=== PATIENT | male | born 1935 | race Caucasian/White ===

== ENCOUNTER 2019-03-29 21:10 | Inpatient (IN) | payer MEDICARE, OTHER ==
[~2019-03-29] VITALS: Ht 154.9 cm; Wt 46.3 kg
--- NOTE | 2019-03-29 21:30 | NUR ---
ED Nurse Note: Recieved pt BIBA from home, here with c/o generalized weakness progressing for past week, pt has hx of colon cancer and just released from hospital 1 week ago per daughter, pt has left colostomy, right nephrostomy and suprapubic cath, no drainage from suprapubic, daughter states since release from hospital, small amount noted in nephrostomy, pt immediately gowned and placed on monitoring, IV line placed also and labs, will resume care as ordered and closely monitor.
[2019-03-29 21:56] LABS: HEMATOCRIT 30.2 % (42.0-52.0); HEMOGLOBIN 9.6 G/DL (14.2-18.0); MEAN CORPUSCULAR VOLUME 90 FL (80-99); PLATELET COUNT 437 K/UL (150-450); RED BLOOD COUNT 3.37 M/UL (4.70-6.10); RED CELL DISTRIBUTION WIDTH 13.6 % (11.6-14.8); WHITE BLOOD COUNT 20.1 K/UL (4.8-10.8)
[2019-03-29 22:26] LABS: APPEARANCE,URINE VERY CLOUDY; BILIRUBIN, URINE NEGATIVE (NEGATIVE); GLUCOSE, URINE (UA) NEGATIVE (NEGATIVE); KETONES,URINE 1+ (NEGATIVE); LEUKOCYTE ESTERASE ,URINE 3+ (NEGATIVE); NITRITE,URINE NEGATIVE (NEGATIVE); PH,URINE 6.5 (4.5-8.0); PROTEIN,URINE 4+ (NEGATIVE); UROBILINOGEN,URINE 1 MG/DL (0.0-1.0)
[2019-03-29 22:27] LABS: COLOR,URINE YELLOW
[2019-03-29 22:30] VITALS: BP 132/44
[2019-03-29] MEDS ORDERED: Morphine Sulfate 2mg/ml Inj(IV/IM USE ONLY) IVP ONE (22:30)
--- NOTE | 2019-03-29 22:30 | Emergency Room Report ---
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 He has a nephrostomy tube and suprapubic catheter. According to the daughter suprapubic catheter has been working for a week now. He was doing well until today when he started getting weak and weaker. Tonight when she came home, he had altered mental status. Very weak. [place] warm to the touch. Usually when this happened he has an infection. No nausea no vomiting. Decreased appetite. Does have pain to the suprapubic area. This seem to be worse than usual. She called 911 and he was brought here. Allergies: Coded Allergies: No Known Allergies (Unverified , 03/29/19) Patient History Past Medical History: see triage record, old chart reviewed Past Surgical History: other Pertinent Family History: none Social History: Denies: smoking Immunizations: other Reviewed Nursing Documentation: PMH: Agreed; PSxH: Agreed Nursing Documentation-PMH Past Medical History: No History, Except For Hx Cancer: Yes - Rectal Cancer Review of Systems Constitutional: Reports: fever Eye: Denies: eye pain, blurred vision ENT: Denies: ear pain, nose congestion, throat swelling Respiratory: Denies: cough, shortness of breath Cardiovascular: Denies: chest pain, palpitations Gastrointestinal: Denies: abdominal pain, diarrhea, nausea, vomiting Genitourinary: Reports: dysuria Musculoskeletal: Denies: back pain, joint pain Skin: Denies: rash Neurological: Denies: headache, numbness Endocrine: Denies: increased thirst, increased urine Hematologic/Lymphatic: Denies: easy bruising All Other Systems: negative except mentioned in HPI Physical Exam Vital Signs Date Time Temp Pulse Resp B/P (MAP) Pulse Ox O2 Delivery O2 Flow Rate FiO2 03/29/19 21:05 98.1 70 18 104/57 (73) 98 Room Air Vitals unremarkable Sp02 EP Interpretation: reviewed, normal General Appearance: well appearing, alert, Chronically Ill Head: normocephalic, atraumatic Eyes: bilateral eye PERRL, bilateral eye EOMI ENT: hearing grossly normal, normal pharynx Neck: full range of motion, supple, no meningismus Respiratory: chest non-tender, lungs clear, normal breath sounds Cardiovascular #1: regular rate, rhythm, no murmur Gastrointestinal: normal bowel sounds, non tender, no mass, no organomegaly, no bruit, non-distended Genitourinary: other - Suprapubic catheter with cloudy scant urine output. Right nephrostomy tube with cloudy urine Musculoskeletal: back normal, normal range of motion, gait/station normal Psychiatric: mood/affect normal Procedures Additional Procedure Procedure Narrative Procedure: Suprapubic catheter replacement Indication: Suprapubic catheter malfunction Description: I deflate the balloon and remove the old [place] suprapubic catheter. I saw that the stoma is wider than the 12 [place] catheter. I elected to place a 16 [place] Carrillo. It went in without any difficulty. It flushes easily. There was urine output. Patient tolerated surgery without any problem. This was done under sterile condition. Medical Decision Making Diagnostic Impression: Primary Impression: Sepsis Qualified Codes: A41.9 - Sepsis, unspecified organism; R65.20 - Severe sepsis without septic shock; N17.9 - Acute kidney failure, unspecified Additional Impressions: UTI (urinary tract infection) Qualified Codes: N30.00 - Acute cystitis without hematuria Suprapubic catheter dysfunction Qualified Codes: T83.010A - Breakdown (mechanical) of cystostomy catheter, initial encounter Acute metabolic encephalopathy Anemia Qualified Codes: D64.9 - Anemia, unspecified CKD (chronic kidney disease) Qualified Codes: N18.9 - Chronic kidney disease, unspecified JOSE MANUEL (acute kidney injury) ER Course Patient with sepsis secondary to UTI. He has a complicated history with metastatic colon cancer with mets to the bladder and kidney. He has nephrostomy and suprapubic catheter. This increases risk for infection. His nephrostomy tube is functioning fine. His suprapubic catheter was not draining. I removed it and replaced another one. The old one was clogged. She improved with IV fluids. Unknown kidney function baseline. The daughter did say that he has 1 functioning kidney and there is some abnormality. She does not know baseline creatinine. I gave him wide spectrum antibiotics. No evidence of any pneumonia, ACS, PE, dissection Tamiflu. There is no focal deficit to warrant a CT scan. I discussed the case with Dr. Alberto who will admit. EKG Diagnostic Results Rate: normal Rhythm: NSR ST Segments: other - RBBB Rhythm Strip Diag. Results EP Interpretation: yes Rate: 88 Rhythm: NSR, no PVC's, no ectopy Chest X-Ray Diagnostic Results Chest X-Ray Diagnostic Results : Chest X-Ray Ordered: Yes # of Views/Limited/Complete: 1 View Indication: Other - ams EP Interpretation: Yes Interpretation: no consolidation, no effusion, no pneumothorax, no acute cardiopulmonary disease Impression: No acute disease Electronically Signed by: Javier Copeland MD Last Vital Signs Date Time Temp Pulse Resp B/P (MAP) Pulse Ox O2 Delivery O2 Flow Rate FiO2 03/29/19 21:30 70 18 Room Air 03/29/19 21:05 98.1 104/57 (73) 98 Status: improved Disposition: ADMITTED INPATIENT Condition: Serious Javier Copeland MD Mar 29, 2019 22:30
[2019-03-29 22:32] LABS: ANION GAP 12 mmol/L (5-15); BLOOD UREA NITROGEN 51 mg/dL (7-18); CALCIUM 9.6 MG/DL (8.5-10.1); CARBON DIOXIDE 24 MMOL/L (21-32); CHLORIDE 99 MMOL/L (98-107); CREATININE 2.4 MG/DL (0.55-1.30); SODIUM 134 MMOL/L (136-145)
[2019-03-29 22:45] LABS: ALANINE AMINOTRANSFERASE 112 U/L (12-78); ALBUMIN 1.9 G/DL (3.4-5.0); ALBUMIN/GLOBULIN RATIO 0.3 (1.0-2.7); ALKALINE PHOSPHATASE 343 U/L (46-116); ASPARTATE AMINO TRANSFERASE 105 U/L (15-37); BILIRUBIN,TOTAL 0.9 MG/DL (0.2-1.0); CKMB 0.8 NG/ML (0.0-3.6); CREATINE KINASE 38 U/L (26-308)
[2019-03-29] MEDS ORDERED: Cefepime HCl 2 GM in D5W 55 ML IVPB ONE (22:45)
--- NOTE | 2019-03-29 23:25 | Emergency Room Report ---
Sepsis Event Note Evaluation Current Stage of Sepsis: Sepsis Possible Source: Genitourinary Focused Exam Allergies: Coded Allergies: No Known Allergies (Unverified , 03/29/19) Date Exam Occurred: Mar 29, 2019 Time Exam Occurred: 23:24 Laboratory Studies Laboratory Tests Test 03/29/19 21:40 03/29/19 22:05 White Blood Count 20.1 K/UL (4.8-10.8) H Red Blood Count 3.37 M/UL (4.70-6.10) L Hemoglobin 9.6 G/DL (14.2-18.0) L Hematocrit 30.2 % (42.0-52.0) L Mean Corpuscular Volume 90 FL (80-99) Mean Corpuscular Hemoglobin 28.4 PG (27.0-31.0) Mean Corpuscular Hemoglobin Concent 31.7 G/DL (32.0-36.0) L Red Cell Distribution Width 13.6 % (11.6-14.8) Platelet Count 437 K/UL (150-450) Mean Platelet Volume 8.6 FL (6.5-10.1) Neutrophils (%) (Auto) % (45.0-75.0) Lymphocytes (%) (Auto) % (20.0-45.0) Monocytes (%) (Auto) % (1.0-10.0) Eosinophils (%) (Auto) % (0.0-3.0) Basophils (%) (Auto) % (0.0-2.0) Differential Total Cells Counted 100 Neutrophils % (Manual) 88 % (45-75) H Lymphocytes % (Manual) 4 % (20-45) L Monocytes % (Manual) 4 % (1-10) Eosinophils % (Manual) 0 % (0-3) Basophils % (Manual) 0 % (0-2) Band Neutrophils 4 % (0-8) Platelet Estimate Adequate Platelet Morphology Normal Red Blood Cell Morphology Normal Sodium Level 134 MMOL/L (136-145) L Potassium Level 4.0 MMOL/L (3.5-5.1) Chloride Level 99 MMOL/L (98-107) Carbon Dioxide Level 24 MMOL/L (21-32) Anion Gap 12 mmol/L (5-15) Blood Urea Nitrogen 51 mg/dL (7-18) H Creatinine 2.4 MG/DL (0.55-1.30) H Estimat Glomerular Filtration Rate 25.9 mL/min (>60) Glucose Level 141 MG/DL (74-106) H Lactic Acid Level 1.20 mmol/L (0.4-2.0) Calcium Level 9.6 MG/DL (8.5-10.1) Total Bilirubin 0.9 MG/DL (0.2-1.0) Aspartate Amino Transf (AST/SGOT) 105 U/L (15-37) H Alanine Aminotransferase (ALT/SGPT) 112 U/L (12-78) H Alkaline Phosphatase 343 U/L (46-116) H Total Creatine Kinase 38 U/L (26-308) Creatine Kinase MB 0.8 NG/ML (0.0-3.6) Creatine Kinase MB Relative Index 2.1 Troponin I 0.000 ng/mL (0.000-0.056) Total Protein 7.5 G/DL (6.4-8.2) Albumin 1.9 G/DL (3.4-5.0) L Globulin 5.6 g/dL Albumin/Globulin Ratio 0.3 (1.0-2.7) L Urine Color Yellow Urine Appearance Very cloudy Urine pH 6.5 (4.5-8.0) Urine Specific [place] 1.010 (1.005-1.035) Urine Protein 4+ (NEGATIVE) H Urine Glucose (UA) Negative (NEGATIVE) Urine Ketones 1+ (NEGATIVE) H Urine Blood 5+ (NEGATIVE) H Urine Nitrite Negative (NEGATIVE) Urine Bilirubin Negative (NEGATIVE) Urine Urobilinogen 1 MG/DL (0.0-1.0) H Urine Leukocyte Esterase 3+ (NEGATIVE) H Urine RBC Tntc /HPF (0 - 0) H Urine WBC Tntc /HPF (0 - 0) H Urine Squamous Epithelial Cells None /LPF (NONE/OCC) Urine Bacteria Many /HPF (NONE) H Vital Signs Last 24 Hour Vital Signs Date Time Temp Pulse Resp B/P (MAP) Pulse Ox O2 Delivery O2 Flow Rate FiO2 03/29/19 22:30 98.1 79 18 132/44 98 Room Air 03/29/19 21:30 70 18 Room Air 03/29/19 21:05 98.1 70 18 104/57 (73) 98 Room Air Respiratory Exam: Clear Cardiovascular Exam: RRR, S1, S2 Capillary Refill: Less Than 2 Seconds Peripheral Pulse: Strong Pulse Location: Radial Skin Exam: Normal Turgor Javier Copeland MD Mar 29, 2019 23:24
[2019-03-29] MEDS ORDERED: Miralax 17gm pkt ORAL PRN (23:45)
[2019-03-29] MEDS ORDERED: DiphenhydrAMINE 25mg Tab ORAL PRN (23:45)
[2019-03-29] MEDS ORDERED: Nitroglycerin Subl 0.4mg tab SL PRN (23:45)
[2019-03-30] VITALS (9 sets, daily range): BP systolic 111–144; BP diastolic 43–61
--- NOTE | 2019-03-30 | NUR ---
ED Nurse Note: Pt continues to rest in bed, on cardiac monitoring, IV site patent, pt completed IV antibiotics, tolerated well, no s/s of adverse reaction noted, v/s stable, will continue to closely monitor, pt has admit orders, no beds available, will continue to provide needed care in ED.
--- NOTE | 2019-03-30 01:25 | NUR ---
ED Nurse Note: MD changed pt suprapubic cath, also irrigated with no return, nephrostomy continues to drain small amounts only, pt on monitoring, medicated for pain, IV suite patent, pt assisted with re-positioning with pilows, no changes or increased distress noted, will board pt and continue to closely monitor, pt room changed and also placed on striker bed.
[2019-03-30] MEDS: D5 1/2NS 1,000 ML IV SCH ×2 (01:36→14:04)
[2019-03-30] MEDS ORDERED: Morphine Sulfate 2mg/ml Inj(IV/IM USE ONLY) IVP ONE (02:00)
[2019-03-30 02:54] LABS: CREATINE KINASE 41 U/L (26-308)
--- NOTE | 2019-03-30 03:30 | NUR ---
ED Nurse Note: No changes in condition or acute distress noted, pt sleeping, on cardiac monitoring, IV site patent with fluids infusing, tolerating well, suprapubic cath continues to have very little to no drainage return, small amount in nephrostomy, MD aware, pt assisted with re-positioning, nad noted, will continue to closely monitor.
--- NOTE | 2019-03-30 05:45 | NUR ---
ED Nurse Note: Pt continues to sleep in bed, awakened and am labs drawn and sent, pt swabs collected for admission, remains awake and alert, assisted with re-positioning, no acute chagnes noted, all caths intact, pt scrotum remains swollen, continues with little to no drainage from nephrostomy and suprapubic, IV site patent with fluids infusing, will continue to monitor and send to floor bed for admission.
[2019-03-30 06:32] LABS: APPEARANCE,URINE CLOUDY; BILIRUBIN, URINE NEGATIVE (NEGATIVE); GLUCOSE, URINE (UA) NEGATIVE (NEGATIVE); KETONES,URINE 1+ (NEGATIVE); LEUKOCYTE ESTERASE ,URINE 3+ (NEGATIVE); NITRITE,URINE NEGATIVE (NEGATIVE); PH,URINE 6 (4.5-8.0); PROTEIN,URINE 4+ (NEGATIVE); UROBILINOGEN,URINE 1 MG/DL (0.0-1.0)
[2019-03-30 06:36] LABS: HEMATOCRIT 28.1 % (42.0-52.0); HEMOGLOBIN 9.3 G/DL (14.2-18.0); MEAN CORPUSCULAR VOLUME 87 FL (80-99); PLATELET COUNT 404 K/UL (150-450); RED BLOOD COUNT 3.22 M/UL (4.70-6.10); RED CELL DISTRIBUTION WIDTH 12.9 % (11.6-14.8); WHITE BLOOD COUNT 20.2 K/UL (4.8-10.8)
[2019-03-30 06:55] LABS: COLOR,URINE YELLOW
[2019-03-30 07:08] LABS: ALANINE AMINOTRANSFERASE 96 U/L (12-78); ALBUMIN 1.6 G/DL (3.4-5.0); ALBUMIN/GLOBULIN RATIO 0.3 (1.0-2.7); ALKALINE PHOSPHATASE 290 U/L (46-116); AMYLASE 130 U/L (25-115); ANION GAP 12 mmol/L (5-15); ASPARTATE AMINO TRANSFERASE 91 U/L (15-37); BILIRUBIN,TOTAL 0.7 MG/DL (0.2-1.0); BLOOD UREA NITROGEN 44 mg/dL (7-18); CALCIUM 8.7 MG/DL (8.5-10.1); CARBON DIOXIDE 19 MMOL/L (21-32); CHLORIDE 106 MMOL/L (98-107); CREATININE 2.1 MG/DL (0.55-1.30); POTASSIUM 4.1 MMOL/L (3.5-5.1); SODIUM 137 MMOL/L (136-145)
--- NOTE | 2019-03-30 07:40 | NUR ---
HAND-OFF: Report given to ULICES Valente.
--- NOTE | 2019-03-30 09:37 | NUR ---
ED Nurse Note:swabs are sent to labs, pt. is comfortable, still NPO, given meds
[2019-03-30] MEDS: Pantoprazole Inj IVP SCH (09:40)
[2019-03-30] MEDS: Heparin 5000 units/ml inj SUBQ SCH ×2 (09:42→21:53)
--- NOTE | 2019-03-30 12:23 | Diagnostic Imaging Report ---
Indication: Dyspnea Comparison: None A single view chest radiograph was obtained. Findings: No definite infiltrate or pulmonary vascular congestion identified. The heart is normal in size. Sternotomy noted. The aorta is mildly enlarged consistent with atherosclerotic vascular disease. The bones are osteopenic. Impression: No acute disease
--- NOTE | 2019-03-30 13:00 | NUR ---
ED Nurse Note:called report to 4 east- pt. was taken up stairs
--- NOTE | 2019-03-30 13:05 | NUR ---
NURSE NOTES: Report received from Sidra. Patient is presenting with generalized weakness due to sepsis and UTI. Registered Public Surveyor phone used to speak with patient due to primary language being [place]. Patient found to be alert to person and place. patient currently on room air, does not appear to be in respiratory distress. 20 scott IV noted in right forearm with IV fluids running per MD orders. Colostomy noted on left lower abdomen. Stoma pink and appears healthy. Draining soft brown stool. Colostomy in place and patent. Super pubic catheter present with drainage back in place. Draining clear yellow urine. Nephrostomy tube present with drainage bag. Draining clear yellow urine. 350 cc emptied from nephrostomy bag. Skin assessment done. No skin issues. Skin dry and intact. Patient does not appear to be in pain at this time. Patient given sponge bath and repositioned in bed. Upon assessment patient found to have a fall score of 60, placing him at a high risk for fall. Yellow socks placed, sign on door, bed alarm on, and will endorse to next shift. Will continue to follow plan of care.
--- NOTE | 2019-03-30 13:30 | NUR ---
NURSE NOTES: Patient identified as a high fall risk. score of 60. Made acute care nursing assistant Mo aware. Will preform frequent checks. Bed locked, alarmed zone 1, and in lowest position. Sign posted on door. Yellow socks on.
--- NOTE | 2019-03-30 14:06 | Consultation ---
History of Present Illness General Date patient seen: Mar 30, 2019 Chief Complaint: Generalized Weakness Present Illness HPI 83 y/o M with hx of Stage IV colon CA with mets to Kidney and bladder s/p resection and colostomy, s/p suprapubic catheter, s/p nephrostomy catheter presented to ED on 03/29 with weakness, altered mental status, decreased appetite and suprapubic pain. No report of nausea and vomiting Allergies: Coded Allergies: No Known Allergies (Unverified , 03/29/19) Patient History Healthcare decision maker Resuscitation status Advanced Directive on File Patient History Narrative Pmhx: as above Shx: Denies: smoking Fhx: non contributory Physical Exam Physical Exam Narrative General Appearance: well appearing, alert, Chronically Ill Head: normocephalic, atraumatic Eyes: bilateral eye PERRL, bilateral eye EOMI ENT: hearing grossly normal, normal pharynx Neck: full range of motion, supple, no meningismus Respiratory: chest non-tender, lungs clear, normal breath sounds Cardiovascular : regular rate, rhythm, no murmur Gastrointestinal: normal bowel sounds, non tender, no mass, no organomegaly, no bruit, non-distended Genitourinary: other - Suprapubic catheter with cloudy scant urine output. Right nephrostomy tube with cloudy urine Musculoskeletal: back normal, normal range of motion, gait/station normal Psychiatric: mood/affect normal Last 24 Hour Vital Signs Date Time Temp Pulse Resp B/P (MAP) Pulse Ox O2 Delivery O2 Flow Rate FiO2 03/30/19 13:00 98.4 77 20 124/43 99 Room Air 03/30/19 13:00 98.4 77 20 124/43 99 Room Air 03/30/19 09:35 98.4 78 18 133/48 99 Room Air 03/30/19 07:00 98.4 94 18 135/48 100 Room Air 03/30/19 05:45 98.1 92 18 140/52 100 Room Air 03/30/19 03:30 98.1 77 15 132/58 99 Room Air 03/30/19 02:30 98.1 03/30/19 01:45 98.1 71 18 111/61 98 Room Air 03/30/19 00:00 98.1 83 18 122/56 98 Room Air 03/29/19 22:58 98.1 03/29/19 22:30 98.1 79 18 132/44 98 Room Air 03/29/19 21:30 70 18 Room Air 03/29/19 21:05 98.1 70 18 104/57 (73) 98 Room Air Intake and Output 03/29/19 03/30/19 19:00 07:00 Output Total 100 ml Balance -100 ml Output Urine Total 100 ml Laboratory Tests Test 03/29/19 21:30 03/29/19 21:40 03/29/19 22:05 03/30/19 06:00 Uric Acid 7.2 MG/DL (2.6-7.2) Total Creatine Kinase 41 U/L (26-308) 38 U/L (26-308) White Blood Count 20.1 K/UL (4.8-10.8) H 20.2 K/UL (4.8-10.8) H Red Blood Count 3.37 M/UL (4.70-6.10) L 3.22 M/UL (4.70-6.10) L Hemoglobin 9.6 G/DL (14.2-18.0) L 9.3 G/DL (14.2-18.0) L Hematocrit 30.2 % (42.0-52.0) L 28.1 % (42.0-52.0) L Mean Corpuscular Volume 90 FL (80-99) 87 FL (80-99) Mean Corpuscular Hemoglobin 28.4 PG (27.0-31.0) 29.0 PG (27.0-31.0) Mean Corpuscular Hemoglobin Concent 31.7 G/DL (32.0-36.0) L 33.2 G/DL (32.0-36.0) Red Cell Distribution Width 13.6 % (11.6-14.8) 12.9 % (11.6-14.8) Platelet Count 437 K/UL (150-450) 404 K/UL (150-450) Mean Platelet Volume 8.6 FL (6.5-10.1) 7.3 FL (6.5-10.1) Neutrophils (%) (Auto) % (45.0-75.0) % (45.0-75.0) Lymphocytes (%) (Auto) % (20.0-45.0) % (20.0-45.0) Monocytes (%) (Auto) % (1.0-10.0) % (1.0-10.0) Eosinophils (%) (Auto) % (0.0-3.0) % (0.0-3.0) Basophils (%) (Auto) % (0.0-2.0) % (0.0-2.0) Differential Total Cells Counted 100 100 Neutrophils % (Manual) 88 % (45-75) H 88 % (45-75) H Lymphocytes % (Manual) 4 % (20-45) L 5 % (20-45) L Monocytes % (Manual) 4 % (1-10) 7 % (1-10) Eosinophils % (Manual) 0 % (0-3) 0 % (0-3) Basophils % (Manual) 0 % (0-2) 0 % (0-2) Band Neutrophils 4 % (0-8) 0 % (0-8) Platelet Estimate Adequate Adequate Platelet Morphology Normal Normal Red Blood Cell Morphology Normal Sodium Level 134 MMOL/L (136-145) L 137 MMOL/L (136-145) Potassium Level 4.0 MMOL/L (3.5-5.1) 4.1 MMOL/L (3.5-5.1) Chloride Level 99 MMOL/L (98-107) 106 MMOL/L (98-107) Carbon Dioxide Level 24 MMOL/L (21-32) 19 MMOL/L (21-32) L Anion Gap 12 mmol/L (5-15) 12 mmol/L (5-15) Blood Urea Nitrogen 51 mg/dL (7-18) H 44 mg/dL (7-18) H Creatinine 2.4 MG/DL (0.55-1.30) H 2.1 MG/DL (0.55-1.30) H Estimat Glomerular Filtration Rate 25.9 mL/min (>60) 30.2 mL/min (>60) Glucose Level 141 MG/DL (74-106) H 139 MG/DL (74-106) H Lactic Acid Level 1.20 mmol/L (0.4-2.0) Calcium Level 9.6 MG/DL (8.5-10.1) 8.7 MG/DL (8.5-10.1) Total Bilirubin 0.9 MG/DL (0.2-1.0) 0.7 MG/DL (0.2-1.0) Aspartate Amino Transf (AST/SGOT) 105 U/L (15-37) H 91 U/L (15-37) H Alanine Aminotransferase (ALT/SGPT) 112 U/L (12-78) H 96 U/L (12-78) H Alkaline Phosphatase 343 U/L (46-116) H 290 U/L (46-116) H Creatine Kinase MB 0.8 NG/ML (0.0-3.6) Creatine Kinase MB Relative Index 2.1 Troponin I 0.000 ng/mL (0.000-0.056) Total Protein 7.5 G/DL (6.4-8.2) 6.8 G/DL (6.4-8.2) Albumin 1.9 G/DL (3.4-5.0) L 1.6 G/DL (3.4-5.0) L Globulin 5.6 g/dL 5.2 g/dL Albumin/Globulin Ratio 0.3 (1.0-2.7) L 0.3 (1.0-2.7) L Urine Color Yellow Yellow Urine Appearance Very cloudy Cloudy Urine pH 6.5 (4.5-8.0) 6 (4.5-8.0) Urine Specific [place] 1.010 (1.005-1.035) 1.010 (1.005-1.035) Urine Protein 4+ (NEGATIVE) H 4+ (NEGATIVE) H Urine Glucose (UA) Negative (NEGATIVE) Negative (NEGATIVE) Urine Ketones 1+ (NEGATIVE) H 1+ (NEGATIVE) H Urine Blood 5+ (NEGATIVE) H 5+ (NEGATIVE) H Urine Nitrite Negative (NEGATIVE) Negative (NEGATIVE) Urine Bilirubin Negative (NEGATIVE) Negative (NEGATIVE) Urine Urobilinogen 1 MG/DL (0.0-1.0) H 1 MG/DL (0.0-1.0) H Urine Leukocyte Esterase 3+ (NEGATIVE) H 3+ (NEGATIVE) H Urine RBC Tntc /HPF (0 - 0) H 10-15 /HPF (0 - 0) H Urine WBC Tntc /HPF (0 - 0) H Tntc /HPF (0 - 0) H Urine Squamous Epithelial Cells None /LPF (NONE/OCC) Occasional /LPF Urine Bacteria Many /HPF (NONE) H Moderate /HPF (NONE) H Hypochromasia 1+ Activated Partial Thromboplast Time 33 SEC (23-33) Urine Transitional Epithelial Cells /LPF (NONE) Urine Eosinophils None seen (NONE SEEN) Urine Osmolality 353 mOsm/kg (429-449) L Urine Random Creatinine Pending Urine Random Microalbumin Pending Urine Random Sodium 31 mmol/L (20-110) Urine Microalbumin/Creatinine Ratio Pending Amylase Level 130 U/L (25-115) H Lipase 376 U/L (73-393) Microbiology Date/Time Source Procedure Growth Status 03/29/19 22:05 Urine,Clean Catch Urine Culture - Preliminary Gram Negative Bacillus 1 Resulted Height (Feet): 5 Height (Inches): 2.00 Weight (Pounds): 110 Medications Current Medications Medications (Trade) Dose Ordered Sig/Anamaria Route PRN Reason Start Time Stop Time Status Last Admin Dose Admin Acetaminophen (Tylenol) 650 mg Q4H PRN ORAL fever 03/29/19 23:45 04/28/19 23:44 Dextrose (Dextrose 50%) 25 ml Q30M PRN IV Hypoglycemia 03/29/19 23:45 04/28/19 23:44 Dextrose (Dextrose 50%) 50 ml Q30M PRN IV Hypoglycemia 03/29/19 23:45 04/28/19 23:44 Dextrose/Sodium Chloride 1,000 ml @ 75 mls/hr [id number] IV 03/29/19 23:34 04/28/19 23:33 03/30/19 01:36 Diphenhydramine HCl (Benadryl) 25 mg Q6H PRN ORAL Itching/Pruritis 03/29/19 23:45 04/28/19 23:44 Heparin Sodium (Porcine) (Heparin 5000 units/ml) 5,000 units EVERY 12 HOURS SUBQ 03/30/19 09:00 04/29/19 08:59 03/30/19 09:42 Nitroglycerin (Ntg) 0.4 mg Q5M X 3 DOSES PRN SL Prn Chest Pain 03/29/19 23:45 04/28/19 23:44 Ondansetron HCl (Zofran) 4 mg Q6H PRN IVP Nausea & Vomiting 03/29/19 23:45 04/28/19 23:44 Pantoprazole (Protonix) 40 mg DAILY IVP 03/30/19 09:00 04/29/19 08:59 03/30/19 09:40 Polyethylene Glycol (Miralax) 17 gm HSPRN PRN ORAL Constipation 03/29/19 23:45 04/28/19 23:44 Temazepam (Restoril) 15 mg HSPRN PRN ORAL Insomnia 03/29/19 23:45 04/05/19 23:44 Assessment/Plan Assessment/Plan: Abx: Cefepime x1 03/29 Assessment: UTI -u/a wbc tntc, nit neg, leuk +3; ucx >100k GNR Afebrile NO leukocytosis -CXR: no acute disease Stage IV colon CA with mets to Kidney and bladder s/p resection and colostomy s/p suprapubic catheter s/p nephrostomy catheter Plan: -Start empiric Zosyn for UTI pending ucx -f/u cx -Monitor CBC/CMP, temperatures -NT and SPC care -aspiration precautions Thank you for this consultation. Will continue to follow along with you. Discussed with Cristel Sharpe M.D. Mar 30, 2019 14:05
--- NOTE | 2019-03-30 14:34 | Diagnostic Imaging Report ---
Indication:Elevated Bun and Creatinine. Technique: Grayscale and duplex Doppler imaging of the kidneys performed. Comparison: None Findings: There is mild right hydronephrosis despite presence of a nephrostomy catheter which appears to be in good position. There is a small right renal cyst demonstrated measuring approximately 1 cm x 1.2 cm. The left kidney is abnormal. There is suggestion of multiple heterogeneous masses slightly echogenic in appearance within the left kidney. For example in the lower pole there is a 4 x 5 cm lesion. In the midpole there is a 3.7 x 3.6 cm lesion. In the upper pole there is a 4.5 cm lesion. Suggest correlation with contrast-enhanced CT.. The right kidney measures 10 cm. in length. The left kidney measures 12.2 cm. in length. The IVC is patent. Urinary bladder is unremarkable. Suprapubic catheter noted. Left lower quadrant colostomy noted. IMPRESSION: Abnormal appearance of the left kidney with suggestion of multiple lobular masses. Further evaluation with contrast-enhanced CT is recommended. Trace right hydronephrosis. Nephrostomy noted in place. Suprapubic catheter
--- NOTE | 2019-03-30 15:10 | Consultation ---
History of Present Illness General Date patient seen: Mar 30, 2019 Reason for Hospitalization: Generalized Weakness Present Illness HPI This is a very unfortunate 83-year-old male with stage IV colon cancer status post resection now with left-sided colostomy suprapubic catheter and left nephrostomy tube. Patient progressively worsening and admitted to [facility] for further work-up care and management. Surgery called to evaluate and assist with care. Patient seen, patient evaluated, chart reviewed. Patient is very uncomfortable laying in bed currently receiving ultrasound when I had seen him. Labs are reviewed imaging was reviewed. Allergies: Coded Allergies: No Known Allergies (Unverified , 03/29/19) Patient History Limited by: medical condition History Provided By: Medical Record, PMD Healthcare decision maker Resuscitation status Advanced Directive on File Past Medical/Surgical History Past Medical/Surgical History: (1) Anemia (2) Sepsis (3) UTI (urinary tract infection) (4) CKD (chronic kidney disease) (5) JOSE MANUEL (acute kidney injury) (6) Suprapubic catheter dysfunction (7) Acute metabolic encephalopathy Review of Systems Review of Symptoms General ROS: no weight loss or fever Psychological ROS: no depression or mood changes, no memory loss Ophthalmic ROS: no visual changes or eye irritation ENT ROS: no nasal congestion, hearing loss, dizziness Allergy and Immunology ROS: no allergic symptoms or urticaria Hematological and Lymphatic ROS: no swollen glands, unusual bleeding or bruising Endocrine ROS: no polyuria, polydipsia, weight changes, temperature intolerance Respiratory ROS: no cough, shortness of breath, or wheezing Cardiovascular ROS: no chest pain or dyspnea on exertion Gastrointestinal ROS: denies abdominal pain, bright red blood in stool. Musculoskeletal ROS: no myalgias or arthralgias Neurological ROS: no TIA or stroke symptoms Dermatological ROS: no new or changing skin lesions, rashes or pruritis difficult to obtain from patient given medical condition but denies above Physical Exam Physical Exam General appearance: alert, mild distress, appears stated age Head: Normocephalic, without obvious abnormality, atraumatic Eyes: conjunctivae/corneas clear. PERRL, EOM's intact. Fundi benign Throat: Lips, mucosa, and tongue normal. Teeth and gums normal Neck: supple, symmetrical, trachea midline, no adenopathy, thyroid: not enlarged, symmetric, no tenderness/mass/nodules, no carotid bruit and no JVD Lungs: clear to auscultation bilaterally Heart: regular rate and rhythm, S1, S2 normal, no murmur, click, rub or gallop Abdomen: soft, non-tender. left colostomy, suprapubic, left nephrostomy Extremities: extremities normal, atraumatic, no cyanosis or edema Pulses: 2+ and symmetric Skin: Skin color, texture, turgor normal. No rashes or lesions Neurologic: Grossly normal Last 24 Hour Vital Signs Date Time Temp Pulse Resp B/P (MAP) Pulse Ox O2 Delivery O2 Flow Rate FiO2 03/30/19 14:20 Room Air 03/30/19 13:00 98.4 77 20 124/43 99 Room Air 03/30/19 13:00 98.4 77 20 124/43 99 Room Air 03/30/19 09:35 98.4 78 18 133/48 99 Room Air 03/30/19 07:00 98.4 94 18 135/48 100 Room Air 03/30/19 05:45 98.1 92 18 140/52 100 Room Air 03/30/19 03:30 98.1 77 15 132/58 99 Room Air 03/30/19 02:30 98.1 03/30/19 01:45 98.1 71 18 111/61 98 Room Air 03/30/19 00:00 98.1 83 18 122/56 98 Room Air 03/29/19 22:58 98.1 03/29/19 22:30 98.1 79 18 132/44 98 Room Air 03/29/19 21:30 70 18 Room Air 03/29/19 21:05 98.1 70 18 104/57 (73) 98 Room Air Intake and Output 03/29/19 03/30/19 19:00 07:00 Output Total 100 ml Balance -100 ml Output Urine Total 100 ml Laboratory Tests Test 03/29/19 21:30 03/29/19 21:40 03/29/19 22:05 03/30/19 06:00 Uric Acid 7.2 MG/DL (2.6-7.2) Total Creatine Kinase 41 U/L (26-308) 38 U/L (26-308) White Blood Count 20.1 K/UL (4.8-10.8) H 20.2 K/UL (4.8-10.8) H Red Blood Count 3.37 M/UL (4.70-6.10) L 3.22 M/UL (4.70-6.10) L Hemoglobin 9.6 G/DL (14.2-18.0) L 9.3 G/DL (14.2-18.0) L Hematocrit 30.2 % (42.0-52.0) L 28.1 % (42.0-52.0) L Mean Corpuscular Volume 90 FL (80-99) 87 FL (80-99) Mean Corpuscular Hemoglobin 28.4 PG (27.0-31.0) 29.0 PG (27.0-31.0) Mean Corpuscular Hemoglobin Concent 31.7 G/DL (32.0-36.0) L 33.2 G/DL (32.0-36.0) Red Cell Distribution Width 13.6 % (11.6-14.8) 12.9 % (11.6-14.8) Platelet Count 437 K/UL (150-450) 404 K/UL (150-450) Mean Platelet Volume 8.6 FL (6.5-10.1) 7.3 FL (6.5-10.1) Neutrophils (%) (Auto) % (45.0-75.0) % (45.0-75.0) Lymphocytes (%) (Auto) % (20.0-45.0) % (20.0-45.0) Monocytes (%) (Auto) % (1.0-10.0) % (1.0-10.0) Eosinophils (%) (Auto) % (0.0-3.0) % (0.0-3.0) Basophils (%) (Auto) % (0.0-2.0) % (0.0-2.0) Differential Total Cells Counted 100 100 Neutrophils % (Manual) 88 % (45-75) H 88 % (45-75) H Lymphocytes % (Manual) 4 % (20-45) L 5 % (20-45) L Monocytes % (Manual) 4 % (1-10) 7 % (1-10) Eosinophils % (Manual) 0 % (0-3) 0 % (0-3) Basophils % (Manual) 0 % (0-2) 0 % (0-2) Band Neutrophils 4 % (0-8) 0 % (0-8) Platelet Estimate Adequate Adequate Platelet Morphology Normal Normal Red Blood Cell Morphology Normal Sodium Level 134 MMOL/L (136-145) L 137 MMOL/L (136-145) Potassium Level 4.0 MMOL/L (3.5-5.1) 4.1 MMOL/L (3.5-5.1) Chloride Level 99 MMOL/L (98-107) 106 MMOL/L (98-107) Carbon Dioxide Level 24 MMOL/L (21-32) 19 MMOL/L (21-32) L Anion Gap 12 mmol/L (5-15) 12 mmol/L (5-15) Blood Urea Nitrogen 51 mg/dL (7-18) H 44 mg/dL (7-18) H Creatinine 2.4 MG/DL (0.55-1.30) H 2.1 MG/DL (0.55-1.30) H Estimat Glomerular Filtration Rate 25.9 mL/min (>60) 30.2 mL/min (>60) Glucose Level 141 MG/DL (74-106) H 139 MG/DL (74-106) H Lactic Acid Level 1.20 mmol/L (0.4-2.0) Calcium Level 9.6 MG/DL (8.5-10.1) 8.7 MG/DL (8.5-10.1) Total Bilirubin 0.9 MG/DL (0.2-1.0) 0.7 MG/DL (0.2-1.0) Aspartate Amino Transf (AST/SGOT) 105 U/L (15-37) H 91 U/L (15-37) H Alanine Aminotransferase (ALT/SGPT) 112 U/L (12-78) H 96 U/L (12-78) H Alkaline Phosphatase 343 U/L (46-116) H 290 U/L (46-116) H Creatine Kinase MB 0.8 NG/ML (0.0-3.6) Creatine Kinase MB Relative Index 2.1 Troponin I 0.000 ng/mL (0.000-0.056) Total Protein 7.5 G/DL (6.4-8.2) 6.8 G/DL (6.4-8.2) Albumin 1.9 G/DL (3.4-5.0) L 1.6 G/DL (3.4-5.0) L Globulin 5.6 g/dL 5.2 g/dL Albumin/Globulin Ratio 0.3 (1.0-2.7) L 0.3 (1.0-2.7) L Urine Color Yellow Yellow Urine Appearance Very cloudy Cloudy Urine pH 6.5 (4.5-8.0) 6 (4.5-8.0) Urine Specific Taylor 1.010 (1.005-1.035) 1.010 (1.005-1.035) Urine Protein 4+ (NEGATIVE) H 4+ (NEGATIVE) H Urine Glucose (UA) Negative (NEGATIVE) Negative (NEGATIVE) Urine Ketones 1+ (NEGATIVE) H 1+ (NEGATIVE) H Urine Blood 5+ (NEGATIVE) H 5+ (NEGATIVE) H Urine Nitrite Negative (NEGATIVE) Negative (NEGATIVE) Urine Bilirubin Negative (NEGATIVE) Negative (NEGATIVE) Urine Urobilinogen 1 MG/DL (0.0-1.0) H 1 MG/DL (0.0-1.0) H Urine Leukocyte Esterase 3+ (NEGATIVE) H 3+ (NEGATIVE) H Urine RBC Tntc /HPF (0 - 0) H 10-15 /HPF (0 - 0) H Urine WBC Tntc /HPF (0 - 0) H Tntc /HPF (0 - 0) H Urine Squamous Epithelial Cells None /LPF (NONE/OCC) Occasional /LPF Urine Bacteria Many /HPF (NONE) H Moderate /HPF (NONE) H Hypochromasia 1+ Activated Partial Thromboplast Time 33 SEC (23-33) Urine Transitional Epithelial Cells /LPF (NONE) Urine Eosinophils None seen (NONE SEEN) Urine Osmolality 353 mOsm/kg (429-449) L Urine Random Creatinine Pending Urine Random Microalbumin Pending Urine Random Sodium 31 mmol/L (20-110) Urine Microalbumin/Creatinine Ratio Pending Amylase Level 130 U/L (25-115) H Lipase 376 U/L (73-393) Microbiology Date/Time Source Procedure Growth Status 03/29/19 22:05 Urine,Clean Catch Urine Culture - Preliminary Gram Negative Bacillus 1 Resulted Height (Feet): 5 Height (Inches): 1.00 Weight (Pounds): 107 Medications Current Medications Medications (Trade) Dose Ordered Sig/Anamaria Route PRN Reason Start Time Stop Time Status Last Admin Dose Admin Acetaminophen (Tylenol) 650 mg Q4H PRN ORAL fever 03/29/19 23:45 04/28/19 23:44 Dextrose (Dextrose 50%) 25 ml Q30M PRN IV Hypoglycemia 03/29/19 23:45 04/28/19 23:44 Dextrose (Dextrose 50%) 50 ml Q30M PRN IV Hypoglycemia 03/29/19 23:45 04/28/19 23:44 Dextrose/Sodium Chloride 1,000 ml @ 75 mls/hr [id number] IV 03/29/19 23:34 04/28/19 23:33 03/30/19 14:04 Diphenhydramine HCl (Benadryl) 25 mg Q6H PRN ORAL Itching/Pruritis 03/29/19 23:45 04/28/19 23:44 Heparin Sodium (Porcine) (Heparin 5000 units/ml) 5,000 units EVERY 12 HOURS SUBQ 03/30/19 09:00 04/29/19 08:59 03/30/19 09:42 Nitroglycerin (Ntg) 0.4 mg Q5M X 3 DOSES PRN SL Prn Chest Pain 03/29/19 23:45 04/28/19 23:44 Ondansetron HCl (Zofran) 4 mg Q6H PRN IVP Nausea & Vomiting 03/29/19 23:45 04/28/19 23:44 Pantoprazole (Protonix) 40 mg DAILY IVP 03/30/19 09:00 04/29/19 08:59 03/30/19 09:40 Piperacillin Sod/ Tazobactam Sod 3.375 gm/Sodium Chloride 110 ml @ 27.5 mls/hr Q12HR IVPB 03/30/19 15:00 04/06/19 14:59 Polyethylene Glycol (Miralax) 17 gm HSPRN PRN ORAL Constipation 03/29/19 23:45 04/28/19 23:44 Temazepam (Restoril) 15 mg HSPRN PRN ORAL Insomnia 03/29/19 23:45 04/05/19 23:44 Assessment/Plan Problem List: (1) Sepsis Assessment & Plan: 83-year-old male with history of stage IV colon cancer status post left colostomy left nephrostomy tube placement superior catheter placement presented with leukocytosis, abnormal labs, abnormal LFTs, pain. On evaluation sepsis likely secondary to patient's UTI. Currently on antibiotics as per infectious disease. Abdominal examination and complete examination performed and as above. No acute surgical intervention indicated or recommended. Pending completion of abdominal ultrasound for evaluation of liver and kidneys. Will follow with recommendations. Trend labs IV fluids Okay for diet from surgical standpoint Thank you will follow with recommendations ICD Codes: A41.9 - Sepsis, unspecified organism SNOMED: [id number], [id number] Qualifiers: Qualified Codes: A41.9 - Sepsis, unspecified organism; R65.20 - Severe sepsis without septic shock; N17.9 - Acute kidney failure, unspecified (2) Suprapubic catheter dysfunction Assessment & Plan: There is mild right hydronephrosis despite presence of a nephrostomy catheter which appears to be in good position. There is a small right renal cyst demonstrated measuring approximately 1 cm x 1.2 cm. The left kidney is abnormal. There is suggestion of multiple heterogeneous masses slightly echogenic in appearance within the left kidney. For example in the lower pole there is a 4 x 5 cm lesion. In the midpole there is a 3.7 x 3.6 cm lesion. In the upper pole there is a 4.5 cm lesion. Suggest correlation with contrast-enhanced CT.. The right kidney measures 10 cm. in length. The left kidney measures 12.2 cm. in length. The IVC is patent. Urinary bladder is unremarkable. Suprapubic catheter noted. Left lower quadrant colostomy noted. IMPRESSION: Abnormal appearance of the left kidney with suggestion of multiple lobular masses. Further evaluation with contrast-enhanced CT is recommended. Trace right hydronephrosis. Nephrostomy noted in place. Suprapubic catheter ICD Codes: T83.010A - Breakdown (mechanical) of cystostomy catheter, initial encounter SNOMED: 296223494 Qualifiers: Qualified Codes: T83.010A - Breakdown (mechanical) of cystostomy catheter, initial encounter Igor Parr Mar 30, 2019 15:10
[2019-03-30] MEDS: Piperacillin/Tazobactam 3.375 GM in NS 110 ML IVPB SCH ×2 (15:24→21:48)
--- NOTE | 2019-03-30 18:20 | History & Physical ---
History and Physical History & Physicial Doroteo Alberto MD Mar 30, 2019 18:20
--- NOTE | 2019-03-30 19:32 | NUR ---
HAND-OFF: Report given to Jasmyn RN. Endorsed that patient is a high fall risk with a score of 60. Patient's bed alarm is on, zone 1. Bed locked in lowest position. Yellow socks on. Sign on door
--- NOTE | 2019-03-30 19:40 | NUR ---
NURSE NOTES: RECEIVED PATIENT FROM ULICES ROCHA. PATIENT IS AWAKE, AAOX2, ON ROOM AIR, NO ACUTE DISTRESS NOTED. COLOSTOMY ON LEFT ABDOMEN, NEPHROSTOMY ON RIGHT ABDOMEN, AND SUPPRAPUBIC CATH ARE INTACT, DRAINING WELL. IV ON RIGHT FA 20G INTACT AND PATIENT. PATIENT IS A HIGH FALL RISK. NO ROOM AVAILABLE NEAR NURSES STATION. COMMUNICATED WITH STAFF FOR FREQUENT ROUNDING. BED IS LOCKED AND LOW, BED ALARMS ACTIVE, SIDE RAILS UP X2 AND CALL LIGHT IS WITHIN REACH. WILL CONTINUE TO MONITOR.
--- NOTE | 2019-03-30 21:45 | History and Physical Report ---
DATE OF ADMISSION: 03/30/2019 CHIEF COMPLAINT: Generalized weakness. 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 According to the daughter, the suprapubic catheter has been worked for a week for now and doing well until today where he started become feeling weak and some change of mental status. He has been very felt warm to touch, usually when this happens the family member is thinking about infection. He denies any nausea or vomiting. Decreased appetite. The patient subsequently was brought into the emergency department via EMS. Shortly after initial evaluation in the emergency department, the patient was admitted to the hospital with sepsis secondary to urinary tract infection as well as toxic metabolic encephalopathy. History is very limited secondary to the patient's status. History is mostly taken from the ER chart. The patient is a poor historian. PAST MEDICAL HISTORY/PAST SURGICAL HISTORY: Significant for stage IV colon cancer with metastasized to the kidney and bladder, status post resection with colostomy and nephrostomy tube placement and the suprapubic catheter. MEDICATIONS: At home, please refer to medication reconciliation. ALLERGIES: No known drug allergies. SOCIAL HISTORY: Denies any smoking, alcohol, or drugs. FAMILY HISTORY: Noncontributory. REVIEW OF SYSTEMS: Fever and dysuria. Denies any chest pain or shortness of breath. Denies any loss of consciousness. Denies any bright red blood per rectum. Denies any double vision. Denies any suicidal or homicidal ideation. PHYSICAL EXAMINATION: VITAL SIGNS: On admission from the ER, temperature 98.1, pulse of 70, respirations 18, and blood pressure 104/57. GENERAL: The patient is awake and responsive, but very chronically ill and cachectic. HEAD AND NECK: Pupils are equal and reactive to light. Extraocular movements intact. Neck was supple. No JVD. LUNGS: Good air entry. No wheezing or rales. Decreased air in bases. HEART: S1 and S2. Regular rhythm. No murmur or gallop. ABDOMEN: Soft, nondistended, and nontender. GENITOURINARY: Suprapubic catheter was noted. No sign of infection or drainage. Colostomy bag in the left side of abdomen was noted without any stool. No leakage or discharge. The patient has a suprapubic catheter in pelvic area with the right nephrostomy tube with cloudy urine. EXTREMITIES: No cyanosis, clubbing, or edema. Muscle atrophy was noted. RECTAL: Refused and deferred. PSYCHIATRIC: Mood and affect is intact. LABORATORY DATA: On admission from the emergency department, WBC of 20, hemoglobin 9.6, hematocrit is 30, and platelets is 437. Sodium 134, potassium 4.0, chloride 99, bicarbonate 24, BUN 51, creatinine 2.4, GFR is 25, and glucose is 141. AST of 105, ALT of 112, and alkaline phosphatase was 343. Troponin 0.00. Albumin is 1.9. PTT of 33. UA is +4 protein, +1 ketone, nitrite negative, painted RBC, painted WBC. Chest x-ray was noted to be no acute disease. Renal ultrasound abnormal appearance of the left kidney is suggestive of multiple lobular mass findings represent consider CT scan. Trace right hydronephrosis, nephrostomy tube was noted. ASSESSMENT.: 1. Sepsis secondary to urinary tract infection, possible with gram-negative rods, question gram-negative bacilli. 2. Severe dehydration. 3. Anemia of chronic disease. 4. Acute kidney injury, chronic insufficiency. 5. 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 6. Severe protein-calorie malnutrition. 7. Acute metabolic encephalopathy due to the sepsis, infection, and dehydration. PLAN: Admit the patient to medical floor. We will follow up with broad-spectrum antibiotic with Zosyn. IV hydration. Code status is Full Code. Discussed case with Dr. Dawson from Infectious Disease as well as Dr. Parr from General surgery. We will follow up with the laboratory as well as culture. DVT prophylaxis with heparin subcutaneous. Doroteo Alberto M.D. DR: KATHARINA JOB#: [id number] CC:
[2019-03-31] VITALS: BP 138/60
--- NOTE | 2019-03-31 00:44 | NUR ---
NURSE NOTES: RECEIVED ORDERS FROM DR. DOW TO UPGRADE DIET TO PUREED MOIST.
--- NOTE | 2019-03-31 00:45 | NUR ---
NURSE NOTES: PATIENT C/O OF 4/10 PAIN ON PENILE GLANS. REDNESS AND SCANT CLOUDY DISCHARGE UPON ASSESSMENT. INFORMED . AWARE.
[2019-03-31] MEDS: D5 1/2NS 1,000 ML IV SCH (02:14)
[2019-03-31 04:00] VITALS: BP 145/63
--- NOTE | 2019-03-31 06:39 | Infectious Diseases Prog Note ---
Assessment/Plan Assessment/Plan Abx: Cefepime x1 03/29 Zosyn 03/30- Assessment: UTI -u/a wbc tntc, nit neg, leuk +3; ucx >100k ESBl E coli Afebrile leukocytosis -CXR: no acute disease Stage IV colon CA with mets to Kidney and bladder s/p resection and colostomy s/p suprapubic catheter s/p nephrostomy catheter Plan: Ertapenem #1/5-7 03/31 DC Zosyn #2 -f/u cx -Monitor CBC/CMP, temperatures -NT and SPC care -aspiration precautions Thank you for this consultation. Will continue to follow along with you. Subjective Allergies: Coded Allergies: No Known Allergies (Unverified , 03/29/19) Subjective Afebrile. stable WBC Objective Vital Signs Last 24 Hour Vital Signs Date Time Temp Pulse Resp B/P (MAP) Pulse Ox O2 Delivery O2 Flow Rate FiO2 03/31/19 04:00 97.8 86 21 145/63 (90) 98 03/31/19 00:00 96.9 80 21 138/60 (86) 96 03/30/19 21:00 Room Air 03/30/19 20:00 97.4 88 21 144/58 (86) 97 03/30/19 16:00 97.8 81 18 134/56 (82) 96 03/30/19 14:20 Room Air 03/30/19 13:00 98.4 77 20 124/43 99 Room Air 03/30/19 13:00 98.4 77 20 124/43 99 Room Air 03/30/19 09:35 98.4 78 18 133/48 99 Room Air 03/30/19 07:00 98.4 94 18 135/48 100 Room Air Height (Feet): 5 Height (Inches): 1.00 Weight (Pounds): 107 Objective General Appearance: well appearing, alert, Chronically Ill Respiratory: chest non-tender, lungs clear, normal breath sounds Cardiovascular : regular rate, rhythm, no murmur Gastrointestinal: normal bowel sounds, non tender, no mass, no organomegaly, no bruit, non-distended Genitourinary: other - Suprapubic catheter with cloudy scant urine output. Right nephrostomy tube with cloudy urine Microbiology Date/Time Source Procedure Growth Status 03/29/19 21:20 Blood Blood Culture - Preliminary NO GROWTH AFTER 24 HOURS Resulted 03/29/19 21:10 Blood Blood Culture - Preliminary NO GROWTH AFTER 24 HOURS Resulted 03/29/19 22:05 Urine,Clean Catch Urine Culture - Preliminary Gram Negative Bacillus 1 Resulted Current Medications Medications (Trade) Dose Ordered Sig/Anamaria Route PRN Reason Start Time Stop Time Status Last Admin Dose Admin Acetaminophen (Tylenol) 650 mg Q4H PRN ORAL fever 03/29/19 23:45 04/28/19 23:44 Dextrose (Dextrose 50%) 25 ml Q30M PRN IV Hypoglycemia 03/29/19 23:45 04/28/19 23:44 Dextrose (Dextrose 50%) 50 ml Q30M PRN IV Hypoglycemia 03/29/19 23:45 04/28/19 23:44 Dextrose/Sodium Chloride 1,000 ml @ 75 mls/hr [id number] IV 03/29/19 23:34 04/28/19 23:33 03/31/19 02:14 Diphenhydramine HCl (Benadryl) 25 mg Q6H PRN ORAL Itching/Pruritis 03/29/19 23:45 04/28/19 23:44 Heparin Sodium (Porcine) (Heparin 5000 units/ml) 5,000 units EVERY 12 HOURS SUBQ 03/30/19 09:00 04/29/19 08:59 03/30/19 21:53 Nitroglycerin (Ntg) 0.4 mg Q5M X 3 DOSES PRN SL Prn Chest Pain 03/29/19 23:45 04/28/19 23:44 Ondansetron HCl (Zofran) 4 mg Q6H PRN IVP Nausea & Vomiting 03/29/19 23:45 04/28/19 23:44 Pantoprazole (Protonix) 40 mg DAILY IVP 03/30/19 09:00 04/29/19 08:59 03/30/19 09:40 Piperacillin Sod/ Tazobactam Sod 3.375 gm/Sodium Chloride 110 ml @ 27.5 mls/hr Q12HR IVPB 03/30/19 15:00 04/06/19 14:59 03/30/19 21:48 Polyethylene Glycol (Miralax) 17 gm HSPRN PRN ORAL Constipation 03/29/19 23:45 04/28/19 23:44 Temazepam (Restoril) 15 mg HSPRN PRN ORAL Insomnia 03/29/19 23:45 04/05/19 23:44 She Diaz MD Mar 31, 2019 06:39
[2019-03-31 07:38] LABS: INR 1.2 (0.9-1.1)
[2019-03-31 07:40] LABS: PHOSPHORUS 3.4 MG/DL (2.5-4.9)
[2019-03-31 07:44] LABS: HEMATOCRIT 27.2 % (42.0-52.0); HEMOGLOBIN 9.2 G/DL (14.2-18.0); MEAN CORPUSCULAR VOLUME 87 FL (80-99); PLATELET COUNT 372 K/UL (150-450); RED BLOOD COUNT 3.15 M/UL (4.70-6.10); RED CELL DISTRIBUTION WIDTH 13.2 % (11.6-14.8); WHITE BLOOD COUNT 18.3 K/UL (4.8-10.8)
--- NOTE | 2019-03-31 07:44 | NUR ---
HAND-OFF: Report given to ULICES Parekh.
--- NOTE | 2019-03-31 07:45 | Consultation ---
History of Present Illness General Date patient seen: Mar 31, 2019 Time patient seen: 07:00 Chief Complaint: Generalized Weakness Referring physician: Dr Alberto Reason for Consultation: critical care specialsit Present Illness HPI 83 years old male with past medical history of stage IV colon cancer, status post resection with a colostomy, metastasis to kidney and bladder, bilateral nephrostomy tube and suprapubic catheter, presented for evaluation due to altered mental status and generalized weakness. Patient reported pain in suprapubic area and decreased appetite No reported nausea or vomiting .plan no reported diarrhea. No fever or chills. Upon evaluation vital signs were stable. Laboratory work-up revealed WBC 20.1, hemoglobin 9.6 hematocrit 30.2 with neutrophils 88%. Sodium 134, BUN 51, creatinine 2.4. Glucose 141. AST 105, ALT 112, alkaline phosphatase 343. Albumin 1.9. Lactic acid 1.2. Urinalysis revealed gross evidence of UTI. Chest x-ray demonstrated no acute cardiopulmonary pathology. Patient subsequently admitted for further management. Allergies: Coded Allergies: No Known Allergies (Unverified , 03/29/19) Patient History Limited by: medical condition History Provided By: Medical Record Healthcare decision maker Resuscitation status Advanced Directive on File Past Medical/Surgical History Past Medical/Surgical History: (1) CKD (chronic kidney disease) (2) JOSE MANUEL (acute kidney injury) (3) Suprapubic catheter dysfunction (4) Acute metabolic encephalopathy (5) Anemia Review of Systems ROS Narrative Unable to obtain due to patient altered mental status Physical Exam General Appearance: other - frail, weak ,awake and resposnive male in NAD Lines, tubes and drains: peripheral HEENT: normocephalic, atraumatic, anicteric, mucous membranes moist Neck: non-tender, supple Respiratory/Chest: lungs clear, no respiratory distress, no accessory muscle use Cardiovascular/Chest: normal rate Abdomen: soft - mild diffused tenderness , other - colostomy with semisolid brownish output Genitourinary/Rectal: other - 2 nephrostomytubes with yellos cloudy output, s/ p catehter Extremities: no calf tenderness, no edema Skin Exam: warm/dry Neurologic: no motor/sensory deficits Last 24 Hour Vital Signs Date Time Temp Pulse Resp B/P (MAP) Pulse Ox O2 Delivery O2 Flow Rate FiO2 03/31/19 04:00 97.8 86 21 145/63 (90) 98 03/31/19 00:00 96.9 80 21 138/60 (86) 96 03/30/19 21:00 Room Air 03/30/19 20:00 97.4 88 21 144/58 (86) 97 03/30/19 16:00 97.8 81 18 134/56 (82) 96 03/30/19 14:20 Room Air 03/30/19 13:00 98.4 77 20 124/43 99 Room Air 03/30/19 13:00 98.4 77 20 124/43 99 Room Air 03/30/19 09:35 98.4 78 18 133/48 99 Room Air Intake and Output 03/30/19 03/31/19 19:00 07:00 Intake Total 232.5 ml 1037.5 ml Output Total 600 ml 500 ml Balance -367.5 ml 537.5 ml Intake IV Total 232.5 ml 1037.5 ml Output Urine Total 600 ml Other 500 ml # Voids 1 Laboratory Tests Test 03/31/19 06:40 White Blood Count Pending Red Blood Count Pending Hemoglobin Pending Hematocrit Pending Mean Corpuscular Volume Pending Mean Corpuscular Hemoglobin Pending Mean Corpuscular Hemoglobin Concent Pending Red Cell Distribution Width Pending Platelet Count Pending Mean Platelet Volume Pending Neutrophils (%) (Auto) Pending Lymphocytes (%) (Auto) Pending Monocytes (%) (Auto) Pending Eosinophils (%) (Auto) Pending Basophils (%) (Auto) Pending Erythrocyte Sedimentation Rate Pending Prothrombin Time 12.4 SEC (9.30-11.50) H Prothromb Time International Ratio 1.2 (0.9-1.1) H Activated Partial Thromboplast Time 37 SEC (23-33) H Sodium Level Pending Potassium Level Pending Chloride Level Pending Carbon Dioxide Level Pending Blood Urea Nitrogen Pending Creatinine Pending Estimat Glomerular Filtration Rate Pending Glucose Level Pending Calcium Level Pending Phosphorus Level Pending Magnesium Level Pending Total Bilirubin Pending Aspartate Amino Transf (AST/SGOT) Pending Alanine Aminotransferase (ALT/SGPT) Pending Alkaline Phosphatase Pending C-Reactive Protein, Quantitative Pending Total Protein Pending Albumin Pending Globulin Pending Amylase Level Pending Lipase Pending Height (Feet): 5 Height (Inches): 1.00 Weight (Pounds): 107 Medications Current Medications Medications (Trade) Dose Ordered Sig/Anamaria Route PRN Reason Start Time Stop Time Status Last Admin Dose Admin Acetaminophen (Tylenol) 650 mg Q4H PRN ORAL fever 03/29/19 23:45 04/28/19 23:44 Dextrose (Dextrose 50%) 25 ml Q30M PRN IV Hypoglycemia 03/29/19 23:45 04/28/19 23:44 Dextrose (Dextrose 50%) 50 ml Q30M PRN IV Hypoglycemia 03/29/19 23:45 04/28/19 23:44 Dextrose/Sodium Chloride 1,000 ml @ 75 mls/hr [id number] IV 03/29/19 23:34 04/28/19 23:33 03/31/19 02:14 Diphenhydramine HCl (Benadryl) 25 mg Q6H PRN ORAL Itching/Pruritis 03/29/19 23:45 04/28/19 23:44 Ertapenem 0.5 gm/ Sodium Chloride 55 ml @ 110 mls/hr Q24H IVPB 03/31/19 09:00 04/05/19 08:59 Heparin Sodium (Porcine) (Heparin 5000 units/ml) 5,000 units EVERY 12 HOURS SUBQ 03/30/19 09:00 04/29/19 08:59 03/30/19 21:53 Nitroglycerin (Ntg) 0.4 mg Q5M X 3 DOSES PRN SL Prn Chest Pain 03/29/19 23:45 04/28/19 23:44 Ondansetron HCl (Zofran) 4 mg Q6H PRN IVP Nausea & Vomiting 03/29/19 23:45 04/28/19 23:44 Pantoprazole (Protonix) 40 mg DAILY IVP 03/30/19 09:00 04/29/19 08:59 03/30/19 09:40 Polyethylene Glycol (Miralax) 17 gm HSPRN PRN ORAL Constipation 03/29/19 23:45 04/28/19 23:44 Temazepam (Restoril) 15 mg HSPRN PRN ORAL Insomnia 03/29/19 23:45 04/05/19 23:44 Assessment/Plan Assessment/Plan: ASSESSMENT stage IV metastatic colon CA to kidney and bladder, status post resection s/p catheter malfunctions acute encephalopathy, likely due to sepsis Sepsis UTI with E coli ESBL Acute metabolic encephalopathy Anemia Acute kidney injury on chronic kidney disease Colostomy status Nephrostomy tube and suprapubic catheter PLAN of CARE MS floor n.p.o. IV fluids ABX as per ID; follow-up with a CX CXR negative O2 HHN PRN aspiration precaution pain management DVT and GI prophylaxis colostomy care suprapubic and nephrostomy tube care monitor output care renal US with suggestion of multiply lobular mass left kidney; trace right hydronephrosis monitor renal parameters, lites, correct lites as needed, avoid nephrotoxic symptomatic care pain management monitor H&H with goal to keep hemoglobin above 7 case discussed and evaluated by supervising physician Isi Garcia NP Mar 31, 2019 07:45
--- NOTE | 2019-03-31 07:46 | NUR ---
NURSE NOTES: received report from Jasmyn,RN. patient in bed, Alert, oriented, verbally responsive. no respiratory distress noted. discomfort on tip of penis area. no drainage. no bleeding. keep clean and dry. IV on RFA20 running d51/2ns@75/hr. nephrostomy on rt abd. draining yellow. clear. supra pubic cath draining dark yellow. colostomy on left lower abd intact. bed in the lowest position and locked. call light within reach. will continue to provide plan of care.
[2019-03-31 07:48] LABS: ALANINE AMINOTRANSFERASE 92 U/L (12-78); ALBUMIN 1.4 G/DL (3.4-5.0); ALBUMIN/GLOBULIN RATIO 0.3 (1.0-2.7); ALKALINE PHOSPHATASE 290 U/L (46-116); AMYLASE 92 U/L (25-115); ANION GAP 11 mmol/L (5-15); ASPARTATE AMINO TRANSFERASE 104 U/L (15-37); BLOOD UREA NITROGEN 38 mg/dL (7-18); CALCIUM 8.9 MG/DL (8.5-10.1); CARBON DIOXIDE 20 MMOL/L (21-32); CHLORIDE 109 MMOL/L (98-107); POTASSIUM 3.6 MMOL/L (3.5-5.1); SODIUM 140 MMOL/L (136-145)
[2019-03-31 08:12] VITALS: BP 140/68
[2019-03-31] MEDS: Pantoprazole Inj IVP SCH ×2 (08:58→21:38)
[2019-03-31] MEDS: Ertapenem 0.5 GM in NS 55 ML IVPB SCH (08:59)
[2019-03-31] MEDS: Heparin 5000 units/ml inj SUBQ SCH ×2 (09:00→21:45)
[2019-03-31 12:00] VITALS: BP 143/70
--- NOTE | 2019-03-31 12:29 | NUR ---
NURSE NOTES: patient blood culture resulted with positive gram cocci. notified dr. Dawson. received order of blood culture x 2. get an order of vanco from Dr. Diaz. order noted and carried out.
--- NOTE | 2019-03-31 13:19 | NUR ---
NURSE NOTES: received order from Dr. Diaz. start Vancomycin pharmacy dose after obtain repeat 2sets of blood culture. order noted and carried out.
--- NOTE | 2019-03-31 14:22 | Consultation ---
Consult Note Consult Note Asked to eval at the request of dr Alberto for renal failure This is an 83-year-old male with a history of stage IV colon cancer status post resection with a colostomy. 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 He has a nephrostomy tube and suprapubic catheter. According to the daughter suprapubic catheter has been working for a week now. He was doing well until today when he started getting weak and weaker. Tonight when she came home, he had altered mental status. Very weak. [place] warm to the touch. Usually when this happened he has an infection. No nausea no vomiting. Decreased appetite. Does have pain to the suprapubic area. This seem to be worse than usual. She called 911 and he was brought here. No Known Allergies (Unverified , 03/29/19) Past Medical History: No History, Except For Hx Cancer: Yes - Rectal Cancer discussed with daughter who is PROFESSOR OF VOICE at [employer] Assessment/Plan Acute kidney injury on chronic kidney disease- dehydration stage IV metastatic colon CA to kidney and bladder, status post resection Colostomy status Nephrostomy tube and suprapubic catheter Sepsis , UTI Acute metabolic encephalopathy Anemia acute vs chronic Elevated LFTs Hydrate- Monitor renal parameters Anemia pat avoid nephrotoxics Monitor electrolytes Tomas Beck MD Mar 31, 2019 14:22
--- NOTE | 2019-03-31 14:49 | Surgery Progress Note ---
Surgery Progress Note Subjective Additional Comments leukocytosis improving labs noted exam stable Objective Last 24 Hour Vital Signs Date Time Temp Pulse Resp B/P (MAP) Pulse Ox O2 Delivery O2 Flow Rate FiO2 03/31/19 12:00 97.7 80 19 143/70 (94) 98 03/31/19 09:00 Room Air 03/31/19 08:12 97.8 86 21 140/68 (92) 97 03/31/19 04:00 97.8 86 21 145/63 (90) 98 03/31/19 00:00 96.9 80 21 138/60 (86) 96 03/30/19 21:00 Room Air 03/30/19 20:00 97.4 88 21 144/58 (86) 97 03/30/19 16:00 97.8 81 18 134/56 (82) 96 I&O Intake and Output 03/30/19 03/31/19 19:00 07:00 Intake Total 232.5 ml 1037.5 ml Output Total 600 ml 500 ml Balance -367.5 ml 537.5 ml Intake IV Total 232.5 ml 1037.5 ml Output Urine Total 600 ml Other 500 ml # Voids 1 Dressing: other Wound: other Drains: other Cardiovascular: RSR Respiratory: decreased breath sounds Abdomen: soft, present bowel sounds Extremities: no cyanosis Laboratory Tests Test 03/31/19 06:40 White Blood Count 18.3 K/UL (4.8-10.8) H Red Blood Count 3.15 M/UL (4.70-6.10) L Hemoglobin 9.2 G/DL (14.2-18.0) L Hematocrit 27.2 % (42.0-52.0) L Mean Corpuscular Volume 87 FL (80-99) Mean Corpuscular Hemoglobin 29.3 PG (27.0-31.0) Mean Corpuscular Hemoglobin Concent 33.8 G/DL (32.0-36.0) Red Cell Distribution Width 13.2 % (11.6-14.8) Platelet Count 372 K/UL (150-450) Mean Platelet Volume 6.9 FL (6.5-10.1) Neutrophils (%) (Auto) % (45.0-75.0) Lymphocytes (%) (Auto) % (20.0-45.0) Monocytes (%) (Auto) % (1.0-10.0) Eosinophils (%) (Auto) % (0.0-3.0) Basophils (%) (Auto) % (0.0-2.0) Differential Total Cells Counted 100 Neutrophils % (Manual) 87 % (45-75) H Lymphocytes % (Manual) 9 % (20-45) L Monocytes % (Manual) 4 % (1-10) Eosinophils % (Manual) 0 % (0-3) Basophils % (Manual) 0 % (0-2) Band Neutrophils 0 % (0-8) Platelet Estimate Adequate Platelet Morphology Normal Hypochromasia 2+ Erythrocyte Sedimentation Rate 120 MM/HR (0-20) H Prothrombin Time 12.4 SEC (9.30-11.50) H Prothromb Time International Ratio 1.2 (0.9-1.1) H Activated Partial Thromboplast Time 37 SEC (23-33) H Sodium Level 140 MMOL/L (136-145) Potassium Level 3.6 MMOL/L (3.5-5.1) Chloride Level 109 MMOL/L (98-107) H Carbon Dioxide Level 20 MMOL/L (21-32) L Anion Gap 11 mmol/L (5-15) Blood Urea Nitrogen 38 mg/dL (7-18) H Creatinine 2.0 MG/DL (0.55-1.30) H Estimat Glomerular Filtration Rate 32.0 mL/min (>60) Glucose Level 134 MG/DL (74-106) H Calcium Level 8.9 MG/DL (8.5-10.1) Phosphorus Level 3.4 MG/DL (2.5-4.9) Magnesium Level 1.9 MG/DL (1.8-2.4) Total Bilirubin 1.0 MG/DL (0.2-1.0) Aspartate Amino Transf (AST/SGOT) 104 U/L (15-37) H Alanine Aminotransferase (ALT/SGPT) 92 U/L (12-78) H Alkaline Phosphatase 290 U/L (46-116) H C-Reactive Protein, Quantitative > 70.0 mg/dL (0.00-0.90) H Total Protein 6.5 G/DL (6.4-8.2) Albumin 1.4 G/DL (3.4-5.0) L Globulin 5.1 g/dL Albumin/Globulin Ratio 0.3 (1.0-2.7) L Amylase Level 92 U/L (25-115) Lipase 195 U/L (73-393) Plan Problems: (1) Sepsis Assessment & Plan: 83-year-old male with history of stage IV colon cancer status post left colostomy left nephrostomy tube placement superior catheter placement presented with leukocytosis, abnormal labs, abnormal LFTs, pain. On evaluation sepsis likely secondary to patient's UTI. Currently on antibiotics as per infectious disease. Abdominal examination and complete examination performed and as above. No acute surgical intervention indicated or recommended. Pending completion of abdominal ultrasound for evaluation of liver and kidneys. Will follow with recommendations. Trend labs IV fluids Okay for diet from surgical standpoint Thank you will follow with recommendations (2) Suprapubic catheter dysfunction Assessment & Plan: There is mild right hydronephrosis despite presence of a nephrostomy catheter which appears to be in good position. There is a small right renal cyst demonstrated measuring approximately 1 cm x 1.2 cm. The left kidney is abnormal. There is suggestion of multiple heterogeneous masses slightly echogenic in appearance within the left kidney. For example in the lower pole there is a 4 x 5 cm lesion. In the midpole there is a 3.7 x 3.6 cm lesion. In the upper pole there is a 4.5 cm lesion. Suggest correlation with contrast-enhanced CT.. The right kidney measures 10 cm. in length. The left kidney measures 12.2 cm. in length. The IVC is patent. Urinary bladder is unremarkable. Suprapubic catheter noted. Left lower quadrant colostomy noted. IMPRESSION: Abnormal appearance of the left kidney with suggestion of multiple lobular masses. Further evaluation with contrast-enhanced CT is recommended. Trace right hydronephrosis. Nephrostomy noted in place. Suprapubic catheter Igor Parr Mar 31, 2019 14:49
[2019-03-31] MEDS: D5 1/2NS w/KCl 20mEq 1,000 ML IV SCH (15:09)
[2019-03-31 16:00] VITALS: BP 140/73
--- NOTE | 2019-03-31 19:11 | NUR ---
HAND-OFF: Report given to ULICES Ricardo.
--- NOTE | 2019-03-31 19:15 | NUR ---
NURSE NOTES: Received report from ULICES Parekh. Patient awake and verbally responsive in Farsi. Breathing unlabored on room air without distress. No s/s or complaints of pain or discomfort noted at this time. Suprapubic cath intact draining dark urine. Nephrostomy intact draining clear yellow fluid. Colostomy bag intact. Bed placed at the lowest with alam, brake, and siderails up for safety. Call light placed within reach. Will continue to monitor.
--- NOTE | 2019-03-31 19:30 | Internal Med Progress Note ---
Subjective Date of Service: Mar 31, 2019 Physician Name VioletNathan Attending Physician Doroteo Alberto MD Current Medications Medications (Trade) Dose Ordered Sig/Anamaria Route PRN Reason Start Time Stop Time Status Last Admin Dose Admin Acetaminophen (Tylenol) 650 mg Q4H PRN ORAL fever 03/29/19 23:45 04/28/19 23:44 Dextrose (Dextrose 50%) 25 ml Q30M PRN IV Hypoglycemia 03/29/19 23:45 04/28/19 23:44 Dextrose (Dextrose 50%) 50 ml Q30M PRN IV Hypoglycemia 03/29/19 23:45 04/28/19 23:44 Dextrose/ Electrolytes 1,000 ml @ 75 mls/hr [id number] IV 03/31/19 14:30 04/30/19 14:29 03/31/19 15:09 Diphenhydramine HCl (Benadryl) 25 mg Q6H PRN ORAL Itching/Pruritis 03/29/19 23:45 04/28/19 23:44 Ertapenem 0.5 gm/ Sodium Chloride 55 ml @ 110 mls/hr Q24H IVPB 03/31/19 09:00 04/05/19 08:59 03/31/19 08:59 Heparin Sodium (Porcine) (Heparin 5000 units/ml) 5,000 units EVERY 12 HOURS SUBQ 03/30/19 09:00 04/29/19 08:59 03/31/19 09:00 Nitroglycerin (Ntg) 0.4 mg Q5M X 3 DOSES PRN SL Prn Chest Pain 03/29/19 23:45 04/28/19 23:44 Ondansetron HCl (Zofran) 4 mg Q6H PRN IVP Nausea & Vomiting 03/29/19 23:45 04/28/19 23:44 Pantoprazole (Protonix) 40 mg Q12HR IVP 03/31/19 21:00 04/29/19 08:59 Polyethylene Glycol (Miralax) 17 gm HSPRN PRN ORAL Constipation 03/29/19 23:45 04/28/19 23:44 Temazepam (Restoril) 15 mg HSPRN PRN ORAL Insomnia 03/29/19 23:45 04/05/19 23:44 Allergies: Coded Allergies: No Known Allergies (Unverified , 03/29/19) ROS Limited/Unobtainable: Yes Subjective 83 YO M admitted with gen weakness and altered mental status. Now UTI. Cover for Int [facility]-Dr Alberto Objective Last Vital Signs Date Time Temp Pulse Resp B/P (MAP) Pulse Ox O2 Delivery O2 Flow Rate FiO2 03/31/19 16:57 Room Air 03/31/19 16:00 98.3 84 18 140/73 (95) 97 Laboratory Tests Test 03/31/19 06:40 White Blood Count 18.3 K/UL (4.8-10.8) H Red Blood Count 3.15 M/UL (4.70-6.10) L Hemoglobin 9.2 G/DL (14.2-18.0) L Hematocrit 27.2 % (42.0-52.0) L Mean Corpuscular Volume 87 FL (80-99) Mean Corpuscular Hemoglobin 29.3 PG (27.0-31.0) Mean Corpuscular Hemoglobin Concent 33.8 G/DL (32.0-36.0) Red Cell Distribution Width 13.2 % (11.6-14.8) Platelet Count 372 K/UL (150-450) Mean Platelet Volume 6.9 FL (6.5-10.1) Neutrophils (%) (Auto) % (45.0-75.0) Lymphocytes (%) (Auto) % (20.0-45.0) Monocytes (%) (Auto) % (1.0-10.0) Eosinophils (%) (Auto) % (0.0-3.0) Basophils (%) (Auto) % (0.0-2.0) Differential Total Cells Counted 100 Neutrophils % (Manual) 87 % (45-75) H Lymphocytes % (Manual) 9 % (20-45) L Monocytes % (Manual) 4 % (1-10) Eosinophils % (Manual) 0 % (0-3) Basophils % (Manual) 0 % (0-2) Band Neutrophils 0 % (0-8) Platelet Estimate Adequate Platelet Morphology Normal Hypochromasia 2+ Erythrocyte Sedimentation Rate 120 MM/HR (0-20) H Prothrombin Time 12.4 SEC (9.30-11.50) H Prothromb Time International Ratio 1.2 (0.9-1.1) H Activated Partial Thromboplast Time 37 SEC (23-33) H Sodium Level 140 MMOL/L (136-145) Potassium Level 3.6 MMOL/L (3.5-5.1) Chloride Level 109 MMOL/L (98-107) H Carbon Dioxide Level 20 MMOL/L (21-32) L Anion Gap 11 mmol/L (5-15) Blood Urea Nitrogen 38 mg/dL (7-18) H Creatinine 2.0 MG/DL (0.55-1.30) H Estimat Glomerular Filtration Rate 32.0 mL/min (>60) Glucose Level 134 MG/DL (74-106) H Calcium Level 8.9 MG/DL (8.5-10.1) Phosphorus Level 3.4 MG/DL (2.5-4.9) Magnesium Level 1.9 MG/DL (1.8-2.4) Total Bilirubin 1.0 MG/DL (0.2-1.0) Aspartate Amino Transf (AST/SGOT) 104 U/L (15-37) H Alanine Aminotransferase (ALT/SGPT) 92 U/L (12-78) H Alkaline Phosphatase 290 U/L (46-116) H C-Reactive Protein, Quantitative > 70.0 mg/dL (0.00-0.90) H Total Protein 6.5 G/DL (6.4-8.2) Albumin 1.4 G/DL (3.4-5.0) L Globulin 5.1 g/dL Albumin/Globulin Ratio 0.3 (1.0-2.7) L Amylase Level 92 U/L (25-115) Lipase 195 U/L (73-393) Microbiology Date/Time Source Procedure Growth Status 03/29/19 21:20 Blood Blood Culture - Preliminary Resulted 03/29/19 21:10 Blood Blood Culture - Preliminary Resulted 03/30/19 06:00 Urine,Clean Catch Urine Culture - Preliminary Gram Negative Jerson Resulted 03/29/19 22:05 Urine,Clean Catch Urine Culture - Final Escherichia Coli - Esbl Complete Intake and Output 03/30/19 03/31/19 19:00 07:00 Intake Total 232.5 ml 1037.5 ml Output Total 600 ml 500 ml Balance -367.5 ml 537.5 ml IV Total 232.5 ml 1037.5 ml Output Urine Total 600 ml Other 500 ml # Voids 1 Objective PHYSICAL EXAMINATION: GENERAL: The patient is awake and responsive, but very chronically ill and cachectic. HEAD AND NECK: Pupils are equal and reactive to light. Extraocular movements intact. Neck was supple. No JVD. LUNGS: Good air entry. No wheezing or rales. Decreased air in bases. HEART: S1 and S2. Regular rhythm. No murmur or gallop. ABDOMEN: Soft, nondistended, and nontender. GENITOURINARY: Suprapubic catheter was noted. No sign of infection or drainage. Colostomy bag in the left side of abdomen was noted without any stool. No leakage or discharge. The patient has a suprapubic catheter in pelvic area with the right nephrostomy tube with cloudy urine. EXTREMITIES: No cyanosis, clubbing, or edema. Muscle atrophy was noted. RECTAL: Refused and deferred. PSYCHIATRIC: Mood and affect is intact. Assessment/Plan Assessment/Plan ASSESSMENT.: 1. Sepsis 2. urinary tract infection=ESBL E. Coli 3. Severe dehydration. 3. Anemia of chronic disease. 4. Acute kidney injury, chronic insufficiency. 5. 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 6. Severe protein-calorie malnutrition. 7. Acute metabolic encephalopathy due to the sepsis, infection, and dehydration. PLAN: 1. Admit the patient to medical floor. 2. antibiotic =Ertapenem. 3. Code status is Full Code. 4. Dr. Dawson = Infectious Disease 5. Dr. Parr = General surgery. 6. DVT prophylaxis with heparin subcutaneous. Nathan Lazo MD Mar 31, 2019 19:30
[2019-03-31 20:00] VITALS: BP 143/78
[2019-04-01] VITALS (7 sets, daily range): BP systolic 136–151; BP diastolic 65–81
[2019-04-01] MEDS: D5 1/2NS w/KCl 20mEq 1,000 ML IV SCH ×3 (03:19→20:02)
--- NOTE | 2019-04-01 06:00 | NUR ---
NURSE NOTES: Nephrostomy total output: 850 ml Suprapubic cath total output: 30 ml Patient slept well throughout the shift without interruption. Will continue to monitor.
--- NOTE | 2019-04-01 07:42 | NUR ---
HAND-OFF: Report given to ULICES Vasquez. Plan of care endorsed and emphasized Dr. Diaz's order to administer vancomycin per pharmacy to dose after blood culture draw x 2.
--- NOTE | 2019-04-01 07:55 | NUR ---
NURSE NOTES: Received patient in bed, asleep, no sign of distress noted. Receives IVF through RFA access, no sign of infiltration noted. Supra pubic catheter and right nephrostomy catheter in place. Noted drainage of yellow urine at the right nephrostomy legal collector bag. Call light within easy reach, siderails up x2, bed locked at the lowest position possible. Will continue to monitor patient and follow up with the plan of care.
[2019-04-01 08:23] LABS: HEMOGLOBIN 9.4 G/DL (14.2-18.0); MEAN CORPUSCULAR VOLUME 86 FL (80-99); PLATELET COUNT 467 K/UL (150-450); RED BLOOD COUNT 3.25 M/UL (4.70-6.10); RED CELL DISTRIBUTION WIDTH 13.5 % (11.6-14.8); WHITE BLOOD COUNT 20.7 K/UL (4.8-10.8)
[2019-04-01] MEDS ORDERED: Vancomycin 1 GM in NS 275 ML IVPB ONE (09:00)
--- NOTE | 2019-04-01 09:12 | Pulmonology Progress Note ---
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, status post resection s/p catheter malfunctions acute encephalopathy, likely due to sepsis Colostomy status Nephrostomy tube and suprapubic catheter Sepsis with Strep bacteremia UTI with E coli ESBL Acute metabolic encephalopathy Anemia Acute kidney injury on chronic kidney disease PLAN of CARE MS floor IV fluids ABX as per ID; BCX Strep Beta abd gamma hemolytics, UCX + E coli ESBL CXR negative O2 HHN PRN aspiration precaution pain management DVT and GI prophylaxis colostomy care suprapubic and nephrostomy tube care monitor output care renal US with suggestion of multiply lobular mass left kidney; trace right hydronephrosis monitor renal parameters, lites, correct lites as needed, avoid nephrotoxic symptomatic care pain management monitor H&H with goal to keep hemoglobin above 7 case discussed and evaluated by supervising physician Subjective Allergies: Coded Allergies: No Known Allergies (Unverified , 03/29/19) Subjective weak, leuk trending up, BCX + Strep Objective Last 24 Hour Vital Signs Date Time Temp Pulse Resp B/P (MAP) Pulse Ox O2 Delivery O2 Flow Rate FiO2 04/01/19 04:00 98.6 93 18 148/69 (95) 98 04/01/19 00:00 98.9 95 18 150/66 (94) 96 03/31/19 21:00 Room Air 03/31/19 20:00 98.6 95 18 143/78 (99) 96 03/31/19 16:57 Room Air 03/31/19 16:00 98.3 84 18 140/73 (95) 97 03/31/19 12:00 97.7 80 19 143/70 (94) 98 Intake and Output 03/31/19 04/01/19 19:00 07:00 Intake Total 1905 ml 900 ml Output Total 1430 ml Balance 1905 ml -530 ml Intake Oral 1120 ml IV Total 785 ml 900 ml Output Urine Total 30 ml Other 1400 ml # Bowel Movements 1 Objective General Appearance: other - frail, weak ,awake and resposnive male in NAD Lines, tubes and drains: peripheral HEENT: normocephalic, atraumatic, anicteric, mucous membranes moist Neck: non-tender, supple Respiratory/Chest: lungs clear, no respiratory distress, no accessory muscle use Cardiovascular/Chest: normal rate Abdomen: soft - mild diffused tenderness , other - colostomy with semisolid brownish output Genitourinary/Rectal: other - 2 nephrostomytubes with yellos cloudy output, s/ p catehter Extremities: no calf tenderness, no edema Skin Exam: warm/dry Neurologic: no motor/sensory deficits Microbiology Date/Time Source Procedure Growth Status 03/29/19 21:20 Blood Blood Culture - Preliminary Strep Species, Beta Hemolytic Resulted 03/29/19 21:10 Blood Blood Culture - Preliminary Strep Species, Gamma-Hemolytic Resulted 03/30/19 06:00 Urine,Clean Catch Urine Culture - Final Escherichia Coli - Esbl Complete 03/29/19 22:05 Urine,Clean Catch Urine Culture - Final Escherichia Coli - Esbl Complete Laboratory Tests 04/01/19 07:35: Sodium Level [Pending], Potassium Level [Pending], Chloride Level [Pending], Carbon Dioxide Level [Pending], Blood Urea Nitrogen [Pending], Creatinine [ Pending], Estimat Glomerular Filtration Rate [Pending], Glucose Level [Pending] , Uric Acid [Pending], Calcium Level [Pending], Phosphorus Level [Pending], Magnesium Level [Pending], Iron Level [Pending], Unsaturated Iron Binding [ Pending], Ferritin [Pending], Total Bilirubin [Pending], Gamma Glutamyl Transpeptidase [Pending], Aspartate Amino Transf (AST/SGOT) [Pending], Alanine Aminotransferase (ALT/SGPT) [Pending], Alkaline Phosphatase [Pending], Troponin I [Pending], C-Reactive Protein, Quantitative [Pending], Pro-B-Type Natriuretic Peptide [Pending], Total Protein [Pending], Albumin [Pending], Globulin [Pending ], Triglycerides Level [Pending], Cholesterol Level [Pending], LDL Cholesterol [ Pending], HDL Cholesterol [Pending], Cholesterol/HDL Ratio [Pending], Vitamin B12 Level [Pending], Folate [Pending], Thyroid Stimulating Hormone (TSH) [ Pending] 04/01/19 07:48: White Blood Count 20.7H, Red Blood Count 3.25L, Hemoglobin 9.4L, Hematocrit 28.0L, Mean Corpuscular Volume 86, Mean Corpuscular Hemoglobin 29.0, Mean Corpuscular Hemoglobin Concent 33.7, Red Cell Distribution Width 13.5, Platelet Count 467H, Mean Platelet Volume 7.0, Neutrophils (%) (Auto) , Lymphocytes (%) ( Auto) , Monocytes (%) (Auto) , Eosinophils (%) (Auto) , Basophils (%) (Auto) , Neutrophils % (Manual) [Pending], Lymphocytes % (Manual) [Pending], Platelet Estimate [Pending], Platelet Morphology [Pending] Current Medications Medications (Trade) Dose Ordered Sig/Anamaria Route PRN Reason Start Time Stop Time Status Last Admin Dose Admin Acetaminophen (Tylenol) 650 mg Q4H PRN ORAL fever 03/29/19 23:45 04/28/19 23:44 Dextrose (Dextrose 50%) 25 ml Q30M PRN IV Hypoglycemia 03/29/19 23:45 04/28/19 23:44 Dextrose (Dextrose 50%) 50 ml Q30M PRN IV Hypoglycemia 03/29/19 23:45 04/28/19 23:44 Dextrose/ Electrolytes 1,000 ml @ 75 mls/hr [id number] IV 03/31/19 14:30 04/30/19 14:29 04/01/19 03:19 Diphenhydramine HCl (Benadryl) 25 mg Q6H PRN ORAL Itching/Pruritis 03/29/19 23:45 04/28/19 23:44 Ertapenem 0.5 gm/ Sodium Chloride 55 ml @ 110 mls/hr Q24H IVPB 03/31/19 09:00 04/05/19 08:59 03/31/19 08:59 Heparin Sodium (Porcine) (Heparin 5000 units/ml) 5,000 units EVERY 12 HOURS SUBQ 03/30/19 09:00 04/29/19 08:59 03/31/19 21:45 Nitroglycerin (Ntg) 0.4 mg Q5M X 3 DOSES PRN SL Prn Chest Pain 03/29/19 23:45 04/28/19 23:44 Ondansetron HCl (Zofran) 4 mg Q6H PRN IVP Nausea & Vomiting 03/29/19 23:45 04/28/19 23:44 Pantoprazole (Protonix) 40 mg Q12HR IVP 03/31/19 21:00 04/29/19 08:59 03/31/19 21:38 Polyethylene Glycol (Miralax) 17 gm HSPRN PRN ORAL Constipation 03/29/19 23:45 04/28/19 23:44 Temazepam (Restoril) 15 mg HSPRN PRN ORAL Insomnia 03/29/19 23:45 04/05/19 23:44 Vancomycin HCl (Vanco rx to dose) 1 ea DAILY PRN MISC Per rx protocol 04/01/19 09:00 05/01/19 08:59 Vancomycin HCl 1 gm/Sodium Chloride 275 ml @ 183.708 mls/hr ONCE ONCE IVPB 04/01/19 09:00 04/01/19 10:29 Isi Garcia [employer] Apr 01, 2019 09:12
[2019-04-01 09:50] LABS: ALANINE AMINOTRANSFERASE 163 U/L (12-78); ALBUMIN 1.6 G/DL (3.4-5.0); ALBUMIN/GLOBULIN RATIO 0.3 (1.0-2.7); ALKALINE PHOSPHATASE 531 U/L (46-116); ANION GAP 13 mmol/L (5-15); ASPARTATE AMINO TRANSFERASE 174 U/L (15-37); BILIRUBIN,TOTAL 1.2 MG/DL (0.2-1.0); BLOOD UREA NITROGEN 26 mg/dL (7-18); CALCIUM 9.6 MG/DL (8.5-10.1); CARBON DIOXIDE 20 MMOL/L (21-32); CHLORIDE 105 MMOL/L (98-107); CHOLESTEROL 89 MG/DL (< 200); CREATININE 1.6 MG/DL (0.55-1.30); GAMMA GLUTAMYL TRANSPEPTIDASE 216 U/L (5-85); HDL CHOLESTEROL 8 MG/DL (40-60); PHOSPHORUS 2.6 MG/DL (2.5-4.9); POTASSIUM 3.7 MMOL/L (3.5-5.1); SODIUM 138 MMOL/L (136-145); TRIGLYCERIDES 146 MG/DL (30-150)
[2019-04-01 10:24] LABS: % IRON SATURATION 27 % (15-50); IRON 24 ug/dL (50-175); TOTAL IRON BINDING CAPACITY 90 ug/dL (250-450)
[2019-04-01] MEDS: Ertapenem 0.5 GM in NS 55 ML IVPB SCH (10:52)
[2019-04-01] MEDS: Pantoprazole Inj IVP SCH ×2 (10:53→21:02)
[2019-04-01] MEDS: Heparin 5000 units/ml inj SUBQ SCH ×2 (10:54→21:03)
--- NOTE | 2019-04-01 11:05 | Nephrology Progress Note ---
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, status post resection Colostomy status Nephrostomy tube and suprapubic catheter Sepsis , UTI Acute metabolic encephalopathy Anemia acute vs chronic Elevated LFTs Plan Hydrate- Monitor renal parameters Anemia pat avoid nephrotoxics Monitor electrolytes Favor DNR Subjective ROS Limited/Unobtainable: No Constitutional: Reports: malaise, weakness Objective Objective Last 24 Hour Vital Signs Date Time Temp Pulse Resp B/P (MAP) Pulse Ox O2 Delivery O2 Flow Rate FiO2 04/01/19 08:00 98.8 96 18 146/65 (92) 98 04/01/19 04:00 98.6 93 18 148/69 (95) 98 04/01/19 00:00 98.9 95 18 150/66 (94) 96 03/31/19 21:00 Room Air 03/31/19 20:00 98.6 95 18 143/78 (99) 96 03/31/19 16:57 Room Air 03/31/19 16:00 98.3 84 18 140/73 (95) 97 03/31/19 12:00 97.7 80 19 143/70 (94) 98 Intake and Output 03/31/19 04/01/19 19:00 07:00 Intake Total 1905 ml 900 ml Output Total 1430 ml Balance 1905 ml -530 ml Intake Oral 1120 ml IV Total 785 ml 900 ml Output Urine Total 30 ml Other 1400 ml # Bowel Movements 1 Current Medications Medications (Trade) Dose Ordered Sig/Anamaria Route PRN Reason Start Time Stop Time Status Last Admin Dose Admin Acetaminophen (Tylenol) 650 mg Q4H PRN ORAL fever 03/29/19 23:45 04/28/19 23:44 Dextrose (Dextrose 50%) 25 ml Q30M PRN IV Hypoglycemia 03/29/19 23:45 04/28/19 23:44 Dextrose (Dextrose 50%) 50 ml Q30M PRN IV Hypoglycemia 03/29/19 23:45 04/28/19 23:44 Dextrose/ Electrolytes 1,000 ml @ 75 mls/hr [id number] IV 03/31/19 14:30 04/30/19 14:29 04/01/19 03:19 Diphenhydramine HCl (Benadryl) 25 mg Q6H PRN ORAL Itching/Pruritis 03/29/19 23:45 04/28/19 23:44 Ertapenem 0.5 gm/ Sodium Chloride 55 ml @ 110 mls/hr Q24H IVPB 03/31/19 09:00 04/05/19 08:59 04/01/19 10:52 Heparin Sodium (Porcine) (Heparin 5000 units/ml) 5,000 units EVERY 12 HOURS SUBQ 03/30/19 09:00 04/29/19 08:59 04/01/19 10:54 Nitroglycerin (Ntg) 0.4 mg Q5M X 3 DOSES PRN SL Prn Chest Pain 03/29/19 23:45 04/28/19 23:44 Ondansetron HCl (Zofran) 4 mg Q6H PRN IVP Nausea & Vomiting 03/29/19 23:45 04/28/19 23:44 Pantoprazole (Protonix) 40 mg Q12HR IVP 03/31/19 21:00 04/29/19 08:59 04/01/19 10:53 Polyethylene Glycol (Miralax) 17 gm HSPRN PRN ORAL Constipation 03/29/19 23:45 04/28/19 23:44 Temazepam (Restoril) 15 mg HSPRN PRN ORAL Insomnia 03/29/19 23:45 04/05/19 23:44 Vancomycin HCl (Vanco rx to dose) 1 ea DAILY PRN MISC Per rx protocol 04/01/19 09:00 05/01/19 08:59 Laboratory Tests 04/01/19 07:35: Sodium Level 138, Potassium Level 3.7, Chloride Level 105, Carbon Dioxide Level 20L, Anion Gap 13, Blood Urea Nitrogen 26H, Creatinine 1.6H, Estimat Glomerular Filtration Rate 41.4, Glucose Level 140H, Uric Acid 3.8, Calcium Level 9.6, Phosphorus Level 2.6, Magnesium Level 1.9, Iron Level 24L, Total Iron Binding Capacity 90L, Percent Iron Saturation 27, Unsaturated Iron Binding 66L, Ferritin [Pending], Total Bilirubin 1.2H, Direct Bilirubin [Pending], Gamma Glutamyl Transpeptidase 216H, Aspartate Amino Transf (AST/SGOT) 174H, Alanine Aminotransferase (ALT/SGPT) 163H, Alkaline Phosphatase 531H, Troponin I 0.000, C -Reactive Protein, Quantitative 32.7H, Pro-B-Type Natriuretic Peptide 7107H, Total Protein 7.6, Albumin 1.6L, Globulin 6.0, Albumin/Globulin Ratio 0.3L, Triglycerides Level 146, Cholesterol Level 89, LDL Cholesterol 41, HDL Cholesterol 8L, Cholesterol/HDL Ratio 11.1H, Vitamin B12 Level 1077H, Folate 7.6L, Thyroid Stimulating Hormone (TSH) 2.186 04/01/19 07:48: White Blood Count 20.7H, Red Blood Count 3.25L, Hemoglobin 9.4L, Hematocrit 28.0L, Mean Corpuscular Volume 86, Mean Corpuscular Hemoglobin 29.0, Mean Corpuscular Hemoglobin Concent 33.7, Red Cell Distribution Width 13.5, Platelet Count 467H, Mean Platelet Volume 7.0, Neutrophils (%) (Auto) , Lymphocytes (%) ( Auto) , Monocytes (%) (Auto) , Eosinophils (%) (Auto) , Basophils (%) (Auto) , Differential Total Cells Counted 100, Neutrophils % (Manual) 89H, Lymphocytes % (Manual) 7L, Monocytes % (Manual) 4, Eosinophils % (Manual) 0, Basophils % ( Manual) 0, Band Neutrophils 0, Platelet Estimate Adequate, Platelet Morphology Normal, Hypochromasia 2+, Anisocytosis 1+ Height (Feet): 5 Height (Inches): 1.00 Weight (Pounds): 107 Tomas Beck MD Apr 01, 2019 11:05
[2019-04-01 11:17] LABS: FERRITIN > 2000 NG/ML (8-388)
[2019-04-01 11:37] LABS: BILIRUBIN,DIRECT 0.7 MG/DL (0.0-0.3)
--- NOTE | 2019-04-01 12:19 | NUR ---
NURSE NOTES: Daughter Cathi contacted nurse, told patient takes the following meds at home: Amlodipine 2.5mg daily, aspirin 81mg daily, Tamsulosin 0.4mg daily, Atorvastatin 80mg daily, Vitamin D2 1.25mg (54239 IU weekly) took last tuesday.
--- NOTE | 2019-04-01 12:37 | Surgery Progress Note ---
Surgery Progress Note Subjective Additional Comments leukocytosis worsening lft's us ordered stat Objective Last 24 Hour Vital Signs Date Time Temp Pulse Resp B/P (MAP) Pulse Ox O2 Delivery O2 Flow Rate FiO2 04/01/19 08:00 98.8 96 18 146/65 (92) 98 04/01/19 04:00 98.6 93 18 148/69 (95) 98 04/01/19 00:00 98.9 95 18 150/66 (94) 96 03/31/19 21:00 Room Air 03/31/19 20:00 98.6 95 18 143/78 (99) 96 03/31/19 16:57 Room Air 03/31/19 16:00 98.3 84 18 140/73 (95) 97 I&O Intake and Output 03/31/19 04/01/19 19:00 07:00 Intake Total 1905 ml 900 ml Output Total 1430 ml Balance 1905 ml -530 ml Intake Oral 1120 ml IV Total 785 ml 900 ml Output Urine Total 30 ml Other 1400 ml # Bowel Movements 1 Dressing: other Wound: other Cardiovascular: RSR Respiratory: clear, decreased breath sounds Abdomen: soft, non-distended, decreased bowel sounds Extremities: no cyanosis Laboratory Tests Test 04/01/19 07:35 04/01/19 07:48 Sodium Level 138 MMOL/L (136-145) Potassium Level 3.7 MMOL/L (3.5-5.1) Chloride Level 105 MMOL/L (98-107) Carbon Dioxide Level 20 MMOL/L (21-32) L Anion Gap 13 mmol/L (5-15) Blood Urea Nitrogen 26 mg/dL (7-18) H Creatinine 1.6 MG/DL (0.55-1.30) H Estimat Glomerular Filtration Rate 41.4 mL/min (>60) Glucose Level 140 MG/DL (74-106) H Uric Acid 3.8 MG/DL (2.6-7.2) Calcium Level 9.6 MG/DL (8.5-10.1) Phosphorus Level 2.6 MG/DL (2.5-4.9) Magnesium Level 1.9 MG/DL (1.8-2.4) Iron Level 24 ug/dL (50-175) L Total Iron Binding Capacity 90 ug/dL (250-450) L Percent Iron Saturation 27 % (15-50) Unsaturated Iron Binding 66 ug/dL (112-346) L Ferritin > 2000 NG/ML (8-388) H Total Bilirubin 1.2 MG/DL (0.2-1.0) H Direct Bilirubin 0.7 MG/DL (0.0-0.3) H Gamma Glutamyl Transpeptidase 216 U/L (5-85) H Aspartate Amino Transf (AST/SGOT) 174 U/L (15-37) H Alanine Aminotransferase (ALT/SGPT) 163 U/L (12-78) H Alkaline Phosphatase 531 U/L (46-116) H Troponin I 0.000 ng/mL (0.000-0.056) C-Reactive Protein, Quantitative 32.7 mg/dL (0.00-0.90) H Pro-B-Type Natriuretic Peptide 7107 pg/mL (0-125) H Total Protein 7.6 G/DL (6.4-8.2) Albumin 1.6 G/DL (3.4-5.0) L Globulin 6.0 g/dL Albumin/Globulin Ratio 0.3 (1.0-2.7) L Triglycerides Level 146 MG/DL (30-150) Cholesterol Level 89 MG/DL (< 200) LDL Cholesterol 41 mg/dL (<100) HDL Cholesterol 8 MG/DL (40-60) L Cholesterol/HDL Ratio 11.1 (3.3-4.4) H Vitamin B12 Level 1077 PG/ML (193-986) H Folate 7.6 NG/ML (8.6-58.9) L Thyroid Stimulating Hormone (TSH) 2.186 uiU/mL (0.358-3.740) White Blood Count 20.7 K/UL (4.8-10.8) H Red Blood Count 3.25 M/UL (4.70-6.10) L Hemoglobin 9.4 G/DL (14.2-18.0) L Hematocrit 28.0 % (42.0-52.0) L Mean Corpuscular Volume 86 FL (80-99) Mean Corpuscular Hemoglobin 29.0 PG (27.0-31.0) Mean Corpuscular Hemoglobin Concent 33.7 G/DL (32.0-36.0) Red Cell Distribution Width 13.5 % (11.6-14.8) Platelet Count 467 K/UL (150-450) H Mean Platelet Volume 7.0 FL (6.5-10.1) Neutrophils (%) (Auto) % (45.0-75.0) Lymphocytes (%) (Auto) % (20.0-45.0) Monocytes (%) (Auto) % (1.0-10.0) Eosinophils (%) (Auto) % (0.0-3.0) Basophils (%) (Auto) % (0.0-2.0) Differential Total Cells Counted 100 Neutrophils % (Manual) 89 % (45-75) H Lymphocytes % (Manual) 7 % (20-45) L Monocytes % (Manual) 4 % (1-10) Eosinophils % (Manual) 0 % (0-3) Basophils % (Manual) 0 % (0-2) Band Neutrophils 0 % (0-8) Platelet Estimate Adequate Platelet Morphology Normal Hypochromasia 2+ Anisocytosis 1+ Plan Problems: (1) Sepsis Assessment & Plan: 83-year-old male with history of stage IV colon cancer status post left colostomy left nephrostomy tube placement superior catheter placement presented with leukocytosis, abnormal labs, abnormal LFTs, pain. On evaluation sepsis likely secondary to patient's UTI. Currently on antibiotics as per infectious disease. Abdominal examination and complete examination performed and as above. No acute surgical intervention indicated or recommended. Pending completion of abdominal ultrasound for evaluation of liver and kidneys. Will follow with recommendations. Trend labs IV fluids Okay for diet from surgical standpoint Thank you will follow with recommendations worsening lft's US ordered stat (2) Suprapubic catheter dysfunction Assessment & Plan: There is mild right hydronephrosis despite presence of a nephrostomy catheter which appears to be in good position. There is a small right renal cyst demonstrated measuring approximately 1 cm x 1.2 cm. The left kidney is abnormal. There is suggestion of multiple heterogeneous masses slightly echogenic in appearance within the left kidney. For example in the lower pole there is a 4 x 5 cm lesion. In the midpole there is a 3.7 x 3.6 cm lesion. In the upper pole there is a 4.5 cm lesion. Suggest correlation with contrast-enhanced CT.. The right kidney measures 10 cm. in length. The left kidney measures 12.2 cm. in length. The IVC is patent. Urinary bladder is unremarkable. Suprapubic catheter noted. Left lower quadrant colostomy noted. IMPRESSION: Abnormal appearance of the left kidney with suggestion of multiple lobular masses. Further evaluation with contrast-enhanced CT is recommended. Trace right hydronephrosis. Nephrostomy noted in place. Suprapubic catheter Igor Parr Apr 01, 2019 12:37
--- NOTE | 2019-04-01 16:48 | Internal Med Progress Note ---
Subjective Date of Service: Apr 01, 2019 Physician Name Nathan Lazo Attending Physician Doroteo Alberto MD Current Medications Medications (Trade) Dose Ordered Sig/Anamaria Route PRN Reason Start Time Stop Time Status Last Admin Dose Admin Acetaminophen (Tylenol) 650 mg Q4H PRN ORAL fever 03/29/19 23:45 04/28/19 23:44 Dextrose (Dextrose 50%) 25 ml Q30M PRN IV Hypoglycemia 03/29/19 23:45 04/28/19 23:44 Dextrose (Dextrose 50%) 50 ml Q30M PRN IV Hypoglycemia 03/29/19 23:45 04/28/19 23:44 Dextrose/ Electrolytes 1,000 ml @ 50 mls/hr Q20H IV 04/01/19 12:00 04/30/19 11:59 04/01/19 12:15 Diphenhydramine HCl (Benadryl) 25 mg Q6H PRN ORAL Itching/Pruritis 03/29/19 23:45 04/28/19 23:44 Ertapenem 0.5 gm/ Sodium Chloride 55 ml @ 110 mls/hr Q24H IVPB 03/31/19 09:00 04/05/19 08:59 04/01/19 10:52 Folic Acid (Folate) 1 mg DAILY ORAL 04/01/19 11:15 05/01/19 11:14 04/01/19 12:14 Heparin Sodium (Porcine) (Heparin 5000 units/ml) 5,000 units EVERY 12 HOURS SUBQ 03/30/19 09:00 04/29/19 08:59 04/01/19 10:54 Nitroglycerin (Ntg) 0.4 mg Q5M X 3 DOSES PRN SL Prn Chest Pain 03/29/19 23:45 04/28/19 23:44 Ondansetron HCl (Zofran) 4 mg Q6H PRN IVP Nausea & Vomiting 03/29/19 23:45 04/28/19 23:44 Pantoprazole (Protonix) 40 mg Q12HR IVP 03/31/19 21:00 04/29/19 08:59 04/01/19 10:53 Polyethylene Glycol (Miralax) 17 gm HSPRN PRN ORAL Constipation 03/29/19 23:45 04/28/19 23:44 Temazepam (Restoril) 15 mg HSPRN PRN ORAL Insomnia 03/29/19 23:45 04/05/19 23:44 Vancomycin HCl (Vanco rx to dose) 1 ea DAILY PRN MISC Per rx protocol 04/01/19 09:00 05/01/19 08:59 Allergies: Coded Allergies: No Known Allergies (Unverified , 03/29/19) ROS Limited/Unobtainable: Yes Subjective 83 YO M admitted with gen weakness and altered mental status. Now UTI and sepsis. Cover for Int Med-Dr Alberto Objective Last Vital Signs Date Time Temp Pulse Resp B/P (MAP) Pulse Ox O2 Delivery O2 Flow Rate FiO2 04/01/19 12:00 98.7 89 18 140/70 (93) 97 04/01/19 09:00 Room Air Laboratory Tests Test 04/01/19 07:35 04/01/19 07:48 Sodium Level 138 MMOL/L (136-145) Potassium Level 3.7 MMOL/L (3.5-5.1) Chloride Level 105 MMOL/L (98-107) Carbon Dioxide Level 20 MMOL/L (21-32) L Anion Gap 13 mmol/L (5-15) Blood Urea Nitrogen 26 mg/dL (7-18) H Creatinine 1.6 MG/DL (0.55-1.30) H Estimat Glomerular Filtration Rate 41.4 mL/min (>60) Glucose Level 140 MG/DL (74-106) H Uric Acid 3.8 MG/DL (2.6-7.2) Calcium Level 9.6 MG/DL (8.5-10.1) Phosphorus Level 2.6 MG/DL (2.5-4.9) Magnesium Level 1.9 MG/DL (1.8-2.4) Iron Level 24 ug/dL (50-175) L Total Iron Binding Capacity 90 ug/dL (250-450) L Percent Iron Saturation 27 % (15-50) Unsaturated Iron Binding 66 ug/dL (112-346) L Ferritin > 2000 NG/ML (8-388) H Total Bilirubin 1.2 MG/DL (0.2-1.0) H Direct Bilirubin 0.7 MG/DL (0.0-0.3) H Gamma Glutamyl Transpeptidase 216 U/L (5-85) H Aspartate Amino Transf (AST/SGOT) 174 U/L (15-37) H Alanine Aminotransferase (ALT/SGPT) 163 U/L (12-78) H Alkaline Phosphatase 531 U/L (46-116) H Troponin I 0.000 ng/mL (0.000-0.056) C-Reactive Protein, Quantitative 32.7 mg/dL (0.00-0.90) H Pro-B-Type Natriuretic Peptide 7107 pg/mL (0-125) H Total Protein 7.6 G/DL (6.4-8.2) Albumin 1.6 G/DL (3.4-5.0) L Globulin 6.0 g/dL Albumin/Globulin Ratio 0.3 (1.0-2.7) L Triglycerides Level 146 MG/DL (30-150) Cholesterol Level 89 MG/DL (< 200) LDL Cholesterol 41 mg/dL (<100) HDL Cholesterol 8 MG/DL (40-60) L Cholesterol/HDL Ratio 11.1 (3.3-4.4) H Vitamin B12 Level 1077 PG/ML (193-986) H Folate 7.6 NG/ML (8.6-58.9) L Thyroid Stimulating Hormone (TSH) 2.186 uiU/mL (0.358-3.740) White Blood Count 20.7 K/UL (4.8-10.8) H Red Blood Count 3.25 M/UL (4.70-6.10) L Hemoglobin 9.4 G/DL (14.2-18.0) L Hematocrit 28.0 % (42.0-52.0) L Mean Corpuscular Volume 86 FL (80-99) Mean Corpuscular Hemoglobin 29.0 PG (27.0-31.0) Mean Corpuscular Hemoglobin Concent 33.7 G/DL (32.0-36.0) Red Cell Distribution Width 13.5 % (11.6-14.8) Platelet Count 467 K/UL (150-450) H Mean Platelet Volume 7.0 FL (6.5-10.1) Neutrophils (%) (Auto) % (45.0-75.0) Lymphocytes (%) (Auto) % (20.0-45.0) Monocytes (%) (Auto) % (1.0-10.0) Eosinophils (%) (Auto) % (0.0-3.0) Basophils (%) (Auto) % (0.0-2.0) Differential Total Cells Counted 100 Neutrophils % (Manual) 89 % (45-75) H Lymphocytes % (Manual) 7 % (20-45) L Monocytes % (Manual) 4 % (1-10) Eosinophils % (Manual) 0 % (0-3) Basophils % (Manual) 0 % (0-2) Band Neutrophils 0 % (0-8) Platelet Estimate Adequate Platelet Morphology Normal Hypochromasia 2+ Anisocytosis 1+ Microbiology Date/Time Source Procedure Growth Status 03/29/19 21:20 Blood Blood Culture - Preliminary Strep Species, Beta Hemolytic Resulted 03/29/19 21:10 Blood Blood Culture - Preliminary Strep Species, Gamma-Hemolytic Resulted 03/30/19 06:00 Urine,Clean Catch Urine Culture - Final Escherichia Coli - Esbl Complete 03/29/19 22:05 Urine,Clean Catch Urine Culture - Final Escherichia Coli - Esbl Complete Intake and Output 03/31/19 04/01/19 19:00 07:00 Intake Total 1905 ml 900 ml Output Total 1430 ml Balance 1905 ml -530 ml Intake Oral 1120 ml IV Total 785 ml 900 ml Output Urine Total 30 ml Other 1400 ml # Bowel Movements 1 Objective PHYSICAL EXAMINATION: GENERAL: The patient is awake and responsive, but very chronically ill and cachectic. HEAD AND NECK: Pupils are equal and reactive to light. Extraocular movements intact. Neck was supple. No JVD. LUNGS: Good air entry. No wheezing or rales. Decreased air in bases. HEART: S1 and S2. Regular rhythm. No murmur or gallop. ABDOMEN: Soft, nondistended, and nontender. GENITOURINARY: Suprapubic catheter was noted. No sign of infection or drainage. Colostomy bag in the left side of abdomen was noted without any stool. No leakage or discharge. The patient has a suprapubic catheter in pelvic area with the right nephrostomy tube with cloudy urine. EXTREMITIES: No cyanosis, clubbing, or edema. Muscle atrophy was noted. RECTAL: Refused and deferred. PSYCHIATRIC: Mood and affect is intact. Assessment/Plan Assessment/Plan ASSESSMENT.: 1. Sepsis 2. urinary tract infection=ESBL E. Coli 3. Severe dehydration. 3. Anemia of chronic disease. 4. Acute kidney injury, chronic insufficiency. 5. 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 6. Severe protein-calorie malnutrition. 7. Acute metabolic encephalopathy due to the sepsis, infection, and dehydration. 8. Sepsis=Beta Strep PLAN: 1. Admit the patient to medical floor. 2. antibiotic =Ertapenem. 3. Code status is Full Code. 4. Dr. Dawson = Infectious Disease 5. Dr. Parr = General surgery. 6. DVT prophylaxis with heparin subcutaneous. Nathan Lazo MD Apr 01, 2019 16:48
--- NOTE | 2019-04-01 17:15 | Diagnostic Imaging Report ---
Indication: Abnormal liver function tests, history of stage IV rectal carcinoma Technique: Harden-scale and duplex images of the upper abdomen were obtained Comparison: No comparison CT scans. Reference made to renal sonogram dated 03/30/2019 Findings: Exam is somewhat limited, due to patient inability to suspend respiration. Gallbladder demonstrates gallstones. Gallbladder wall is mildly thickened, measuring 4 mm in thickness. Common bile duct measures 4 mm in diameter. No intrahepatic biliary ductal dilatation. Liver demonstrates normal echogenicity, no focal abnormality. Note that portions are well visualized, however. Portal vein and hepatic veins are patent. Pancreas is unremarkable. Spleen is unremarkable. Left kidney measures 12 cm in length. Right kidney measures 11.3 cm length. Both kidneys demonstrate slightly increased echogenicity. Right kidney demonstrates mild hydronephrosis. Note that recent plain radiograph demonstrates a nephrostomy and a stent; these are not clearly evident on this study. The left kidney demonstrates lobulated contour and somewhat heterogeneous echotexture, possibly discrete echogenic lesions which are better demonstrated on recent renal sonogram.. . Non-aneurysmal abdominal aorta . Impression: Somewhat limited exam, as described Echogenic right kidney with mild hydronephrosis despite presence of a nephrostomy and stent Markedly abnormal left kidney, also described on recent renal sonogram and possibly demonstrating multiple masses Cholelithiasis. Mild gallbladder wall thickening, could indicate acute cholecystitis. Correlate with clinical findings, consider hepatobiliary nuclear scan if clinically indicated
--- NOTE | 2019-04-01 19:35 | NUR ---
HAND-OFF: Report given to ULICES Malagon.
[2019-04-01] MEDS: Tamsulosin 0.4mg cap ORAL SCH (21:02)
[2019-04-01] MEDS: Atorvastatin 80mg tab ORAL SCH (21:03)
[2019-04-02 04:00] VITALS: BP 141/80
--- NOTE | 2019-04-02 07:24 | NUR ---
HAND-OFF: Report given to Christina Puente RN.
[2019-04-02 08:00] VITALS: BP 146/67
--- NOTE | 2019-04-02 08:00 | NUR ---
NURSE NOTES: Received patient in bed, asleep, no sign of distress noted. Receives IVF through RFA access, no sign of infiltration noted. Supra pubic catheter and right nephrostomy catheter in place. Noted drainage of dark straw urine at the right nephrostomy parking meter collector bag. Call light within easy reach, siderails up x2, bed locked at the lowest position possible. Will continue to monitor patient and follow up with the plan of care.
[2019-04-02] MEDS: Pantoprazole Inj IVP SCH (08:27)
[2019-04-02] MEDS: Heparin 5000 units/ml inj SUBQ SCH ×2 (08:30→20:32)
[2019-04-02] MEDS: Aspirin Baby 81mg NG SCH (08:32)
[2019-04-02 08:46] LABS: HEMATOCRIT 25.6 % (42.0-52.0); HEMOGLOBIN 8.6 G/DL (14.2-18.0); MEAN CORPUSCULAR VOLUME 87 FL (80-99); PLATELET COUNT 423 K/UL (150-450); RED BLOOD COUNT 2.96 M/UL (4.70-6.10); RED CELL DISTRIBUTION WIDTH 13.6 % (11.6-14.8); WHITE BLOOD COUNT 21.9 K/UL (4.8-10.8)
[2019-04-02] MEDS ORDERED: Vitamin D 1000 IU Tab ORAL SCH (09:00)
[2019-04-02 09:06] LABS: INR 1.1 (0.9-1.1)
--- NOTE | 2019-04-02 09:25 | Pulmonology Progress Note ---
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, status post resection s/p catheter malfunctions acute encephalopathy, likely due to sepsis colostomy status nephrostomy tube and suprapubic catheter Sepsis with Strep bacteremia UTI with E coli ESBL acute metabolic encephalopathy anemia acute kidney injury on chronic kidney disease PLAN of CARE MS floor IV fluids ABX as per ID; BCX Strep Beta abd gamma hemolytics, UCX + E coli ESBL CXR negative O2 HHN PRN aspiration precaution pain management DVT and GI prophylaxis colostomy care suprapubic and nephrostomy tube care monitor output care renal US with suggestion of multiply lobular mass left kidney; trace right hydronephrosis monitor renal parameters, lites, correct lites as needed, avoid nephrotoxic, creat trending down symptomatic care pain management monitor H&H with goal to keep hemoglobin above 7 case discussed and evaluated by supervising physician Subjective Allergies: Coded Allergies: No Known Allergies (Unverified , 03/29/19) Subjective weak, leuk persist, significant BCX + Strep Objective Last 24 Hour Vital Signs Date Time Temp Pulse Resp B/P (MAP) Pulse Ox O2 Delivery O2 Flow Rate FiO2 04/02/19 08:32 83 146/57 04/02/19 04:00 98.5 89 18 141/80 (100) 96 04/01/19 23:45 98.9 85 18 147/71 (96) 97 04/01/19 20:11 Room Air 04/01/19 20:03 98.1 98 18 151/81 (104) 98 04/01/19 16:00 98.0 93 18 136/77 (96) 98 04/01/19 12:00 98.7 89 18 140/70 (93) 97 Intake and Output 04/01/19 04/02/19 19:00 07:00 Intake Total 935 ml 550 ml Output Total 955 ml Balance 935 ml -405 ml Intake Oral 860 ml IV Total 75 ml 550 ml Output Urine Total 5 ml Stool Total 0 ml Other 950 ml Objective General Appearance: frail, weak ,awake and resposnive male in NAD Lines, tubes and drains: peripheral HEENT: normocephalic, atraumatic, anicteric, mucous membranes moist Neck: non-tender, supple Respiratory/Chest: lungs clear, no respiratory distress, no accessory muscle use Cardiovascular/Chest: normal rate Abdomen: soft - mild diffused tenderness , colostomy with semisolid brownish output Genitourinary/Rectal: other - 2 nephrostomies with yellows cloudy output, s/p catehter Extremities: no calf tenderness, no edema Skin Exam: warm/dry Neurologic: no motor/sensory deficits Microbiology Date/Time Source Procedure Growth Status 04/01/19 08:00 Blood Blood Culture - Preliminary Resulted 04/01/19 07:35 Blood Blood Culture - Preliminary Resulted Laboratory Tests 04/02/19 07:55: White Blood Count 21.9H, Red Blood Count 2.96L, Hemoglobin 8.6L, Hematocrit 25.6L, Mean Corpuscular Volume 87, Mean Corpuscular Hemoglobin 29.1, Mean Corpuscular Hemoglobin Concent 33.7, Red Cell Distribution Width 13.6, Platelet Count 423, Mean Platelet Volume 6.8, Neutrophils (%) (Auto) , Lymphocytes (%) ( Auto) , Monocytes (%) (Auto) , Eosinophils (%) (Auto) , Basophils (%) (Auto) , Neutrophils % (Manual) [Pending], Lymphocytes % (Manual) [Pending], Platelet Estimate [Pending], Platelet Morphology [Pending], Erythrocyte Sedimentation Rate [Pending], Prothrombin Time [Pending], Prothromb Time International Ratio [ Pending], Activated Partial Thromboplast Time [Pending], Sodium Level [Pending] , Potassium Level [Pending], Chloride Level [Pending], Carbon Dioxide Level [ Pending], Blood Urea Nitrogen [Pending], Creatinine [Pending], Estimat Glomerular Filtration Rate [Pending], Glucose Level [Pending], Calcium Level [ Pending], Total Bilirubin [Pending], Aspartate Amino Transf (AST/SGOT) [Pending] , Alanine Aminotransferase (ALT/SGPT) [Pending], Alkaline Phosphatase [Pending] , C-Reactive Protein, Quantitative [Pending], Total Protein [Pending], Albumin [ Pending], Globulin [Pending], Amylase Level [Pending], Lipase [Pending], Random Vancomycin Level [Pending] Current Medications Medications (Trade) Dose Ordered Sig/Anamaria Route PRN Reason Start Time Stop Time Status Last Admin Dose Admin Acetaminophen (Tylenol) 650 mg Q4H PRN ORAL fever 03/29/19 23:45 04/28/19 23:44 Amlodipine Besylate (Norvasc) 2.5 mg DAILY ORAL 04/02/19 09:00 05/02/19 08:59 04/02/19 08:32 Aspirin (ASA) 81 mg DAILY NG 04/02/19 09:00 05/02/19 08:59 04/02/19 08:32 Atorvastatin Calcium (Lipitor) 80 mg BEDTIME ORAL 04/01/19 21:00 05/01/19 20:59 04/01/19 21:03 Dextrose (Dextrose 50%) 25 ml Q30M PRN IV Hypoglycemia 03/29/19 23:45 04/28/19 23:44 Dextrose (Dextrose 50%) 50 ml Q30M PRN IV Hypoglycemia 03/29/19 23:45 04/28/19 23:44 Dextrose/ Electrolytes 1,000 ml @ 50 mls/hr Q20H IV 04/01/19 12:00 04/30/19 11:59 04/01/19 20:02 Diphenhydramine HCl (Benadryl) 25 mg Q6H PRN ORAL Itching/Pruritis 03/29/19 23:45 04/28/19 23:44 Ertapenem 0.5 gm/ Sodium Chloride 55 ml @ 110 mls/hr Q24H IVPB 03/31/19 09:00 04/05/19 08:59 04/01/19 10:52 Folic Acid (Folate) 1 mg DAILY ORAL 04/01/19 11:15 05/01/19 11:14 04/02/19 08:27 Heparin Sodium (Porcine) (Heparin 5000 units/ml) 5,000 units EVERY 12 HOURS SUBQ 03/30/19 09:00 04/29/19 08:59 04/02/19 08:30 Nitroglycerin (Ntg) 0.4 mg Q5M X 3 DOSES PRN SL Prn Chest Pain 03/29/19 23:45 04/28/19 23:44 Ondansetron HCl (Zofran) 4 mg Q6H PRN IVP Nausea & Vomiting 03/29/19 23:45 04/28/19 23:44 Pantoprazole (Protonix) 40 mg Q12HR IVP 03/31/19 21:00 04/29/19 08:59 04/02/19 08:27 Polyethylene Glycol (Miralax) 17 gm HSPRN PRN ORAL Constipation 03/29/19 23:45 04/28/19 23:44 Tamsulosin HCl (Flomax) 0.4 mg BEDTIME ORAL 04/01/19 21:00 05/01/19 20:59 04/01/19 21:02 Temazepam (Restoril) 15 mg HSPRN PRN ORAL Insomnia 03/29/19 23:45 04/05/19 23:44 Vancomycin HCl (Vanco rx to dose) 1 ea DAILY PRN MISC Per rx protocol 04/01/19 09:00 05/01/19 08:59 Vitamin D (Vitamin D) 1,000 intlu DAILY ORAL 04/02/19 09:00 05/02/19 08:59 04/02/19 08:32 Isi Garcia DRUM DRIER Apr 02, 2019 09:25
[2019-04-02] MEDS: Ertapenem 0.5 GM in NS 55 ML IVPB SCH (09:28)
[2019-04-02 09:36] LABS: AMYLASE 87 U/L (25-115)
[2019-04-02 09:44] LABS: ALANINE AMINOTRANSFERASE 107 U/L (12-78); ALBUMIN 1.5 G/DL (3.4-5.0); ALBUMIN/GLOBULIN RATIO 0.3 (1.0-2.7); ALKALINE PHOSPHATASE 440 U/L (46-116); ANION GAP 12 mmol/L (5-15); ASPARTATE AMINO TRANSFERASE 97 U/L (15-37); BILIRUBIN,TOTAL 1.2 MG/DL (0.2-1.0); BLOOD UREA NITROGEN 21 mg/dL (7-18); CALCIUM 9.2 MG/DL (8.5-10.1); CARBON DIOXIDE 20 MMOL/L (21-32); CHLORIDE 107 MMOL/L (98-107); CREATININE 1.3 MG/DL (0.55-1.30); POTASSIUM 3.8 MMOL/L (3.5-5.1); SODIUM 139 MMOL/L (136-145)
[2019-04-02 10:09] LABS: BILIRUBIN,DIRECT 0.6 MG/DL (0.0-0.3)
--- NOTE | 2019-04-02 10:26 | NUR ---
NURSING CONTINUOUS [employer] NOTE: Phone call from daughter, Cathi, stating that she has been trying to find out information about her father. She stated "I have called three times and someone hung up on me!". "I need a call back right away". I spoke to ULICES Vasquez. She will call Cathi back when she can. In the mean time, I called and left Cathi a message, giving her this information. I also notified Charge Nurse Hanna
--- NOTE | 2019-04-02 10:53 | Nephrology Progress Note ---
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, status post resection Colostomy status Nephrostomy tube and suprapubic catheter Sepsis , UTI Acute metabolic encephalopathy Anemia acute vs chronic Elevated LFTs Plan DC Hydrate- Calcitonin Monitor renal parameters Anemia pat avoid nephrotoxics Monitor electrolytes Favor DNR Objective Objective Last 24 Hour Vital Signs Date Time Temp Pulse Resp B/P (MAP) Pulse Ox O2 Delivery O2 Flow Rate FiO2 04/02/19 08:32 83 146/57 04/02/19 08:00 98.2 83 18 146/67 (93) 96 04/02/19 04:00 98.5 89 18 141/80 (100) 96 04/01/19 23:45 98.9 85 18 147/71 (96) 97 04/01/19 20:11 Room Air 04/01/19 20:03 98.1 98 18 151/81 (104) 98 04/01/19 16:00 98.0 93 18 136/77 (96) 98 04/01/19 12:00 98.7 89 18 140/70 (93) 97 Intake and Output 04/01/19 04/02/19 19:00 07:00 Intake Total 935 ml 550 ml Output Total 955 ml Balance 935 ml -405 ml Intake Oral 860 ml IV Total 75 ml 550 ml Output Urine Total 5 ml Stool Total 0 ml Other 950 ml Laboratory Tests 04/02/19 07:55: White Blood Count 21.9H, Red Blood Count 2.96L, Hemoglobin 8.6L, Hematocrit 25.6L, Mean Corpuscular Volume 87, Mean Corpuscular Hemoglobin 29.1, Mean Corpuscular Hemoglobin Concent 33.7, Red Cell Distribution Width 13.6, Platelet Count 423, Mean Platelet Volume 6.8, Neutrophils (%) (Auto) , Lymphocytes (%) ( Auto) , Monocytes (%) (Auto) , Eosinophils (%) (Auto) , Basophils (%) (Auto) , Differential Total Cells Counted 100, Neutrophils % (Manual) 89H, Lymphocytes % (Manual) 6L, Monocytes % (Manual) 4, Eosinophils % (Manual) 1, Basophils % ( Manual) 0, Band Neutrophils 0, Platelet Estimate Adequate, Platelet Morphology Normal, Hypochromasia 1+, Erythrocyte Sedimentation Rate 126H, Prothrombin Time 11.6H, Prothromb Time International Ratio 1.1, Activated Partial Thromboplast Time 34H, Sodium Level 139, Potassium Level 3.8, Chloride Level 107, Carbon Dioxide Level 20L, Anion Gap 12, Blood Urea Nitrogen 21H, Creatinine 1.3, Estimat Glomerular Filtration Rate 52.6, Glucose Level 114H, Calcium Level 9.2, Total Bilirubin 1.2H, Direct Bilirubin 0.6H, Aspartate Amino Transf (AST/SGOT) 97H, Alanine Aminotransferase (ALT/SGPT) 107H, Alkaline Phosphatase 440H, C- Reactive Protein, Quantitative > 70.0H, Total Protein 6.9, Albumin 1.5L, Globulin 5.4, Albumin/Globulin Ratio 0.3L, Amylase Level 87, Lipase 211, Random Vancomycin Level 9.7 Height (Feet): 5 Height (Inches): 1.00 Weight (Pounds): 107 Tomas Beck MD Apr 02, 2019 10:53
--- NOTE | 2019-04-02 11:02 | Diagnostic Imaging Report ---
Indication: Shortness of breath Technique: One view of the chest Comparison: 03/29/2019 Findings: There is some atelectasis at the left lung base. Lungs and pleural spaces are otherwise clear. The heart size is normal. There are median sternotomy sutures. There is a right nephrostomy catheter and nephroureteral stent noted Impression: Left basilar atelectasis, new since 03/29/2019 No acute process otherwise
--- NOTE | 2019-04-02 11:15 | Infectious Diseases Prog Note ---
Assessment/Plan Assessment/Plan Assessment: GBS bacteremia- likely intraabdominal source given malignancy- r/o endocarditis -03/29 Bcx 2/4 GBS; 04/01 Bcx 2/4 GPC pairs and chain UTI -u/a wbc tntc, nit neg, leuk +3; ucx >100k ESBl E coli Afebrile leukocytosis -CXR: no acute disease Stage IV colon CA with mets to Kidney and bladder s/p resection and colostomy s/p suprapubic catheter s/p nephrostomy catheter Plan: Ertapenem #3/ for ESBL UTI and GBS bacteremia D/c IV vancomycin #2 03/31 SP Zosyn #2 03/29 SP CEfepime x1 -f/u cx -Monitor CBC/CMP, temperatures -NT and SPC care -aspiration precautions -BCx x2, 2d echo -once Cr improved, will do CT C/abd/p w/ Thank you for this consultation. Will continue to follow along with you. Subjective Allergies: Coded Allergies: No Known Allergies (Unverified , 03/29/19) Objective Vital Signs Last 24 Hour Vital Signs Date Time Temp Pulse Resp B/P (MAP) Pulse Ox O2 Delivery O2 Flow Rate FiO2 04/02/19 09:00 Room Air 04/02/19 08:32 83 146/57 04/02/19 08:00 98.2 83 18 146/67 (93) 96 04/02/19 04:00 98.5 89 18 141/80 (100) 96 04/01/19 23:45 98.9 85 18 147/71 (96) 97 04/01/19 20:11 Room Air 04/01/19 20:03 98.1 98 18 151/81 (104) 98 04/01/19 16:00 98.0 93 18 136/77 (96) 98 04/01/19 12:00 98.7 89 18 140/70 (93) 97 Height (Feet): 5 Height (Inches): 1.00 Weight (Pounds): 107 Microbiology Date/Time Source Procedure Growth Status 04/01/19 08:00 Blood Blood Culture - Preliminary Resulted 04/01/19 07:35 Blood Blood Culture - Preliminary Resulted Laboratory Tests Test 04/02/19 07:55 White Blood Count 21.9 K/UL (4.8-10.8) H Red Blood Count 2.96 M/UL (4.70-6.10) L Hemoglobin 8.6 G/DL (14.2-18.0) L Hematocrit 25.6 % (42.0-52.0) L Mean Corpuscular Volume 87 FL (80-99) Mean Corpuscular Hemoglobin 29.1 PG (27.0-31.0) Mean Corpuscular Hemoglobin Concent 33.7 G/DL (32.0-36.0) Red Cell Distribution Width 13.6 % (11.6-14.8) Platelet Count 423 K/UL (150-450) Mean Platelet Volume 6.8 FL (6.5-10.1) Neutrophils (%) (Auto) % (45.0-75.0) Lymphocytes (%) (Auto) % (20.0-45.0) Monocytes (%) (Auto) % (1.0-10.0) Eosinophils (%) (Auto) % (0.0-3.0) Basophils (%) (Auto) % (0.0-2.0) Differential Total Cells Counted 100 Neutrophils % (Manual) 89 % (45-75) H Lymphocytes % (Manual) 6 % (20-45) L Monocytes % (Manual) 4 % (1-10) Eosinophils % (Manual) 1 % (0-3) Basophils % (Manual) 0 % (0-2) Band Neutrophils 0 % (0-8) Platelet Estimate Adequate Platelet Morphology Normal Hypochromasia 1+ Erythrocyte Sedimentation Rate 126 MM/HR (0-20) H Prothrombin Time 11.6 SEC (9.30-11.50) H Prothromb Time International Ratio 1.1 (0.9-1.1) Activated Partial Thromboplast Time 34 SEC (23-33) H Sodium Level 139 MMOL/L (136-145) Potassium Level 3.8 MMOL/L (3.5-5.1) Chloride Level 107 MMOL/L (98-107) Carbon Dioxide Level 20 MMOL/L (21-32) L Anion Gap 12 mmol/L (5-15) Blood Urea Nitrogen 21 mg/dL (7-18) H Creatinine 1.3 MG/DL (0.55-1.30) Estimat Glomerular Filtration Rate 52.6 mL/min (>60) Glucose Level 114 MG/DL (74-106) H Calcium Level 9.2 MG/DL (8.5-10.1) Total Bilirubin 1.2 MG/DL (0.2-1.0) H Direct Bilirubin 0.6 MG/DL (0.0-0.3) H Aspartate Amino Transf (AST/SGOT) 97 U/L (15-37) H Alanine Aminotransferase (ALT/SGPT) 107 U/L (12-78) H Alkaline Phosphatase 440 U/L (46-116) H C-Reactive Protein, Quantitative > 70.0 mg/dL (0.00-0.90) H Total Protein 6.9 G/DL (6.4-8.2) Albumin 1.5 G/DL (3.4-5.0) L Globulin 5.4 g/dL Albumin/Globulin Ratio 0.3 (1.0-2.7) L Amylase Level 87 U/L (25-115) Lipase 211 U/L (73-393) Random Vancomycin Level 9.7 ug/mL Current Medications Medications (Trade) Dose Ordered Sig/Anamaria Route PRN Reason Start Time Stop Time Status Last Admin Dose Admin Acetaminophen (Tylenol) 650 mg Q4H PRN ORAL fever 03/29/19 23:45 04/28/19 23:44 Amlodipine Besylate (Norvasc) 2.5 mg DAILY ORAL 04/02/19 09:00 05/02/19 08:59 04/02/19 08:32 Aspirin (ASA) 81 mg DAILY NG 04/02/19 09:00 05/02/19 08:59 04/02/19 08:32 Atorvastatin Calcium (Lipitor) 80 mg BEDTIME ORAL 04/01/19 21:00 05/01/19 20:59 04/01/19 21:03 Calcitonin Superior (Miacalcin) 1 sprays DAILY NASAL 04/03/19 09:00 05/03/19 08:59 Dextrose (Dextrose 50%) 25 ml Q30M PRN IV Hypoglycemia 03/29/19 23:45 04/28/19 23:44 Dextrose (Dextrose 50%) 50 ml Q30M PRN IV Hypoglycemia 03/29/19 23:45 04/28/19 23:44 Diphenhydramine HCl (Benadryl) 25 mg Q6H PRN ORAL Itching/Pruritis 03/29/19 23:45 04/28/19 23:44 Ertapenem 0.5 gm/ Sodium Chloride 55 ml @ 110 mls/hr Q24H IVPB 03/31/19 09:00 04/05/19 08:59 04/02/19 09:28 Folic Acid (Folate) 1 mg DAILY ORAL 04/01/19 11:15 05/01/19 11:14 04/02/19 08:27 Heparin Sodium (Porcine) (Heparin 5000 units/ml) 5,000 units EVERY 12 HOURS SUBQ 03/30/19 09:00 04/29/19 08:59 04/02/19 08:30 Nitroglycerin (Ntg) 0.4 mg Q5M X 3 DOSES PRN SL Prn Chest Pain 03/29/19 23:45 04/28/19 23:44 Ondansetron HCl (Zofran) 4 mg Q6H PRN IVP Nausea & Vomiting 03/29/19 23:45 04/28/19 23:44 Pantoprazole (Protonix) 40 mg EVERY 12 HOURS ORAL 04/02/19 21:00 05/02/19 20:59 Polyethylene Glycol (Miralax) 17 gm HSPRN PRN ORAL Constipation 03/29/19 23:45 04/28/19 23:44 Tamsulosin HCl (Flomax) 0.4 mg BEDTIME ORAL 04/01/19 21:00 05/01/19 20:59 04/01/19 21:02 Temazepam (Restoril) 15 mg HSPRN PRN ORAL Insomnia 03/29/19 23:45 04/05/19 23:44 Vancomycin HCl (Vanco rx to dose) 1 ea DAILY PRN MISC Per rx protocol 04/01/19 09:00 05/01/19 08:59 Vancomycin HCl 1 gm/Sodium Chloride 275 ml @ 183.708 mls/hr ONCE ONCE IVPB 04/02/19 12:00 04/02/19 13:29 Cristel Dawson M.D. Apr 02, 2019 11:15
[2019-04-02 12:00] VITALS: BP 148/69
[2019-04-02] MEDS ORDERED: Vancomycin 1 GM in NS 275 ML IVPB ONE (12:00)
--- NOTE | 2019-04-02 13:49 | Surgery Progress Note ---
Surgery Progress Note Subjective Additional Comments leukocytosis lft's us noted esr/crp elevated Objective Last 24 Hour Vital Signs Date Time Temp Pulse Resp B/P (MAP) Pulse Ox O2 Delivery O2 Flow Rate FiO2 04/02/19 12:00 98.1 91 18 148/69 (95) 96 04/02/19 09:00 Room Air 04/02/19 08:32 83 146/57 04/02/19 08:00 98.2 83 18 146/67 (93) 96 04/02/19 04:00 98.5 89 18 141/80 (100) 96 04/01/19 23:45 98.9 85 18 147/71 (96) 97 04/01/19 20:11 Room Air 04/01/19 20:03 98.1 98 18 151/81 (104) 98 04/01/19 16:00 98.0 93 18 136/77 (96) 98 I&O Intake and Output 04/01/19 04/02/19 19:00 07:00 Intake Total 935 ml 550 ml Output Total 955 ml Balance 935 ml -405 ml Intake Oral 860 ml IV Total 75 ml 550 ml Output Urine Total 5 ml Stool Total 0 ml Other 950 ml Dressing: other Wound: other Drains: other Cardiovascular: RSR Respiratory: decreased breath sounds Abdomen: soft, other Extremities: no cyanosis Laboratory Tests Test 04/02/19 07:55 White Blood Count 21.9 K/UL (4.8-10.8) H Red Blood Count 2.96 M/UL (4.70-6.10) L Hemoglobin 8.6 G/DL (14.2-18.0) L Hematocrit 25.6 % (42.0-52.0) L Mean Corpuscular Volume 87 FL (80-99) Mean Corpuscular Hemoglobin 29.1 PG (27.0-31.0) Mean Corpuscular Hemoglobin Concent 33.7 G/DL (32.0-36.0) Red Cell Distribution Width 13.6 % (11.6-14.8) Platelet Count 423 K/UL (150-450) Mean Platelet Volume 6.8 FL (6.5-10.1) Neutrophils (%) (Auto) % (45.0-75.0) Lymphocytes (%) (Auto) % (20.0-45.0) Monocytes (%) (Auto) % (1.0-10.0) Eosinophils (%) (Auto) % (0.0-3.0) Basophils (%) (Auto) % (0.0-2.0) Differential Total Cells Counted 100 Neutrophils % (Manual) 89 % (45-75) H Lymphocytes % (Manual) 6 % (20-45) L Monocytes % (Manual) 4 % (1-10) Eosinophils % (Manual) 1 % (0-3) Basophils % (Manual) 0 % (0-2) Band Neutrophils 0 % (0-8) Platelet Estimate Adequate Platelet Morphology Normal Hypochromasia 1+ Erythrocyte Sedimentation Rate 126 MM/HR (0-20) H Prothrombin Time 11.6 SEC (9.30-11.50) H Prothromb Time International Ratio 1.1 (0.9-1.1) Activated Partial Thromboplast Time 34 SEC (23-33) H Sodium Level 139 MMOL/L (136-145) Potassium Level 3.8 MMOL/L (3.5-5.1) Chloride Level 107 MMOL/L (98-107) Carbon Dioxide Level 20 MMOL/L (21-32) L Anion Gap 12 mmol/L (5-15) Blood Urea Nitrogen 21 mg/dL (7-18) H Creatinine 1.3 MG/DL (0.55-1.30) Estimat Glomerular Filtration Rate 52.6 mL/min (>60) Glucose Level 114 MG/DL (74-106) H Calcium Level 9.2 MG/DL (8.5-10.1) Total Bilirubin 1.2 MG/DL (0.2-1.0) H Direct Bilirubin 0.6 MG/DL (0.0-0.3) H Aspartate Amino Transf (AST/SGOT) 97 U/L (15-37) H Alanine Aminotransferase (ALT/SGPT) 107 U/L (12-78) H Alkaline Phosphatase 440 U/L (46-116) H C-Reactive Protein, Quantitative > 70.0 mg/dL (0.00-0.90) H Total Protein 6.9 G/DL (6.4-8.2) Albumin 1.5 G/DL (3.4-5.0) L Globulin 5.4 g/dL Albumin/Globulin Ratio 0.3 (1.0-2.7) L Amylase Level 87 U/L (25-115) Lipase 211 U/L (73-393) Random Vancomycin Level 9.7 ug/mL Plan Problems: (1) Sepsis Assessment & Plan: 83-year-old male with history of stage IV colon cancer status post left colostomy left nephrostomy tube placement superior catheter placement presented with leukocytosis, abnormal labs, abnormal LFTs, pain. On evaluation sepsis likely secondary to patient's UTI. Currently on antibiotics as per infectious disease. Abdominal examination and complete examination performed and as above. No acute surgical intervention indicated or recommended. Pending completion of abdominal ultrasound for evaluation of liver and kidneys. Will follow with recommendations. Trend labs IV fluids Okay for diet from surgical standpoint Thank you will follow with recommendations worsening lft's US Findings: Exam is somewhat limited, due to patient inability to suspend respiration. Gallbladder demonstrates gallstones. Gallbladder wall is mildly thickened, measuring 4 mm in thickness. Common bile duct measures 4 mm in diameter. No intrahepatic biliary ductal dilatation. Liver demonstrates normal echogenicity, no focal abnormality. Note that portions are well visualized, however. Portal vein and hepatic veins are patent. Pancreas is unremarkable. Spleen is unremarkable. Left kidney measures 12 cm in length. Right kidney measures 11.3 cm length. Both kidneys demonstrate slightly increased echogenicity. Right kidney demonstrates mild hydronephrosis. Note that recent plain radiograph demonstrates a nephrostomy and a stent; these are not clearly evident on this study. The left kidney demonstrates lobulated contour and somewhat heterogeneous echotexture, possibly discrete echogenic lesions which are better demonstrated on recent renal sonogram.. . Non- aneurysmal abdominal aorta . Impression: Somewhat limited exam, as described Echogenic right kidney with mild hydronephrosis despite presence of a nephrostomy and stent Markedly abnormal left kidney, also described on recent renal sonogram and possibly demonstrating multiple masses Cholelithiasis. Mild gallbladder wall thickening, could indicate acute cholecystitis. Correlate with clinical findings, consider hepatobiliary nuclear scan if clinically indicated HIDA ordered (2) Suprapubic catheter dysfunction Assessment & Plan: There is mild right hydronephrosis despite presence of a nephrostomy catheter which appears to be in good position. There is a small right renal cyst demonstrated measuring approximately 1 cm x 1.2 cm. The left kidney is abnormal. There is suggestion of multiple heterogeneous masses slightly echogenic in appearance within the left kidney. For example in the lower pole there is a 4 x 5 cm lesion. In the midpole there is a 3.7 x 3.6 cm lesion. In the upper pole there is a 4.5 cm lesion. Suggest correlation with contrast-enhanced CT.. The right kidney measures 10 cm. in length. The left kidney measures 12.2 cm. in length. The IVC is patent. Urinary bladder is unremarkable. Suprapubic catheter noted. Left lower quadrant colostomy noted. IMPRESSION: Abnormal appearance of the left kidney with suggestion of multiple lobular masses. Further evaluation with contrast-enhanced CT is recommended. Trace right hydronephrosis. Nephrostomy noted in place. Suprapubic catheter Igor Parr Apr 02, 2019 13:49
[2019-04-02 16:00] VITALS: BP 145/70
--- NOTE | 2019-04-02 16:35 | NUR ---
CASE MANAGEMENT:REVIEW SI;AC ENCEPHALOPATHY. MET COLON CA. SEPSIS W/STREP BACTEREMIA. 98.9 91 18 147/71 96% ON RA WBC 21.9 H/H 8.6/25.6 T-BILI 1.2 AST 97 ALT 107 CRP >70 IS;BENADRYL PO Q6 HRS PRN ZOFRAN IV Q6 HRS PRN ERTAPEMEN IV QD VANCOMYCIN IV ONCE PROTONIX PO Q12 HRS MED SURG STATU DCP;FROM HOME
--- NOTE | 2019-04-02 16:36 | Internal Med Progress Note ---
Subjective Date of Service: Apr 02, 2019 Physician Name Nathan Lazo Attending Physician Doroteo Alberto MD Current Medications Medications (Trade) Dose Ordered Sig/Anamaria Route PRN Reason Start Time Stop Time Status Last Admin Dose Admin Acetaminophen (Tylenol) 650 mg Q4H PRN ORAL fever 03/29/19 23:45 04/28/19 23:44 Amlodipine Besylate (Norvasc) 2.5 mg DAILY ORAL 04/02/19 09:00 05/02/19 08:59 04/02/19 08:32 Aspirin (ASA) 81 mg DAILY NG 04/02/19 09:00 05/02/19 08:59 04/02/19 08:32 Atorvastatin Calcium (Lipitor) 80 mg BEDTIME ORAL 04/01/19 21:00 05/01/19 20:59 04/01/19 21:03 Calcitonin [place] (Miacalcin) 1 sprays DAILY NASAL 04/03/19 09:00 05/03/19 08:59 Dextrose (Dextrose 50%) 25 ml Q30M PRN IV Hypoglycemia 03/29/19 23:45 04/28/19 23:44 Dextrose (Dextrose 50%) 50 ml Q30M PRN IV Hypoglycemia 03/29/19 23:45 04/28/19 23:44 Diphenhydramine HCl (Benadryl) 25 mg Q6H PRN ORAL Itching/Pruritis 03/29/19 23:45 04/28/19 23:44 Ertapenem 0.5 gm/ Sodium Chloride 55 ml @ 110 mls/hr Q24H IVPB 03/31/19 09:00 04/05/19 08:59 04/02/19 09:28 Folic Acid (Folate) 1 mg DAILY ORAL 04/01/19 11:15 05/01/19 11:14 04/02/19 08:27 Heparin Sodium (Porcine) (Heparin 5000 units/ml) 5,000 units EVERY 12 HOURS SUBQ 03/30/19 09:00 04/29/19 08:59 04/02/19 08:30 Nitroglycerin (Ntg) 0.4 mg Q5M X 3 DOSES PRN SL Prn Chest Pain 03/29/19 23:45 04/28/19 23:44 Ondansetron HCl (Zofran) 4 mg Q6H PRN IVP Nausea & Vomiting 03/29/19 23:45 04/28/19 23:44 Pantoprazole (Protonix) 40 mg EVERY 12 HOURS ORAL 04/02/19 21:00 05/02/19 20:59 Polyethylene Glycol (Miralax) 17 gm HSPRN PRN ORAL Constipation 03/29/19 23:45 04/28/19 23:44 Tamsulosin HCl (Flomax) 0.4 mg BEDTIME ORAL 04/01/19 21:00 05/01/19 20:59 04/01/19 21:02 Temazepam (Restoril) 15 mg HSPRN PRN ORAL Insomnia 03/29/19 23:45 04/05/19 23:44 Allergies: Coded Allergies: No Known Allergies (Unverified , 03/29/19) ROS Limited/Unobtainable: Yes Subjective 83 YO M admitted with gen weakness and altered mental status. Now UTI and sepsis. Cover for Int [facility]-Dr Alberto Objective Last Vital Signs Date Time Temp Pulse Resp B/P (MAP) Pulse Ox O2 Delivery O2 Flow Rate FiO2 04/02/19 12:00 98.1 91 18 148/69 (95) 96 04/02/19 09:00 Room Air Laboratory Tests Test 04/02/19 07:55 White Blood Count 21.9 K/UL (4.8-10.8) H Red Blood Count 2.96 M/UL (4.70-6.10) L Hemoglobin 8.6 G/DL (14.2-18.0) L Hematocrit 25.6 % (42.0-52.0) L Mean Corpuscular Volume 87 FL (80-99) Mean Corpuscular Hemoglobin 29.1 PG (27.0-31.0) Mean Corpuscular Hemoglobin Concent 33.7 G/DL (32.0-36.0) Red Cell Distribution Width 13.6 % (11.6-14.8) Platelet Count 423 K/UL (150-450) Mean Platelet Volume 6.8 FL (6.5-10.1) Neutrophils (%) (Auto) % (45.0-75.0) Lymphocytes (%) (Auto) % (20.0-45.0) Monocytes (%) (Auto) % (1.0-10.0) Eosinophils (%) (Auto) % (0.0-3.0) Basophils (%) (Auto) % (0.0-2.0) Differential Total Cells Counted 100 Neutrophils % (Manual) 89 % (45-75) H Lymphocytes % (Manual) 6 % (20-45) L Monocytes % (Manual) 4 % (1-10) Eosinophils % (Manual) 1 % (0-3) Basophils % (Manual) 0 % (0-2) Band Neutrophils 0 % (0-8) Platelet Estimate Adequate Platelet Morphology Normal Hypochromasia 1+ Erythrocyte Sedimentation Rate 126 MM/HR (0-20) H Prothrombin Time 11.6 SEC (9.30-11.50) H Prothromb Time International Ratio 1.1 (0.9-1.1) Activated Partial Thromboplast Time 34 SEC (23-33) H Sodium Level 139 MMOL/L (136-145) Potassium Level 3.8 MMOL/L (3.5-5.1) Chloride Level 107 MMOL/L (98-107) Carbon Dioxide Level 20 MMOL/L (21-32) L Anion Gap 12 mmol/L (5-15) Blood Urea Nitrogen 21 mg/dL (7-18) H Creatinine 1.3 MG/DL (0.55-1.30) Estimat Glomerular Filtration Rate 52.6 mL/min (>60) Glucose Level 114 MG/DL (74-106) H Calcium Level 9.2 MG/DL (8.5-10.1) Total Bilirubin 1.2 MG/DL (0.2-1.0) H Direct Bilirubin 0.6 MG/DL (0.0-0.3) H Aspartate Amino Transf (AST/SGOT) 97 U/L (15-37) H Alanine Aminotransferase (ALT/SGPT) 107 U/L (12-78) H Alkaline Phosphatase 440 U/L (46-116) H C-Reactive Protein, Quantitative > 70.0 mg/dL (0.00-0.90) H Total Protein 6.9 G/DL (6.4-8.2) Albumin 1.5 G/DL (3.4-5.0) L Globulin 5.4 g/dL Albumin/Globulin Ratio 0.3 (1.0-2.7) L Amylase Level 87 U/L (25-115) Lipase 211 U/L (73-393) Random Vancomycin Level 9.7 ug/mL Microbiology Date/Time Source Procedure Growth Status 04/01/19 08:00 Blood Blood Culture - Preliminary Resulted 04/01/19 07:35 Blood Blood Culture - Preliminary Resulted Intake and Output 04/01/19 04/02/19 19:00 07:00 Intake Total 935 ml 550 ml Output Total 955 ml Balance 935 ml -405 ml Intake Oral 860 ml IV Total 75 ml 550 ml Output Urine Total 5 ml Stool Total 0 ml Other 950 ml Objective PHYSICAL EXAMINATION: GENERAL: The patient is awake and responsive, but very chronically ill and cachectic. HEAD AND NECK: Pupils are equal and reactive to light. Extraocular movements intact. Neck was supple. No JVD. LUNGS: Good air entry. No wheezing or rales. Decreased air in bases. HEART: S1 and S2. Regular rhythm. No murmur or gallop. ABDOMEN: Soft, nondistended, and nontender. GENITOURINARY: Suprapubic catheter was noted. No sign of infection or drainage. Colostomy bag in the left side of abdomen was noted without any stool. No leakage or discharge. The patient has a suprapubic catheter in pelvic area with the right nephrostomy tube with cloudy urine. EXTREMITIES: No cyanosis, clubbing, or edema. Muscle atrophy was noted. RECTAL: Refused and deferred. PSYCHIATRIC: Mood and affect is intact. Assessment/Plan Assessment/Plan ASSESSMENT.: 1. Sepsis 2. urinary tract infection=ESBL E. Coli 3. Severe dehydration. 3. Anemia of chronic disease. 4. Acute kidney injury, chronic insufficiency. 5. 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 6. Severe protein-calorie malnutrition. 7. Acute metabolic encephalopathy due to the sepsis, infection, and dehydration. 8. Sepsis=Group B Strep PLAN: 1. Admit the patient to medical floor. 2. antibiotic =Ertapenem. 3. Code status is Full Code. 4. Dr. Dawson = Infectious Disease 5. Dr. Parr = General surgery. 6. DVT prophylaxis with heparin subcutaneous. Nathan Lazo MD Apr 02, 2019 16:36
--- NOTE | 2019-04-02 17:01 | NUR ---
NURSE NOTES: daughter Cathi told nurse she has spoken to dr Parr, says he'll DC NM.
--- NOTE | 2019-04-02 19:39 | NUR ---
HAND-OFF: Report given to ULICES Mckinley.
--- NOTE | 2019-04-02 19:39 | Urology Progress Note ---
Assessment/Plan Assessment/Plan: hydro hx, right PCN JOSE MANUEL, improved UTI/colonzied hematuria proteinuria urinary retention/SPT renal cyst renal mass monitor clinically maintain SPT and right PCN hand irrigate PRN abx as ordered monitor renal fxn, improved obtain outside records plan to change SPT during this admission thanks, Subjective Allergies: Coded Allergies: No Known Allergies (Unverified , 03/29/19) Subjective Initial Evaluation pt with complex medical hx chart reviewed met colon ca, involvement of bladder/kidney right PCN, SPT in place admitted with weakness JOSE MANUEL, UTI noted some urine leakage around SPT reported PMH/chart all noted Objective Last 24 Hour Vital Signs Date Time Temp Pulse Resp B/P (MAP) Pulse Ox O2 Delivery O2 Flow Rate FiO2 04/02/19 16:00 98.6 93 18 145/70 (95) 97 04/02/19 12:00 98.1 91 18 148/69 (95) 96 04/02/19 09:00 Room Air 04/02/19 08:32 83 146/57 04/02/19 08:00 98.2 83 18 146/67 (93) 96 04/02/19 04:00 98.5 89 18 141/80 (100) 96 04/01/19 23:45 98.9 85 18 147/71 (96) 97 04/01/19 20:11 Room Air 04/01/19 20:03 98.1 98 18 151/81 (104) 98 Intake and Output 04/01/19 04/02/19 19:00 07:00 Intake Total 935 ml 550 ml Output Total 955 ml Balance 935 ml -405 ml Intake Oral 860 ml IV Total 75 ml 550 ml Output Urine Total 5 ml Stool Total 0 ml Other 950 ml Microbiology Date/Time Source Procedure Growth Status 04/01/19 08:00 Blood Blood Culture - Preliminary Resulted 03/30/19 06:00 Urine,Clean Catch Urine Culture - Final Escherichia Coli - Esbl Complete Current Medications Medications (Trade) Dose Ordered Sig/Anamaria Route PRN Reason Start Time Stop Time Status Last Admin Dose Admin Acetaminophen (Tylenol) 650 mg Q4H PRN ORAL fever 03/29/19 23:45 04/28/19 23:44 Amlodipine Besylate (Norvasc) 2.5 mg DAILY ORAL 04/02/19 09:00 05/02/19 08:59 04/02/19 08:32 Aspirin (ASA) 81 mg DAILY NG 04/02/19 09:00 05/02/19 08:59 04/02/19 08:32 Atorvastatin Calcium (Lipitor) 80 mg BEDTIME ORAL 04/01/19 21:00 05/01/19 20:59 04/01/19 21:03 Calcitonin [place] (Miacalcin) 1 sprays DAILY NASAL 04/03/19 09:00 05/03/19 08:59 Dextrose (Dextrose 50%) 25 ml Q30M PRN IV Hypoglycemia 03/29/19 23:45 04/28/19 23:44 Dextrose (Dextrose 50%) 50 ml Q30M PRN IV Hypoglycemia 03/29/19 23:45 04/28/19 23:44 Diphenhydramine HCl (Benadryl) 25 mg Q6H PRN ORAL Itching/Pruritis 03/29/19 23:45 04/28/19 23:44 Ertapenem 0.5 gm/ Sodium Chloride 55 ml @ 110 mls/hr Q24H IVPB 03/31/19 09:00 04/05/19 08:59 04/02/19 09:28 Folic Acid (Folate) 1 mg DAILY ORAL 04/01/19 11:15 05/01/19 11:14 04/02/19 08:27 Heparin Sodium (Porcine) (Heparin 5000 units/ml) 5,000 units EVERY 12 HOURS SUBQ 03/30/19 09:00 04/29/19 08:59 04/02/19 08:30 Nitroglycerin (Ntg) 0.4 mg Q5M X 3 DOSES PRN SL Prn Chest Pain 03/29/19 23:45 04/28/19 23:44 Ondansetron HCl (Zofran) 4 mg Q6H PRN IVP Nausea & Vomiting 03/29/19 23:45 04/28/19 23:44 Pantoprazole (Protonix) 40 mg EVERY 12 HOURS ORAL 04/02/19 21:00 05/02/19 20:59 Polyethylene Glycol (Miralax) 17 gm HSPRN PRN ORAL Constipation 03/29/19 23:45 04/28/19 23:44 Tamsulosin HCl (Flomax) 0.4 mg BEDTIME ORAL 04/01/19 21:00 05/01/19 20:59 04/01/19 21:02 Temazepam (Restoril) 15 mg HSPRN PRN ORAL Insomnia 03/29/19 23:45 04/05/19 23:44 Laboratory Tests 04/02/19 07:55: White Blood Count 21.9H, Red Blood Count 2.96L, Hemoglobin 8.6L, Hematocrit 25.6L, Mean Corpuscular Volume 87, Mean Corpuscular Hemoglobin 29.1, Mean Corpuscular Hemoglobin Concent 33.7, Red Cell Distribution Width 13.6, Platelet Count 423, Mean Platelet Volume 6.8, Neutrophils (%) (Auto) , Lymphocytes (%) ( Auto) , Monocytes (%) (Auto) , Eosinophils (%) (Auto) , Basophils (%) (Auto) , Differential Total Cells Counted 100, Neutrophils % (Manual) 89H, Lymphocytes % (Manual) 6L, Monocytes % (Manual) 4, Eosinophils % (Manual) 1, Basophils % ( Manual) 0, Band Neutrophils 0, Platelet Estimate Adequate, Platelet Morphology Normal, Hypochromasia 1+, Erythrocyte Sedimentation Rate 126H, Prothrombin Time 11.6H, Prothromb Time International Ratio 1.1, Activated Partial Thromboplast Time 34H, Sodium Level 139, Potassium Level 3.8, Chloride Level 107, Carbon Dioxide Level 20L, Anion Gap 12, Blood Urea Nitrogen 21H, Creatinine 1.3, Estimat Glomerular Filtration Rate 52.6, Glucose Level 114H, Calcium Level 9.2, Total Bilirubin 1.2H, Direct Bilirubin 0.6H, Aspartate Amino Transf (AST/SGOT) 97H, Alanine Aminotransferase (ALT/SGPT) 107H, Alkaline Phosphatase 440H, C- Reactive Protein, Quantitative > 70.0H, Total Protein 6.9, Albumin 1.5L, Globulin 5.4, Albumin/Globulin Ratio 0.3L, Amylase Level 87, Lipase 211, Random Vancomycin Level 9.7 Height (Feet): 5 Height (Inches): 1.00 Weight (Pounds): 107 Objective right PCN in place SPT in place urine yellow/davis renal and abdominal u/s noted Shantanu Dukes MD Apr 02, 2019 19:39
--- NOTE | 2019-04-02 19:44 | NUR ---
NURSE NOTES: patient noted to have leakage of urine, maybe from suprapubic catheter. Nurse tried to clean patient but daughter Selam and another daughter asked nurse not to clean him, as patient is asking to not be touched. Patient was feeling cold, nurse provided extra blanket. Left message to dr Lazo regarding leakage.
--- NOTE | 2019-04-02 19:50 | NUR ---
NURSE NOTES: Received report from ULICES Vasquez. Patient asleep. Breathing unlabored on room air without distress. No s/s pain noted at this time. IV on right forearm intact. right nephrostomy intact and draining well. suprapubic cath intact and draining scant amount of urine. left colostomy bag intact. bed placed at the lowest with alarm, brake, and siderails up for safety. call light placed within reach. will continue to monitor and provide care as ordered.
[2019-04-02 20:00] VITALS: BP 125/72
--- NOTE | 2019-04-02 20:10 | NUR ---
NURSE NOTES: Dr. Lazo called back to place Dr. Dukes as a consult. Carried out the order as given and reached Dr. Dukes to inform about the leakage of the urine. Dr. Dukes instructed to keep monitoring at this time. Will continue to monitor.
[2019-04-02] MEDS: Tamsulosin 0.4mg cap ORAL SCH ×2 (20:18→20:32)
[2019-04-02] MEDS: Atorvastatin 80mg tab ORAL SCH ×2 (20:18→20:32)
--- NOTE | 2019-04-02 20:40 | NUR ---
NURSE NOTES: Patient refused 2100 scheduled medications including flomax, protonix, lipitor, and heparin. Patient turned away and said 'no,no,no' multiple times. Attempted to explain and educate the risk and benefit of medications prescribed x 3. Informed POA, daughter. Daughter said "It's okay. If he doesn't want, please let him be". Will continue to monitor the patient. POA document is on the chart, daughter will have further discussion regarding patient's care/code status tomorrow with the social work nurse.
[2019-04-03] VITALS: BP 132/83
[2019-04-03 04:00] VITALS: BP 137/69
--- NOTE | 2019-04-03 06:49 | NUR ---
NURSE NOTES: Dr. Dukes saw the patient and made aware of scant output from the suprapubic cath. Ordered to monitor and keep the suprapubic cath secured at this time. Will carry out the order as given.
[2019-04-03 07:21] LABS: HEMATOCRIT 26.6 % (42.0-52.0); MEAN CORPUSCULAR VOLUME 85 FL (80-99); PLATELET COUNT 409 K/UL (150-450); RED BLOOD COUNT 3.12 M/UL (4.70-6.10); RED CELL DISTRIBUTION WIDTH 13.7 % (11.6-14.8)
[2019-04-03 07:35] LABS: ALANINE AMINOTRANSFERASE 98 U/L (12-78); ALBUMIN 1.5 G/DL (3.4-5.0); ALBUMIN/GLOBULIN RATIO 0.3 (1.0-2.7); ALKALINE PHOSPHATASE 457 U/L (46-116); ANION GAP 12 mmol/L (5-15); ASPARTATE AMINO TRANSFERASE 87 U/L (15-37); BILIRUBIN,DIRECT 0.5 MG/DL (0.0-0.3); BLOOD UREA NITROGEN 24 mg/dL (7-18); CALCIUM 9.5 MG/DL (8.5-10.1); CARBON DIOXIDE 22 MMOL/L (21-32); CHLORIDE 107 MMOL/L (98-107); CREATININE 1.3 MG/DL (0.55-1.30); PHOSPHORUS 3.4 MG/DL (2.5-4.9); POTASSIUM 3.5 MMOL/L (3.5-5.1); SODIUM 141 MMOL/L (136-145)
--- NOTE | 2019-04-03 07:36 | NUR ---
NURSE NOTES: Report received from Minsu RN. Patient is awake and alert x 2. Patient is Italian speaking only. Patient is recognized to be a high fall risk. Communicated to certified nursing assistant. Bed locked, alarmed, and in lowest position. Will preform frequent checks. Patient noted to have two drainage bags. One bag draining yellow urine form right nephrostomy. Second drainage bag is from superpubic catheter. Currently not draining urine, MD aware. Patient noted to have have left ileostomy. Patent and in tact. 20 scott IV noted in right forearm. Will continue to follow plan of care.
--- NOTE | 2019-04-03 07:38 | NUR ---
HAND-OFF: Report given to ULICES Andres. Plan of care endorsed.
[2019-04-03 08:00] VITALS: BP 136/71
--- NOTE | 2019-04-03 08:19 | NUR ---
NURSE NOTES: At 0811 received phone call from laboratory that patient's white blood cell count today was 25.0. Paged Doctor Dawson at this time. Message left. At 0819 Dmitry ELENA heard back from Doctor Dawson. Doctor Dawson thanked Dmitry ELENA for update. No new orders given.
[2019-04-03] MEDS: Aspirin Baby 81mg NG SCH (08:39)
[2019-04-03] MEDS: Heparin 5000 units/ml inj SUBQ SCH ×2 (08:41→20:50)
--- NOTE | 2019-04-03 09:07 | Urology Progress Note ---
Assessment/Plan Assessment/Plan: hydro hx, right PCN JOSE MANUEL, improved UTI/colonzied hematuria proteinuria urinary retention/SPT renal cyst renal mass monitor clinically maintain SPT and right PCN hand irrigated SPT, leaks from penile meatus, low cap bladder, irrigate PRN abx as ordered monitor renal fxn, improved obtain outside records plan to change SPT during this admission f/u on blood cx d/w pt's daughter Subjective Allergies: Coded Allergies: No Known Allergies (Unverified , 03/29/19) Subjective confused, SPT leakage Objective Last 24 Hour Vital Signs Date Time Temp Pulse Resp B/P (MAP) Pulse Ox O2 Delivery O2 Flow Rate FiO2 04/03/19 08:40 95 136/71 04/03/19 04:00 97.8 92 21 137/69 (91) 96 04/03/19 00:00 98.4 93 22 132/83 (99) 98 04/02/19 21:00 Room Air 04/02/19 20:00 99.2 98 22 125/72 (89) 99 04/02/19 16:00 98.6 93 18 145/70 (95) 97 04/02/19 12:00 98.1 91 18 148/69 (95) 96 Intake and Output 04/02/19 04/03/19 19:00 07:00 Intake Total 240 ml Output Total 450 ml 550 ml Balance -210 ml -550 ml Intake Oral 240 ml Output Urine Total 550 ml Other 450 ml # Voids 1 Microbiology Date/Time Source Procedure Growth Status 04/01/19 08:00 Blood Blood Culture - Preliminary Gram Positive Cocci Resulted 03/30/19 06:00 Urine,Clean Catch Urine Culture - Final Escherichia Coli - Esbl Complete Current Medications Medications (Trade) Dose Ordered Sig/Anamaria Route PRN Reason Start Time Stop Time Status Last Admin Dose Admin Acetaminophen (Tylenol) 650 mg Q4H PRN ORAL fever 03/29/19 23:45 04/28/19 23:44 Amlodipine Besylate (Norvasc) 2.5 mg DAILY ORAL 04/02/19 09:00 05/02/19 08:59 04/03/19 08:40 Aspirin (ASA) 81 mg DAILY NG 04/02/19 09:00 05/02/19 08:59 04/03/19 08:39 Atorvastatin Calcium (Lipitor) 80 mg BEDTIME ORAL 04/01/19 21:00 05/01/19 20:59 04/01/19 21:03 Calcitonin [place] (Miacalcin) 1 sprays DAILY NASAL 04/03/19 09:00 05/03/19 08:59 04/03/19 08:40 Dextrose (Dextrose 50%) 25 ml Q30M PRN IV Hypoglycemia 03/29/19 23:45 04/28/19 23:44 Dextrose (Dextrose 50%) 50 ml Q30M PRN IV Hypoglycemia 03/29/19 23:45 04/28/19 23:44 Diphenhydramine HCl (Benadryl) 25 mg Q6H PRN ORAL Itching/Pruritis 03/29/19 23:45 04/28/19 23:44 Ertapenem 0.5 gm/ Sodium Chloride 55 ml @ 110 mls/hr Q24H IVPB 03/31/19 09:00 04/05/19 08:59 04/02/19 09:28 Folic Acid (Folate) 1 mg DAILY ORAL 04/01/19 11:15 05/01/19 11:14 04/03/19 08:40 Heparin Sodium (Porcine) (Heparin 5000 units/ml) 5,000 units EVERY 12 HOURS SUBQ 03/30/19 09:00 04/29/19 08:59 04/03/19 08:41 Nitroglycerin (Ntg) 0.4 mg Q5M X 3 DOSES PRN SL Prn Chest Pain 03/29/19 23:45 04/28/19 23:44 Ondansetron HCl (Zofran) 4 mg Q6H PRN IVP Nausea & Vomiting 03/29/19 23:45 04/28/19 23:44 Pantoprazole (Protonix) 40 mg EVERY 12 HOURS ORAL 04/02/19 21:00 05/02/19 20:59 04/03/19 08:39 Polyethylene Glycol (Miralax) 17 gm HSPRN PRN ORAL Constipation 03/29/19 23:45 04/28/19 23:44 Tamsulosin HCl (Flomax) 0.4 mg BEDTIME ORAL 04/01/19 21:00 05/01/19 20:59 04/01/19 21:02 Temazepam (Restoril) 15 mg HSPRN PRN ORAL Insomnia 03/29/19 23:45 2/20/20 23:44 Laboratory Tests 04/03/19 06:35: White Blood Count 25.0*H, Red Blood Count 3.12L, Hemoglobin 9.0L, Hematocrit 26.6L, Mean Corpuscular Volume 85, Mean Corpuscular Hemoglobin 28.8, Mean Corpuscular Hemoglobin Concent 33.8, Red Cell Distribution Width 13.7, Platelet Count 409, Mean Platelet Volume 6.7, Neutrophils (%) (Auto) , Lymphocytes (%) ( Auto) , Monocytes (%) (Auto) , Eosinophils (%) (Auto) , Basophils (%) (Auto) , Neutrophils % (Manual) [Pending], Lymphocytes % (Manual) [Pending], Platelet Estimate [Pending], Platelet Morphology [Pending], Sodium Level 141, Potassium Level 3.5, Chloride Level 107, Carbon Dioxide Level 22, Anion Gap 12, Blood Urea Nitrogen 24H, Creatinine 1.3, Estimat Glomerular Filtration Rate 52.6, Glucose Level 92, Uric Acid 3.9, Calcium Level 9.5, Phosphorus Level 3.4, Magnesium Level 1.8, Total Bilirubin 1.0, Direct Bilirubin 0.5H, Aspartate Amino Transf (AST/SGOT) 87H, Alanine Aminotransferase (ALT/SGPT) 98H, Alkaline Phosphatase 457H, Total Protein 7.0, Albumin 1.5L, Globulin 5.5, Albumin/ Globulin Ratio 0.3L, Carcinoembryonic Antigen [Pending], Random Vancomycin Level 5.5 Height (Feet): 5 Height (Inches): 1.00 Weight (Pounds): 107 Objective right PCN in place SPT in place urine yellow/davis renal and abdominal u/s noted Shantanu Dukes MD Apr 03, 2019 09:07
[2019-04-03] MEDS: Ertapenem 0.5 GM in NS 55 ML IVPB SCH (10:00)
--- NOTE | 2019-04-03 11:05 | NUR ---
RD ASSESSMENT & RECOMMENDATIONS SEE CARE ACTIVITY FOR COMPLETE ASSESSMENT DAILY ESTIMATED NEEDS: Needs based on CA, 48.5kg 30-35 kcals/kg 3715-8723 total kcals 1-1.5 g protein/kg 49-74 g total protein 25-30 mL/kg 2621-7485 total fluid mLs NUTRITION DIAGNOSIS: * Swallowing difficulty R/T dysphagia? as evidenced by pt on pureed moist texture diet. * Increased kcal/prot intake needs R/T catabolic dx as evidenced by metastatic colon CA to kidney and bladder. CURRENT DIET:Cardiac, Renal/ pureed moist PO DIET RECOMMENDATIONS: Liberalized REGULAR w/ poor PO/ texture per TAX COMPLIANCE REPRESENTATIVE ADDITIONAL RECOMMENDATIONS: * Calibrated bedscale wt for accurate CBW * TAX COMPLIANCE REPRESENTATIVE eval for appropriate texture * Rec liberalized regular diet w/ poor PO * Add Ensure Enlive TID w/ meals
--- NOTE | 2019-04-03 11:12 | Infectious Diseases Prog Note ---
Assessment/Plan Assessment/Plan Assessment: GBS bacteremia- likely intraabdominal source given malignancy- r/o endocarditis -03/30 2d Echo: no vegetations -03/29 Bcx 2/4 GBS; 04/01 Bcx 2/4 GPC pairs and chain UTI -u/a wbc tntc, nit neg, leuk +3; ucx >100k ESBl E coli Afebrile leukocytosis, increasing -Abd US:Somewhat limited exam, as described. Echogenic right kidney with mild hydronephrosis despite presence of a nephrostomy and stent. Markedly abnormal left kidney, also described on recent renal sonogram and possibly demonstrating multiple masses. Cholelithiasis. Mild gallbladder wall thickening, could indicate acute cholecystitis. Correlate with clinical findings, consider hepatobiliary nuclear scan if clinically indicated -CXR: no acute disease Stage IV colon CA with mets to Kidney and bladder s/p resection and colostomy s/p suprapubic catheter s/p nephrostomy catheter Plan: Ertapenem #05/28 for ESBL UTI and GBS bacteremia 04/02 SP IV vancomycin #2 03/31 SP Zosyn #2 03/29 SP CEfepime x1 -f/u cx -Monitor CBC/CMP, temperatures -NT and SPC care -aspiration precautions -f/u repeat BCx x2 - CT C/abd/p w/ to eval for abscess Thank you for this consultation. Will continue to follow along with you. Subjective Allergies: Coded Allergies: No Known Allergies (Unverified , 03/29/19) Subjective afebrile wbc increased repaet Bcx p Objective Vital Signs Last 24 Hour Vital Signs Date Time Temp Pulse Resp B/P (MAP) Pulse Ox O2 Delivery O2 Flow Rate FiO2 04/03/19 09:00 Room Air 04/03/19 08:40 95 136/71 04/03/19 08:00 98.2 95 18 136/71 (92) 97 04/03/19 04:00 97.8 92 21 137/69 (91) 96 04/03/19 00:00 98.4 93 22 132/83 (99) 98 04/02/19 21:00 Room Air 04/02/19 20:00 99.2 98 22 125/72 (89) 99 04/02/19 16:00 98.6 93 18 145/70 (95) 97 04/02/19 12:00 98.1 91 18 148/69 (95) 96 Height (Feet): 5 Height (Inches): 1.00 Weight (Pounds): 107 Objective GENERAL: The patient is awake and responsive, but very chronically ill and cachectic. HEAD AND NECK: Pupils are equal and reactive to light. Extraocular movements intact. Neck was supple. No JVD. LUNGS: Good air entry. No wheezing or rales. Decreased air in bases. HEART: S1 and S2. Regular rhythm. No murmur or gallop. ABDOMEN: Soft, nondistended, and nontender. GENITOURINARY: Suprapubic catheter was noted. No sign of infection or drainage. Colostomy bag in the left side of abdomen was noted without any stool. No leakage or discharge. The patient has a suprapubic catheter in pelvic area with the right nephrostomy tube with cloudy urine. EXTREMITIES: No cyanosis, clubbing, or edema. Muscle atrophy was noted. Microbiology Date/Time Source Procedure Growth Status 04/01/19 08:00 Blood Blood Culture - Preliminary Gram Positive Cocci Resulted 04/01/19 07:35 Blood Blood Culture - Preliminary Gram Positive Cocci Resulted Laboratory Tests Test 04/03/19 06:35 White Blood Count 25.0 K/UL (4.8-10.8) *H Red Blood Count 3.12 M/UL (4.70-6.10) L Hemoglobin 9.0 G/DL (14.2-18.0) L Hematocrit 26.6 % (42.0-52.0) L Mean Corpuscular Volume 85 FL (80-99) Mean Corpuscular Hemoglobin 28.8 PG (27.0-31.0) Mean Corpuscular Hemoglobin Concent 33.8 G/DL (32.0-36.0) Red Cell Distribution Width 13.7 % (11.6-14.8) Platelet Count 409 K/UL (150-450) Mean Platelet Volume 6.7 FL (6.5-10.1) Neutrophils (%) (Auto) % (45.0-75.0) Lymphocytes (%) (Auto) % (20.0-45.0) Monocytes (%) (Auto) % (1.0-10.0) Eosinophils (%) (Auto) % (0.0-3.0) Basophils (%) (Auto) % (0.0-2.0) Differential Total Cells Counted 100 Neutrophils % (Manual) 93 % (45-75) H Lymphocytes % (Manual) 4 % (20-45) L Monocytes % (Manual) 2 % (1-10) Eosinophils % (Manual) 1 % (0-3) Basophils % (Manual) 0 % (0-2) Band Neutrophils 0 % (0-8) Platelet Estimate Adequate Platelet Morphology Normal Sodium Level 141 MMOL/L (136-145) Potassium Level 3.5 MMOL/L (3.5-5.1) Chloride Level 107 MMOL/L (98-107) Carbon Dioxide Level 22 MMOL/L (21-32) Anion Gap 12 mmol/L (5-15) Blood Urea Nitrogen 24 mg/dL (7-18) H Creatinine 1.3 MG/DL (0.55-1.30) Estimat Glomerular Filtration Rate 52.6 mL/min (>60) Glucose Level 92 MG/DL (74-106) Uric Acid 3.9 MG/DL (2.6-7.2) Calcium Level 9.5 MG/DL (8.5-10.1) Phosphorus Level 3.4 MG/DL (2.5-4.9) Magnesium Level 1.8 MG/DL (1.8-2.4) Total Bilirubin 1.0 MG/DL (0.2-1.0) Direct Bilirubin 0.5 MG/DL (0.0-0.3) H Aspartate Amino Transf (AST/SGOT) 87 U/L (15-37) H Alanine Aminotransferase (ALT/SGPT) 98 U/L (12-78) H Alkaline Phosphatase 457 U/L (46-116) H Total Protein 7.0 G/DL (6.4-8.2) Albumin 1.5 G/DL (3.4-5.0) L Globulin 5.5 g/dL Albumin/Globulin Ratio 0.3 (1.0-2.7) L Carcinoembryonic Antigen Pending Random Vancomycin Level 5.5 ug/mL Current Medications Medications (Trade) Dose Ordered Sig/Anamaria Route PRN Reason Start Time Stop Time Status Last Admin Dose Admin Acetaminophen (Tylenol) 650 mg Q4H PRN ORAL fever 03/29/19 23:45 04/28/19 23:44 Amlodipine Besylate (Norvasc) 2.5 mg DAILY ORAL 04/02/19 09:00 05/02/19 08:59 04/03/19 08:40 Aspirin (ASA) 81 mg DAILY NG 04/02/19 09:00 05/02/19 08:59 04/03/19 08:39 Atorvastatin Calcium (Lipitor) 80 mg BEDTIME ORAL 04/01/19 21:00 05/01/19 20:59 04/01/19 21:03 Calcitonin [place] (Miacalcin) 1 sprays DAILY NASAL 04/03/19 09:00 05/03/19 08:59 04/03/19 08:40 Dextrose (Dextrose 50%) 25 ml Q30M PRN IV Hypoglycemia 03/29/19 23:45 04/28/19 23:44 Dextrose (Dextrose 50%) 50 ml Q30M PRN IV Hypoglycemia 03/29/19 23:45 04/28/19 23:44 Diphenhydramine HCl (Benadryl) 25 mg Q6H PRN ORAL Itching/Pruritis 03/29/19 23:45 04/28/19 23:44 Ertapenem 0.5 gm/ Sodium Chloride 55 ml @ 110 mls/hr Q24H IVPB 03/31/19 09:00 04/05/19 08:59 04/03/19 10:00 Folic Acid (Folate) 1 mg DAILY ORAL 04/01/19 11:15 05/01/19 11:14 04/03/19 08:40 Heparin Sodium (Porcine) (Heparin 5000 units/ml) 5,000 units EVERY 12 HOURS SUBQ 03/30/19 09:00 04/29/19 08:59 04/03/19 08:41 Nitroglycerin (Ntg) 0.4 mg Q5M X 3 DOSES PRN SL Prn Chest Pain 03/29/19 23:45 04/28/19 23:44 Ondansetron HCl (Zofran) 4 mg Q6H PRN IVP Nausea & Vomiting 03/29/19 23:45 04/28/19 23:44 Pantoprazole (Protonix) 40 mg EVERY 12 HOURS ORAL 04/02/19 21:00 05/02/19 20:59 04/03/19 08:39 Polyethylene Glycol (Miralax) 17 gm HSPRN PRN ORAL Constipation 03/29/19 23:45 04/28/19 23:44 Tamsulosin HCl (Flomax) 0.4 mg BEDTIME ORAL 04/01/19 21:00 05/01/19 20:59 04/01/19 21:02 Temazepam (Restoril) 15 mg HSPRN PRN ORAL Insomnia 03/29/19 23:45 04/05/19 23:44 Cristel Dawson M.D. Apr 03, 2019 11:12
[2019-04-03] MEDS ORDERED: Omnipaque-300 100ml vial INJ PRN (11:15)
--- NOTE | 2019-04-03 11:38 | NUR ---
NURSE NOTES: Doctor Dawson placed order for CT with contrast. Dmitry ELENA contacted daughter Cathi, whom is person of contact and power of pbx technician. Cathi did not consent and said we are "not to touch patient". Doctor Dawson aware. Charge nurse Hanna aware.
[2019-04-03 12:00] VITALS: BP 131/70
--- NOTE | 2019-04-03 12:02 | NUR ---
DRUG DEPARTMENT WORKER NOTE DARYL received a consult for healthcare POA document. Per chart review, the copy of POA in the chart- pt's daughter Cathi [phone]. DARYL attempted to meet w/ pt 2x but pt was in sleep. DARYL met w/ pt's daughter/POA Cathi in person. Cathi states pt is alert but not oriented since hx of stroke last year. Cathi expressed she wants pt to be DNR and DNI. Cathi informed DARYL that she already discussed pt's prognosis w/ MDs. DARYL assisted Cathi preparing POLST for DNR and DNI. to review POLST. Signed: 04/03/19 at 1207 by VIRY BRITO <Co-Signature Required>
--- NOTE | 2019-04-03 12:27 | Surgery Progress Note ---
Surgery Progress Note Subjective Additional Comments no acute events spoke with daughter at bedside Objective Last 24 Hour Vital Signs Date Time Temp Pulse Resp B/P (MAP) Pulse Ox O2 Delivery O2 Flow Rate FiO2 04/03/19 09:00 Room Air 04/03/19 08:40 95 136/71 04/03/19 08:00 98.2 95 18 136/71 (92) 97 04/03/19 04:00 97.8 92 21 137/69 (91) 96 04/03/19 00:00 98.4 93 22 132/83 (99) 98 04/02/19 21:00 Room Air 04/02/19 20:00 99.2 98 22 125/72 (89) 99 04/02/19 16:00 98.6 93 18 145/70 (95) 97 I&O Intake and Output 04/02/19 04/03/19 19:00 07:00 Intake Total 240 ml Output Total 450 ml 550 ml Balance -210 ml -550 ml Intake Oral 240 ml Output Urine Total 550 ml Other 450 ml # Voids 1 Dressing: other Wound: other Drains: other Cardiovascular: RSR Respiratory: decreased breath sounds Abdomen: soft, present bowel sounds, non-distended Extremities: no cyanosis, other Laboratory Tests Test 04/03/19 06:35 White Blood Count 25.0 K/UL (4.8-10.8) *H Red Blood Count 3.12 M/UL (4.70-6.10) L Hemoglobin 9.0 G/DL (14.2-18.0) L Hematocrit 26.6 % (42.0-52.0) L Mean Corpuscular Volume 85 FL (80-99) Mean Corpuscular Hemoglobin 28.8 PG (27.0-31.0) Mean Corpuscular Hemoglobin Concent 33.8 G/DL (32.0-36.0) Red Cell Distribution Width 13.7 % (11.6-14.8) Platelet Count 409 K/UL (150-450) Mean Platelet Volume 6.7 FL (6.5-10.1) Neutrophils (%) (Auto) % (45.0-75.0) Lymphocytes (%) (Auto) % (20.0-45.0) Monocytes (%) (Auto) % (1.0-10.0) Eosinophils (%) (Auto) % (0.0-3.0) Basophils (%) (Auto) % (0.0-2.0) Differential Total Cells Counted 100 Neutrophils % (Manual) 93 % (45-75) H Lymphocytes % (Manual) 4 % (20-45) L Monocytes % (Manual) 2 % (1-10) Eosinophils % (Manual) 1 % (0-3) Basophils % (Manual) 0 % (0-2) Band Neutrophils 0 % (0-8) Platelet Estimate Adequate Platelet Morphology Normal Sodium Level 141 MMOL/L (136-145) Potassium Level 3.5 MMOL/L (3.5-5.1) Chloride Level 107 MMOL/L (98-107) Carbon Dioxide Level 22 MMOL/L (21-32) Anion Gap 12 mmol/L (5-15) Blood Urea Nitrogen 24 mg/dL (7-18) H Creatinine 1.3 MG/DL (0.55-1.30) Estimat Glomerular Filtration Rate 52.6 mL/min (>60) Glucose Level 92 MG/DL (74-106) Uric Acid 3.9 MG/DL (2.6-7.2) Calcium Level 9.5 MG/DL (8.5-10.1) Phosphorus Level 3.4 MG/DL (2.5-4.9) Magnesium Level 1.8 MG/DL (1.8-2.4) Total Bilirubin 1.0 MG/DL (0.2-1.0) Direct Bilirubin 0.5 MG/DL (0.0-0.3) H Aspartate Amino Transf (AST/SGOT) 87 U/L (15-37) H Alanine Aminotransferase (ALT/SGPT) 98 U/L (12-78) H Alkaline Phosphatase 457 U/L (46-116) H Total Protein 7.0 G/DL (6.4-8.2) Albumin 1.5 G/DL (3.4-5.0) L Globulin 5.5 g/dL Albumin/Globulin Ratio 0.3 (1.0-2.7) L Carcinoembryonic Antigen Pending Random Vancomycin Level 5.5 ug/mL Plan Problems: (1) Sepsis Assessment & Plan: 83-year-old male with history of stage IV colon cancer status post left colostomy left nephrostomy tube placement superior catheter placement presented with leukocytosis, abnormal labs, abnormal LFTs, pain. On evaluation sepsis likely secondary to patient's UTI. Currently on antibiotics as per infectious disease. Abdominal examination and complete examination performed and as above. No acute surgical intervention indicated or recommended. Pending completion of abdominal ultrasound for evaluation of liver and kidneys. Will follow with recommendations. Trend labs IV fluids Okay for diet from surgical standpoint Thank you will follow with recommendations worsening lft's US Findings: Exam is somewhat limited, due to patient inability to suspend respiration. Gallbladder demonstrates gallstones. Gallbladder wall is mildly thickened, measuring 4 mm in thickness. Common bile duct measures 4 mm in diameter. No intrahepatic biliary ductal dilatation. Liver demonstrates normal echogenicity, no focal abnormality. Note that portions are well visualized, however. Portal vein and hepatic veins are patent. Pancreas is unremarkable. Spleen is unremarkable. Left kidney measures 12 cm in length. Right kidney measures 11.3 cm length. Both kidneys demonstrate slightly increased echogenicity. Right kidney demonstrates mild hydronephrosis. Note that recent plain radiograph demonstrates a nephrostomy and a stent; these are not clearly evident on this study. The left kidney demonstrates lobulated contour and somewhat heterogeneous echotexture, possibly discrete echogenic lesions which are better demonstrated on recent renal sonogram.. . Non- aneurysmal abdominal aorta . Impression: Somewhat limited exam, as described Echogenic right kidney with mild hydronephrosis despite presence of a nephrostomy and stent Markedly abnormal left kidney, also described on recent renal sonogram and possibly demonstrating multiple masses Cholelithiasis. Mild gallbladder wall thickening, could indicate acute cholecystitis. Correlate with clinical findings, consider hepatobiliary nuclear scan if clinically indicated spoke with daughter goals of care for comfort no plans for intervention hold on further imaging or testing (2) Suprapubic catheter dysfunction Assessment & Plan: There is mild right hydronephrosis despite presence of a nephrostomy catheter which appears to be in good position. There is a small right renal cyst demonstrated measuring approximately 1 cm x 1.2 cm. The left kidney is abnormal. There is suggestion of multiple heterogeneous masses slightly echogenic in appearance within the left kidney. For example in the lower pole there is a 4 x 5 cm lesion. In the midpole there is a 3.7 x 3.6 cm lesion. In the upper pole there is a 4.5 cm lesion. Suggest correlation with contrast-enhanced CT.. The right kidney measures 10 cm. in length. The left kidney measures 12.2 cm. in length. The IVC is patent. Urinary bladder is unremarkable. Suprapubic catheter noted. Left lower quadrant colostomy noted. IMPRESSION: Abnormal appearance of the left kidney with suggestion of multiple lobular masses. Further evaluation with contrast-enhanced CT is recommended. Trace right hydronephrosis. Nephrostomy noted in place. Suprapubic catheter Igor Parr Apr 03, 2019 12:27
--- NOTE | 2019-04-03 12:34 | Nephrology Progress Note ---
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, status post resection Colostomy status Nephrostomy tube and suprapubic catheter Sepsis , UTI Acute metabolic encephalopathy Anemia acute vs chronic Elevated LFTs Plan discussed with daughter- suggested comfort care Aredia one dose DC Hydrate- Calcitonin Monitor renal parameters Anemia pat avoid nephrotoxics Monitor electrolytes Favor DNR Subjective ROS Limited/Unobtainable: No Constitutional: Reports: malaise Objective Objective Last 24 Hour Vital Signs Date Time Temp Pulse Resp B/P (MAP) Pulse Ox O2 Delivery O2 Flow Rate FiO2 04/03/19 09:00 Room Air 04/03/19 08:40 95 136/71 04/03/19 08:00 98.2 95 18 136/71 (92) 97 04/03/19 04:00 97.8 92 21 137/69 (91) 96 04/03/19 00:00 98.4 93 22 132/83 (99) 98 04/02/19 21:00 Room Air 04/02/19 20:00 99.2 98 22 125/72 (89) 99 04/02/19 16:00 98.6 93 18 145/70 (95) 97 Intake and Output 04/02/19 04/03/19 19:00 07:00 Intake Total 240 ml Output Total 450 ml 550 ml Balance -210 ml -550 ml Intake Oral 240 ml Output Urine Total 550 ml Other 450 ml # Voids 1 Laboratory Tests 04/03/19 06:35: White Blood Count 25.0*H, Red Blood Count 3.12L, Hemoglobin 9.0L, Hematocrit 26.6L, Mean Corpuscular Volume 85, Mean Corpuscular Hemoglobin 28.8, Mean Corpuscular Hemoglobin Concent 33.8, Red Cell Distribution Width 13.7, Platelet Count 409, Mean Platelet Volume 6.7, Neutrophils (%) (Auto) , Lymphocytes (%) ( Auto) , Monocytes (%) (Auto) , Eosinophils (%) (Auto) , Basophils (%) (Auto) , Differential Total Cells Counted 100, Neutrophils % (Manual) 93H, Lymphocytes % (Manual) 4L, Monocytes % (Manual) 2, Eosinophils % (Manual) 1, Basophils % ( Manual) 0, Band Neutrophils 0, Platelet Estimate Adequate, Platelet Morphology Normal, Sodium Level 141, Potassium Level 3.5, Chloride Level 107, Carbon Dioxide Level 22, Anion Gap 12, Blood Urea Nitrogen 24H, Creatinine 1.3, Estimat Glomerular Filtration Rate 52.6, Glucose Level 92, Uric Acid 3.9, Calcium Level 9.5, Phosphorus Level 3.4, Magnesium Level 1.8, Total Bilirubin 1.0, Direct Bilirubin 0.5H, Aspartate Amino Transf (AST/SGOT) 87H, Alanine Aminotransferase (ALT/SGPT) 98H, Alkaline Phosphatase 457H, Total Protein 7.0, Albumin 1.5L, Globulin 5.5, Albumin/Globulin Ratio 0.3L, Carcinoembryonic Antigen [Pending], Random Vancomycin Level 5.5 Height (Feet): 5 Height (Inches): 1.00 Weight (Pounds): 107 General Appearance: no apparent distress, lethargic - but arouses easy Cardiovascular: tachycardia Respiratory/Chest: decreased breath sounds Abdomen: soft Tomas Beck MD Apr 03, 2019 12:34
--- NOTE | 2019-04-03 13:21 | Pulmonology Progress Note ---
Assessment/Plan Problems: (1) Acute metabolic encephalopathy (2) Sepsis (3) Bacteremia (4) Nephrostomy status (5) CKD (chronic kidney disease) (6) Suprapubic catheter dysfunction (7) Colon cancer metastasized to multiple sites Assessment/Plan improving iv abx check cultures symptomatic treatment check electrolytes pt is a good candidate Subjective ROS Limited/Unobtainable: No Interval Events: awake, comfortable Allergies: Coded Allergies: No Known Allergies (Unverified , 03/29/19) Objective Last 24 Hour Vital Signs Date Time Temp Pulse Resp B/P (MAP) Pulse Ox O2 Delivery O2 Flow Rate FiO2 04/03/19 09:00 Room Air 04/03/19 08:40 95 136/71 04/03/19 08:00 98.2 95 18 136/71 (92) 97 04/03/19 04:00 97.8 92 21 137/69 (91) 96 04/03/19 00:00 98.4 93 22 132/83 (99) 98 04/02/19 21:00 Room Air 04/02/19 20:00 99.2 98 22 125/72 (89) 99 04/02/19 16:00 98.6 93 18 145/70 (95) 97 Intake and Output 04/02/19 04/03/19 19:00 07:00 Intake Total 240 ml Output Total 450 ml 550 ml Balance -210 ml -550 ml Intake Oral 240 ml Output Urine Total 550 ml Other 450 ml # Voids 1 General Appearance: cachetic Respiratory/Chest: chest wall non-tender, crackles/rales Cardiovascular: normal peripheral pulses, normal rate Abdomen: normal bowel sounds, no organomegaly Genitourinary: normal external genitalia Extremities: no clubbing Microbiology Date/Time Source Procedure Growth Status 04/01/19 08:00 Blood Blood Culture - Preliminary Gram Positive Cocci Resulted 04/01/19 07:35 Blood Blood Culture - Preliminary Gram Positive Cocci Resulted Laboratory Tests 04/03/19 06:35: White Blood Count 25.0*H, Red Blood Count 3.12L, Hemoglobin 9.0L, Hematocrit 26.6L, Mean Corpuscular Volume 85, Mean Corpuscular Hemoglobin 28.8, Mean Corpuscular Hemoglobin Concent 33.8, Red Cell Distribution Width 13.7, Platelet Count 409, Mean Platelet Volume 6.7, Neutrophils (%) (Auto) , Lymphocytes (%) ( Auto) , Monocytes (%) (Auto) , Eosinophils (%) (Auto) , Basophils (%) (Auto) , Differential Total Cells Counted 100, Neutrophils % (Manual) 93H, Lymphocytes % (Manual) 4L, Monocytes % (Manual) 2, Eosinophils % (Manual) 1, Basophils % ( Manual) 0, Band Neutrophils 0, Platelet Estimate Adequate, Platelet Morphology Normal, Sodium Level 141, Potassium Level 3.5, Chloride Level 107, Carbon Dioxide Level 22, Anion Gap 12, Blood Urea Nitrogen 24H, Creatinine 1.3, Estimat Glomerular Filtration Rate 52.6, Glucose Level 92, Uric Acid 3.9, Calcium Level 9.5, Phosphorus Level 3.4, Magnesium Level 1.8, Total Bilirubin 1.0, Direct Bilirubin 0.5H, Aspartate Amino Transf (AST/SGOT) 87H, Alanine Aminotransferase (ALT/SGPT) 98H, Alkaline Phosphatase 457H, Total Protein 7.0, Albumin 1.5L, Globulin 5.5, Albumin/Globulin Ratio 0.3L, Carcinoembryonic Antigen [Pending], Random Vancomycin Level 5.5 Current Medications Medications (Trade) Dose Ordered Sig/Anamaria Route PRN Reason Start Time Stop Time Status Last Admin Dose Admin Acetaminophen (Tylenol) 650 mg Q4H PRN ORAL fever 03/29/19 23:45 04/28/19 23:44 Amlodipine Besylate (Norvasc) 2.5 mg DAILY ORAL 04/02/19 09:00 05/02/19 08:59 04/03/19 08:40 Aspirin (ASA) 81 mg DAILY NG 04/02/19 09:00 05/02/19 08:59 04/03/19 08:39 Atorvastatin Calcium (Lipitor) 80 mg BEDTIME ORAL 04/01/19 21:00 05/01/19 20:59 04/01/19 21:03 Barium Sulfate (Readi-Cat 2) 450 ml NOW PRN ORAL Radiology Procedure 04/03/19 11:15 04/05/19 11:08 Calcitonin [place] (Miacalcin) 1 sprays DAILY NASAL 04/03/19 09:00 05/03/19 08:59 04/03/19 08:40 Dextrose (Dextrose 50%) 25 ml Q30M PRN IV Hypoglycemia 03/29/19 23:45 04/28/19 23:44 Dextrose (Dextrose 50%) 50 ml Q30M PRN IV Hypoglycemia 03/29/19 23:45 04/28/19 23:44 Diphenhydramine HCl (Benadryl) 25 mg Q6H PRN ORAL Itching/Pruritis 03/29/19 23:45 04/28/19 23:44 Ertapenem 0.5 gm/ Sodium Chloride 55 ml @ 110 mls/hr Q24H IVPB 03/31/19 09:00 04/05/19 08:59 04/03/19 10:00 Folic Acid (Folate) 1 mg DAILY ORAL 04/01/19 11:15 05/01/19 11:14 04/03/19 08:40 Heparin Sodium (Porcine) (Heparin 5000 units/ml) 5,000 units EVERY 12 HOURS SUBQ 03/30/19 09:00 04/29/19 08:59 04/03/19 08:41 Iohexol (OMNIPAQUE-300 100ml) 100 ml NOW PRN INJ Radiology Procedure 04/03/19 11:15 04/05/19 11:08 Nitroglycerin (Ntg) 0.4 mg Q5M X 3 DOSES PRN SL Prn Chest Pain 03/29/19 23:45 04/28/19 23:44 Ondansetron HCl (Zofran) 4 mg Q6H PRN IVP Nausea & Vomiting 03/29/19 23:45 04/28/19 23:44 Pamidronate Disodium 60 mg/ Sodium Chloride 550 ml @ 137.5 mls/ hr ONCE ONCE IVPB 04/03/19 14:00 04/03/19 17:59 Pantoprazole (Protonix) 40 mg EVERY 12 HOURS ORAL 04/02/19 21:00 05/02/19 20:59 04/03/19 08:39 Polyethylene Glycol (Miralax) 17 gm HSPRN PRN ORAL Constipation 03/29/19 23:45 04/28/19 23:44 Tamsulosin HCl (Flomax) 0.4 mg BEDTIME ORAL 04/01/19 21:00 05/01/19 20:59 04/01/19 21:02 Temazepam (Restoril) 15 mg HSPRN PRN ORAL Insomnia 03/29/19 23:45 04/05/19 23:44 Nancy Bowser MD Apr 03, 2019 13:21
[2019-04-03] MEDS ORDERED: Pamidronate Disodium Inj 60 MG in Sodium Chloride 550 ML IVPB ONE (14:00)
[2019-04-03 16:00] VITALS: BP 127/74
[2019-04-03] MEDS ORDERED: NS Irrig 1000ml ONE (18:34)
--- NOTE | 2019-04-03 19:16 | NUR ---
HAND-OFF: Report given to Brannon ELENA. Endorsed that patient is a high fall risk. Patient is currently in stable condition.
--- NOTE | 2019-04-03 19:40 | Internal Med Progress Note ---
Subjective Date of Service: Apr 03, 2019 Physician Name Nathan Lazo Attending Physician Doroteo Alberto MD Current Medications Medications (Trade) Dose Ordered Sig/Anamaria Route PRN Reason Start Time Stop Time Status Last Admin Dose Admin Acetaminophen (Tylenol) 650 mg Q4H PRN ORAL fever 03/29/19 23:45 04/28/19 23:44 Amlodipine Besylate (Norvasc) 2.5 mg DAILY ORAL 04/02/19 09:00 05/02/19 08:59 04/03/19 08:40 Aspirin (ASA) 81 mg DAILY NG 04/02/19 09:00 05/02/19 08:59 04/03/19 08:39 Atorvastatin Calcium (Lipitor) 80 mg BEDTIME ORAL 04/01/19 21:00 05/01/19 20:59 04/01/19 21:03 Barium Sulfate (Readi-Cat 2) 450 ml NOW PRN ORAL Radiology Procedure 04/03/19 11:15 04/05/19 11:08 Calcitonin [place] (Miacalcin) 1 sprays DAILY NASAL 04/03/19 09:00 05/03/19 08:59 04/03/19 08:40 Dextrose (Dextrose 50%) 25 ml Q30M PRN IV Hypoglycemia 03/29/19 23:45 04/28/19 23:44 Dextrose (Dextrose 50%) 50 ml Q30M PRN IV Hypoglycemia 03/29/19 23:45 04/28/19 23:44 Diphenhydramine HCl (Benadryl) 25 mg Q6H PRN ORAL Itching/Pruritis 03/29/19 23:45 04/28/19 23:44 Ertapenem 0.5 gm/ Sodium Chloride 55 ml @ 110 mls/hr Q24H IVPB 03/31/19 09:00 04/05/19 08:59 04/03/19 10:00 Folic Acid (Folate) 1 mg DAILY ORAL 04/01/19 11:15 05/01/19 11:14 04/03/19 08:40 Heparin Sodium (Porcine) (Heparin 5000 units/ml) 5,000 units EVERY 12 HOURS SUBQ 03/30/19 09:00 04/29/19 08:59 04/03/19 08:41 Iohexol (OMNIPAQUE-300 100ml) 100 ml NOW PRN INJ Radiology Procedure 04/03/19 11:15 04/05/19 11:08 Nitroglycerin (Ntg) 0.4 mg Q5M X 3 DOSES PRN SL Prn Chest Pain 03/29/19 23:45 04/28/19 23:44 Ondansetron HCl (Zofran) 4 mg Q6H PRN IVP Nausea & Vomiting 03/29/19 23:45 04/28/19 23:44 Pantoprazole (Protonix) 40 mg EVERY 12 HOURS ORAL 04/02/19 21:00 05/02/19 20:59 04/03/19 08:39 Polyethylene Glycol (Miralax) 17 gm HSPRN PRN ORAL Constipation 03/29/19 23:45 04/28/19 23:44 Tamsulosin HCl (Flomax) 0.4 mg BEDTIME ORAL 04/01/19 21:00 05/01/19 20:59 04/01/19 21:02 Temazepam (Restoril) 15 mg HSPRN PRN ORAL Insomnia 03/29/19 23:45 04/05/19 23:44 Allergies: Coded Allergies: No Known Allergies (Unverified , 03/29/19) ROS Limited/Unobtainable: Yes Subjective 83 YO M admitted with gen weakness and altered mental status. Now UTI and sepsis. Cover for Int Med-Dr Albreto Objective Last Vital Signs Date Time Temp Pulse Resp B/P (MAP) Pulse Ox O2 Delivery O2 Flow Rate FiO2 04/03/19 16:00 97.9 90 12 127/74 (91) 98 04/03/19 09:00 Room Air Laboratory Tests Test 04/03/19 06:35 White Blood Count 25.0 K/UL (4.8-10.8) *H Red Blood Count 3.12 M/UL (4.70-6.10) L Hemoglobin 9.0 G/DL (14.2-18.0) L Hematocrit 26.6 % (42.0-52.0) L Mean Corpuscular Volume 85 FL (80-99) Mean Corpuscular Hemoglobin 28.8 PG (27.0-31.0) Mean Corpuscular Hemoglobin Concent 33.8 G/DL (32.0-36.0) Red Cell Distribution Width 13.7 % (11.6-14.8) Platelet Count 409 K/UL (150-450) Mean Platelet Volume 6.7 FL (6.5-10.1) Neutrophils (%) (Auto) % (45.0-75.0) Lymphocytes (%) (Auto) % (20.0-45.0) Monocytes (%) (Auto) % (1.0-10.0) Eosinophils (%) (Auto) % (0.0-3.0) Basophils (%) (Auto) % (0.0-2.0) Differential Total Cells Counted 100 Neutrophils % (Manual) 93 % (45-75) H Lymphocytes % (Manual) 4 % (20-45) L Monocytes % (Manual) 2 % (1-10) Eosinophils % (Manual) 1 % (0-3) Basophils % (Manual) 0 % (0-2) Band Neutrophils 0 % (0-8) Platelet Estimate Adequate Platelet Morphology Normal Sodium Level 141 MMOL/L (136-145) Potassium Level 3.5 MMOL/L (3.5-5.1) Chloride Level 107 MMOL/L (98-107) Carbon Dioxide Level 22 MMOL/L (21-32) Anion Gap 12 mmol/L (5-15) Blood Urea Nitrogen 24 mg/dL (7-18) H Creatinine 1.3 MG/DL (0.55-1.30) Estimat Glomerular Filtration Rate 52.6 mL/min (>60) Glucose Level 92 MG/DL (74-106) Uric Acid 3.9 MG/DL (2.6-7.2) Calcium Level 9.5 MG/DL (8.5-10.1) Phosphorus Level 3.4 MG/DL (2.5-4.9) Magnesium Level 1.8 MG/DL (1.8-2.4) Total Bilirubin 1.0 MG/DL (0.2-1.0) Direct Bilirubin 0.5 MG/DL (0.0-0.3) H Aspartate Amino Transf (AST/SGOT) 87 U/L (15-37) H Alanine Aminotransferase (ALT/SGPT) 98 U/L (12-78) H Alkaline Phosphatase 457 U/L (46-116) H Total Protein 7.0 G/DL (6.4-8.2) Albumin 1.5 G/DL (3.4-5.0) L Globulin 5.5 g/dL Albumin/Globulin Ratio 0.3 (1.0-2.7) L Carcinoembryonic Antigen Pending Random Vancomycin Level 5.5 ug/mL Microbiology Date/Time Source Procedure Growth Status 04/01/19 08:00 Blood Blood Culture - Preliminary Gram Positive Cocci Resulted 04/01/19 07:35 Blood Blood Culture - Preliminary Gram Positive Cocci Resulted Intake and Output 04/02/19 04/03/19 19:00 07:00 Intake Total 240 ml Output Total 450 ml 550 ml Balance -210 ml -550 ml Intake Oral 240 ml Output Urine Total 550 ml Other 450 ml # Voids 1 Objective PHYSICAL EXAMINATION: GENERAL: The patient is awake and responsive, but very chronically ill and cachectic. HEAD AND NECK: Pupils are equal and reactive to light. Extraocular movements intact. Neck was supple. No JVD. LUNGS: Good air entry. No wheezing or rales. Decreased air in bases. HEART: S1 and S2. Regular rhythm. No murmur or gallop. ABDOMEN: Soft, nondistended, and nontender. GENITOURINARY: Suprapubic catheter was noted. No sign of infection or drainage. Colostomy bag in the left side of abdomen was noted without any stool. No leakage or discharge. The patient has a suprapubic catheter in pelvic area with the right nephrostomy tube with cloudy urine. EXTREMITIES: No cyanosis, clubbing, or edema. Muscle atrophy was noted. RECTAL: Refused and deferred. PSYCHIATRIC: Mood and affect is intact. Assessment/Plan Assessment/Plan ASSESSMENT.: 1. Sepsis 2. urinary tract infection=ESBL E. Coli 3. Severe dehydration. 3. Anemia of chronic disease. 4. Acute kidney injury, chronic insufficiency. 5. 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 6. Severe protein-calorie malnutrition. 7. Acute metabolic encephalopathy due to the sepsis, infection, and dehydration. 8. Sepsis=Group B Strep PLAN: 1. Admit the patient to medical floor. 2. antibiotic =Ertapenem. 3. Code status is Full Code. 4. Dr. Dawson = Infectious Disease 5. Dr. Parr = General surgery. 6. DVT prophylaxis with heparin subcutaneous. Nathan Lazo MD Apr 03, 2019 19:40
--- NOTE | 2019-04-03 20:07 | NUR ---
NURSE NOTES: Received patient comfortably sleeping, kept clean and dry.
[2019-04-03 20:44] VITALS: BP 162/79
[2019-04-03] MEDS: Tamsulosin 0.4mg cap ORAL SCH (20:49)
[2019-04-03] MEDS: Atorvastatin 80mg tab ORAL SCH (20:49)
[2019-04-04] VITALS (7 sets, daily range): BP systolic 124–156; BP diastolic 60–78
--- NOTE | 2019-04-04 07:17 | NUR ---
HAND-OFF: Report given to Gildardo Bradford RN/ ULICES Fonseca.
--- NOTE | 2019-04-04 07:20 | NUR ---
NURSE NOTES: RECEIVED PATIENT IN BED, ALERT AND ORIENTED X 1, NOT IN APPARENT DISTRESS. NOT IN PAIN. IV ON RIGHT FOREARM INTACT W NO S/SX OF INFILTRATION. RIGHT SUPRAPUBIC CATHETER AND RIGHT NEPHROSTOMY INTACT AND DRAINING WELL. DR. ANDINO MADE ROUNDS W/ NO NEW ORDERS. CALL LIGHT WITHIN REACH. WILL CONTINUE TO MONITOR.
[2019-04-04 07:22] LABS: HEMATOCRIT 29.7 % (42.0-52.0); HEMOGLOBIN 9.9 G/DL (14.2-18.0); MEAN CORPUSCULAR VOLUME 86 FL (80-99); PLATELET COUNT 479 K/UL (150-450); RED BLOOD COUNT 3.45 M/UL (4.70-6.10); RED CELL DISTRIBUTION WIDTH 14.4 % (11.6-14.8)
[2019-04-04 07:41] LABS: WHITE BLOOD COUNT 27.6 K/UL (4.8-10.8)
[2019-04-04 07:43] LABS: ANION GAP 19 mmol/L (5-15); BLOOD UREA NITROGEN 26 mg/dL (7-18); CALCIUM 9.7 MG/DL (8.5-10.1); CARBON DIOXIDE 18 MMOL/L (21-32); CHLORIDE 108 MMOL/L (98-107); CREATININE 1.4 MG/DL (0.55-1.30); POTASSIUM 3.5 MMOL/L (3.5-5.1); SODIUM 144 MMOL/L (136-145)
--- NOTE | 2019-04-04 08:55 | Urology Progress Note ---
Assessment/Plan Assessment/Plan: hydro hx, right PCN JOSE MANUEL, improved UTI/colonzied hematuria proteinuria urinary retention/SPT renal cyst renal mass monitor clinically maintain SPT and right PCN hand irrigate PRN abx as ordered monitor renal fxn, improved obtain outside records plan to change SPT during this admission f/u on blood cx d/w pt's daughter Subjective Allergies: Coded Allergies: No Known Allergies (Unverified , 03/29/19) Subjective confused, SPT leakage spoke with pt's daughter, SPT place few months ago at [facility] last exchanged few weeks ago Objective Last 24 Hour Vital Signs Date Time Temp Pulse Resp B/P (MAP) Pulse Ox O2 Delivery O2 Flow Rate FiO2 04/04/19 04:00 97.8 116 20 140/70 (93) 99 04/04/19 00:24 98.5 102 20 154/78 (103) 97 04/03/19 20:44 98.0 102 20 162/79 (106) 98 04/03/19 20:13 Room Air 04/03/19 16:00 97.9 90 12 127/74 (91) 98 04/03/19 12:00 98.0 89 12 131/70 (90) 98 04/03/19 09:00 Room Air Intake and Output 04/03/19 04/04/19 19:00 07:00 Intake Total 467.5 ml 60 ml Output Total 450 ml 400 ml Balance 17.5 ml -340 ml Intake Oral 60 ml IV Total 467.5 ml Output Urine Total 100 ml 300 ml Stool Total 0 ml 0 ml Other 350 ml 100 ml Microbiology Date/Time Source Procedure Growth Status 04/02/19 11:25 Blood Blood Culture - Preliminary NO GROWTH AFTER 24 HOURS Resulted 03/30/19 06:00 Urine,Clean Catch Urine Culture - Final Escherichia Coli - Esbl Complete Current Medications Medications (Trade) Dose Ordered Sig/Anamaria Route PRN Reason Start Time Stop Time Status Last Admin Dose Admin Acetaminophen (Tylenol) 650 mg Q4H PRN ORAL fever 03/29/19 23:45 04/28/19 23:44 Amlodipine Besylate (Norvasc) 2.5 mg DAILY ORAL 04/02/19 09:00 05/02/19 08:59 04/03/19 08:40 Aspirin (ASA) 81 mg DAILY NG 04/02/19 09:00 3/18/20 08:59 04/03/19 08:39 Atorvastatin Calcium (Lipitor) 80 mg BEDTIME ORAL 04/01/19 21:00 05/01/19 20:59 04/03/19 20:49 Barium Sulfate (Readi-Cat 2) 450 ml NOW PRN ORAL Radiology Procedure 04/03/19 11:15 04/05/19 11:08 Calcitonin [place] (Miacalcin) 1 sprays DAILY NASAL 04/03/19 09:00 05/03/19 08:59 04/03/19 08:40 Dextrose (Dextrose 50%) 25 ml Q30M PRN IV Hypoglycemia 03/29/19 23:45 04/28/19 23:44 Dextrose (Dextrose 50%) 50 ml Q30M PRN IV Hypoglycemia 03/29/19 23:45 04/28/19 23:44 Diphenhydramine HCl (Benadryl) 25 mg Q6H PRN ORAL Itching/Pruritis 03/29/19 23:45 04/28/19 23:44 Ertapenem 0.5 gm/ Sodium Chloride 55 ml @ 110 mls/hr Q24H IVPB 03/31/19 09:00 04/05/19 08:59 04/03/19 10:00 Folic Acid (Folate) 1 mg DAILY ORAL 04/01/19 11:15 05/01/19 11:14 04/03/19 08:40 Heparin Sodium (Porcine) (Heparin 5000 units/ml) 5,000 units EVERY 12 HOURS SUBQ 03/30/19 09:00 04/29/19 08:59 04/03/19 20:50 Iohexol (OMNIPAQUE-300 100ml) 100 ml NOW PRN INJ Radiology Procedure 04/03/19 11:15 04/05/19 11:08 Nitroglycerin (Ntg) 0.4 mg Q5M X 3 DOSES PRN SL Prn Chest Pain 03/29/19 23:45 04/28/19 23:44 Ondansetron HCl (Zofran) 4 mg Q6H PRN IVP Nausea & Vomiting 03/29/19 23:45 04/28/19 23:44 Pantoprazole (Protonix) 40 mg EVERY 12 HOURS ORAL 04/02/19 21:00 05/02/19 20:59 04/03/19 20:49 Polyethylene Glycol (Miralax) 17 gm HSPRN PRN ORAL Constipation 03/29/19 23:45 04/28/19 23:44 Tamsulosin HCl (Flomax) 0.4 mg BEDTIME ORAL 04/01/19 21:00 05/01/19 20:59 04/03/19 20:49 Temazepam (Restoril) 15 mg HSPRN PRN ORAL Insomnia 03/29/19 23:45 04/05/19 23:44 Laboratory Tests 04/04/19 05:02: White Blood Count 27.6*H, Red Blood Count 3.45L, Hemoglobin 9.9L, Hematocrit 29.7L, Mean Corpuscular Volume 86, Mean Corpuscular Hemoglobin 28.7, Mean Corpuscular Hemoglobin Concent 33.3, Red Cell Distribution Width 14.4, Platelet Count 479H, Mean Platelet Volume 6.8, Neutrophils (%) (Auto) , Lymphocytes (%) ( Auto) , Monocytes (%) (Auto) , Eosinophils (%) (Auto) , Basophils (%) (Auto) , Neutrophils % (Manual) [Pending], Lymphocytes % (Manual) [Pending], Platelet Estimate [Pending], Platelet Morphology [Pending], Sodium Level 144, Potassium Level 3.5, Chloride Level 108H, Carbon Dioxide Level 18L, Anion Gap 19H, Blood Urea Nitrogen 26H, Creatinine 1.4H, Estimat Glomerular Filtration Rate 48.3, Glucose Level 91, Calcium Level 9.7 Height (Feet): 5 Height (Inches): 1.00 Weight (Pounds): 114 Objective right PCN in place SPT in place urine yellow/davis renal and abdominal u/s noted Shantanu Dukes MD Apr 04, 2019 08:55
[2019-04-04] MEDS: Aspirin Baby 81mg NG SCH (09:09)
[2019-04-04] MEDS: Ertapenem 0.5 GM in NS 55 ML IVPB SCH (09:11)
[2019-04-04] MEDS: Heparin 5000 units/ml inj SUBQ SCH ×2 (09:12→20:28)
--- NOTE | 2019-04-04 09:30 | NUR ---
NURSE NOTES: Dr. Dawson is aware of elevated wBC of 27.6 with no new order. patient is afebrile.
--- NOTE | 2019-04-04 11:27 | Infectious Diseases Prog Note ---
Assessment/Plan Assessment/Plan Assessment: GBS bacteremia- likely intraabdominal source given malignancy- r/o endocarditis -03/30 2d Echo: no vegetations -03/29 Bcx 2/4 GBS; 04/01 Bcx 2/4 GPC pairs and chain UTI -u/a wbc tntc, nit neg, leuk +3; ucx >100k ESBl E coli Afebrile leukocytosis, increasing- r/o Cdiff, r/o abscess (family refused CT) -Abd US:Somewhat limited exam, as described. Echogenic right kidney with mild hydronephrosis despite presence of a nephrostomy and stent. Markedly abnormal left kidney, also described on recent renal sonogram and possibly demonstrating multiple masses. Cholelithiasis. Mild gallbladder wall thickening, could indicate acute cholecystitis. 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 Will continue to follow along with you. Subjective Allergies: Coded Allergies: No Known Allergies (Unverified , 03/29/19) Subjective afebrile wbc increased repaet Bcx NTD family refused CT Objective Vital Signs Last 24 Hour Vital Signs Date Time Temp Pulse Resp B/P (MAP) Pulse Ox O2 Delivery O2 Flow Rate FiO2 04/04/19 09:09 116 140/70 04/04/19 08:00 97.9 96 17 124/72 (89) 98 04/04/19 04:00 97.8 116 20 140/70 (93) 99 04/04/19 00:24 98.5 102 20 154/78 (103) 97 04/03/19 20:44 98.0 102 20 162/79 (106) 98 04/03/19 20:13 Room Air 04/03/19 16:00 97.9 90 12 127/74 (91) 98 04/03/19 12:00 98.0 89 12 131/70 (90) 98 Height (Feet): 5 Height (Inches): 1.00 Weight (Pounds): 114 Objective GENERAL: The patient is awake and responsive, but very chronically ill and cachectic. HEAD AND NECK: Pupils are equal and reactive to light. Extraocular movements intact. Neck was supple. LUNGS: Good air entry. No wheezing or rales. Decreased air in bases. HEART: S1 and S2. Regular rhythm. No murmur or gallop. ABDOMEN: Soft, nondistended, and nontender. GENITOURINARY: Suprapubic catheter was noted. No sign of infection or drainage. Colostomy bag in the left side of abdomen was noted without any stool. No leakage or discharge. EXTREMITIES: No cyanosis, clubbing, or edema. Muscle atrophy was noted. Microbiology Date/Time Source Procedure Growth Status 04/02/19 11:25 Blood Blood Culture - Preliminary NO GROWTH AFTER 24 HOURS Resulted 04/02/19 11:20 Blood Blood Culture - Preliminary NO GROWTH AFTER 24 HOURS Resulted Laboratory Tests Test 04/04/19 05:02 White Blood Count 27.6 K/UL (4.8-10.8) *H Red Blood Count 3.45 M/UL (4.70-6.10) L Hemoglobin 9.9 G/DL (14.2-18.0) L Hematocrit 29.7 % (42.0-52.0) L Mean Corpuscular Volume 86 FL (80-99) Mean Corpuscular Hemoglobin 28.7 PG (27.0-31.0) Mean Corpuscular Hemoglobin Concent 33.3 G/DL (32.0-36.0) Red Cell Distribution Width 14.4 % (11.6-14.8) Platelet Count 479 K/UL (150-450) H Mean Platelet Volume 6.8 FL (6.5-10.1) Neutrophils (%) (Auto) % (45.0-75.0) Lymphocytes (%) (Auto) % (20.0-45.0) Monocytes (%) (Auto) % (1.0-10.0) Eosinophils (%) (Auto) % (0.0-3.0) Basophils (%) (Auto) % (0.0-2.0) Differential Total Cells Counted 100 Neutrophils % (Manual) 93 % (45-75) H Lymphocytes % (Manual) 3 % (20-45) L Monocytes % (Manual) 4 % (1-10) Eosinophils % (Manual) 0 % (0-3) Basophils % (Manual) 0 % (0-2) Band Neutrophils 0 % (0-8) Platelet Estimate Adequate Platelet Morphology Normal Hypochromasia 2+ Anisocytosis 1+ Spherocytes 1+ Sodium Level 144 MMOL/L (136-145) Potassium Level 3.5 MMOL/L (3.5-5.1) Chloride Level 108 MMOL/L (98-107) H Carbon Dioxide Level 18 MMOL/L (21-32) L Anion Gap 19 mmol/L (5-15) H Blood Urea Nitrogen 26 mg/dL (7-18) H Creatinine 1.4 MG/DL (0.55-1.30) H Estimat Glomerular Filtration Rate 48.3 mL/min (>60) Glucose Level 91 MG/DL (74-106) Calcium Level 9.7 MG/DL (8.5-10.1) Current Medications Medications (Trade) Dose Ordered Sig/Anamaria Route PRN Reason Start Time Stop Time Status Last Admin Dose Admin Acetaminophen (Tylenol) 650 mg Q4H PRN ORAL fever 03/29/19 23:45 04/28/19 23:44 Amlodipine Besylate (Norvasc) 2.5 mg DAILY ORAL 04/02/19 09:00 05/02/19 08:59 04/04/19 09:09 Aspirin (ASA) 81 mg DAILY NG 04/02/19 09:00 05/02/19 08:59 04/04/19 09:09 Atorvastatin Calcium (Lipitor) 80 mg BEDTIME ORAL 04/01/19 21:00 05/01/19 20:59 04/03/19 20:49 Barium Sulfate (Readi-Cat 2) 450 ml NOW PRN ORAL Radiology Procedure 04/03/19 11:15 04/05/19 11:08 Calcitonin [place] (Miacalcin) 1 sprays DAILY NASAL 04/03/19 09:00 05/03/19 08:59 04/04/19 09:10 Dextrose (Dextrose 50%) 25 ml Q30M PRN IV Hypoglycemia 03/29/19 23:45 04/28/19 23:44 Dextrose (Dextrose 50%) 50 ml Q30M PRN IV Hypoglycemia 03/29/19 23:45 04/28/19 23:44 Diphenhydramine HCl (Benadryl) 25 mg Q6H PRN ORAL Itching/Pruritis 03/29/19 23:45 04/28/19 23:44 Ertapenem 0.5 gm/ Sodium Chloride 55 ml @ 110 mls/hr Q24H IVPB 03/31/19 09:00 04/05/19 08:59 04/04/19 09:11 Folic Acid (Folate) 1 mg DAILY ORAL 04/01/19 11:15 05/01/19 11:14 04/04/19 09:09 Heparin Sodium (Porcine) (Heparin 5000 units/ml) 5,000 units EVERY 12 HOURS SUBQ 03/30/19 09:00 04/29/19 08:59 04/04/19 09:12 Iohexol (OMNIPAQUE-300 100ml) 100 ml NOW PRN INJ Radiology Procedure 04/03/19 11:15 04/05/19 11:08 Nitroglycerin (Ntg) 0.4 mg Q5M X 3 DOSES PRN SL Prn Chest Pain 03/29/19 23:45 04/28/19 23:44 Ondansetron HCl (Zofran) 4 mg Q6H PRN IVP Nausea & Vomiting 03/29/19 23:45 04/28/19 23:44 Pantoprazole (Protonix) 40 mg EVERY 12 HOURS ORAL 04/02/19 21:00 05/02/19 20:59 04/04/19 09:09 Polyethylene Glycol (Miralax) 17 gm HSPRN PRN ORAL Constipation 03/29/19 23:45 04/28/19 23:44 Tamsulosin HCl (Flomax) 0.4 mg BEDTIME ORAL 04/01/19 21:00 05/01/19 20:59 04/03/19 20:49 Temazepam (Restoril) 15 mg HSPRN PRN ORAL Insomnia 03/29/19 23:45 04/05/19 23:44 Cristel Dawson M.D. Apr 04, 2019 11:27
--- NOTE | 2019-04-04 13:03 | Pulmonology Progress Note ---
Assessment/Plan Problems: (1) Bacteremia (2) Sepsis (3) Acute metabolic encephalopathy (4) Nephrostomy status (5) CKD (chronic kidney disease) (6) Suprapubic catheter dysfunction (7) Colon cancer metastasized to multiple sites Assessment/Plan improving iv abx, on Ertapenem for ESBL in urine and bacteremia WBC is higher check cultures symptomatic treatment check electrolytes pt is a good candidate for palliative care Subjective Interval Events: somnolent, Allergies: Coded Allergies: No Known Allergies (Unverified , 03/29/19) Objective Last 24 Hour Vital Signs Date Time Temp Pulse Resp B/P (MAP) Pulse Ox O2 Delivery O2 Flow Rate FiO2 04/04/19 09:09 116 140/70 04/04/19 09:00 Room Air 04/04/19 08:00 97.9 96 17 124/72 (89) 98 04/04/19 04:00 97.8 116 20 140/70 (93) 99 04/04/19 00:24 98.5 102 20 154/78 (103) 97 04/03/19 20:44 98.0 102 20 162/79 (106) 98 04/03/19 20:13 Room Air 04/03/19 16:00 97.9 90 12 127/74 (91) 98 Intake and Output 04/03/19 04/04/19 19:00 07:00 Intake Total 467.5 ml 60 ml Output Total 450 ml 400 ml Balance 17.5 ml -340 ml Intake Oral 60 ml IV Total 467.5 ml Output Urine Total 100 ml 300 ml Stool Total 0 ml 0 ml Other 350 ml 100 ml General Appearance: cachetic HEENT: normocephalic, atraumatic Respiratory/Chest: crackles/rales Cardiovascular: normal peripheral pulses, normal rate Abdomen: normal bowel sounds Extremities: no cyanosis, no clubbing Microbiology Date/Time Source Procedure Growth Status 04/02/19 11:25 Blood Blood Culture - Preliminary NO GROWTH AFTER 24 HOURS Resulted 04/02/19 11:20 Blood Blood Culture - Preliminary NO GROWTH AFTER 24 HOURS Resulted Laboratory Tests 04/04/19 05:02: White Blood Count 27.6*H, Red Blood Count 3.45L, Hemoglobin 9.9L, Hematocrit 29.7L, Mean Corpuscular Volume 86, Mean Corpuscular Hemoglobin 28.7, Mean Corpuscular Hemoglobin Concent 33.3, Red Cell Distribution Width 14.4, Platelet Count 479H, Mean Platelet Volume 6.8, Neutrophils (%) (Auto) , Lymphocytes (%) ( Auto) , Monocytes (%) (Auto) , Eosinophils (%) (Auto) , Basophils (%) (Auto) , Differential Total Cells Counted 100, Neutrophils % (Manual) 93H, Lymphocytes % (Manual) 3L, Monocytes % (Manual) 4, Eosinophils % (Manual) 0, Basophils % ( Manual) 0, Band Neutrophils 0, Platelet Estimate Adequate, Platelet Morphology Normal, Hypochromasia 2+, Anisocytosis 1+, Spherocytes 1+, Sodium Level 144, Potassium Level 3.5, Chloride Level 108H, Carbon Dioxide Level 18L, Anion Gap 19H, Blood Urea Nitrogen 26H, Creatinine 1.4H, Estimat Glomerular Filtration Rate 48.3, Glucose Level 91, Calcium Level 9.7 Current Medications Medications (Trade) Dose Ordered Sig/Anamaria Route PRN Reason Start Time Stop Time Status Last Admin Dose Admin Acetaminophen (Tylenol) 650 mg Q4H PRN ORAL fever 03/29/19 23:45 04/28/19 23:44 Amlodipine Besylate (Norvasc) 2.5 mg DAILY ORAL 04/02/19 09:00 05/02/19 08:59 04/04/19 09:09 Aspirin (ASA) 81 mg DAILY NG 04/02/19 09:00 05/02/19 08:59 04/04/19 09:09 Atorvastatin Calcium (Lipitor) 80 mg BEDTIME ORAL 04/01/19 21:00 05/01/19 20:59 04/03/19 20:49 Barium Sulfate (Readi-Cat 2) 450 ml NOW PRN ORAL Radiology Procedure 04/03/19 11:15 04/05/19 11:08 Calcitonin [place] (Miacalcin) 1 sprays DAILY NASAL 04/03/19 09:00 05/03/19 08:59 04/04/19 09:10 Dextrose (Dextrose 50%) 25 ml Q30M PRN IV Hypoglycemia 03/29/19 23:45 04/28/19 23:44 Dextrose (Dextrose 50%) 50 ml Q30M PRN IV Hypoglycemia 03/29/19 23:45 04/28/19 23:44 Diphenhydramine HCl (Benadryl) 25 mg Q6H PRN ORAL Itching/Pruritis 03/29/19 23:45 04/28/19 23:44 Ertapenem 0.5 gm/ Sodium Chloride 55 ml @ 110 mls/hr Q24H IVPB 03/31/19 09:00 04/05/19 08:59 04/04/19 09:11 Folic Acid (Folate) 1 mg DAILY ORAL 04/01/19 11:15 05/01/19 11:14 04/04/19 09:09 Heparin Sodium (Porcine) (Heparin 5000 units/ml) 5,000 units EVERY 12 HOURS SUBQ 03/30/19 09:00 04/29/19 08:59 04/04/19 09:12 Iohexol (OMNIPAQUE-300 100ml) 100 ml NOW PRN INJ Radiology Procedure 04/03/19 11:15 04/05/19 11:08 Nitroglycerin (Ntg) 0.4 mg Q5M X 3 DOSES PRN SL Prn Chest Pain 03/29/19 23:45 04/28/19 23:44 Ondansetron HCl (Zofran) 4 mg Q6H PRN IVP Nausea & Vomiting 03/29/19 23:45 04/28/19 23:44 Pantoprazole (Protonix) 40 mg EVERY 12 HOURS ORAL 04/02/19 21:00 05/02/19 20:59 04/04/19 09:09 Polyethylene Glycol (Miralax) 17 gm HSPRN PRN ORAL Constipation 03/29/19 23:45 04/28/19 23:44 Tamsulosin HCl (Flomax) 0.4 mg BEDTIME ORAL 04/01/19 21:00 05/01/19 20:59 04/03/19 20:49 Temazepam (Restoril) 15 mg HSPRN PRN ORAL Insomnia 03/29/19 23:45 04/05/19 23:44 Nancy Bowser MD Apr 04, 2019 13:03
--- NOTE | 2019-04-04 14:29 | NUR ---
CASE MANAGEMENT:REVIEW SI;BACTEREMIA. SEPSIS. AC MET ENCEPHALOPATHY. SUPRAPUBIC CATH DYSFUNCTION. 98.5 116 20 154/78 97% ON RA WBC 27.6 BUN 26 CR 1.4 IS;ERTAPENEM IV Q24 HRS PROTONIX PO Q12 HRS ASA NGT QD HEPARIN SUBQ Q12 HRS MED SURG STATUS DCP;FROM HOME
--- NOTE | 2019-04-04 14:55 | Nephrology Progress Note ---
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, status post resection Colostomy status Nephrostomy tube and suprapubic catheter Sepsis , UTI Acute metabolic encephalopathy Anemia acute vs chronic Elevated LFTs Plan discussed with daughter- suggested comfort care Aredia one dose Resume Hydrate- Calcitonin Monitor renal parameters Anemia pat avoid nephrotoxics Monitor electrolytes Favor DNR Subjective ROS Limited/Unobtainable: No Constitutional: Reports: malaise, weakness Objective Objective Last 24 Hour Vital Signs Date Time Temp Pulse Resp B/P (MAP) Pulse Ox O2 Delivery O2 Flow Rate FiO2 04/04/19 12:00 98.0 103 18 141/60 (87) 99 04/04/19 09:09 116 140/70 04/04/19 09:00 Room Air 04/04/19 08:00 97.9 96 17 124/72 (89) 98 04/04/19 04:00 97.8 116 20 140/70 (93) 99 04/04/19 00:24 98.5 102 20 154/78 (103) 97 04/03/19 20:44 98.0 102 20 162/79 (106) 98 04/03/19 20:13 Room Air 04/03/19 16:00 97.9 90 12 127/74 (91) 98 Intake and Output 04/03/19 04/04/19 19:00 07:00 Intake Total 467.5 ml 60 ml Output Total 450 ml 400 ml Balance 17.5 ml -340 ml Intake Oral 60 ml IV Total 467.5 ml Output Urine Total 100 ml 300 ml Stool Total 0 ml 0 ml Other 350 ml 100 ml Current Medications Medications (Trade) Dose Ordered Sig/Anamaria Route PRN Reason Start Time Stop Time Status Last Admin Dose Admin Acetaminophen (Tylenol) 650 mg Q4H PRN ORAL fever 03/29/19 23:45 04/28/19 23:44 Amlodipine Besylate (Norvasc) 2.5 mg DAILY ORAL 04/02/19 09:00 05/02/19 08:59 04/04/19 09:09 Aspirin (ASA) 81 mg DAILY NG 04/02/19 09:00 05/02/19 08:59 04/04/19 09:09 Atorvastatin Calcium (Lipitor) 80 mg BEDTIME ORAL 04/01/19 21:00 05/01/19 20:59 04/03/19 20:49 Barium Sulfate (Readi-Cat 2) 450 ml NOW PRN ORAL Radiology Procedure 04/03/19 11:15 04/05/19 11:08 Calcitonin [place] (Miacalcin) 1 sprays DAILY NASAL 04/03/19 09:00 05/03/19 08:59 04/04/19 09:10 Dextrose (Dextrose 50%) 25 ml Q30M PRN IV Hypoglycemia 03/29/19 23:45 04/28/19 23:44 Dextrose (Dextrose 50%) 50 ml Q30M PRN IV Hypoglycemia 03/29/19 23:45 04/28/19 23:44 Diphenhydramine HCl (Benadryl) 25 mg Q6H PRN ORAL Itching/Pruritis 03/29/19 23:45 04/28/19 23:44 Ertapenem 0.5 gm/ Sodium Chloride 55 ml @ 110 mls/hr Q24H IVPB 03/31/19 09:00 04/13/19 23:59 04/04/19 09:11 Folic Acid (Folate) 1 mg DAILY ORAL 04/01/19 11:15 05/01/19 11:14 04/04/19 09:09 Heparin Sodium (Porcine) (Heparin 5000 units/ml) 5,000 units EVERY 12 HOURS SUBQ 03/30/19 09:00 04/29/19 08:59 04/04/19 09:12 Iohexol (OMNIPAQUE-300 100ml) 100 ml NOW PRN INJ Radiology Procedure 04/03/19 11:15 04/05/19 11:08 Nitroglycerin (Ntg) 0.4 mg Q5M X 3 DOSES PRN SL Prn Chest Pain 03/29/19 23:45 04/28/19 23:44 Ondansetron HCl (Zofran) 4 mg Q6H PRN IVP Nausea & Vomiting 03/29/19 23:45 04/28/19 23:44 Pantoprazole (Protonix) 40 mg EVERY 12 HOURS ORAL 04/02/19 21:00 05/02/19 20:59 04/04/19 09:09 Polyethylene Glycol (Miralax) 17 gm HSPRN PRN ORAL Constipation 03/29/19 23:45 04/28/19 23:44 Tamsulosin HCl (Flomax) 0.4 mg BEDTIME ORAL 04/01/19 21:00 05/01/19 20:59 04/03/19 20:49 Temazepam (Restoril) 15 mg HSPRN PRN ORAL Insomnia 03/29/19 23:45 04/05/19 23:44 Laboratory Tests 04/04/19 05:02: White Blood Count 27.6*H, Red Blood Count 3.45L, Hemoglobin 9.9L, Hematocrit 29.7L, Mean Corpuscular Volume 86, Mean Corpuscular Hemoglobin 28.7, Mean Corpuscular Hemoglobin Concent 33.3, Red Cell Distribution Width 14.4, Platelet Count 479H, Mean Platelet Volume 6.8, Neutrophils (%) (Auto) , Lymphocytes (%) ( Auto) , Monocytes (%) (Auto) , Eosinophils (%) (Auto) , Basophils (%) (Auto) , Differential Total Cells Counted 100, Neutrophils % (Manual) 93H, Lymphocytes % (Manual) 3L, Monocytes % (Manual) 4, Eosinophils % (Manual) 0, Basophils % ( Manual) 0, Band Neutrophils 0, Platelet Estimate Adequate, Platelet Morphology Normal, Hypochromasia 2+, Anisocytosis 1+, Spherocytes 1+, Sodium Level 144, Potassium Level 3.5, Chloride Level 108H, Carbon Dioxide Level 18L, Anion Gap 19H, Blood Urea Nitrogen 26H, Creatinine 1.4H, Estimat Glomerular Filtration Rate 48.3, Glucose Level 91, Calcium Level 9.7 Height (Feet): 5 Height (Inches): 1.00 Weight (Pounds): 114 General Appearance: no apparent distress, lethargic Cardiovascular: tachycardia Respiratory/Chest: decreased breath sounds Abdomen: soft Tomas Beck MD Apr 04, 2019 14:55
[2019-04-04] MEDS: D5 1/2NS 1,000 ML IV SCH (15:20)
[2019-04-04] MEDS ORDERED: NS 275ml ONE (16:30)
[2019-04-04] MEDS ORDERED: D5 1/2NS 1000ml IV ONE (16:30)
[2019-04-04 17:04] LABS: APPEARANCE,URINE CLOUDY; BILIRUBIN, URINE NEGATIVE (NEGATIVE); COLOR,URINE PALE YELLOW; GLUCOSE, URINE (UA) NEGATIVE (NEGATIVE); KETONES,URINE 1+ (NEGATIVE); LEUKOCYTE ESTERASE ,URINE 3+ (NEGATIVE); NITRITE,URINE NEGATIVE (NEGATIVE); PH,URINE 5 (4.5-8.0); PROTEIN,URINE 3+ (NEGATIVE); UROBILINOGEN,URINE NORMAL MG/DL (0.0-1.0)
--- NOTE | 2019-04-04 18:51 | Internal Med Progress Note ---
Subjective Date of Service: Apr 04, 2019 Physician Name Nathna Lazo Attending Physician Doroteo Alberto MD Current Medications Medications (Trade) Dose Ordered Sig/Anamaria Route PRN Reason Start Time Stop Time Status Last Admin Dose Admin Acetaminophen (Tylenol) 650 mg Q4H PRN ORAL fever 03/29/19 23:45 04/28/19 23:44 Amlodipine Besylate (Norvasc) 2.5 mg DAILY ORAL 04/02/19 09:00 05/02/19 08:59 04/04/19 09:09 Aspirin (ASA) 81 mg DAILY NG 04/02/19 09:00 05/02/19 08:59 04/04/19 09:09 Atorvastatin Calcium (Lipitor) 80 mg BEDTIME ORAL 04/01/19 21:00 05/01/19 20:59 04/03/19 20:49 Barium Sulfate (Readi-Cat 2) 450 ml NOW PRN ORAL Radiology Procedure 04/03/19 11:15 04/05/19 11:08 Calcitonin [place] (Miacalcin) 1 sprays DAILY NASAL 04/03/19 09:00 05/03/19 08:59 04/04/19 09:10 Dextrose (Dextrose 50%) 25 ml Q30M PRN IV Hypoglycemia 03/29/19 23:45 04/28/19 23:44 Dextrose (Dextrose 50%) 50 ml Q30M PRN IV Hypoglycemia 03/29/19 23:45 04/28/19 23:44 Dextrose/Sodium Chloride 1,000 ml @ 75 mls/hr [id number] IV 04/04/19 15:00 05/04/19 14:59 04/04/19 15:20 Diphenhydramine HCl (Benadryl) 25 mg Q6H PRN ORAL Itching/Pruritis 03/29/19 23:45 04/28/19 23:44 Ertapenem 0.5 gm/ Sodium Chloride 55 ml @ 110 mls/hr Q24H IVPB 03/31/19 09:00 04/13/19 23:59 04/04/19 09:11 Folic Acid (Folate) 1 mg DAILY ORAL 04/01/19 11:15 05/01/19 11:14 04/04/19 09:09 Heparin Sodium (Porcine) (Heparin 5000 units/ml) 5,000 units EVERY 12 HOURS SUBQ 03/30/19 09:00 04/29/19 08:59 04/04/19 09:12 Iohexol (OMNIPAQUE-300 100ml) 100 ml NOW PRN INJ Radiology Procedure 04/03/19 11:15 04/05/19 11:08 Nitroglycerin (Ntg) 0.4 mg Q5M X 3 DOSES PRN SL Prn Chest Pain 03/29/19 23:45 04/28/19 23:44 Ondansetron HCl (Zofran) 4 mg Q6H PRN IVP Nausea & Vomiting 03/29/19 23:45 04/28/19 23:44 Pantoprazole (Protonix) 40 mg EVERY 12 HOURS ORAL 04/02/19 21:00 05/02/19 20:59 04/04/19 09:09 Polyethylene Glycol (Miralax) 17 gm HSPRN PRN ORAL Constipation 03/29/19 23:45 04/28/19 23:44 Tamsulosin HCl (Flomax) 0.4 mg BEDTIME ORAL 04/01/19 21:00 05/01/19 20:59 04/03/19 20:49 Temazepam (Restoril) 15 mg HSPRN PRN ORAL Insomnia 03/29/19 23:45 04/05/19 23:44 Allergies: Coded Allergies: No Known Allergies (Unverified , 03/29/19) ROS Limited/Unobtainable: Yes Subjective 83 YO M admitted with gen weakness and altered mental status. Now UTI and sepsis. Cover for Int [facility]-Dr Alberto Objective Last Vital Signs Date Time Temp Pulse Resp B/P (MAP) Pulse Ox O2 Delivery O2 Flow Rate FiO2 04/04/19 16:00 98.1 103 17 154/67 (96) 99 04/04/19 09:00 Room Air Laboratory Tests Test 04/04/19 05:02 04/04/19 16:10 White Blood Count 27.6 K/UL (4.8-10.8) *H Red Blood Count 3.45 M/UL (4.70-6.10) L Hemoglobin 9.9 G/DL (14.2-18.0) L Hematocrit 29.7 % (42.0-52.0) L Mean Corpuscular Volume 86 FL (80-99) Mean Corpuscular Hemoglobin 28.7 PG (27.0-31.0) Mean Corpuscular Hemoglobin Concent 33.3 G/DL (32.0-36.0) Red Cell Distribution Width 14.4 % (11.6-14.8) Platelet Count 479 K/UL (150-450) H Mean Platelet Volume 6.8 FL (6.5-10.1) Neutrophils (%) (Auto) % (45.0-75.0) Lymphocytes (%) (Auto) % (20.0-45.0) Monocytes (%) (Auto) % (1.0-10.0) Eosinophils (%) (Auto) % (0.0-3.0) Basophils (%) (Auto) % (0.0-2.0) Differential Total Cells Counted 100 Neutrophils % (Manual) 93 % (45-75) H Lymphocytes % (Manual) 3 % (20-45) L Monocytes % (Manual) 4 % (1-10) Eosinophils % (Manual) 0 % (0-3) Basophils % (Manual) 0 % (0-2) Band Neutrophils 0 % (0-8) Platelet Estimate Adequate Platelet Morphology Normal Hypochromasia 2+ Anisocytosis 1+ Spherocytes 1+ Sodium Level 144 MMOL/L (136-145) Potassium Level 3.5 MMOL/L (3.5-5.1) Chloride Level 108 MMOL/L (98-107) H Carbon Dioxide Level 18 MMOL/L (21-32) L Anion Gap 19 mmol/L (5-15) H Blood Urea Nitrogen 26 mg/dL (7-18) H Creatinine 1.4 MG/DL (0.55-1.30) H Estimat Glomerular Filtration Rate 48.3 mL/min (>60) Glucose Level 91 MG/DL (74-106) Calcium Level 9.7 MG/DL (8.5-10.1) Urine Color Pale yellow Urine Appearance Cloudy Urine pH 5 (4.5-8.0) Urine Specific [place] 1.015 (1.005-1.035) Urine Protein 3+ (NEGATIVE) H Urine Glucose (UA) Negative (NEGATIVE) Urine Ketones 1+ (NEGATIVE) H Urine Blood 5+ (NEGATIVE) H Urine Nitrite Negative (NEGATIVE) Urine Bilirubin Negative (NEGATIVE) Urine Urobilinogen Normal MG/DL (0.0-1.0) Urine Leukocyte Esterase 3+ (NEGATIVE) H Urine RBC 60-80 /HPF (0 - 0) H Urine WBC 40-60 /HPF (0 - 0) H Urine Squamous Epithelial Cells None /LPF (NONE/OCC) Urine Bacteria Many /HPF (NONE) H Microbiology Date/Time Source Procedure Growth Status 04/02/19 11:25 Blood Blood Culture - Preliminary NO GROWTH AFTER 24 HOURS Resulted 04/02/19 11:20 Blood Blood Culture - Preliminary NO GROWTH AFTER 24 HOURS Resulted Intake and Output 04/03/19 04/04/19 19:00 07:00 Intake Total 467.5 ml 60 ml Output Total 450 ml 400 ml Balance 17.5 ml -340 ml Intake Oral 60 ml IV Total 467.5 ml Output Urine Total 100 ml 300 ml Stool Total 0 ml 0 ml Other 350 ml 100 ml Objective PHYSICAL EXAMINATION: GENERAL: The patient is awake and responsive, but very chronically ill and cachectic. HEAD AND NECK: Pupils are equal and reactive to light. Extraocular movements intact. Neck was supple. No JVD. LUNGS: Good air entry. No wheezing or rales. Decreased air in bases. HEART: S1 and S2. Regular rhythm. No murmur or gallop. ABDOMEN: Soft, nondistended, and nontender. GENITOURINARY: Suprapubic catheter was noted. No sign of infection or drainage. Colostomy bag in the left side of abdomen was noted without any stool. No leakage or discharge. The patient has a suprapubic catheter in pelvic area with the right nephrostomy tube with cloudy urine. EXTREMITIES: No cyanosis, clubbing, or edema. Muscle atrophy was noted. RECTAL: Refused and deferred. PSYCHIATRIC: Mood and affect is intact. Assessment/Plan Assessment/Plan ASSESSMENT.: 1. Sepsis 2. urinary tract infection=ESBL E. Coli 3. Severe dehydration. 3. Anemia of chronic disease. 4. Acute kidney injury, chronic insufficiency. 5. 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 6. Severe protein-calorie malnutrition. 7. Acute metabolic encephalopathy due to the sepsis, infection, and dehydration. 8. Sepsis=Group B Strep 9. leukocytosis PLAN: 1. Admit the patient to medical floor. 2. antibiotic =Ertapenem. 3. Code status is Full Code. 4. Dr. Dawson = Infectious Disease 5. Dr. Parr = General surgery. 6. DVT prophylaxis with heparin subcutaneous. 7. Urology=Dr Dukes 8. ID=Nathan Gray MD Apr 04, 2019 18:51
--- NOTE | 2019-04-04 19:35 | NUR ---
HAND-OFF: Report given to
--- NOTE | 2019-04-04 19:49 | NUR ---
NURSE NOTES: Received patient awake, resting in bed, comfortable, no SOB noted.
[2019-04-04] MEDS: Tamsulosin 0.4mg cap ORAL SCH (20:27)
[2019-04-04] MEDS: Atorvastatin 80mg tab ORAL SCH (20:27)
[2019-04-05 03:55] VITALS: BP 155/97
[2019-04-05] MEDS: D5 1/2NS 1,000 ML IV SCH ×2 (04:04→17:30)
[2019-04-05 07:11] LABS: ANION GAP 11 mmol/L (5-15); BLOOD UREA NITROGEN 25 mg/dL (7-18); CALCIUM 8.8 MG/DL (8.5-10.1); CARBON DIOXIDE 23 MMOL/L (21-32); CHLORIDE 111 MMOL/L (98-107); CREATININE 1.2 MG/DL (0.55-1.30); POTASSIUM 3.3 MMOL/L (3.5-5.1); SODIUM 145 MMOL/L (136-145)
--- NOTE | 2019-04-05 07:16 | NUR ---
HAND-OFF: Report given to Jose Garcia RN.
[2019-04-05 07:27] LABS: HEMATOCRIT 26.9 % (42.0-52.0); MEAN CORPUSCULAR VOLUME 85 FL (80-99); PLATELET COUNT 444 K/UL (150-450); RED BLOOD COUNT 3.16 M/UL (4.70-6.10)
--- NOTE | 2019-04-05 07:31 | NUR ---
NURSE NOTES: Patient in supine position, awake and alert to name, on room air, suprapubic catheter in place, nephrostomy catheter in place, no c/o pain, no SOB, bed in lowest position, call light within reach.
[2019-04-05 08:00] VITALS: BP 160/87
--- NOTE | 2019-04-05 08:01 | Urology Progress Note ---
Assessment/Plan Assessment/Plan: hydro hx, right PCN JOSE MANUEL, improved UTI/colonzied hematuria proteinuria urinary retention/SPT renal cyst renal mass monitor clinically maintain SPT and right PCN hand irrigate PRN abx as ordered monitor renal fxn, improved obtain outside records plan to change SPT during this admission f/u on blood cx d/w pt's daughter Subjective Allergies: Coded Allergies: No Known Allergies (Unverified , 03/29/19) Subjective confused, SPT leakage pt daughter declined CT by report Objective Last 24 Hour Vital Signs Date Time Temp Pulse Resp B/P (MAP) Pulse Ox O2 Delivery O2 Flow Rate FiO2 04/05/19 03:55 98.0 112 21 155/97 (116) 95 04/04/19 23:57 98.2 102 21 153/77 (102) 98 04/04/19 20:04 Room Air 04/04/19 20:00 99.1 99 21 156/74 (101) 94 04/04/19 16:00 98.1 103 17 154/67 (96) 99 04/04/19 12:00 98.0 103 18 141/60 (87) 99 04/04/19 09:09 116 140/70 04/04/19 09:00 Room Air Intake and Output 04/04/19 04/05/19 19:00 07:00 Intake Total 380 ml 940 ml Output Total 260 ml 300 ml Balance 120 ml 640 ml Intake Oral 100 ml IV Total 280 ml 940 ml Output Urine Total 260 ml 300 ml Microbiology Date/Time Source Procedure Growth Status 04/02/19 11:25 Blood Blood Culture - Preliminary NO GROWTH AFTER 48 HOURS Resulted 03/30/19 06:00 Urine,Clean Catch Urine Culture - Final Escherichia Coli - Esbl Complete Current Medications Medications (Trade) Dose Ordered Sig/Anamaria Route PRN Reason Start Time Stop Time Status Last Admin Dose Admin Acetaminophen (Tylenol) 650 mg Q4H PRN ORAL fever 03/29/19 23:45 04/28/19 23:44 Amlodipine Besylate (Norvasc) 2.5 mg DAILY ORAL 04/02/19 09:00 05/02/19 08:59 04/04/19 09:09 Aspirin (ASA) 81 mg DAILY NG 04/02/19 09:00 05/02/19 08:59 04/04/19 09:09 Atorvastatin Calcium (Lipitor) 80 mg BEDTIME ORAL 04/01/19 21:00 05/01/19 20:59 04/04/19 20:27 Barium Sulfate (Readi-Cat 2) 450 ml NOW PRN ORAL Radiology Procedure 04/03/19 11:15 04/05/19 11:08 Calcitonin [place] (Miacalcin) 1 sprays DAILY NASAL 04/03/19 09:00 05/03/19 08:59 04/04/19 09:10 Dextrose (Dextrose 50%) 25 ml Q30M PRN IV Hypoglycemia 03/29/19 23:45 04/28/19 23:44 Dextrose (Dextrose 50%) 50 ml Q30M PRN IV Hypoglycemia 03/29/19 23:45 04/28/19 23:44 Dextrose/Sodium Chloride 1,000 ml @ 75 mls/hr [id number] IV 04/04/19 15:00 05/04/19 14:59 04/05/19 04:04 Diphenhydramine HCl (Benadryl) 25 mg Q6H PRN ORAL Itching/Pruritis 03/29/19 23:45 04/28/19 23:44 Ertapenem 0.5 gm/ Sodium Chloride 55 ml @ 110 mls/hr Q24H IVPB 03/31/19 09:00 04/13/19 23:59 04/04/19 09:11 Folic Acid (Folate) 1 mg DAILY ORAL 04/01/19 11:15 05/01/19 11:14 04/04/19 09:09 Heparin Sodium (Porcine) (Heparin 5000 units/ml) 5,000 units EVERY 12 HOURS SUBQ 03/30/19 09:00 04/29/19 08:59 04/04/19 20:28 Iohexol (OMNIPAQUE-300 100ml) 100 ml NOW PRN INJ Radiology Procedure 04/03/19 11:15 04/05/19 11:08 Nitroglycerin (Ntg) 0.4 mg Q5M X 3 DOSES PRN SL Prn Chest Pain 03/29/19 23:45 04/28/19 23:44 Ondansetron HCl (Zofran) 4 mg Q6H PRN IVP Nausea & Vomiting 03/29/19 23:45 04/28/19 23:44 Pantoprazole (Protonix) 40 mg EVERY 12 HOURS ORAL 04/02/19 21:00 05/02/19 20:59 04/04/19 20:27 Polyethylene Glycol (Miralax) 17 gm HSPRN PRN ORAL Constipation 03/29/19 23:45 04/28/19 23:44 Potassium Chloride 100 ml @ 100 mls/hr Q1HR IVPB 04/05/19 08:00 04/05/19 10:59 Tamsulosin HCl (Flomax) 0.4 mg BEDTIME ORAL 04/01/19 21:00 05/01/19 20:59 04/04/19 20:27 Temazepam (Restoril) 15 mg HSPRN PRN ORAL Insomnia 03/29/19 23:45 04/05/19 23:44 Laboratory Tests 04/04/19 16:10: Urine Color Pale yellow, Urine Appearance Cloudy, Urine pH 5, Urine Specific [place] 1.015, Urine Protein 3+H, Urine Glucose (UA) Negative, Urine Ketones 1+H , Urine Blood 5+H, Urine Nitrite Negative, Urine Bilirubin Negative, Urine Urobilinogen Normal, Urine Leukocyte Esterase 3+H, Urine RBC 60-80H, Urine WBC 40-60H, Urine Squamous Epithelial Cells None, Urine Bacteria ManyH 04/05/19 06:30: White Blood Count [Pending], Red Blood Count [Pending], Hemoglobin [Pending], Hematocrit [Pending], Mean Corpuscular Volume [Pending], Mean Corpuscular Hemoglobin [Pending], Mean Corpuscular Hemoglobin Concent [Pending], Red Cell Distribution Width [Pending], Platelet Count [Pending], Mean Platelet Volume [ Pending], Neutrophils (%) (Auto) [Pending], Lymphocytes (%) (Auto) [Pending], Monocytes (%) (Auto) [Pending], Eosinophils (%) (Auto) [Pending], Basophils (%) (Auto) [Pending], Sodium Level 145, Potassium Level 3.3L, Chloride Level 111H, Carbon Dioxide Level 23, Anion Gap 11, Blood Urea Nitrogen 25H, Creatinine 1.2, Estimat Glomerular Filtration Rate 57.7, Glucose Level 156H, Calcium Level 8.8 Height (Feet): 5 Height (Inches): 1.00 Weight (Pounds): 114 Objective right PCN in place SPT in place urine yellow/davis renal and abdominal u/s noted Shantanu Dukes MD Apr 05, 2019 08:01
[2019-04-05 08:02] LABS: WHITE BLOOD COUNT 23.9 K/UL (4.8-10.8)
--- NOTE | 2019-04-05 08:11 | NUR ---
NURSE NOTES: Left message with Christina at answering service of Dr. Cristel Dawson reporting WBC=23.9.
[2019-04-05] MEDS: Aspirin Baby 81mg NG SCH (08:33)
[2019-04-05] MEDS: Heparin 5000 units/ml inj SUBQ SCH ×2 (08:35→20:33)
--- NOTE | 2019-04-05 08:45 | Nephrology Progress Note ---
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, status post resection Colostomy status Nephrostomy tube and suprapubic catheter Sepsis , UTI Acute metabolic encephalopathy Anemia acute vs chronic Elevated LFTs Plan K supplement today previously discussed with daughter- suggested comfort care Aredia one dose Resume Hydrate- Calcitonin Monitor renal parameters Anemia pat avoid nephrotoxics Monitor electrolytes Favor DNR Subjective ROS Limited/Unobtainable: No Constitutional: Reports: malaise, weakness Objective Objective Last 24 Hour Vital Signs Date Time Temp Pulse Resp B/P (MAP) Pulse Ox O2 Delivery O2 Flow Rate FiO2 04/05/19 08:34 103 160/87 04/05/19 08:00 98.3 103 20 160/87 (111) 98 04/05/19 03:55 98.0 112 21 155/97 (116) 95 04/04/19 23:57 98.2 102 21 153/77 (102) 98 04/04/19 20:04 Room Air 04/04/19 20:00 99.1 99 21 156/74 (101) 94 04/04/19 16:00 98.1 103 17 154/67 (96) 99 04/04/19 12:00 98.0 103 18 141/60 (87) 99 04/04/19 09:09 116 140/70 04/04/19 09:00 Room Air Intake and Output 04/04/19 04/05/19 19:00 07:00 Intake Total 380 ml 940 ml Output Total 260 ml 300 ml Balance 120 ml 640 ml Intake Oral 100 ml IV Total 280 ml 940 ml Output Urine Total 260 ml 300 ml Laboratory Tests 04/04/19 16:10: Urine Color Pale yellow, Urine Appearance Cloudy, Urine pH 5, Urine Specific [place] 1.015, Urine Protein 3+H, Urine Glucose (UA) Negative, Urine Ketones 1+H , Urine Blood 5+H, Urine Nitrite Negative, Urine Bilirubin Negative, Urine Urobilinogen Normal, Urine Leukocyte Esterase 3+H, Urine RBC 60-80H, Urine WBC 40-60H, Urine Squamous Epithelial Cells None, Urine Bacteria ManyH 04/05/19 06:30: White Blood Count 23.9*H, Red Blood Count 3.16L, Hemoglobin 9.0L, Hematocrit 26.9L, Mean Corpuscular Volume 85, Mean Corpuscular Hemoglobin 28.3, Mean Corpuscular Hemoglobin Concent 33.3, Red Cell Distribution Width 14.0, Platelet Count 444, Mean Platelet Volume 6.4L, Neutrophils (%) (Auto) , Lymphocytes (%) ( Auto) , Monocytes (%) (Auto) , Eosinophils (%) (Auto) , Basophils (%) (Auto) , Neutrophils % (Manual) [Pending], Lymphocytes % (Manual) [Pending], Platelet Estimate [Pending], Platelet Morphology [Pending], Sodium Level 145, Potassium Level 3.3L, Chloride Level 111H, Carbon Dioxide Level 23, Anion Gap 11, Blood Urea Nitrogen 25H, Creatinine 1.2, Estimat Glomerular Filtration Rate 57.7, Glucose Level 156H, Calcium Level 8.8 Height (Feet): 5 Height (Inches): 1.00 Weight (Pounds): 114 General Appearance: no apparent distress Cardiovascular: normal rate Respiratory/Chest: decreased breath sounds Abdomen: soft Genitourinary/Rectal: other - nephrostomy and colostomy Tomas Beck MD Apr 05, 2019 08:45
[2019-04-05] MEDS: Ertapenem 0.5 GM in NS 55 ML IVPB SCH (09:10)
--- NOTE | 2019-04-05 10:44 | Infectious Diseases Prog Note ---
Assessment/Plan Assessment/Plan Assessment: GBS bacteremia- likely intraabdominal source given malignancy- r/o endocarditis -03/30 2d Echo: no vegetations -03/29 Bcx 2/4 GBS; 04/01 Bcx 2/ GBS; 04/02 Bcx NTD UTI -04/04 u/a wbc 40-60, n it neg, leuk +3; ucx NTD -03/30 u/a wbc tntc, nit neg, leuk +3; ucx >100k ESBl E coli Afebrile leukocytosis, increasing- r/o Cdiff, r/o abscess (family refused CT), now improving -Abd US:Somewhat limited exam, as described. Echogenic right kidney with mild hydronephrosis despite presence of a nephrostomy and stent. Markedly abnormal left kidney, also described on recent renal sonogram and possibly demonstrating multiple masses. Cholelithiasis. Mild gallbladder wall thickening, could indicate acute cholecystitis. Correlate with clinical findings, consider hepatobiliary nuclear scan if clinically indicated -CXR: no acute disease Stage IV colon CA with mets to Kidney and bladder s/p resection and colostomy s/p suprapubic catheter s/p nephrostomy catheter Plan: Ertapenem #07/28 for ESBL UTI and GBS bacteremia 04/02 SP IV vancomycin #2 03/31 SP Zosyn #2 03/29 SP CEfepime x1 -f/u cx -Monitor CBC/CMP, temperatures -NT and SPC care -aspiration precautions -f/u repeat BCx x2 - CT C/abd/p w/ to eval for abscess- refused by family Thank you for this consultation. Will continue to follow along with you. Subjective Allergies: Coded Allergies: No Known Allergies (Unverified , 03/29/19) Subjective afebrile wbc improving repaet Bcx NTD at RA Objective Vital Signs Last 24 Hour Vital Signs Date Time Temp Pulse Resp B/P (MAP) Pulse Ox O2 Delivery O2 Flow Rate FiO2 04/05/19 08:34 103 160/87 04/05/19 08:00 98.3 103 20 160/87 (111) 98 04/05/19 03:55 98.0 112 21 155/97 (116) 95 04/04/19 23:57 98.2 102 21 153/77 (102) 98 04/04/19 20:04 Room Air 04/04/19 20:00 99.1 99 21 156/74 (101) 94 04/04/19 16:00 98.1 103 17 154/67 (96) 99 04/04/19 12:00 98.0 103 18 141/60 (87) 99 Height (Feet): 5 Height (Inches): 1.00 Weight (Pounds): 114 Objective GENERAL: The patient is awake and responsive, but very chronically ill and cachectic. HEAD AND NECK: Pupils are equal and reactive to light. Extraocular movements intact. Neck was supple. LUNGS: Good air entry. No wheezing or rales. Decreased air in bases. HEART: S1 and S2. Regular rhythm. No murmur or gallop. ABDOMEN: Soft, nondistended, and nontender. GENITOURINARY: Suprapubic catheter was noted. No sign of infection or drainage. Colostomy bag in the left side of abdomen was noted without any stool. No leakage or discharge. EXTREMITIES: No cyanosis, clubbing, or edema. Muscle atrophy was noted. Microbiology Date/Time Source Procedure Growth Status 04/02/19 11:25 Blood Blood Culture - Preliminary NO GROWTH AFTER 48 HOURS Resulted 04/02/19 11:20 Blood Blood Culture - Preliminary NO GROWTH AFTER 48 HOURS Resulted 04/04/19 16:10 Urine,Clean Catch Urine Culture - Preliminary NO GROWTH Resulted Laboratory Tests Test 04/04/19 16:10 04/05/19 06:30 Urine Color Pale yellow Urine Appearance Cloudy Urine pH 5 (4.5-8.0) Urine Specific [place] 1.015 (1.005-1.035) Urine Protein 3+ (NEGATIVE) H Urine Glucose (UA) Negative (NEGATIVE) Urine Ketones 1+ (NEGATIVE) H Urine Blood 5+ (NEGATIVE) H Urine Nitrite Negative (NEGATIVE) Urine Bilirubin Negative (NEGATIVE) Urine Urobilinogen Normal MG/DL (0.0-1.0) Urine Leukocyte Esterase 3+ (NEGATIVE) H Urine RBC 60-80 /HPF (0 - 0) H Urine WBC 40-60 /HPF (0 - 0) H Urine Squamous Epithelial Cells None /LPF (NONE/OCC) Urine Bacteria Many /HPF (NONE) H White Blood Count 23.9 K/UL (4.8-10.8) *H Red Blood Count 3.16 M/UL (4.70-6.10) L Hemoglobin 9.0 G/DL (14.2-18.0) L Hematocrit 26.9 % (42.0-52.0) L Mean Corpuscular Volume 85 FL (80-99) Mean Corpuscular Hemoglobin 28.3 PG (27.0-31.0) Mean Corpuscular Hemoglobin Concent 33.3 G/DL (32.0-36.0) Red Cell Distribution Width 14.0 % (11.6-14.8) Platelet Count 444 K/UL (150-450) Mean Platelet Volume 6.4 FL (6.5-10.1) L Neutrophils (%) (Auto) % (45.0-75.0) Lymphocytes (%) (Auto) % (20.0-45.0) Monocytes (%) (Auto) % (1.0-10.0) Eosinophils (%) (Auto) % (0.0-3.0) Basophils (%) (Auto) % (0.0-2.0) Differential Total Cells Counted 100 Neutrophils % (Manual) 94 % (45-75) H Lymphocytes % (Manual) 2 % (20-45) L Monocytes % (Manual) 4 % (1-10) Eosinophils % (Manual) 0 % (0-3) Basophils % (Manual) 0 % (0-2) Band Neutrophils 0 % (0-8) Platelet Estimate Adequate Platelet Morphology Normal Hypochromasia 2+ Sodium Level 145 MMOL/L (136-145) Potassium Level 3.3 MMOL/L (3.5-5.1) L Chloride Level 111 MMOL/L (98-107) H Carbon Dioxide Level 23 MMOL/L (21-32) Anion Gap 11 mmol/L (5-15) Blood Urea Nitrogen 25 mg/dL (7-18) H Creatinine 1.2 MG/DL (0.55-1.30) Estimat Glomerular Filtration Rate 57.7 mL/min (>60) Glucose Level 156 MG/DL (74-106) H Calcium Level 8.8 MG/DL (8.5-10.1) Current Medications Medications (Trade) Dose Ordered Sig/Anamaria Route PRN Reason Start Time Stop Time Status Last Admin Dose Admin Acetaminophen (Tylenol) 650 mg Q4H PRN ORAL fever 03/29/19 23:45 04/28/19 23:44 Amlodipine Besylate (Norvasc) 2.5 mg DAILY ORAL 04/02/19 09:00 05/02/19 08:59 04/05/19 08:34 Aspirin (ASA) 81 mg DAILY NG 04/02/19 09:00 05/02/19 08:59 04/05/19 08:33 Atorvastatin Calcium (Lipitor) 80 mg BEDTIME ORAL 04/01/19 21:00 05/01/19 20:59 04/04/19 20:27 Barium Sulfate (Readi-Cat 2) 450 ml NOW PRN ORAL Radiology Procedure 04/03/19 11:15 04/05/19 11:08 Calcitonin [place] (Miacalcin) 1 sprays DAILY NASAL 04/03/19 09:00 05/03/19 08:59 04/05/19 09:10 Dextrose (Dextrose 50%) 25 ml Q30M PRN IV Hypoglycemia 03/29/19 23:45 04/28/19 23:44 Dextrose (Dextrose 50%) 50 ml Q30M PRN IV Hypoglycemia 03/29/19 23:45 04/28/19 23:44 Dextrose/Sodium Chloride 1,000 ml @ 75 mls/hr [id number] IV 04/04/19 15:00 05/04/19 14:59 04/05/19 04:04 Diphenhydramine HCl (Benadryl) 25 mg Q6H PRN ORAL Itching/Pruritis 03/29/19 23:45 04/28/19 23:44 Ertapenem 0.5 gm/ Sodium Chloride 55 ml @ 110 mls/hr Q24H IVPB 03/31/19 09:00 04/13/19 23:59 04/05/19 09:10 Folic Acid (Folate) 1 mg DAILY ORAL 04/01/19 11:15 05/01/19 11:14 04/05/19 08:34 Heparin Sodium (Porcine) (Heparin 5000 units/ml) 5,000 units EVERY 12 HOURS SUBQ 03/30/19 09:00 04/29/19 08:59 04/05/19 08:35 Iohexol (OMNIPAQUE-300 100ml) 100 ml NOW PRN INJ Radiology Procedure 04/03/19 11:15 04/05/19 11:08 Nitroglycerin (Ntg) 0.4 mg Q5M X 3 DOSES PRN SL Prn Chest Pain 03/29/19 23:45 04/28/19 23:44 Ondansetron HCl (Zofran) 4 mg Q6H PRN IVP Nausea & Vomiting 03/29/19 23:45 04/28/19 23:44 Pantoprazole (Protonix) 40 mg EVERY 12 HOURS ORAL 04/02/19 21:00 05/02/19 20:59 04/05/19 08:34 Polyethylene Glycol (Miralax) 17 gm HSPRN PRN ORAL Constipation 03/29/19 23:45 04/28/19 23:44 Potassium Chloride 100 ml @ 100 mls/hr Q1HR IVPB 04/05/19 08:00 04/05/19 10:59 04/05/19 09:04 Tamsulosin HCl (Flomax) 0.4 mg BEDTIME ORAL 04/01/19 21:00 05/01/19 20:59 04/04/19 20:27 Temazepam (Restoril) 15 mg HSPRN PRN ORAL Insomnia 03/29/19 23:45 04/05/19 23:44 Cristel Dawson M.D. Apr 05, 2019 10:44
[2019-04-05 12:00] VITALS: BP 156/80
--- NOTE | 2019-04-05 13:00 | Pulmonology Progress Note ---
Assessment/Plan Problems: (1) Bacteremia (2) Sepsis (3) Acute metabolic encephalopathy (4) Nephrostomy status (5) CKD (chronic kidney disease) (6) Suprapubic catheter dysfunction (7) Colon cancer metastasized to multiple sites Assessment/Plan improving iv abx, on Ertapenem for ESBL in urine and bacteremia WBC is higher check cultures symptomatic treatment check electrolytes pt is a good candidate for palliative care d/w pts daughter, Trey, , she wants comfort care and hospice and end of life care. Subjective HEENT: Repors: no symptoms Respiratory: Reports: no symptoms Allergies: Coded Allergies: No Known Allergies (Unverified , 03/29/19) Objective Last 24 Hour Vital Signs Date Time Temp Pulse Resp B/P (MAP) Pulse Ox O2 Delivery O2 Flow Rate FiO2 04/05/19 08:34 103 160/87 04/05/19 08:00 98.3 103 20 160/87 (111) 98 04/05/19 03:55 98.0 112 21 155/97 (116) 95 04/04/19 23:57 98.2 102 21 153/77 (102) 98 04/04/19 20:04 Room Air 04/04/19 20:00 99.1 99 21 156/74 (101) 94 04/04/19 16:00 98.1 103 17 154/67 (96) 99 Intake and Output 04/04/19 04/05/19 19:00 07:00 Intake Total 380 ml 940 ml Output Total 260 ml 300 ml Balance 120 ml 640 ml Intake Oral 100 ml IV Total 280 ml 940 ml Output Urine Total 260 ml 300 ml General Appearance: cachetic HEENT: normocephalic, atraumatic Respiratory/Chest: chest wall non-tender, lungs clear Cardiovascular: normal peripheral pulses, normal rate Abdomen: normal bowel sounds, soft, non tender Extremities: no cyanosis Microbiology Date/Time Source Procedure Growth Status 04/04/19 16:10 Urine,Clean Catch Urine Culture - Preliminary NO GROWTH Resulted Laboratory Tests 04/04/19 16:10: Urine Color Pale yellow, Urine Appearance Cloudy, Urine pH 5, Urine Specific [place] 1.015, Urine Protein 3+H, Urine Glucose (UA) Negative, Urine Ketones 1+H , Urine Blood 5+H, Urine Nitrite Negative, Urine Bilirubin Negative, Urine Urobilinogen Normal, Urine Leukocyte Esterase 3+H, Urine RBC 60-80H, Urine WBC 40-60H, Urine Squamous Epithelial Cells None, Urine Bacteria ManyH 04/05/19 06:30: White Blood Count 23.9*H, Red Blood Count 3.16L, Hemoglobin 9.0L, Hematocrit 26.9L, Mean Corpuscular Volume 85, Mean Corpuscular Hemoglobin 28.3, Mean Corpuscular Hemoglobin Concent 33.3, Red Cell Distribution Width 14.0, Platelet Count 444, Mean Platelet Volume 6.4L, Neutrophils (%) (Auto) , Lymphocytes (%) ( Auto) , Monocytes (%) (Auto) , Eosinophils (%) (Auto) , Basophils (%) (Auto) , Differential Total Cells Counted 100, Neutrophils % (Manual) 94H, Lymphocytes % (Manual) 2L, Monocytes % (Manual) 4, Eosinophils % (Manual) 0, Basophils % ( Manual) 0, Band Neutrophils 0, Platelet Estimate Adequate, Platelet Morphology Normal, Hypochromasia 2+, Sodium Level 145, Potassium Level 3.3L, Chloride Level 111H, Carbon Dioxide Level 23, Anion Gap 11, Blood Urea Nitrogen 25H, Creatinine 1.2, Estimat Glomerular Filtration Rate 57.7, Glucose Level 156H, Calcium Level 8.8 Current Medications Medications (Trade) Dose Ordered Sig/Anamaria Route PRN Reason Start Time Stop Time Status Last Admin Dose Admin Acetaminophen (Tylenol) 650 mg Q4H PRN ORAL fever 03/29/19 23:45 04/28/19 23:44 Amlodipine Besylate (Norvasc) 2.5 mg DAILY ORAL 04/02/19 09:00 05/02/19 08:59 04/05/19 08:34 Aspirin (ASA) 81 mg DAILY NG 04/02/19 09:00 05/02/19 08:59 04/05/19 08:33 Atorvastatin Calcium (Lipitor) 80 mg BEDTIME ORAL 04/01/19 21:00 05/01/19 20:59 04/04/19 20:27 Calcitonin [place] (Miacalcin) 1 sprays DAILY NASAL 04/03/19 09:00 05/03/19 08:59 04/05/19 09:10 Dextrose (Dextrose 50%) 25 ml Q30M PRN IV Hypoglycemia 03/29/19 23:45 04/28/19 23:44 Dextrose (Dextrose 50%) 50 ml Q30M PRN IV Hypoglycemia 03/29/19 23:45 04/28/19 23:44 Dextrose/Sodium Chloride 1,000 ml @ 75 mls/hr [id number] IV 04/04/19 15:00 05/04/19 14:59 04/05/19 04:04 Diphenhydramine HCl (Benadryl) 25 mg Q6H PRN ORAL Itching/Pruritis 03/29/19 23:45 04/28/19 23:44 Ertapenem 0.5 gm/ Sodium Chloride 55 ml @ 110 mls/hr Q24H IVPB 03/31/19 09:00 04/13/19 23:59 04/05/19 09:10 Folic Acid (Folate) 1 mg DAILY ORAL 04/01/19 11:15 05/01/19 11:14 04/05/19 08:34 Heparin Sodium (Porcine) (Heparin 5000 units/ml) 5,000 units EVERY 12 HOURS SUBQ 03/30/19 09:00 04/29/19 08:59 04/05/19 08:35 Nitroglycerin (Ntg) 0.4 mg Q5M X 3 DOSES PRN SL Prn Chest Pain 03/29/19 23:45 04/28/19 23:44 Ondansetron HCl (Zofran) 4 mg Q6H PRN IVP Nausea & Vomiting 03/29/19 23:45 04/28/19 23:44 Pantoprazole (Protonix) 40 mg EVERY 12 HOURS ORAL 04/02/19 21:00 05/02/19 20:59 04/05/19 08:34 Polyethylene Glycol (Miralax) 17 gm HSPRN PRN ORAL Constipation 03/29/19 23:45 04/28/19 23:44 Tamsulosin HCl (Flomax) 0.4 mg BEDTIME ORAL 04/01/19 21:00 05/01/19 20:59 04/04/19 20:27 Temazepam (Restoril) 15 mg HSPRN PRN ORAL Insomnia 03/29/19 23:45 04/05/19 23:44 Nancy Bowser MD Apr 05, 2019 13:00
--- NOTE | 2019-04-05 13:08 | Surgery Progress Note ---
Surgery Progress Note Subjective Additional Comments Patient seen and examined bedside. No acute events. Labs noted. Objective Last 24 Hour Vital Signs Date Time Temp Pulse Resp B/P (MAP) Pulse Ox O2 Delivery O2 Flow Rate FiO2 04/05/19 08:34 103 160/87 04/05/19 08:00 98.3 103 20 160/87 (111) 98 04/05/19 03:55 98.0 112 21 155/97 (116) 95 04/04/19 23:57 98.2 102 21 153/77 (102) 98 04/04/19 20:04 Room Air 04/04/19 20:00 99.1 99 21 156/74 (101) 94 04/04/19 16:00 98.1 103 17 154/67 (96) 99 I&O Intake and Output 04/04/19 04/05/19 19:00 07:00 Intake Total 380 ml 940 ml Output Total 260 ml 300 ml Balance 120 ml 640 ml Intake Oral 100 ml IV Total 280 ml 940 ml Output Urine Total 260 ml 300 ml Dressing: other Wound: other Drains: other Cardiovascular: RSR Respiratory: decreased breath sounds Abdomen: soft, present bowel sounds, non-distended Extremities: no cyanosis Laboratory Tests Test 04/04/19 16:10 04/05/19 06:30 Urine Color Pale yellow Urine Appearance Cloudy Urine pH 5 (4.5-8.0) Urine Specific [place] 1.015 (1.005-1.035) Urine Protein 3+ (NEGATIVE) H Urine Glucose (UA) Negative (NEGATIVE) Urine Ketones 1+ (NEGATIVE) H Urine Blood 5+ (NEGATIVE) H Urine Nitrite Negative (NEGATIVE) Urine Bilirubin Negative (NEGATIVE) Urine Urobilinogen Normal MG/DL (0.0-1.0) Urine Leukocyte Esterase 3+ (NEGATIVE) H Urine RBC 60-80 /HPF (0 - 0) H Urine WBC 40-60 /HPF (0 - 0) H Urine Squamous Epithelial Cells None /LPF (NONE/OCC) Urine Bacteria Many /HPF (NONE) H White Blood Count 23.9 K/UL (4.8-10.8) *H Red Blood Count 3.16 M/UL (4.70-6.10) L Hemoglobin 9.0 G/DL (14.2-18.0) L Hematocrit 26.9 % (42.0-52.0) L Mean Corpuscular Volume 85 FL (80-99) Mean Corpuscular Hemoglobin 28.3 PG (27.0-31.0) Mean Corpuscular Hemoglobin Concent 33.3 G/DL (32.0-36.0) Red Cell Distribution Width 14.0 % (11.6-14.8) Platelet Count 444 K/UL (150-450) Mean Platelet Volume 6.4 FL (6.5-10.1) L Neutrophils (%) (Auto) % (45.0-75.0) Lymphocytes (%) (Auto) % (20.0-45.0) Monocytes (%) (Auto) % (1.0-10.0) Eosinophils (%) (Auto) % (0.0-3.0) Basophils (%) (Auto) % (0.0-2.0) Differential Total Cells Counted 100 Neutrophils % (Manual) 94 % (45-75) H Lymphocytes % (Manual) 2 % (20-45) L Monocytes % (Manual) 4 % (1-10) Eosinophils % (Manual) 0 % (0-3) Basophils % (Manual) 0 % (0-2) Band Neutrophils 0 % (0-8) Platelet Estimate Adequate Platelet Morphology Normal Hypochromasia 2+ Sodium Level 145 MMOL/L (136-145) Potassium Level 3.3 MMOL/L (3.5-5.1) L Chloride Level 111 MMOL/L (98-107) H Carbon Dioxide Level 23 MMOL/L (21-32) Anion Gap 11 mmol/L (5-15) Blood Urea Nitrogen 25 mg/dL (7-18) H Creatinine 1.2 MG/DL (0.55-1.30) Estimat Glomerular Filtration Rate 57.7 mL/min (>60) Glucose Level 156 MG/DL (74-106) H Calcium Level 8.8 MG/DL (8.5-10.1) Plan Problems: (1) Sepsis Assessment & Plan: 83-year-old male with history of stage IV colon cancer status post left colostomy left nephrostomy tube placement superior catheter placement presented with leukocytosis, abnormal labs, abnormal LFTs, pain. On evaluation sepsis likely secondary to patient's UTI. Currently on antibiotics as per infectious disease. Abdominal examination and complete examination performed and as above. No acute surgical intervention indicated or recommended. Pending completion of abdominal ultrasound for evaluation of liver and kidneys. Will follow with recommendations. Trend labs IV fluids Okay for diet from surgical standpoint Thank you will follow with recommendations worsening lft's US Findings: Exam is somewhat limited, due to patient inability to suspend respiration. Gallbladder demonstrates gallstones. Gallbladder wall is mildly thickened, measuring 4 mm in thickness. Common bile duct measures 4 mm in diameter. No intrahepatic biliary ductal dilatation. Liver demonstrates normal echogenicity, no focal abnormality. Note that portions are well visualized, however. Portal vein and hepatic veins are patent. Pancreas is unremarkable. Spleen is unremarkable. Left kidney measures 12 cm in length. Right kidney measures 11.3 cm length. Both kidneys demonstrate slightly increased echogenicity. Right kidney demonstrates mild hydronephrosis. Note that recent plain radiograph demonstrates a nephrostomy and a stent; these are not clearly evident on this study. The left kidney demonstrates lobulated contour and somewhat heterogeneous echotexture, possibly discrete echogenic lesions which are better demonstrated on recent renal sonogram.. . Non- aneurysmal abdominal aorta . Impression: Somewhat limited exam, as described Echogenic right kidney with mild hydronephrosis despite presence of a nephrostomy and stent Markedly abnormal left kidney, also described on recent renal sonogram and possibly demonstrating multiple masses Cholelithiasis. Mild gallbladder wall thickening, could indicate acute cholecystitis. Correlate with clinical findings, consider hepatobiliary nuclear scan if clinically indicated spoke with daughter goals of care for comfort no plans for intervention hold on further imaging or testing (2) Suprapubic catheter dysfunction Assessment & Plan: There is mild right hydronephrosis despite presence of a nephrostomy catheter which appears to be in good position. There is a small right renal cyst demonstrated measuring approximately 1 cm x 1.2 cm. The left kidney is abnormal. There is suggestion of multiple heterogeneous masses slightly echogenic in appearance within the left kidney. For example in the lower pole there is a 4 x 5 cm lesion. In the midpole there is a 3.7 x 3.6 cm lesion. In the upper pole there is a 4.5 cm lesion. Suggest correlation with contrast-enhanced CT.. The right kidney measures 10 cm. in length. The left kidney measures 12.2 cm. in length. The IVC is patent. Urinary bladder is unremarkable. Suprapubic catheter noted. Left lower quadrant colostomy noted. IMPRESSION: Abnormal appearance of the left kidney with suggestion of multiple lobular masses. Further evaluation with contrast-enhanced CT is recommended. Trace right hydronephrosis. Nephrostomy noted in place. Suprapubic catheter Additional Comments This is a late entry for April 04, 2019. Patient was seen examined bedside. Unfortunately I was called to the emergency department following to the operating room was unable to complete my note at that time. Igor Parr Apr 05, 2019 13:08
--- NOTE | 2019-04-05 13:09 | Surgery Progress Note ---
Surgery Progress Note Subjective Additional Comments Patient seen examined bedside. Ill-appearing but resting comfortably. Worsening leukocytosis yesterday improving today. Abdominal exam stable. Colostomy stable. Tubes in place and functional. Objective Last 24 Hour Vital Signs Date Time Temp Pulse Resp B/P (MAP) Pulse Ox O2 Delivery O2 Flow Rate FiO2 04/05/19 08:34 103 160/87 04/05/19 08:00 98.3 103 20 160/87 (111) 98 04/05/19 03:55 98.0 112 21 155/97 (116) 95 04/04/19 23:57 98.2 102 21 153/77 (102) 98 04/04/19 20:04 Room Air 04/04/19 20:00 99.1 99 21 156/74 (101) 94 04/04/19 16:00 98.1 103 17 154/67 (96) 99 I&O Intake and Output 04/04/19 04/05/19 19:00 07:00 Intake Total 380 ml 940 ml Output Total 260 ml 300 ml Balance 120 ml 640 ml Intake Oral 100 ml IV Total 280 ml 940 ml Output Urine Total 260 ml 300 ml Dressing: other Wound: other Drains: other Cardiovascular: RSR Respiratory: decreased breath sounds Abdomen: soft, present bowel sounds Extremities: no cyanosis Laboratory Tests Test 04/04/19 16:10 04/05/19 06:30 Urine Color Pale yellow Urine Appearance Cloudy Urine pH 5 (4.5-8.0) Urine Specific [place] 1.015 (1.005-1.035) Urine Protein 3+ (NEGATIVE) H Urine Glucose (UA) Negative (NEGATIVE) Urine Ketones 1+ (NEGATIVE) H Urine Blood 5+ (NEGATIVE) H Urine Nitrite Negative (NEGATIVE) Urine Bilirubin Negative (NEGATIVE) Urine Urobilinogen Normal MG/DL (0.0-1.0) Urine Leukocyte Esterase 3+ (NEGATIVE) H Urine RBC 60-80 /HPF (0 - 0) H Urine WBC 40-60 /HPF (0 - 0) H Urine Squamous Epithelial Cells None /LPF (NONE/OCC) Urine Bacteria Many /HPF (NONE) H White Blood Count 23.9 K/UL (4.8-10.8) *H Red Blood Count 3.16 M/UL (4.70-6.10) L Hemoglobin 9.0 G/DL (14.2-18.0) L Hematocrit 26.9 % (42.0-52.0) L Mean Corpuscular Volume 85 FL (80-99) Mean Corpuscular Hemoglobin 28.3 PG (27.0-31.0) Mean Corpuscular Hemoglobin Concent 33.3 G/DL (32.0-36.0) Red Cell Distribution Width 14.0 % (11.6-14.8) Platelet Count 444 K/UL (150-450) Mean Platelet Volume 6.4 FL (6.5-10.1) L Neutrophils (%) (Auto) % (45.0-75.0) Lymphocytes (%) (Auto) % (20.0-45.0) Monocytes (%) (Auto) % (1.0-10.0) Eosinophils (%) (Auto) % (0.0-3.0) Basophils (%) (Auto) % (0.0-2.0) Differential Total Cells Counted 100 Neutrophils % (Manual) 94 % (45-75) H Lymphocytes % (Manual) 2 % (20-45) L Monocytes % (Manual) 4 % (1-10) Eosinophils % (Manual) 0 % (0-3) Basophils % (Manual) 0 % (0-2) Band Neutrophils 0 % (0-8) Platelet Estimate Adequate Platelet Morphology Normal Hypochromasia 2+ Sodium Level 145 MMOL/L (136-145) Potassium Level 3.3 MMOL/L (3.5-5.1) L Chloride Level 111 MMOL/L (98-107) H Carbon Dioxide Level 23 MMOL/L (21-32) Anion Gap 11 mmol/L (5-15) Blood Urea Nitrogen 25 mg/dL (7-18) H Creatinine 1.2 MG/DL (0.55-1.30) Estimat Glomerular Filtration Rate 57.7 mL/min (>60) Glucose Level 156 MG/DL (74-106) H Calcium Level 8.8 MG/DL (8.5-10.1) Plan Problems: (1) Sepsis Assessment & Plan: 83-year-old male with history of stage IV colon cancer status post left colostomy left nephrostomy tube placement superior catheter placement presented with leukocytosis, abnormal labs, abnormal LFTs, pain. On evaluation sepsis likely secondary to patient's UTI. Currently on antibiotics as per infectious disease. Abdominal examination and complete examination performed and as above. No acute surgical intervention indicated or recommended. Trend labs IV fluids Okay for diet from surgical standpoint Thank you will follow with recommendations I had a long discussion with the patient's daughter. She expressed understanding of his current condition and overall condition. She understands quality of life and CODE STATUS changed to DNR/DNI. Comfort care measures. No acute surgical intervention planned. worsening lft's US Findings: Exam is somewhat limited, due to patient inability to suspend respiration. Gallbladder demonstrates gallstones. Gallbladder wall is mildly thickened, measuring 4 mm in thickness. Common bile duct measures 4 mm in diameter. No intrahepatic biliary ductal dilatation. Liver demonstrates normal echogenicity, no focal abnormality. Note that portions are well visualized, however. Portal vein and hepatic veins are patent. Pancreas is unremarkable. Spleen is unremarkable. Left kidney measures 12 cm in length. Right kidney measures 11.3 cm length. Both kidneys demonstrate slightly increased echogenicity. Right kidney demonstrates mild hydronephrosis. Note that recent plain radiograph demonstrates a nephrostomy and a stent; these are not clearly evident on this study. The left kidney demonstrates lobulated contour and somewhat heterogeneous echotexture, possibly discrete echogenic lesions which are better demonstrated on recent renal sonogram.. . Non- aneurysmal abdominal aorta . Impression: Somewhat limited exam, as described Echogenic right kidney with mild hydronephrosis despite presence of a nephrostomy and stent Markedly abnormal left kidney, also described on recent renal sonogram and possibly demonstrating multiple masses Cholelithiasis. Mild gallbladder wall thickening, could indicate acute cholecystitis. Correlate with clinical findings, consider hepatobiliary nuclear scan if clinically indicated spoke with daughter goals of care for comfort no plans for intervention hold on further imaging or testing (2) Suprapubic catheter dysfunction Assessment & Plan: There is mild right hydronephrosis despite presence of a nephrostomy catheter which appears to be in good position. There is a small right renal cyst demonstrated measuring approximately 1 cm x 1.2 cm. The left kidney is abnormal. There is suggestion of multiple heterogeneous masses slightly echogenic in appearance within the left kidney. For example in the lower pole there is a 4 x 5 cm lesion. In the midpole there is a 3.7 x 3.6 cm lesion. In the upper pole there is a 4.5 cm lesion. Suggest correlation with contrast-enhanced CT.. The right kidney measures 10 cm. in length. The left kidney measures 12.2 cm. in length. The IVC is patent. Urinary bladder is unremarkable. Suprapubic catheter noted. Left lower quadrant colostomy noted. IMPRESSION: Abnormal appearance of the left kidney with suggestion of multiple lobular masses. Further evaluation with contrast-enhanced CT is recommended. Trace right hydronephrosis. Nephrostomy noted in place. Suprapubic catheter Igor Parr Apr 05, 2019 13:09
[2019-04-05 16:00] VITALS: BP 149/83
--- NOTE | 2019-04-05 19:10 | NUR ---
NURSE NOTES: received patient on bed, awake. a&ox1. confused. no pain or discomfort. with iv line on the RFA running d51/2 ns at 75 ml/hr. with left colostomy,intact. with right nephrostomy connected to a bag and a suprapubic catheter draining a light yellow urine. bed locked and in lowest position. call light and light button within easy reach. will continue plan of care.
--- NOTE | 2019-04-05 19:18 | Internal Med Progress Note ---
Subjective Date of Service: Apr 05, 2019 Physician Name Lazo,Nathan Attending Physician Doroteo Alberto MD Current Medications Medications (Trade) Dose Ordered Sig/Anamaria Route PRN Reason Start Time Stop Time Status Last Admin Dose Admin Acetaminophen (Tylenol) 650 mg Q4H PRN ORAL fever 03/29/19 23:45 04/28/19 23:44 Amlodipine Besylate (Norvasc) 2.5 mg DAILY ORAL 04/02/19 09:00 05/02/19 08:59 04/05/19 08:34 Aspirin (ASA) 81 mg DAILY NG 04/02/19 09:00 05/02/19 08:59 04/05/19 08:33 Atorvastatin Calcium (Lipitor) 80 mg BEDTIME ORAL 04/01/19 21:00 05/01/19 20:59 04/04/19 20:27 Calcitonin [place] (Miacalcin) 1 sprays DAILY NASAL 04/03/19 09:00 05/03/19 08:59 04/05/19 09:10 Dextrose (Dextrose 50%) 25 ml Q30M PRN IV Hypoglycemia 03/29/19 23:45 04/28/19 23:44 Dextrose (Dextrose 50%) 50 ml Q30M PRN IV Hypoglycemia 03/29/19 23:45 04/28/19 23:44 Dextrose/Sodium Chloride 1,000 ml @ 75 mls/hr [id number] IV 04/04/19 15:00 05/04/19 14:59 04/05/19 17:30 Diphenhydramine HCl (Benadryl) 25 mg Q6H PRN ORAL Itching/Pruritis 03/29/19 23:45 04/28/19 23:44 Ertapenem 0.5 gm/ Sodium Chloride 55 ml @ 110 mls/hr Q24H IVPB 03/31/19 09:00 04/13/19 23:59 04/05/19 09:10 Folic Acid (Folate) 1 mg DAILY ORAL 04/01/19 11:15 05/01/19 11:14 04/05/19 08:34 Heparin Sodium (Porcine) (Heparin 5000 units/ml) 5,000 units EVERY 12 HOURS SUBQ 03/30/19 09:00 04/29/19 08:59 04/05/19 08:35 Nitroglycerin (Ntg) 0.4 mg Q5M X 3 DOSES PRN SL Prn Chest Pain 03/29/19 23:45 04/28/19 23:44 Ondansetron HCl (Zofran) 4 mg Q6H PRN IVP Nausea & Vomiting 03/29/19 23:45 04/28/19 23:44 Pantoprazole (Protonix) 40 mg EVERY 12 HOURS ORAL 04/02/19 21:00 05/02/19 20:59 04/05/19 08:34 Polyethylene Glycol (Miralax) 17 gm HSPRN PRN ORAL Constipation 03/29/19 23:45 04/28/19 23:44 Tamsulosin HCl (Flomax) 0.4 mg BEDTIME ORAL 04/01/19 21:00 05/01/19 20:59 04/04/19 20:27 Temazepam (Restoril) 15 mg HSPRN PRN ORAL Insomnia 03/29/19 23:45 04/05/19 23:44 Allergies: Coded Allergies: No Known Allergies (Unverified , 03/29/19) ROS Limited/Unobtainable: Yes Subjective 83 YO M admitted with gen weakness and altered mental status. Now UTI and sepsis. Cover for Int Med-Dr Alberto Objective Last Vital Signs Date Time Temp Pulse Resp B/P (MAP) Pulse Ox O2 Delivery O2 Flow Rate FiO2 04/05/19 16:00 98.5 107 18 149/83 (105) 99 04/05/19 09:00 Room Air Laboratory Tests Test 04/05/19 06:30 White Blood Count 23.9 K/UL (4.8-10.8) *H Red Blood Count 3.16 M/UL (4.70-6.10) L Hemoglobin 9.0 G/DL (14.2-18.0) L Hematocrit 26.9 % (42.0-52.0) L Mean Corpuscular Volume 85 FL (80-99) Mean Corpuscular Hemoglobin 28.3 PG (27.0-31.0) Mean Corpuscular Hemoglobin Concent 33.3 G/DL (32.0-36.0) Red Cell Distribution Width 14.0 % (11.6-14.8) Platelet Count 444 K/UL (150-450) Mean Platelet Volume 6.4 FL (6.5-10.1) L Neutrophils (%) (Auto) % (45.0-75.0) Lymphocytes (%) (Auto) % (20.0-45.0) Monocytes (%) (Auto) % (1.0-10.0) Eosinophils (%) (Auto) % (0.0-3.0) Basophils (%) (Auto) % (0.0-2.0) Differential Total Cells Counted 100 Neutrophils % (Manual) 94 % (45-75) H Lymphocytes % (Manual) 2 % (20-45) L Monocytes % (Manual) 4 % (1-10) Eosinophils % (Manual) 0 % (0-3) Basophils % (Manual) 0 % (0-2) Band Neutrophils 0 % (0-8) Platelet Estimate Adequate Platelet Morphology Normal Hypochromasia 2+ Sodium Level 145 MMOL/L (136-145) Potassium Level 3.3 MMOL/L (3.5-5.1) L Chloride Level 111 MMOL/L (98-107) H Carbon Dioxide Level 23 MMOL/L (21-32) Anion Gap 11 mmol/L (5-15) Blood Urea Nitrogen 25 mg/dL (7-18) H Creatinine 1.2 MG/DL (0.55-1.30) Estimat Glomerular Filtration Rate 57.7 mL/min (>60) Glucose Level 156 MG/DL (74-106) H Calcium Level 8.8 MG/DL (8.5-10.1) Microbiology Date/Time Source Procedure Growth Status 04/04/19 16:10 Urine,Clean Catch Urine Culture - Preliminary NO GROWTH Resulted Intake and Output 04/04/19 04/05/19 19:00 07:00 Intake Total 380 ml 940 ml Output Total 260 ml 300 ml Balance 120 ml 640 ml Intake Oral 100 ml IV Total 280 ml 940 ml Output Urine Total 260 ml 300 ml Objective PHYSICAL EXAMINATION: GENERAL: The patient is awake and responsive, but very chronically ill and cachectic. HEAD AND NECK: Pupils are equal and reactive to light. Extraocular movements intact. Neck was supple. No JVD. LUNGS: Good air entry. No wheezing or rales. Decreased air in bases. HEART: S1 and S2. Regular rhythm. No murmur or gallop. ABDOMEN: Soft, nondistended, and nontender. GENITOURINARY: Suprapubic catheter was noted. No sign of infection or drainage. Colostomy bag in the left side of abdomen was noted without any stool. No leakage or discharge. The patient has a suprapubic catheter in pelvic area with the right nephrostomy tube with cloudy urine. EXTREMITIES: No cyanosis, clubbing, or edema. Muscle atrophy was noted. RECTAL: Refused and deferred. PSYCHIATRIC: Mood and affect is intact. Assessment/Plan Assessment/Plan ASSESSMENT.: 1. Sepsis 2. urinary tract infection=ESBL E. Coli 3. Severe dehydration. 3. Anemia of chronic disease. 4. Acute kidney injury, chronic insufficiency. 5. 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 6. Severe protein-calorie malnutrition. 7. Acute metabolic encephalopathy due to the sepsis, infection, and dehydration. 8. Sepsis=Group B Strep 9. leukocytosis PLAN: 1. Admit the patient to medical floor. 2. antibiotic =Ertapenem. 3. Code status is Full Code. 4. Dr. Dawson = Infectious Disease 5. Dr. Parr = General surgery. 6. DVT prophylaxis with heparin subcutaneous. 7. Urology=Dr Dukes 8. ID=Nahtan Gray MD Apr 05, 2019 19:18
--- NOTE | 2019-04-05 19:36 | NUR ---
HAND-OFF: Report given to Wendy Arana RN. Patient sitting in low-[place]'s position, on room air, sleeping, respirations at 16 breaths per minute, IV patent in right forearm running fluids, suprapubic catheter in place, patent, and draining, nephrostomy bag in place, patent and draining, urine is light davis, colostomy bag in place in left, lower abdomen, empty, no c/o pain, no SOB, in no apparent distress.
[2019-04-05 20:00] VITALS: BP 138/70
[2019-04-05] MEDS: Atorvastatin 80mg tab ORAL SCH (20:32)
[2019-04-05] MEDS: Tamsulosin 0.4mg cap ORAL SCH (20:32)
[2019-04-06] VITALS: BP 145/92
--- NOTE | 2019-04-06 01:51 | NUR ---
NURSE NOTES: pt is sleeping comfortably. no sob.no facial grimacing. bed locked and in lowest position. call light and light button within easy reach. will continue plan of care.
[2019-04-06 04:00] VITALS: BP 134/76
[2019-04-06] MEDS: D5 1/2NS 1,000 ML IV SCH ×2 (05:22→20:21)
[2019-04-06 07:02] LABS: HEMATOCRIT 25.6 % (42.0-52.0); HEMOGLOBIN 8.5 G/DL (14.2-18.0); MEAN CORPUSCULAR VOLUME 85 FL (80-99); PLATELET COUNT 422 K/UL (150-450); RED BLOOD COUNT 3.03 M/UL (4.70-6.10); RED CELL DISTRIBUTION WIDTH 14.1 % (11.6-14.8)
[2019-04-06 07:03] LABS: WHITE BLOOD COUNT 23.3 K/UL (4.8-10.8)
--- NOTE | 2019-04-06 07:25 | NUR ---
HAND-OFF: Report given to josh. called tessie regarding the result of wb, awaiting for call back. endorsed to josh to follow up with .
--- NOTE | 2019-04-06 07:26 | NUR ---
NURSE NOTES: Received patient in bed awake. No SOB or acute distress. IV line intact and patent. Colostomy bag in place. Nephrostomy tube in place. Suprapubic catheter in place, Dr Dukes to change, materials ready. HOB elevated. Bed locked in lowest position. Call light within reach. Will continue plan of care.
--- NOTE | 2019-04-06 07:30 | NUR ---
NURSE NOTES: Suprapubic catheter changed by Dr Dukes. Dressing over insertion site placed. Procedure tolerated well by patient.
[2019-04-06 08:00] VITALS: BP 103/69
[2019-04-06 08:03] LABS: ALANINE AMINOTRANSFERASE 59 U/L (12-78); ALBUMIN 1.5 G/DL (3.4-5.0); ALBUMIN/GLOBULIN RATIO 0.3 (1.0-2.7); ALKALINE PHOSPHATASE 305 U/L (46-116); ANION GAP 14 mmol/L (5-15); ASPARTATE AMINO TRANSFERASE 47 U/L (15-37); BILIRUBIN,TOTAL 0.7 MG/DL (0.2-1.0); BLOOD UREA NITROGEN 21 mg/dL (7-18); CALCIUM 8.5 MG/DL (8.5-10.1); CARBON DIOXIDE 20 MMOL/L (21-32); CHLORIDE 110 MMOL/L (98-107); CREATININE 1.2 MG/DL (0.55-1.30); POTASSIUM 3.2 MMOL/L (3.5-5.1); SODIUM 144 MMOL/L (136-145)
--- NOTE | 2019-04-06 08:11 | Urology Progress Note ---
Assessment/Plan Assessment/Plan: hydro hx, right PCN JOSE MANUEL, improved UTI/colonzied hematuria proteinuria urinary retention/SPT renal cyst renal mass monitor clinically maintain SPT and right PCN hand irrigate PRN abx as ordered monitor renal fxn, improved obtain outside records I personally removed old SPT new 16f cath placed, irrigated and appears to be in good position f/u on blood cx f/u repeat urine cx d/w Dr. Beck Subjective Allergies: Coded Allergies: No Known Allergies (Unverified , 03/29/19) Subjective confused, SPT leakage pt daughter declined CT by report very low output through SPT Objective Last 24 Hour Vital Signs Date Time Temp Pulse Resp B/P (MAP) Pulse Ox O2 Delivery O2 Flow Rate FiO2 04/06/19 04:00 98.3 89 18 134/76 (95) 99 04/06/19 00:00 98.0 106 20 145/92 (109) 99 04/05/19 21:00 Room Air 04/05/19 20:00 97.6 96 21 138/70 (92) 96 04/05/19 16:00 98.5 107 18 149/83 (105) 99 04/05/19 12:00 98.7 113 19 156/80 (105) 99 04/05/19 09:00 Room Air 04/05/19 08:34 103 160/87 Intake and Output 04/05/19 04/06/19 19:00 07:00 Intake Total 1142.5 ml 825 ml Output Total 630 ml 680 ml Balance 512.5 ml 145 ml Intake Oral 150 ml IV Total 1142.5 ml 675 ml Output Urine Total 630 ml 650 ml Other 30 ml Microbiology Date/Time Source Procedure Growth Status 04/02/19 11:25 Blood Blood Culture - Preliminary NO GROWTH AFTER 72 HOURS Resulted 04/04/19 16:10 Urine,Clean Catch Urine Culture - Preliminary NO GROWTH Resulted Current Medications Medications (Trade) Dose Ordered Sig/Anamaria Route PRN Reason Start Time Stop Time Status Last Admin Dose Admin Acetaminophen (Tylenol) 650 mg Q4H PRN ORAL fever 03/29/19 23:45 04/28/19 23:44 Amlodipine Besylate (Norvasc) 2.5 mg DAILY ORAL 04/02/19 09:00 05/02/19 08:59 04/05/19 08:34 Aspirin (ASA) 81 mg DAILY NG 04/02/19 09:00 05/02/19 08:59 04/05/19 08:33 Atorvastatin Calcium (Lipitor) 80 mg BEDTIME ORAL 04/01/19 21:00 05/01/19 20:59 04/05/19 20:32 Calcitonin [place] (Miacalcin) 1 sprays DAILY NASAL 04/03/19 09:00 05/03/19 08:59 04/05/19 09:10 Dextrose (Dextrose 50%) 25 ml Q30M PRN IV Hypoglycemia 03/29/19 23:45 04/28/19 23:44 Dextrose (Dextrose 50%) 50 ml Q30M PRN IV Hypoglycemia 03/29/19 23:45 04/28/19 23:44 Dextrose/Sodium Chloride 1,000 ml @ 75 mls/hr [id number] IV 04/04/19 15:00 05/04/19 14:59 04/06/19 05:22 Diphenhydramine HCl (Benadryl) 25 mg Q6H PRN ORAL Itching/Pruritis 03/29/19 23:45 04/28/19 23:44 Ertapenem 0.5 gm/ Sodium Chloride 55 ml @ 110 mls/hr Q24H IVPB 03/31/19 09:00 04/13/19 23:59 04/05/19 09:10 Folic Acid (Folate) 1 mg DAILY ORAL 04/01/19 11:15 05/01/19 11:14 04/05/19 08:34 Heparin Sodium (Porcine) (Heparin 5000 units/ml) 5,000 units EVERY 12 HOURS SUBQ 03/30/19 09:00 04/29/19 08:59 04/05/19 20:33 Nitroglycerin (Ntg) 0.4 mg Q5M X 3 DOSES PRN SL Prn Chest Pain 03/29/19 23:45 04/28/19 23:44 Ondansetron HCl (Zofran) 4 mg Q6H PRN IVP Nausea & Vomiting 03/29/19 23:45 04/28/19 23:44 Pantoprazole (Protonix) 40 mg EVERY 12 HOURS ORAL 04/02/19 21:00 05/02/19 20:59 04/05/19 20:32 Polyethylene Glycol (Miralax) 17 gm HSPRN PRN ORAL Constipation 03/29/19 23:45 04/28/19 23:44 Tamsulosin HCl (Flomax) 0.4 mg BEDTIME ORAL 04/01/19 21:00 05/01/19 20:59 04/05/19 20:32 Laboratory Tests 04/06/19 05:56: White Blood Count 23.3*H, Red Blood Count 3.03L, Hemoglobin 8.5L, Hematocrit 25.6L, Mean Corpuscular Volume 85, Mean Corpuscular Hemoglobin 28.0, Mean Corpuscular Hemoglobin Concent 33.1, Red Cell Distribution Width 14.1, Platelet Count 422, Mean Platelet Volume 6.4L, Neutrophils (%) (Auto) , Lymphocytes (%) ( Auto) , Monocytes (%) (Auto) , Eosinophils (%) (Auto) , Basophils (%) (Auto) , Neutrophils % (Manual) [Pending], Lymphocytes % (Manual) [Pending], Platelet Estimate [Pending], Platelet Morphology [Pending], Sodium Level 144, Potassium Level 3.2L, Chloride Level 110H, Carbon Dioxide Level 20L, Anion Gap 14, Blood Urea Nitrogen 21H, Creatinine 1.2, Estimat Glomerular Filtration Rate 57.7, Glucose Level 131H, Uric Acid 4.0, Calcium Level 8.5, Phosphorus Level 2.0L, Magnesium Level 1.8, Total Bilirubin 0.7, Aspartate Amino Transf (AST/SGOT) 47H , Alanine Aminotransferase (ALT/SGPT) 59, Alkaline Phosphatase 305H, C-Reactive Protein, Quantitative 22.5H, Pro-B-Type Natriuretic Peptide 4434H, Total Protein 6.9, Albumin 1.5L, Globulin 5.4, Albumin/Globulin Ratio 0.3L Height (Feet): 5 Height (Inches): 1.00 Weight (Pounds): 114 Objective right PCN in place SPT in place urine yellow/davis renal and abdominal u/s noted Shantanu Dukes MD Apr 06, 2019 08:11
[2019-04-06] MEDS: Aspirin Baby 81mg NG SCH (09:13)
[2019-04-06] MEDS: Ertapenem 0.5 GM in NS 55 ML IVPB SCH (09:14)
[2019-04-06] MEDS: Heparin 5000 units/ml inj SUBQ SCH ×2 (09:15→20:23)
[2019-04-06 12:00] VITALS: BP 108/72
--- NOTE | 2019-04-06 12:18 | Infectious Diseases Prog Note ---
Assessment/Plan Assessment/Plan Assessment: GBS bacteremia- likely intraabdominal source given malignancy- r/o endocarditis -03/30 2d Echo: no vegetations -03/29 Bcx 2/4 GBS; 04/01 Bcx 2/ GBS; 04/02 Bcx NTD UTI -04/04 u/a wbc 40-60, n it neg, leuk +3; ucx NTD -03/30 u/a wbc tntc, nit neg, leuk +3; ucx >100k ESBl E coli Afebrile leukocytosis, increasing- r/o Cdiff, r/o abscess (family refused CT), now improving -Abd US:Somewhat limited exam, as described. Echogenic right kidney with mild hydronephrosis despite presence of a nephrostomy and stent. Markedly abnormal left kidney, also described on recent renal sonogram and possibly demonstrating multiple masses. Cholelithiasis. Mild gallbladder wall thickening, could indicate acute cholecystitis. 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 Will continue to follow along with you. Subjective Allergies: Coded Allergies: No Known Allergies (Unverified , 03/29/19) Subjective afebrile wbc improving repeat Bcx NTD Objective Vital Signs Last 24 Hour Vital Signs Date Time Temp Pulse Resp B/P (MAP) Pulse Ox O2 Delivery O2 Flow Rate FiO2 04/06/19 09:00 Room Air 04/06/19 09:00 99 103/69 04/06/19 08:00 98.0 99 20 103/69 (80) 99 04/06/19 04:00 98.3 89 18 134/76 (95) 99 04/06/19 00:00 98.0 106 20 145/92 (109) 99 04/05/19 21:00 Room Air 04/05/19 20:00 97.6 96 21 138/70 (92) 96 04/05/19 16:00 98.5 107 18 149/83 (105) 99 Height (Feet): 5 Height (Inches): 1.00 Weight (Pounds): 114 Objective GENERAL: chronically ill and cachectic. HEAD AND NECK: Pupils are equal and reactive to light. E. Neck was supple. LUNGS: Good air entry. No wheezing or rales. Decreased air in bases. HEART: S1 and S2. Regular rhythm. No murmur or gallop. ABDOMEN: Soft, nondistended, and nontender. GENITOURINARY: Suprapubic catheter was noted. No sign of infection or drainage. Colostomy bag in the left side of abdomen was noted without any stool. No leakage or discharge. EXTREMITIES: No cyanosis, clubbing, or edema. Muscle atrophy was noted. Microbiology Date/Time Source Procedure Growth Status 04/04/19 16:10 Urine,Clean Catch Urine Culture - Preliminary NO GROWTH AFTER 24 HOURS Resulted Laboratory Tests Test 04/06/19 05:56 White Blood Count 23.3 K/UL (4.8-10.8) *H Red Blood Count 3.03 M/UL (4.70-6.10) L Hemoglobin 8.5 G/DL (14.2-18.0) L Hematocrit 25.6 % (42.0-52.0) L Mean Corpuscular Volume 85 FL (80-99) Mean Corpuscular Hemoglobin 28.0 PG (27.0-31.0) Mean Corpuscular Hemoglobin Concent 33.1 G/DL (32.0-36.0) Red Cell Distribution Width 14.1 % (11.6-14.8) Platelet Count 422 K/UL (150-450) Mean Platelet Volume 6.4 FL (6.5-10.1) L Neutrophils (%) (Auto) % (45.0-75.0) Lymphocytes (%) (Auto) % (20.0-45.0) Monocytes (%) (Auto) % (1.0-10.0) Eosinophils (%) (Auto) % (0.0-3.0) Basophils (%) (Auto) % (0.0-2.0) Differential Total Cells Counted 100 Neutrophils % (Manual) 95 % (45-75) H Lymphocytes % (Manual) 2 % (20-45) L Monocytes % (Manual) 3 % (1-10) Eosinophils % (Manual) 0 % (0-3) Basophils % (Manual) 0 % (0-2) Band Neutrophils 0 % (0-8) Platelet Estimate Adequate Platelet Morphology Normal Hypochromasia 1+ Anisocytosis 1+ Sodium Level 144 MMOL/L (136-145) Potassium Level 3.2 MMOL/L (3.5-5.1) L Chloride Level 110 MMOL/L (98-107) H Carbon Dioxide Level 20 MMOL/L (21-32) L Anion Gap 14 mmol/L (5-15) Blood Urea Nitrogen 21 mg/dL (7-18) H Creatinine 1.2 MG/DL (0.55-1.30) Estimat Glomerular Filtration Rate 57.7 mL/min (>60) Glucose Level 131 MG/DL (74-106) H Uric Acid 4.0 MG/DL (2.6-7.2) Calcium Level 8.5 MG/DL (8.5-10.1) Phosphorus Level 2.0 MG/DL (2.5-4.9) L Magnesium Level 1.8 MG/DL (1.8-2.4) Total Bilirubin 0.7 MG/DL (0.2-1.0) Aspartate Amino Transf (AST/SGOT) 47 U/L (15-37) H Alanine Aminotransferase (ALT/SGPT) 59 U/L (12-78) Alkaline Phosphatase 305 U/L (46-116) H C-Reactive Protein, Quantitative 22.5 mg/dL (0.00-0.90) H Pro-B-Type Natriuretic Peptide 4434 pg/mL (0-125) H Total Protein 6.9 G/DL (6.4-8.2) Albumin 1.5 G/DL (3.4-5.0) L Globulin 5.4 g/dL Albumin/Globulin Ratio 0.3 (1.0-2.7) L Current Medications Medications (Trade) Dose Ordered Sig/Anamaria Route PRN Reason Start Time Stop Time Status Last Admin Dose Admin Acetaminophen (Tylenol) 650 mg Q4H PRN ORAL fever 03/29/19 23:45 04/28/19 23:44 Amlodipine Besylate (Norvasc) 2.5 mg DAILY ORAL 2/17/20 09:00 05/02/19 08:59 04/05/19 08:34 Aspirin (ASA) 81 mg DAILY NG 04/02/19 09:00 05/02/19 08:59 04/06/19 09:13 Atorvastatin Calcium (Lipitor) 80 mg BEDTIME ORAL 04/01/19 21:00 05/01/19 20:59 04/05/19 20:32 Calcitonin [place] (Miacalcin) 1 sprays DAILY NASAL 04/03/19 09:00 05/03/19 08:59 04/06/19 09:13 Dextrose (Dextrose 50%) 25 ml Q30M PRN IV Hypoglycemia 03/29/19 23:45 04/28/19 23:44 Dextrose (Dextrose 50%) 50 ml Q30M PRN IV Hypoglycemia 03/29/19 23:45 04/28/19 23:44 Dextrose/Sodium Chloride 1,000 ml @ 75 mls/hr [id number] IV 04/04/19 15:00 05/04/19 14:59 04/06/19 05:22 Diphenhydramine HCl (Benadryl) 25 mg Q6H PRN ORAL Itching/Pruritis 03/29/19 23:45 04/28/19 23:44 Ertapenem 0.5 gm/ Sodium Chloride 55 ml @ 110 mls/hr Q24H IVPB 03/31/19 09:00 04/13/19 23:59 04/06/19 09:14 Folic Acid (Folate) 1 mg DAILY ORAL 04/01/19 11:15 05/01/19 11:14 04/06/19 09:13 Heparin Sodium (Porcine) (Heparin 5000 units/ml) 5,000 units EVERY 12 HOURS SUBQ 03/30/19 09:00 04/29/19 08:59 04/06/19 09:15 Nitroglycerin (Ntg) 0.4 mg Q5M X 3 DOSES PRN SL Prn Chest Pain 03/29/19 23:45 04/28/19 23:44 Ondansetron HCl (Zofran) 4 mg Q6H PRN IVP Nausea & Vomiting 03/29/19 23:45 04/28/19 23:44 Pantoprazole (Protonix) 40 mg EVERY 12 HOURS ORAL 04/02/19 21:00 05/02/19 20:59 04/06/19 09:13 Polyethylene Glycol (Miralax) 17 gm HSPRN PRN ORAL Constipation 03/29/19 23:45 04/28/19 23:44 Tamsulosin HCl (Flomax) 0.4 mg BEDTIME ORAL 04/01/19 21:00 05/01/19 20:59 04/05/19 20:32 Cristel Dawson M.D. Apr 06, 2019 12:18
--- NOTE | 2019-04-06 14:16 | Surgery Progress Note ---
Surgery Progress Note Subjective Additional Comments no acute events comfortable Objective Last 24 Hour Vital Signs Date Time Temp Pulse Resp B/P (MAP) Pulse Ox O2 Delivery O2 Flow Rate FiO2 04/06/19 12:00 98.3 103 19 108/72 (84) 99 04/06/19 09:00 Room Air 04/06/19 09:00 99 103/69 04/06/19 08:00 98.0 99 20 103/69 (80) 99 04/06/19 04:00 98.3 89 18 134/76 (95) 99 04/06/19 00:00 98.0 106 20 145/92 (109) 99 04/05/19 21:00 Room Air 04/05/19 20:00 97.6 96 21 138/70 (92) 96 04/05/19 16:00 98.5 107 18 149/83 (105) 99 I&O Intake and Output 04/05/19 04/06/19 19:00 07:00 Intake Total 1142.5 ml 825 ml Output Total 630 ml 680 ml Balance 512.5 ml 145 ml Intake Oral 150 ml IV Total 1142.5 ml 675 ml Output Urine Total 630 ml 650 ml Other 30 ml Dressing: other Wound: other Drains: other Cardiovascular: RSR Respiratory: decreased breath sounds Abdomen: soft, present bowel sounds Extremities: no cyanosis Laboratory Tests Test 04/06/19 05:56 White Blood Count 23.3 K/UL (4.8-10.8) *H Red Blood Count 3.03 M/UL (4.70-6.10) L Hemoglobin 8.5 G/DL (14.2-18.0) L Hematocrit 25.6 % (42.0-52.0) L Mean Corpuscular Volume 85 FL (80-99) Mean Corpuscular Hemoglobin 28.0 PG (27.0-31.0) Mean Corpuscular Hemoglobin Concent 33.1 G/DL (32.0-36.0) Red Cell Distribution Width 14.1 % (11.6-14.8) Platelet Count 422 K/UL (150-450) Mean Platelet Volume 6.4 FL (6.5-10.1) L Neutrophils (%) (Auto) % (45.0-75.0) Lymphocytes (%) (Auto) % (20.0-45.0) Monocytes (%) (Auto) % (1.0-10.0) Eosinophils (%) (Auto) % (0.0-3.0) Basophils (%) (Auto) % (0.0-2.0) Differential Total Cells Counted 100 Neutrophils % (Manual) 95 % (45-75) H Lymphocytes % (Manual) 2 % (20-45) L Monocytes % (Manual) 3 % (1-10) Eosinophils % (Manual) 0 % (0-3) Basophils % (Manual) 0 % (0-2) Band Neutrophils 0 % (0-8) Platelet Estimate Adequate Platelet Morphology Normal Hypochromasia 1+ Anisocytosis 1+ Sodium Level 144 MMOL/L (136-145) Potassium Level 3.2 MMOL/L (3.5-5.1) L Chloride Level 110 MMOL/L (98-107) H Carbon Dioxide Level 20 MMOL/L (21-32) L Anion Gap 14 mmol/L (5-15) Blood Urea Nitrogen 21 mg/dL (7-18) H Creatinine 1.2 MG/DL (0.55-1.30) Estimat Glomerular Filtration Rate 57.7 mL/min (>60) Glucose Level 131 MG/DL (74-106) H Uric Acid 4.0 MG/DL (2.6-7.2) Calcium Level 8.5 MG/DL (8.5-10.1) Phosphorus Level 2.0 MG/DL (2.5-4.9) L Magnesium Level 1.8 MG/DL (1.8-2.4) Total Bilirubin 0.7 MG/DL (0.2-1.0) Aspartate Amino Transf (AST/SGOT) 47 U/L (15-37) H Alanine Aminotransferase (ALT/SGPT) 59 U/L (12-78) Alkaline Phosphatase 305 U/L (46-116) H C-Reactive Protein, Quantitative 22.5 mg/dL (0.00-0.90) H Pro-B-Type Natriuretic Peptide 4434 pg/mL (0-125) H Total Protein 6.9 G/DL (6.4-8.2) Albumin 1.5 G/DL (3.4-5.0) L Globulin 5.4 g/dL Albumin/Globulin Ratio 0.3 (1.0-2.7) L Plan Problems: (1) Sepsis Assessment & Plan: 83-year-old male with history of stage IV colon cancer status post left colostomy left nephrostomy tube placement superior catheter placement presented with leukocytosis, abnormal labs, abnormal LFTs, pain. On evaluation sepsis likely secondary to patient's UTI. Currently on antibiotics as per infectious disease. Abdominal examination and complete examination performed and as above. No acute surgical intervention indicated or recommended. Trend labs IV fluids Okay for diet from surgical standpoint Thank you will follow with recommendations I had a long discussion with the patient's daughter. She expressed understanding of his current condition and overall condition. She understands quality of life and CODE STATUS changed to DNR/DNI. Comfort care measures. No acute surgical intervention planned. worsening lft's US Findings: Exam is somewhat limited, due to patient inability to suspend respiration. Gallbladder demonstrates gallstones. Gallbladder wall is mildly thickened, measuring 4 mm in thickness. Common bile duct measures 4 mm in diameter. No intrahepatic biliary ductal dilatation. Liver demonstrates normal echogenicity, no focal abnormality. Note that portions are well visualized, however. Portal vein and hepatic veins are patent. Pancreas is unremarkable. Spleen is unremarkable. Left kidney measures 12 cm in length. Right kidney measures 11.3 cm length. Both kidneys demonstrate slightly increased echogenicity. Right kidney demonstrates mild hydronephrosis. Note that recent plain radiograph demonstrates a nephrostomy and a stent; these are not clearly evident on this study. The left kidney demonstrates lobulated contour and somewhat heterogeneous echotexture, possibly discrete echogenic lesions which are better demonstrated on recent renal sonogram.. . Non- aneurysmal abdominal aorta . Impression: Somewhat limited exam, as described Echogenic right kidney with mild hydronephrosis despite presence of a nephrostomy and stent Markedly abnormal left kidney, also described on recent renal sonogram and possibly demonstrating multiple masses Cholelithiasis. Mild gallbladder wall thickening, could indicate acute cholecystitis. Correlate with clinical findings, consider hepatobiliary nuclear scan if clinically indicated spoke with daughter goals of care for comfort no plans for intervention hold on further imaging or testing (2) Suprapubic catheter dysfunction Assessment & Plan: There is mild right hydronephrosis despite presence of a nephrostomy catheter which appears to be in good position. There is a small right renal cyst demonstrated measuring approximately 1 cm x 1.2 cm. The left kidney is abnormal. There is suggestion of multiple heterogeneous masses slightly echogenic in appearance within the left kidney. For example in the lower pole there is a 4 x 5 cm lesion. In the midpole there is a 3.7 x 3.6 cm lesion. In the upper pole there is a 4.5 cm lesion. Suggest correlation with contrast-enhanced CT.. The right kidney measures 10 cm. in length. The left kidney measures 12.2 cm. in length. The IVC is patent. Urinary bladder is unremarkable. Suprapubic catheter noted. Left lower quadrant colostomy noted. IMPRESSION: Abnormal appearance of the left kidney with suggestion of multiple lobular masses. Further evaluation with contrast-enhanced CT is recommended. Trace right hydronephrosis. Nephrostomy noted in place. Suprapubic catheter Igor Parr Apr 06, 2019 14:16
--- NOTE | 2019-04-06 14:28 | Nephrology Progress Note ---
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, status post resection Colostomy status Nephrostomy tube and suprapubic catheter Sepsis , UTI Acute metabolic encephalopathy Anemia acute vs chronic Elevated LFTs Plan K and Phos supplement today previously discussed with daughter- suggested comfort care Aredia one dose Resume Hydrate- Calcitonin Monitor renal parameters Anemia pat avoid nephrotoxics Monitor electrolytes Favor DNR Subjective ROS Limited/Unobtainable: No Constitutional: Reports: malaise, weakness Objective Objective Last 24 Hour Vital Signs Date Time Temp Pulse Resp B/P (MAP) Pulse Ox O2 Delivery O2 Flow Rate FiO2 04/06/19 12:00 98.3 103 19 108/72 (84) 99 04/06/19 09:00 Room Air 04/06/19 09:00 99 103/69 04/06/19 08:00 98.0 99 20 103/69 (80) 99 04/06/19 04:00 98.3 89 18 134/76 (95) 99 04/06/19 00:00 98.0 106 20 145/92 (109) 99 04/05/19 21:00 Room Air 04/05/19 20:00 97.6 96 21 138/70 (92) 96 04/05/19 16:00 98.5 107 18 149/83 (105) 99 Intake and Output 04/05/19 04/06/19 19:00 07:00 Intake Total 1142.5 ml 825 ml Output Total 630 ml 680 ml Balance 512.5 ml 145 ml Intake Oral 150 ml IV Total 1142.5 ml 675 ml Output Urine Total 630 ml 650 ml Other 30 ml Laboratory Tests 04/06/19 05:56: White Blood Count 23.3*H, Red Blood Count 3.03L, Hemoglobin 8.5L, Hematocrit 25.6L, Mean Corpuscular Volume 85, Mean Corpuscular Hemoglobin 28.0, Mean Corpuscular Hemoglobin Concent 33.1, Red Cell Distribution Width 14.1, Platelet Count 422, Mean Platelet Volume 6.4L, Neutrophils (%) (Auto) , Lymphocytes (%) ( Auto) , Monocytes (%) (Auto) , Eosinophils (%) (Auto) , Basophils (%) (Auto) , Differential Total Cells Counted 100, Neutrophils % (Manual) 95H, Lymphocytes % (Manual) 2L, Monocytes % (Manual) 3, Eosinophils % (Manual) 0, Basophils % ( Manual) 0, Band Neutrophils 0, Platelet Estimate Adequate, Platelet Morphology Normal, Hypochromasia 1+, Anisocytosis 1+, Sodium Level 144, Potassium Level 3.2L, Chloride Level 110H, Carbon Dioxide Level 20L, Anion Gap 14, Blood Urea Nitrogen 21H, Creatinine 1.2, Estimat Glomerular Filtration Rate 57.7, Glucose Level 131H, Uric Acid 4.0, Calcium Level 8.5, Phosphorus Level 2.0L, Magnesium Level 1.8, Total Bilirubin 0.7, Aspartate Amino Transf (AST/SGOT) 47H, Alanine Aminotransferase (ALT/SGPT) 59, Alkaline Phosphatase 305H, C-Reactive Protein, Quantitative 22.5H, Pro-B-Type Natriuretic Peptide 4434H, Total Protein 6.9, Albumin 1.5L, Globulin 5.4, Albumin/Globulin Ratio 0.3L Height (Feet): 5 Height (Inches): 1.00 Weight (Pounds): 114 General Appearance: no apparent distress, lethargic Cardiovascular: tachycardia Respiratory/Chest: decreased breath sounds Abdomen: distended Tomas Beck MD Apr 06, 2019 14:28
--- NOTE | 2019-04-06 14:55 | NUR ---
NURSE NOTES: Suprapubic catheter no output, spoke to Dr Dukes. No new orders.
--- NOTE | 2019-04-06 14:55 | Pulmonology Progress Note ---
Assessment/Plan Problems: (1) Bacteremia (2) Sepsis (3) Acute metabolic encephalopathy (4) Nephrostomy status (5) CKD (chronic kidney disease) (6) Suprapubic catheter dysfunction (7) Colon cancer metastasized to multiple sites Assessment/Plan wbc still high improving iv abx, on Ertapenem for ESBL in urine and bacteremia WBC is higher check cultures, last BC are negative symptomatic treatment check electrolytes pt is a good candidate for palliative care d/w pts daughter, Trey, , she wants comfort care and hospice and end of life care. The daughter needs to talk to two other brothers to make a decision about the hospice Subjective ROS Limited/Unobtainable: No Constitutional: Reports: no symptoms HEENT: Repors: no symptoms Respiratory: Reports: no symptoms Allergies: Coded Allergies: No Known Allergies (Unverified , 03/29/19) Objective Last 24 Hour Vital Signs Date Time Temp Pulse Resp B/P (MAP) Pulse Ox O2 Delivery O2 Flow Rate FiO2 04/06/19 12:00 98.3 103 19 108/72 (84) 99 04/06/19 09:00 Room Air 04/06/19 09:00 99 103/69 04/06/19 08:00 98.0 99 20 103/69 (80) 99 04/06/19 04:00 98.3 89 18 134/76 (95) 99 04/06/19 00:00 98.0 106 20 145/92 (109) 99 04/05/19 21:00 Room Air 04/05/19 20:00 97.6 96 21 138/70 (92) 96 04/05/19 16:00 98.5 107 18 149/83 (105) 99 Intake and Output 04/05/19 04/06/19 19:00 07:00 Intake Total 1142.5 ml 825 ml Output Total 630 ml 680 ml Balance 512.5 ml 145 ml Intake Oral 150 ml IV Total 1142.5 ml 675 ml Output Urine Total 630 ml 650 ml Other 30 ml General Appearance: cachetic HEENT: normocephalic, atraumatic Respiratory/Chest: chest wall non-tender, lungs clear Cardiovascular: normal peripheral pulses, normal rate Abdomen: normal bowel sounds, no organomegaly Genitourinary: normal external genitalia Extremities: no clubbing Skin: no rash Microbiology Date/Time Source Procedure Growth Status 04/04/19 16:10 Urine,Clean Catch Urine Culture - Preliminary NO GROWTH AFTER 24 HOURS Resulted Laboratory Tests 04/06/19 05:56: White Blood Count 23.3*H, Red Blood Count 3.03L, Hemoglobin 8.5L, Hematocrit 25.6L, Mean Corpuscular Volume 85, Mean Corpuscular Hemoglobin 28.0, Mean Corpuscular Hemoglobin Concent 33.1, Red Cell Distribution Width 14.1, Platelet Count 422, Mean Platelet Volume 6.4L, Neutrophils (%) (Auto) , Lymphocytes (%) ( Auto) , Monocytes (%) (Auto) , Eosinophils (%) (Auto) , Basophils (%) (Auto) , Differential Total Cells Counted 100, Neutrophils % (Manual) 95H, Lymphocytes % (Manual) 2L, Monocytes % (Manual) 3, Eosinophils % (Manual) 0, Basophils % ( Manual) 0, Band Neutrophils 0, Platelet Estimate Adequate, Platelet Morphology Normal, Hypochromasia 1+, Anisocytosis 1+, Sodium Level 144, Potassium Level 3.2L, Chloride Level 110H, Carbon Dioxide Level 20L, Anion Gap 14, Blood Urea Nitrogen 21H, Creatinine 1.2, Estimat Glomerular Filtration Rate 57.7, Glucose Level 131H, Uric Acid 4.0, Calcium Level 8.5, Phosphorus Level 2.0L, Magnesium Level 1.8, Total Bilirubin 0.7, Aspartate Amino Transf (AST/SGOT) 47H, Alanine Aminotransferase (ALT/SGPT) 59, Alkaline Phosphatase 305H, C-Reactive Protein, Quantitative 22.5H, Pro-B-Type Natriuretic Peptide 4434H, Total Protein 6.9, Albumin 1.5L, Globulin 5.4, Albumin/Globulin Ratio 0.3L Current Medications Medications (Trade) Dose Ordered Sig/Anamaria Route PRN Reason Start Time Stop Time Status Last Admin Dose Admin Acetaminophen (Tylenol) 650 mg Q4H PRN ORAL fever 03/29/19 23:45 04/28/19 23:44 Amlodipine Besylate (Norvasc) 2.5 mg DAILY ORAL 04/02/19 09:00 05/02/19 08:59 04/05/19 08:34 Aspirin (ASA) 81 mg DAILY NG 04/02/19 09:00 05/02/19 08:59 04/06/19 09:13 Atorvastatin Calcium (Lipitor) 80 mg BEDTIME ORAL 04/01/19 21:00 05/01/19 20:59 04/05/19 20:32 Calcitonin [place] (Miacalcin) 1 sprays DAILY NASAL 04/03/19 09:00 05/03/19 08:59 04/06/19 09:13 Dextrose (Dextrose 50%) 25 ml Q30M PRN IV Hypoglycemia 03/29/19 23:45 04/28/19 23:44 Dextrose (Dextrose 50%) 50 ml Q30M PRN IV Hypoglycemia 03/29/19 23:45 04/28/19 23:44 Dextrose/Sodium Chloride 1,000 ml @ 75 mls/hr [id number] IV 04/04/19 15:00 05/04/19 14:59 04/06/19 05:22 Diphenhydramine HCl (Benadryl) 25 mg Q6H PRN ORAL Itching/Pruritis 03/29/19 23:45 04/28/19 23:44 Ertapenem 0.5 gm/ Sodium Chloride 55 ml @ 110 mls/hr Q24H IVPB 03/31/19 09:00 04/13/19 23:59 04/06/19 09:14 Folic Acid (Folate) 1 mg DAILY ORAL 04/01/19 11:15 05/01/19 11:14 04/06/19 09:13 Heparin Sodium (Porcine) (Heparin 5000 units/ml) 5,000 units EVERY 12 HOURS SUBQ 03/30/19 09:00 04/29/19 08:59 04/06/19 09:15 Nitroglycerin (Ntg) 0.4 mg Q5M X 3 DOSES PRN SL Prn Chest Pain 03/29/19 23:45 04/28/19 23:44 Ondansetron HCl (Zofran) 4 mg Q6H PRN IVP Nausea & Vomiting 03/29/19 23:45 04/28/19 23:44 Pantoprazole (Protonix) 40 mg EVERY 12 HOURS ORAL 04/02/19 21:00 05/02/19 20:59 04/06/19 09:13 Polyethylene Glycol (Miralax) 17 gm HSPRN PRN ORAL Constipation 03/29/19 23:45 04/28/19 23:44 Potassium Phosphate 250 ml @ 62.5 mls/hr Q4H IVPB 04/06/19 15:30 04/06/19 23:29 Tamsulosin HCl (Flomax) 0.4 mg BEDTIME ORAL 04/01/19 21:00 05/01/19 20:59 04/05/19 20:32 Nancy Bowser MD Apr 06, 2019 14:55
[2019-04-06] MEDS: Potassium Phosphate 15mm/250ml 250 ML IVPB SCH ×2 (15:03→20:23)
--- NOTE | 2019-04-06 15:30 | NUR ---
CASE MANAGEMENT:REVIEW SI;BACTEREMIA. SEPSIS. AC MET ENCEPHALOPATHY. METASTASIZED CA. 98.3 106 20 145/92 99% ON RA WBC 23.3 H/H 8.3/25.6 K+ 3.2 CL 110 BUN 21 BNP 4434 AST 47 IS; IVF D5NS @ 75 ML/HR PROTONIX PQ12 HRS ASA PO QD ERTAPENEM IV Q24 HRS HEPARIN SUBQ Q12 HRS MED SURG STATUS PLAN;COMFORT MEASURES/HOSPICE PER MD AWAITING FAMILY DECISION DCP;FROM HOME
[2019-04-06 16:00] VITALS: BP 148/66
[2019-04-06] MEDS ORDERED: NS Irrig 1000ml ONE (17:51)
[2019-04-06] MEDS ORDERED: D5 1/2NS 1000ml IV ONE (17:51)
--- NOTE | 2019-04-06 18:39 | NUR ---
NURSE NOTES: Unable to change IV pump regulation for potassium phospate, Dr Alberto made aware.
--- NOTE | 2019-04-06 19:15 | NUR ---
NURSE NOTES: received pt on bed. sleeping comfortably. with iv line on the right FA running k-phosphate. no facial grimacing noted. with suprapubic catheter in placed, nephrostomy on the right and colostomy. nephrostomy is draining well with light yellow output. suprapubic bag is empty. per josh, there is no urine output throughout the shift, md aware. bed locked and in lowest position call light and light button within easy reach. will continue plan of care.
--- NOTE | 2019-04-06 19:26 | Internal Med Progress Note ---
Subjective Date of Service: Apr 06, 2019 Physician Name LazoNathan Attending Physician Doroteo Alberto MD Current Medications Medications (Trade) Dose Ordered Sig/Anamaria Route PRN Reason Start Time Stop Time Status Last Admin Dose Admin Acetaminophen (Tylenol) 650 mg Q4H PRN ORAL fever 03/29/19 23:45 04/28/19 23:44 Amlodipine Besylate (Norvasc) 2.5 mg DAILY ORAL 04/02/19 09:00 05/02/19 08:59 04/05/19 08:34 Aspirin (ASA) 81 mg DAILY NG 04/02/19 09:00 05/02/19 08:59 04/06/19 09:13 Atorvastatin Calcium (Lipitor) 80 mg BEDTIME ORAL 04/01/19 21:00 05/01/19 20:59 04/05/19 20:32 Calcitonin [place] (Miacalcin) 1 sprays DAILY NASAL 04/03/19 09:00 05/03/19 08:59 04/06/19 09:13 Dextrose (Dextrose 50%) 25 ml Q30M PRN IV Hypoglycemia 03/29/19 23:45 04/28/19 23:44 Dextrose (Dextrose 50%) 50 ml Q30M PRN IV Hypoglycemia 03/29/19 23:45 04/28/19 23:44 Dextrose/Sodium Chloride 1,000 ml @ 75 mls/hr [id number] IV 04/04/19 15:00 05/04/19 14:59 04/06/19 05:22 Diphenhydramine HCl (Benadryl) 25 mg Q6H PRN ORAL Itching/Pruritis 03/29/19 23:45 04/28/19 23:44 Ertapenem 0.5 gm/ Sodium Chloride 55 ml @ 110 mls/hr Q24H IVPB 03/31/19 09:00 04/13/19 23:59 04/06/19 09:14 Folic Acid (Folate) 1 mg DAILY ORAL 04/01/19 11:15 05/01/19 11:14 04/06/19 09:13 Heparin Sodium (Porcine) (Heparin 5000 units/ml) 5,000 units EVERY 12 HOURS SUBQ 03/30/19 09:00 04/29/19 08:59 04/06/19 09:15 Nitroglycerin (Ntg) 0.4 mg Q5M X 3 DOSES PRN SL Prn Chest Pain 03/29/19 23:45 04/28/19 23:44 Ondansetron HCl (Zofran) 4 mg Q6H PRN IVP Nausea & Vomiting 03/29/19 23:45 04/28/19 23:44 Pantoprazole (Protonix) 40 mg EVERY 12 HOURS ORAL 04/02/19 21:00 05/02/19 20:59 04/06/19 09:13 Polyethylene Glycol (Miralax) 17 gm HSPRN PRN ORAL Constipation 03/29/19 23:45 04/28/19 23:44 Potassium Phosphate 250 ml @ 62.5 mls/hr Q4H IVPB 04/06/19 15:30 04/06/19 23:29 04/06/19 15:03 Tamsulosin HCl (Flomax) 0.4 mg BEDTIME ORAL 04/01/19 21:00 05/01/19 20:59 04/05/19 20:32 Allergies: Coded Allergies: No Known Allergies (Unverified , 03/29/19) ROS Limited/Unobtainable: Yes Subjective 83 YO M admitted with gen weakness and altered mental status. Now UTI and sepsis. Cover for Int Med-Dr Alberto Objective Last Vital Signs Date Time Temp Pulse Resp B/P (MAP) Pulse Ox O2 Delivery O2 Flow Rate FiO2 04/06/19 16:00 98.0 102 20 148/66 (93) 94 04/06/19 09:00 Room Air Laboratory Tests Test 04/06/19 05:56 White Blood Count 23.3 K/UL (4.8-10.8) *H Red Blood Count 3.03 M/UL (4.70-6.10) L Hemoglobin 8.5 G/DL (14.2-18.0) L Hematocrit 25.6 % (42.0-52.0) L Mean Corpuscular Volume 85 FL (80-99) Mean Corpuscular Hemoglobin 28.0 PG (27.0-31.0) Mean Corpuscular Hemoglobin Concent 33.1 G/DL (32.0-36.0) Red Cell Distribution Width 14.1 % (11.6-14.8) Platelet Count 422 K/UL (150-450) Mean Platelet Volume 6.4 FL (6.5-10.1) L Neutrophils (%) (Auto) % (45.0-75.0) Lymphocytes (%) (Auto) % (20.0-45.0) Monocytes (%) (Auto) % (1.0-10.0) Eosinophils (%) (Auto) % (0.0-3.0) Basophils (%) (Auto) % (0.0-2.0) Differential Total Cells Counted 100 Neutrophils % (Manual) 95 % (45-75) H Lymphocytes % (Manual) 2 % (20-45) L Monocytes % (Manual) 3 % (1-10) Eosinophils % (Manual) 0 % (0-3) Basophils % (Manual) 0 % (0-2) Band Neutrophils 0 % (0-8) Platelet Estimate Adequate Platelet Morphology Normal Hypochromasia 1+ Anisocytosis 1+ Sodium Level 144 MMOL/L (136-145) Potassium Level 3.2 MMOL/L (3.5-5.1) L Chloride Level 110 MMOL/L (98-107) H Carbon Dioxide Level 20 MMOL/L (21-32) L Anion Gap 14 mmol/L (5-15) Blood Urea Nitrogen 21 mg/dL (7-18) H Creatinine 1.2 MG/DL (0.55-1.30) Estimat Glomerular Filtration Rate 57.7 mL/min (>60) Glucose Level 131 MG/DL (74-106) H Uric Acid 4.0 MG/DL (2.6-7.2) Calcium Level 8.5 MG/DL (8.5-10.1) Phosphorus Level 2.0 MG/DL (2.5-4.9) L Magnesium Level 1.8 MG/DL (1.8-2.4) Total Bilirubin 0.7 MG/DL (0.2-1.0) Aspartate Amino Transf (AST/SGOT) 47 U/L (15-37) H Alanine Aminotransferase (ALT/SGPT) 59 U/L (12-78) Alkaline Phosphatase 305 U/L (46-116) H C-Reactive Protein, Quantitative 22.5 mg/dL (0.00-0.90) H Pro-B-Type Natriuretic Peptide 4434 pg/mL (0-125) H Total Protein 6.9 G/DL (6.4-8.2) Albumin 1.5 G/DL (3.4-5.0) L Globulin 5.4 g/dL Albumin/Globulin Ratio 0.3 (1.0-2.7) L Microbiology Date/Time Source Procedure Growth Status 04/04/19 16:10 Urine,Clean Catch Urine Culture - Preliminary NO GROWTH AFTER 24 HOURS Resulted Intake and Output 04/05/19 04/06/19 19:00 07:00 Intake Total 1142.5 ml 825 ml Output Total 630 ml 675 ml Balance 512.5 ml 150 ml Intake Oral 150 ml IV Total 1142.5 ml 675 ml Output Urine Total 630 ml 25 ml Other 650 ml Objective PHYSICAL EXAMINATION: GENERAL: The patient is awake and responsive, but very chronically ill and cachectic. HEAD AND NECK: Pupils are equal and reactive to light. Extraocular movements intact. Neck was supple. No JVD. LUNGS: Good air entry. No wheezing or rales. Decreased air in bases. HEART: S1 and S2. Regular rhythm. No murmur or gallop. ABDOMEN: Soft, nondistended, and nontender. GENITOURINARY: Suprapubic catheter was noted. No sign of infection or drainage. Colostomy bag in the left side of abdomen was noted without any stool. No leakage or discharge. The patient has a suprapubic catheter in pelvic area with the right nephrostomy tube with cloudy urine. EXTREMITIES: No cyanosis, clubbing, or edema. Muscle atrophy was noted. RECTAL: Refused and deferred. PSYCHIATRIC: Mood and affect is intact. Assessment/Plan Assessment/Plan ASSESSMENT.: 1. Sepsis 2. urinary tract infection=ESBL E. Coli 3. Severe dehydration. 3. Anemia of chronic disease. 4. Acute kidney injury, chronic insufficiency. 5. 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 6. Severe protein-calorie malnutrition. 7. Acute metabolic encephalopathy due to the sepsis, infection, and dehydration. 8. Sepsis=Group B Strep 9. leukocytosis PLAN: 1. Admit the patient to medical floor. 2. antibiotic =Ertapenem. 3. Code status is Full Code. 4. Dr. Dawson = Infectious Disease 5. Dr. Parr = General surgery. 6. DVT prophylaxis with heparin subcutaneous. 7. Urology=Dr Dukes 8. ID=Nathan Gray MD Apr 06, 2019 19:26
--- NOTE | 2019-04-06 19:28 | NUR ---
NURSE NOTES: HAND-OFF: Report given to
--- NOTE | 2019-04-06 19:29 | NUR ---
HAND-OFF: Report given to
[2019-04-06 20:00] VITALS: BP 147/84
[2019-04-06] MEDS: Tamsulosin 0.4mg cap ORAL SCH (20:21)
[2019-04-06] MEDS: Atorvastatin 80mg tab ORAL SCH (20:21)
[2019-04-06 20:23] LABS: HEMATOCRIT 25.9 % (42.0-52.0); HEMOGLOBIN 8.6 G/DL (14.2-18.0); MEAN CORPUSCULAR VOLUME 84 FL (80-99); PLATELET COUNT 437 K/UL (150-450); RED BLOOD COUNT 3.06 M/UL (4.70-6.10); RED CELL DISTRIBUTION WIDTH 14.2 % (11.6-14.8)
[2019-04-06 20:27] LABS: WHITE BLOOD COUNT 25.4 K/UL (4.8-10.8)
[2019-04-07] VITALS: BP 135/76
--- NOTE | 2019-04-07 02:32 | NUR ---
NURSE NOTES: pt is currently sleeping comfortably on bed. provided rest and comfort. bed locked and in lowest position. call light and light button within easy reach. will continue plan of care.
[2019-04-07 04:00] VITALS: BP 138/73
--- NOTE | 2019-04-07 04:00 | NUR ---
called dr. kurtz to informed for the wbc results however the answering service says to call dr. aleman. called dr. aleman, awaiting for call back. charge nurse made aware. Addendum: 04/07/19 at 0644 by Marine Arana RN NURSE NOTES:
--- NOTE | 2019-04-07 07:10 | NUR ---
HAND-OFF: Report given to waleska hedrick. endorsed with intact and patent suprapubic catheter, iv line on the right forearm running d51/2 ns at 75 and nephrostomy draining woth light yellow urine, colostomy in placed. Addendum: 04/07/19 at 0712 by Marine Arana RN endorsed to f/u with dr. kurtz or ash regarding the wbc result
[2019-04-07 07:31] LABS: ANION GAP 13 mmol/L (5-15); BLOOD UREA NITROGEN 15 mg/dL (7-18); CALCIUM 7.9 MG/DL (8.5-10.1); CARBON DIOXIDE 23 MMOL/L (21-32); CHLORIDE 107 MMOL/L (98-107); CREATININE 1.1 MG/DL (0.55-1.30); POTASSIUM 3.3 MMOL/L (3.5-5.1); SODIUM 143 MMOL/L (136-145)
[2019-04-07 08:00] VITALS: BP 151/69
--- NOTE | 2019-04-07 09:12 | Urology Progress Note ---
Assessment/Plan Assessment/Plan: hydro hx, right PCN JOSE MNAUEL, improved UTI/colonzied hematuria proteinuria urinary retention/SPT renal cyst renal mass monitor clinically maintain SPT, last exchanged 04/06 hand irrigated and do PRN, irrigant comes out through penis minimal urine output through SPT I suspect urine is refluxing through ureteral stent and coming out from right PCN maintain right PCN hand irrigate PRN abx as ordered monitor renal fxn, improved obtain outside records f/u on blood cx can likely dc flomax Subjective Allergies: Coded Allergies: No Known Allergies (Unverified , 03/29/19) Subjective confused, comfortable very low output through SPT more urine output from right PCN Objective Last 24 Hour Vital Signs Date Time Temp Pulse Resp B/P (MAP) Pulse Ox O2 Delivery O2 Flow Rate FiO2 04/07/19 08:00 97.8 103 20 151/69 (96) 97 04/07/19 04:00 98.0 99 19 138/73 (94) 97 04/07/19 00:00 98.6 98 20 135/76 (95) 96 04/06/19 21:00 Room Air 04/06/19 20:00 99.0 100 19 147/84 (105) 95 04/06/19 16:00 98.0 102 20 148/66 (93) 94 04/06/19 12:00 98.3 103 19 108/72 (84) 99 Intake and Output 04/06/19 04/07/19 19:00 07:00 Intake Total 991.68 ml 565 ml Output Total 1100 ml 950 ml Balance -108.32 ml -385 ml Intake Oral 250 ml IV Total 991.68 ml 315 ml Output Urine Total 0 ml 0 ml Other 1100 ml 950 ml Microbiology Date/Time Source Procedure Growth Status 04/02/19 11:25 Blood Blood Culture - Preliminary NO GROWTH AFTER 4 DAYS Resulted 04/04/19 16:10 Urine,Clean Catch Urine Culture - Final NO GROWTH AFTER 48 HOURS Complete Current Medications Medications (Trade) Dose Ordered Sig/Anamaria Route PRN Reason Start Time Stop Time Status Last Admin Dose Admin Acetaminophen (Tylenol) 650 mg Q4H PRN ORAL fever 03/29/19 23:45 04/28/19 23:44 Amlodipine Besylate (Norvasc) 2.5 mg DAILY ORAL 04/02/19 09:00 3/18/20 08:59 04/05/19 08:34 Aspirin (ASA) 81 mg DAILY NG 04/02/19 09:00 05/02/19 08:59 04/06/19 09:13 Atorvastatin Calcium (Lipitor) 80 mg BEDTIME ORAL 04/01/19 21:00 05/01/19 20:59 04/06/19 20:21 Calcitonin [place] (Miacalcin) 1 sprays DAILY NASAL 04/03/19 09:00 05/03/19 08:59 04/06/19 09:13 Dextrose (Dextrose 50%) 25 ml Q30M PRN IV Hypoglycemia 03/29/19 23:45 04/28/19 23:44 Dextrose (Dextrose 50%) 50 ml Q30M PRN IV Hypoglycemia 03/29/19 23:45 04/28/19 23:44 Dextrose/Sodium Chloride 1,000 ml @ 75 mls/hr [id number] IV 04/04/19 15:00 05/04/19 14:59 04/06/19 20:21 Diphenhydramine HCl (Benadryl) 25 mg Q6H PRN ORAL Itching/Pruritis 03/29/19 23:45 04/28/19 23:44 Ertapenem 0.5 gm/ Sodium Chloride 55 ml @ 110 mls/hr Q24H IVPB 03/31/19 09:00 04/13/19 23:59 04/06/19 09:14 Folic Acid (Folate) 1 mg DAILY ORAL 04/01/19 11:15 05/01/19 11:14 04/06/19 09:13 Heparin Sodium (Porcine) (Heparin 5000 units/ml) 5,000 units EVERY 12 HOURS SUBQ 03/30/19 09:00 04/29/19 08:59 04/06/19 20:23 Nitroglycerin (Ntg) 0.4 mg Q5M X 3 DOSES PRN SL Prn Chest Pain 03/29/19 23:45 04/28/19 23:44 Ondansetron HCl (Zofran) 4 mg Q6H PRN IVP Nausea & Vomiting 03/29/19 23:45 04/28/19 23:44 Pantoprazole (Protonix) 40 mg EVERY 12 HOURS ORAL 04/02/19 21:00 05/02/19 20:59 04/06/19 20:21 Polyethylene Glycol (Miralax) 17 gm HSPRN PRN ORAL Constipation 03/29/19 23:45 04/28/19 23:44 Tamsulosin HCl (Flomax) 0.4 mg BEDTIME ORAL 04/01/19 21:00 05/01/19 20:59 04/06/19 20:21 Laboratory Tests 04/06/19 20:00: White Blood Count 25.4*H, Red Blood Count 3.06L, Hemoglobin 8.6L, Hematocrit 25.9L, Mean Corpuscular Volume 84, Mean Corpuscular Hemoglobin 28.1, Mean Corpuscular Hemoglobin Concent 33.3, Red Cell Distribution Width 14.2, Platelet Count 437, Mean Platelet Volume 6.3L, Neutrophils (%) (Auto) , Lymphocytes (%) ( Auto) , Monocytes (%) (Auto) , Eosinophils (%) (Auto) , Basophils (%) (Auto) , Differential Total Cells Counted 100, Neutrophils % (Manual) 92H, Lymphocytes % (Manual) 6L, Monocytes % (Manual) 1, Eosinophils % (Manual) 0, Basophils % ( Manual) 0, Myelocytes % 1H, Band Neutrophils 0, Platelet Estimate IncreasedH, Platelet Morphology Normal, Hypochromasia 1+ 04/07/19 06:40: Sodium Level 143, Potassium Level 3.3L, Chloride Level 107, Carbon Dioxide Level 23, Anion Gap 13, Blood Urea Nitrogen 15, Creatinine 1.1, Estimat Glomerular Filtration Rate > 60, Glucose Level 133H, Calcium Level 7.9L Height (Feet): 5 Height (Inches): 1.00 Weight (Pounds): 114 Objective right PCN in place SPT in place urine yellow/davis renal and abdominal u/s noted Shantanu Dukes MD Apr 07, 2019 09:12
[2019-04-07] MEDS: Ertapenem 0.5 GM in NS 55 ML IVPB SCH ×2 (09:13→09:15)
[2019-04-07] MEDS: Aspirin Baby 81mg NG SCH (09:13)
[2019-04-07] MEDS: Heparin 5000 units/ml inj SUBQ SCH ×2 (09:13→20:54)
--- NOTE | 2019-04-07 09:15 | NUR ---
NURSE NOTES: PT AXOX1, CALM, RESTING IN BED. IN NO APPARENT DISTRESS AT THIS TIME. PT DENIES PAIN AND NO S/S PAIN NOTED. SUPRAPUBIC DRESSING CHANGED. NO LEAKING NOTED. RIGHT NEPHROSTOMY TUBE INTACT, DRAINING CLEAR YELLOW URINE BY GRAVITY. BED IN LOWEST POSITION WITH BEDSIDE RAILS X3 RAISED. BED ALARM ON ZONE 1. PT IN SEMI-SOLER'S POSITION WITH HOB ELEVATED. WILL CONTINUE TO MONITOR.
[2019-04-07] MEDS: D5 1/2NS 1,000 ML IV SCH (09:33)
--- NOTE | 2019-04-07 09:43 | Nephrology Progress Note ---
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, status post resection Colostomy status Nephrostomy tube and suprapubic catheter Sepsis , UTI Acute metabolic encephalopathy Anemia acute vs chronic Elevated LFTs Plan stop hydration- stop Calcitonin K and Phos as needed previously discussed with daughter- suggested comfort care Aredia one dose given previously Monitor renal parameters Anemia pat done avoid nephrotoxics Monitor electrolytes DNR I had a long conversation with Selam who is the daughter of the patient and is at the bedside. She is not ready for hospice at this time however wants her father to go to a jail and consider hospice at the later time. She will be discussing it with social service liaison and case management. Subjective ROS Limited/Unobtainable: No Constitutional: Reports: malaise, weakness Objective Objective Last 24 Hour Vital Signs Date Time Temp Pulse Resp B/P (MAP) Pulse Ox O2 Delivery O2 Flow Rate FiO2 04/07/19 09:13 103 151/69 04/07/19 08:00 97.8 103 20 151/69 (96) 97 04/07/19 04:00 98.0 99 19 138/73 (94) 97 04/07/19 00:00 98.6 98 20 135/76 (95) 96 04/06/19 21:00 Room Air 04/06/19 20:00 99.0 100 19 147/84 (105) 95 04/06/19 16:00 98.0 102 20 148/66 (93) 94 04/06/19 12:00 98.3 103 19 108/72 (84) 99 Intake and Output 04/06/19 04/07/19 19:00 07:00 Intake Total 991.68 ml 565 ml Output Total 1100 ml 950 ml Balance -108.32 ml -385 ml Intake Oral 250 ml IV Total 991.68 ml 315 ml Output Urine Total 0 ml 0 ml Other 1100 ml 950 ml Laboratory Tests 04/06/19 20:00: White Blood Count 25.4*H, Red Blood Count 3.06L, Hemoglobin 8.6L, Hematocrit 25.9L, Mean Corpuscular Volume 84, Mean Corpuscular Hemoglobin 28.1, Mean Corpuscular Hemoglobin Concent 33.3, Red Cell Distribution Width 14.2, Platelet Count 437, Mean Platelet Volume 6.3L, Neutrophils (%) (Auto) , Lymphocytes (%) ( Auto) , Monocytes (%) (Auto) , Eosinophils (%) (Auto) , Basophils (%) (Auto) , Differential Total Cells Counted 100, Neutrophils % (Manual) 92H, Lymphocytes % (Manual) 6L, Monocytes % (Manual) 1, Eosinophils % (Manual) 0, Basophils % ( Manual) 0, Myelocytes % 1H, Band Neutrophils 0, Platelet Estimate IncreasedH, Platelet Morphology Normal, Hypochromasia 1+ 04/07/19 06:40: Sodium Level 143, Potassium Level 3.3L, Chloride Level 107, Carbon Dioxide Level 23, Anion Gap 13, Blood Urea Nitrogen 15, Creatinine 1.1, Estimat Glomerular Filtration Rate > 60, Glucose Level 133H, Calcium Level 7.9L Height (Feet): 5 Height (Inches): 1.00 Weight (Pounds): 114 General Appearance: no apparent distress, lethargic Cardiovascular: tachycardia Respiratory/Chest: decreased breath sounds Abdomen: distended Tomas Beck MD Apr 07, 2019 09:43
--- NOTE | 2019-04-07 10:43 | Pulmonology Progress Note ---
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, status post resection s/p catheter malfunction acute metabolic encephalopathy, -resolved colostomy status nephrostomy tube and suprapubic catheter Sepsis with Group B Strep bacteremia UTI with E coli ESBL anemia acute kidney injury on chronic kidney disease -resolved ( likely due to dehydration) elevated LFT PLAN of CARE [facility] floor IV fluids ABX as per ID; BCX Strep Group B UCX + E coli ESBL abx as per ID repeated BCX 04/02 NGTD, UCX 04/04 NGTD CXR negative repeated CXR 04/02 left base atelectasis O2 HHN PRN aspiration precaution pain management DVT and GI prophylaxis colostomy care suprapubic and nephrostomy tube care monitor output care renal US with suggestion of multiply lobular mass left kidney; trace right hydronephrosis monitor renal parameters, lytes, correct lytes as needed, avoid nephrotoxic, creat trended down K replaced this am as per nephro LFT trending down symptomatic care pain management monitor H&H with goal to keep hemoglobin above 7 daughter desires end of life care and palliative care , given poor prognosis due to st 4 cancer DNR/DNI status case discussed and evaluated by supervising physician Subjective Allergies: Coded Allergies: No Known Allergies (Unverified , 03/29/19) Subjective weak, leuk persist, BCX + GB Strep Objective Last 24 Hour Vital Signs Date Time Temp Pulse Resp B/P (MAP) Pulse Ox O2 Delivery O2 Flow Rate FiO2 04/07/19 09:13 103 151/69 04/07/19 08:00 97.8 103 20 151/69 (96) 97 04/07/19 04:00 98.0 99 19 138/73 (94) 97 04/07/19 00:00 98.6 98 20 135/76 (95) 96 04/06/19 21:00 Room Air 04/06/19 20:00 99.0 100 19 147/84 (105) 95 04/06/19 16:00 98.0 102 20 148/66 (93) 94 04/06/19 12:00 98.3 103 19 108/72 (84) 99 Intake and Output 04/06/19 04/07/19 19:00 07:00 Intake Total 991.68 ml 565 ml Output Total 1100 ml 950 ml Balance -108.32 ml -385 ml Intake Oral 250 ml IV Total 991.68 ml 315 ml Output Urine Total 0 ml 0 ml Other 1100 ml 950 ml Objective General Appearance: frail, weak , but awake and responsive male in NAD Lines, tubes and drains: peripheral HEENT: normocephalic, atraumatic, anicteric, mucous membranes moist Neck: non-tender, supple Respiratory/Chest: lungs clear, no respiratory distress, no accessory muscle use Cardiovascular/Chest: normal rate Abdomen: soft with mild diffused tenderness , colostomy with semisolid brownish output Genitourinary/Rectal: 2 nephrostomies with yellows cloudy output, s/p catheter Extremities: no calf tenderness, no edema Skin Exam: warm/dry Neurologic: no motor/sensory deficits Microbiology Date/Time Source Procedure Growth Status 04/04/19 16:10 Urine,Clean Catch Urine Culture - Final NO GROWTH AFTER 48 HOURS Complete Laboratory Tests 04/06/19 20:00: White Blood Count 25.4*H, Red Blood Count 3.06L, Hemoglobin 8.6L, Hematocrit 25.9L, Mean Corpuscular Volume 84, Mean Corpuscular Hemoglobin 28.1, Mean Corpuscular Hemoglobin Concent 33.3, Red Cell Distribution Width 14.2, Platelet Count 437, Mean Platelet Volume 6.3L, Neutrophils (%) (Auto) , Lymphocytes (%) ( Auto) , Monocytes (%) (Auto) , Eosinophils (%) (Auto) , Basophils (%) (Auto) , Differential Total Cells Counted 100, Neutrophils % (Manual) 92H, Lymphocytes % (Manual) 6L, Monocytes % (Manual) 1, Eosinophils % (Manual) 0, Basophils % ( Manual) 0, Myelocytes % 1H, Band Neutrophils 0, Platelet Estimate IncreasedH, Platelet Morphology Normal, Hypochromasia 1+ 04/07/19 06:40: Sodium Level 143, Potassium Level 3.3L, Chloride Level 107, Carbon Dioxide Level 23, Anion Gap 13, Blood Urea Nitrogen 15, Creatinine 1.1, Estimat Glomerular Filtration Rate > 60, Glucose Level 133H, Calcium Level 7.9L, Phosphorus Level [Pending], Magnesium Level [Pending], Total Bilirubin [Pending] , Direct Bilirubin [Pending], Aspartate Amino Transf (AST/SGOT) [Pending], Alanine Aminotransferase (ALT/SGPT) [Pending], Alkaline Phosphatase [Pending], Total Protein [Pending], Albumin [Pending] Current Medications Medications (Trade) Dose Ordered Sig/Anamaria Route PRN Reason Start Time Stop Time Status Last Admin Dose Admin Acetaminophen (Tylenol) 650 mg Q4H PRN ORAL fever 03/29/19 23:45 04/28/19 23:44 Amlodipine Besylate (Norvasc) 2.5 mg BID ORAL 04/07/19 18:00 05/02/19 08:59 Aspirin (ASA) 81 mg DAILY NG 04/02/19 09:00 05/02/19 08:59 04/07/19 09:13 Atorvastatin Calcium (Lipitor) 80 mg BEDTIME ORAL 04/01/19 21:00 05/01/19 20:59 04/06/19 20:21 Dextrose (Dextrose 50%) 25 ml Q30M PRN IV Hypoglycemia 03/29/19 23:45 04/28/19 23:44 Dextrose (Dextrose 50%) 50 ml Q30M PRN IV Hypoglycemia 03/29/19 23:45 04/28/19 23:44 Diphenhydramine HCl (Benadryl) 25 mg Q6H PRN ORAL Itching/Pruritis 03/29/19 23:45 04/28/19 23:44 Ertapenem 0.5 gm/ Sodium Chloride 55 ml @ 110 mls/hr Q24H IVPB 03/31/19 09:00 04/13/19 23:59 04/07/19 09:15 Folic Acid (Folate) 1 mg DAILY ORAL 04/01/19 11:15 05/01/19 11:14 04/07/19 09:15 Heparin Sodium (Porcine) (Heparin 5000 units/ml) 5,000 units EVERY 12 HOURS SUBQ 03/30/19 09:00 04/29/19 08:59 04/07/19 09:13 Nitroglycerin (Ntg) 0.4 mg Q5M X 3 DOSES PRN SL Prn Chest Pain 03/29/19 23:45 04/28/19 23:44 Ondansetron HCl (Zofran) 4 mg Q6H PRN IVP Nausea & Vomiting 03/29/19 23:45 04/28/19 23:44 Pantoprazole (Protonix) 40 mg EVERY 12 HOURS ORAL 04/02/19 21:00 05/02/19 20:59 04/07/19 09:13 Polyethylene Glycol (Miralax) 17 gm HSPRN PRN ORAL Constipation 03/29/19 23:45 04/28/19 23:44 Potassium Chloride (K-Dur) 20 meq TWICE A DAY ORAL 04/07/19 18:00 04/08/19 17:59 Tamsulosin HCl (Flomax) 0.4 mg BEDTIME ORAL 04/01/19 21:00 05/01/19 20:59 04/06/19 20:21 Isi Garcia [employer] Apr 07, 2019 10:43
--- NOTE | 2019-04-07 11:20 | Infectious Diseases Prog Note ---
Assessment/Plan Assessment/Plan Assessment: GBS bacteremia- likely intraabdominal source given malignancy- r/o endocarditis -03/30 2d Echo: no vegetations -03/29 Bcx 2/4 GBS; 04/01 Bcx 2/ GBS; 04/02 Bcx NTD UTI -04/04 u/a wbc 40-60, n it neg, leuk +3; ucx NTD -03/30 u/a wbc tntc, nit neg, leuk +3; ucx >100k ESBl E coli Afebrile leukocytosis, increasing- r/o Cdiff, r/o abscess (family refused CT), now improving -Abd US:Somewhat limited exam, as described. Echogenic right kidney with mild hydronephrosis despite presence of a nephrostomy and stent. Markedly abnormal left kidney, also described on recent renal sonogram and possibly demonstrating multiple masses. Cholelithiasis. Mild gallbladder wall thickening, could indicate acute cholecystitis. 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 Will continue to follow along with you. Subjective Allergies: Coded Allergies: No Known Allergies (Unverified , 03/29/19) Subjective Afebrile On RA WBCs still elevated Objective Vital Signs Last 24 Hour Vital Signs Date Time Temp Pulse Resp B/P (MAP) Pulse Ox O2 Delivery O2 Flow Rate FiO2 04/07/19 09:13 103 151/69 04/07/19 08:00 97.8 103 20 151/69 (96) 97 04/07/19 04:00 98.0 99 19 138/73 (94) 97 04/07/19 00:00 98.6 98 20 135/76 (95) 96 04/06/19 21:00 Room Air 04/06/19 20:00 99.0 100 19 147/84 (105) 95 04/06/19 16:00 98.0 102 20 148/66 (93) 94 04/06/19 12:00 98.3 103 19 108/72 (84) 99 Height (Feet): 5 Height (Inches): 1.00 Weight (Pounds): 114 Objective GENERAL: chronically ill and cachectic. HEAD AND NECK: Pupils are equal and reactive to light. E. Neck was supple. LUNGS: Good air entry. No wheezing or rales HEART: S1 and S2. Regular rhythm ABDOMEN: Soft, nondistended, and nontender. GENITOURINARY: Suprapubic catheter was noted. Microbiology Date/Time Source Procedure Growth Status 04/04/19 16:10 Urine,Clean Catch Urine Culture - Final NO GROWTH AFTER 48 HOURS Complete Laboratory Tests Test 04/06/19 20:00 04/07/19 06:40 White Blood Count 25.4 K/UL (4.8-10.8) *H Red Blood Count 3.06 M/UL (4.70-6.10) L Hemoglobin 8.6 G/DL (14.2-18.0) L Hematocrit 25.9 % (42.0-52.0) L Mean Corpuscular Volume 84 FL (80-99) Mean Corpuscular Hemoglobin 28.1 PG (27.0-31.0) Mean Corpuscular Hemoglobin Concent 33.3 G/DL (32.0-36.0) Red Cell Distribution Width 14.2 % (11.6-14.8) Platelet Count 437 K/UL (150-450) Mean Platelet Volume 6.3 FL (6.5-10.1) L Neutrophils (%) (Auto) % (45.0-75.0) Lymphocytes (%) (Auto) % (20.0-45.0) Monocytes (%) (Auto) % (1.0-10.0) Eosinophils (%) (Auto) % (0.0-3.0) Basophils (%) (Auto) % (0.0-2.0) Differential Total Cells Counted 100 Neutrophils % (Manual) 92 % (45-75) H Lymphocytes % (Manual) 6 % (20-45) L Monocytes % (Manual) 1 % (1-10) Eosinophils % (Manual) 0 % (0-3) Basophils % (Manual) 0 % (0-2) Myelocytes % 1 % (0-0) H Band Neutrophils 0 % (0-8) Platelet Estimate Increased H Platelet Morphology Normal Hypochromasia 1+ Sodium Level 143 MMOL/L (136-145) Potassium Level 3.3 MMOL/L (3.5-5.1) L Chloride Level 107 MMOL/L (98-107) Carbon Dioxide Level 23 MMOL/L (21-32) Anion Gap 13 mmol/L (5-15) Blood Urea Nitrogen 15 mg/dL (7-18) Creatinine 1.1 MG/DL (0.55-1.30) Estimat Glomerular Filtration Rate > 60 mL/min (>60) Glucose Level 133 MG/DL (74-106) H Calcium Level 7.9 MG/DL (8.5-10.1) L Phosphorus Level Pending Magnesium Level Pending Total Bilirubin Pending Direct Bilirubin Pending Aspartate Amino Transf (AST/SGOT) Pending Alanine Aminotransferase (ALT/SGPT) Pending Alkaline Phosphatase Pending Total Protein Pending Albumin Pending Current Medications Medications (Trade) Dose Ordered Sig/Anamaria Route PRN Reason Start Time Stop Time Status Last Admin Dose Admin Acetaminophen (Tylenol) 650 mg Q4H PRN ORAL fever 03/29/19 23:45 04/28/19 23:44 Amlodipine Besylate (Norvasc) 2.5 mg BID ORAL 04/07/19 18:00 05/02/19 08:59 Aspirin (ASA) 81 mg DAILY NG 04/02/19 09:00 05/02/19 08:59 04/07/19 09:13 Atorvastatin Calcium (Lipitor) 80 mg BEDTIME ORAL 04/01/19 21:00 05/01/19 20:59 04/06/19 20:21 Dextrose (Dextrose 50%) 25 ml Q30M PRN IV Hypoglycemia 03/29/19 23:45 04/28/19 23:44 Dextrose (Dextrose 50%) 50 ml Q30M PRN IV Hypoglycemia 03/29/19 23:45 04/28/19 23:44 Diphenhydramine HCl (Benadryl) 25 mg Q6H PRN ORAL Itching/Pruritis 03/29/19 23:45 04/28/19 23:44 Ertapenem 0.5 gm/ Sodium Chloride 55 ml @ 110 mls/hr Q24H IVPB 03/31/19 09:00 04/13/19 23:59 04/07/19 09:15 Folic Acid (Folate) 1 mg DAILY ORAL 04/01/19 11:15 05/01/19 11:14 04/07/19 09:15 Heparin Sodium (Porcine) (Heparin 5000 units/ml) 5,000 units EVERY 12 HOURS SUBQ 03/30/19 09:00 04/29/19 08:59 04/07/19 09:13 Nitroglycerin (Ntg) 0.4 mg Q5M X 3 DOSES PRN SL Prn Chest Pain 03/29/19 23:45 04/28/19 23:44 Ondansetron HCl (Zofran) 4 mg Q6H PRN IVP Nausea & Vomiting 03/29/19 23:45 04/28/19 23:44 Pantoprazole (Protonix) 40 mg EVERY 12 HOURS ORAL 04/02/19 21:00 05/02/19 20:59 04/07/19 09:13 Polyethylene Glycol (Miralax) 17 gm HSPRN PRN ORAL Constipation 03/29/19 23:45 04/28/19 23:44 Potassium Chloride (K-Dur) 20 meq TWICE A DAY ORAL 04/07/19 18:00 04/08/19 17:59 Tamsulosin HCl (Flomax) 0.4 mg BEDTIME ORAL 04/01/19 21:00 05/01/19 20:59 04/06/19 20:21 Giovanni Bernal MD Apr 07, 2019 11:20
[2019-04-07 11:59] LABS: ALANINE AMINOTRANSFERASE 53 U/L (12-78); ALBUMIN 1.6 G/DL (3.4-5.0); ALKALINE PHOSPHATASE 338 U/L (46-116); ASPARTATE AMINO TRANSFERASE 58 U/L (15-37); BILIRUBIN,DIRECT 0.2 MG/DL (0.0-0.3); BILIRUBIN,TOTAL 0.7 MG/DL (0.2-1.0); PHOSPHORUS 2.6 MG/DL (2.5-4.9)
[2019-04-07 12:00] VITALS: BP 157/70
--- NOTE | 2019-04-07 12:56 | Surgery Progress Note ---
Surgery Progress Note Subjective Additional Comments no acute events comfortable sleeping Objective Last 24 Hour Vital Signs Date Time Temp Pulse Resp B/P (MAP) Pulse Ox O2 Delivery O2 Flow Rate FiO2 04/07/19 12:00 97.4 100 20 157/70 (99) 97 04/07/19 09:13 103 151/69 04/07/19 09:00 Room Air 04/07/19 08:00 97.8 103 20 151/69 (96) 97 04/07/19 04:00 98.0 99 19 138/73 (94) 97 04/07/19 00:00 98.6 98 20 135/76 (95) 96 04/06/19 21:00 Room Air 04/06/19 20:00 99.0 100 19 147/84 (105) 95 04/06/19 16:00 98.0 102 20 148/66 (93) 94 I&O Intake and Output 04/06/19 04/07/19 19:00 07:00 Intake Total 991.68 ml 565 ml Output Total 1100 ml 950 ml Balance -108.32 ml -385 ml Intake Oral 250 ml IV Total 991.68 ml 315 ml Output Urine Total 0 ml 0 ml Other 1100 ml 950 ml Dressing: dry Wound: clean Cardiovascular: RSR Respiratory: clear Abdomen: soft, non-tender, present bowel sounds, other, non-distended Extremities: no cyanosis Laboratory Tests Test 04/06/19 20:00 04/07/19 06:40 White Blood Count 25.4 K/UL (4.8-10.8) *H Red Blood Count 3.06 M/UL (4.70-6.10) L Hemoglobin 8.6 G/DL (14.2-18.0) L Hematocrit 25.9 % (42.0-52.0) L Mean Corpuscular Volume 84 FL (80-99) Mean Corpuscular Hemoglobin 28.1 PG (27.0-31.0) Mean Corpuscular Hemoglobin Concent 33.3 G/DL (32.0-36.0) Red Cell Distribution Width 14.2 % (11.6-14.8) Platelet Count 437 K/UL (150-450) Mean Platelet Volume 6.3 FL (6.5-10.1) L Neutrophils (%) (Auto) % (45.0-75.0) Lymphocytes (%) (Auto) % (20.0-45.0) Monocytes (%) (Auto) % (1.0-10.0) Eosinophils (%) (Auto) % (0.0-3.0) Basophils (%) (Auto) % (0.0-2.0) Differential Total Cells Counted 100 Neutrophils % (Manual) 92 % (45-75) H Lymphocytes % (Manual) 6 % (20-45) L Monocytes % (Manual) 1 % (1-10) Eosinophils % (Manual) 0 % (0-3) Basophils % (Manual) 0 % (0-2) Myelocytes % 1 % (0-0) H Band Neutrophils 0 % (0-8) Platelet Estimate Increased H Platelet Morphology Normal Hypochromasia 1+ Sodium Level 143 MMOL/L (136-145) Potassium Level 3.3 MMOL/L (3.5-5.1) L Chloride Level 107 MMOL/L (98-107) Carbon Dioxide Level 23 MMOL/L (21-32) Anion Gap 13 mmol/L (5-15) Blood Urea Nitrogen 15 mg/dL (7-18) Creatinine 1.1 MG/DL (0.55-1.30) Estimat Glomerular Filtration Rate > 60 mL/min (>60) Glucose Level 133 MG/DL (74-106) H Calcium Level 7.9 MG/DL (8.5-10.1) L Phosphorus Level 2.6 MG/DL (2.5-4.9) Magnesium Level 1.7 MG/DL (1.8-2.4) L Total Bilirubin 0.7 MG/DL (0.2-1.0) Direct Bilirubin 0.2 MG/DL (0.0-0.3) Aspartate Amino Transf (AST/SGOT) 58 U/L (15-37) H Alanine Aminotransferase (ALT/SGPT) 53 U/L (12-78) Alkaline Phosphatase 338 U/L (46-116) H Total Protein 6.9 G/DL (6.4-8.2) Albumin 1.6 G/DL (3.4-5.0) L Plan Problems: (1) Sepsis Assessment & Plan: 83-year-old male with history of stage IV colon cancer status post left colostomy left nephrostomy tube placement superior catheter placement presented with leukocytosis, abnormal labs, abnormal LFTs, pain. On evaluation sepsis likely secondary to patient's UTI. Currently on antibiotics as per infectious disease. Abdominal examination and complete examination performed and as above. No acute surgical intervention indicated or recommended. Trend labs IV fluids Okay for diet from surgical standpoint Thank you will follow with recommendations I had a long discussion with the patient's daughter. She expressed understanding of his current condition and overall condition. She understands quality of life and CODE STATUS changed to DNR/DNI. Comfort care measures. No acute surgical intervention planned. worsening lft's US Findings: Exam is somewhat limited, due to patient inability to suspend respiration. Gallbladder demonstrates gallstones. Gallbladder wall is mildly thickened, measuring 4 mm in thickness. Common bile duct measures 4 mm in diameter. No intrahepatic biliary ductal dilatation. Liver demonstrates normal echogenicity, no focal abnormality. Note that portions are well visualized, however. Portal vein and hepatic veins are patent. Pancreas is unremarkable. Spleen is unremarkable. Left kidney measures 12 cm in length. Right kidney measures 11.3 cm length. Both kidneys demonstrate slightly increased echogenicity. Right kidney demonstrates mild hydronephrosis. Note that recent plain radiograph demonstrates a nephrostomy and a stent; these are not clearly evident on this study. The left kidney demonstrates lobulated contour and somewhat heterogeneous echotexture, possibly discrete echogenic lesions which are better demonstrated on recent renal sonogram.. . Non- aneurysmal abdominal aorta . Impression: Somewhat limited exam, as described Echogenic right kidney with mild hydronephrosis despite presence of a nephrostomy and stent Markedly abnormal left kidney, also described on recent renal sonogram and possibly demonstrating multiple masses Cholelithiasis. Mild gallbladder wall thickening, could indicate acute cholecystitis. Correlate with clinical findings, consider hepatobiliary nuclear scan if clinically indicated spoke with daughter goals of care for comfort no plans for intervention hold on further imaging or testing (2) Suprapubic catheter dysfunction Assessment & Plan: There is mild right hydronephrosis despite presence of a nephrostomy catheter which appears to be in good position. There is a small right renal cyst demonstrated measuring approximately 1 cm x 1.2 cm. The left kidney is abnormal. There is suggestion of multiple heterogeneous masses slightly echogenic in appearance within the left kidney. For example in the lower pole there is a 4 x 5 cm lesion. In the midpole there is a 3.7 x 3.6 cm lesion. In the upper pole there is a 4.5 cm lesion. Suggest correlation with contrast-enhanced CT.. The right kidney measures 10 cm. in length. The left kidney measures 12.2 cm. in length. The IVC is patent. Urinary bladder is unremarkable. Suprapubic catheter noted. Left lower quadrant colostomy noted. IMPRESSION: Abnormal appearance of the left kidney with suggestion of multiple lobular masses. Further evaluation with contrast-enhanced CT is recommended. Trace right hydronephrosis. Nephrostomy noted in place. Suprapubic catheter Igor Parr Apr 07, 2019 12:56
--- NOTE | 2019-04-07 15:06 | Internal Med Progress Note ---
Subjective Date of Service: Apr 07, 2019 Physician Name Nathan Lazo Attending Physician Doroteo Alberto MD Current Medications Medications (Trade) Dose Ordered Sig/Anamaria Route PRN Reason Start Time Stop Time Status Last Admin Dose Admin Acetaminophen (Tylenol) 650 mg Q4H PRN ORAL fever 03/29/19 23:45 04/28/19 23:44 Amlodipine Besylate (Norvasc) 2.5 mg BID ORAL 04/07/19 18:00 05/02/19 08:59 Aspirin (ASA) 81 mg DAILY ORAL 04/08/19 09:00 05/02/19 08:59 Atorvastatin Calcium (Lipitor) 80 mg BEDTIME ORAL 04/01/19 21:00 05/01/19 20:59 04/06/19 20:21 Dextrose (Dextrose 50%) 25 ml Q30M PRN IV Hypoglycemia 03/29/19 23:45 04/28/19 23:44 Dextrose (Dextrose 50%) 50 ml Q30M PRN IV Hypoglycemia 03/29/19 23:45 04/28/19 23:44 Diphenhydramine HCl (Benadryl) 25 mg Q6H PRN ORAL Itching/Pruritis 03/29/19 23:45 04/28/19 23:44 Ertapenem 1 gm/ Sodium Chloride 55 ml @ 110 mls/hr Q24H IVPB 04/08/19 09:00 04/13/19 08:59 Folic Acid (Folate) 1 mg DAILY ORAL 04/01/19 11:15 05/01/19 11:14 04/07/19 09:15 Heparin Sodium (Porcine) (Heparin 5000 units/ml) 5,000 units EVERY 12 HOURS SUBQ 03/30/19 09:00 04/29/19 08:59 04/07/19 09:13 Nitroglycerin (Ntg) 0.4 mg Q5M X 3 DOSES PRN SL Prn Chest Pain 03/29/19 23:45 04/28/19 23:44 Ondansetron HCl (Zofran) 4 mg Q6H PRN IVP Nausea & Vomiting 03/29/19 23:45 04/28/19 23:44 Pantoprazole (Protonix) 40 mg EVERY 12 HOURS ORAL 04/02/19 21:00 05/02/19 20:59 04/07/19 09:13 Polyethylene Glycol (Miralax) 17 gm HSPRN PRN ORAL Constipation 03/29/19 23:45 04/28/19 23:44 Potassium Chloride (K-Dur) 20 meq TWICE A DAY ORAL 04/07/19 18:00 04/08/19 17:59 Tamsulosin HCl (Flomax) 0.4 mg BEDTIME ORAL 04/01/19 21:00 05/01/19 20:59 04/06/19 20:21 Allergies: Coded Allergies: No Known Allergies (Unverified , 03/29/19) ROS Limited/Unobtainable: Yes Subjective 83 YO M admitted with gen weakness and altered mental status. Now UTI and sepsis. Cover for Int Edinson-Dr Alberto Objective Last Vital Signs Date Time Temp Pulse Resp B/P (MAP) Pulse Ox O2 Delivery O2 Flow Rate FiO2 04/07/19 12:00 97.4 100 20 157/70 (99) 97 04/07/19 09:00 Room Air Laboratory Tests Test 04/06/19 20:00 04/07/19 06:40 White Blood Count 25.4 K/UL (4.8-10.8) *H Red Blood Count 3.06 M/UL (4.70-6.10) L Hemoglobin 8.6 G/DL (14.2-18.0) L Hematocrit 25.9 % (42.0-52.0) L Mean Corpuscular Volume 84 FL (80-99) Mean Corpuscular Hemoglobin 28.1 PG (27.0-31.0) Mean Corpuscular Hemoglobin Concent 33.3 G/DL (32.0-36.0) Red Cell Distribution Width 14.2 % (11.6-14.8) Platelet Count 437 K/UL (150-450) Mean Platelet Volume 6.3 FL (6.5-10.1) L Neutrophils (%) (Auto) % (45.0-75.0) Lymphocytes (%) (Auto) % (20.0-45.0) Monocytes (%) (Auto) % (1.0-10.0) Eosinophils (%) (Auto) % (0.0-3.0) Basophils (%) (Auto) % (0.0-2.0) Differential Total Cells Counted 100 Neutrophils % (Manual) 92 % (45-75) H Lymphocytes % (Manual) 6 % (20-45) L Monocytes % (Manual) 1 % (1-10) Eosinophils % (Manual) 0 % (0-3) Basophils % (Manual) 0 % (0-2) Myelocytes % 1 % (0-0) H Band Neutrophils 0 % (0-8) Platelet Estimate Increased H Platelet Morphology Normal Hypochromasia 1+ Sodium Level 143 MMOL/L (136-145) Potassium Level 3.3 MMOL/L (3.5-5.1) L Chloride Level 107 MMOL/L (98-107) Carbon Dioxide Level 23 MMOL/L (21-32) Anion Gap 13 mmol/L (5-15) Blood Urea Nitrogen 15 mg/dL (7-18) Creatinine 1.1 MG/DL (0.55-1.30) Estimat Glomerular Filtration Rate > 60 mL/min (>60) Glucose Level 133 MG/DL (74-106) H Calcium Level 7.9 MG/DL (8.5-10.1) L Phosphorus Level 2.6 MG/DL (2.5-4.9) Magnesium Level 1.7 MG/DL (1.8-2.4) L Total Bilirubin 0.7 MG/DL (0.2-1.0) Direct Bilirubin 0.2 MG/DL (0.0-0.3) Aspartate Amino Transf (AST/SGOT) 58 U/L (15-37) H Alanine Aminotransferase (ALT/SGPT) 53 U/L (12-78) Alkaline Phosphatase 338 U/L (46-116) H Total Protein 6.9 G/DL (6.4-8.2) Albumin 1.6 G/DL (3.4-5.0) L Microbiology Date/Time Source Procedure Growth Status 04/04/19 16:10 Urine,Clean Catch Urine Culture - Final NO GROWTH AFTER 48 HOURS Complete Intake and Output 04/06/19 04/07/19 19:00 07:00 Intake Total 991.68 ml 565 ml Output Total 1100 ml 950 ml Balance -108.32 ml -385 ml Intake Oral 250 ml IV Total 991.68 ml 315 ml Output Urine Total 0 ml 0 ml Other 1100 ml 950 ml Objective PHYSICAL EXAMINATION: GENERAL: The patient is awake and responsive, but very chronically ill and cachectic. HEAD AND NECK: Pupils are equal and reactive to light. Extraocular movements intact. Neck was supple. No JVD. LUNGS: Good air entry. No wheezing or rales. Decreased air in bases. HEART: S1 and S2. Regular rhythm. No murmur or gallop. ABDOMEN: Soft, nondistended, and nontender. GENITOURINARY: Suprapubic catheter was noted. No sign of infection or drainage. Colostomy bag in the left side of abdomen was noted without any stool. No leakage or discharge. The patient has a suprapubic catheter in pelvic area with the right nephrostomy tube with cloudy urine. EXTREMITIES: No cyanosis, clubbing, or edema. Muscle atrophy was noted. RECTAL: Refused and deferred. PSYCHIATRIC: Mood and affect is intact. Assessment/Plan Assessment/Plan ASSESSMENT.: 1. Sepsis = Group B Strep 2. urinary tract infection=ESBL E. Coli 3. Severe dehydration. 3. Anemia of chronic disease. 4. Acute kidney injury, chronic insufficiency. 5. 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 6. Severe protein-calorie malnutrition. 7. Acute metabolic encephalopathy due to the sepsis, infection, and dehydration. 8. leukocytosis PLAN: 1. Admit the patient to medical floor. 2. antibiotic =Ertapenem. 3. Code status is Full Code. 4. Dr. Dawson = Infectious Disease 5. Dr. Parr = General surgery. 6. DVT prophylaxis with heparin subcutaneous. 7. Urology=Dr Dukes 8. ID=Nathan Gray MD Apr 07, 2019 15:06
[2019-04-07 16:00] VITALS: BP 121/56
--- NOTE | 2019-04-07 19:35 | NUR ---
HAND-OFF: Report given to Jania JARA RN.
--- NOTE | 2019-04-07 19:40 | NUR ---
NURSE NOTES: Patient awake AOx1, confused. On room air, no acute distress noted. No s/s of pain or discomfort at this time. Left colostomy,intact, with right nephrostomy connected to a bag and a suprapubic catheter draining a light yellow urine. Fall precaution and aspiration precaution is in place. Bed alarm on with high sensitive setting. Bed locked and in lowest position. call light and light within easy reach. will continue to monitor and do frequent rounds for safety.
[2019-04-07 20:00] VITALS: BP 148/74
[2019-04-07] MEDS: Atorvastatin 80mg tab ORAL SCH (20:52)
[2019-04-07] MEDS: Tamsulosin 0.4mg cap ORAL SCH (20:52)
[2019-04-08] VITALS: BP 122/74
[2019-04-08 04:00] VITALS: BP 147/78
--- NOTE | 2019-04-08 06:55 | NUR ---
HAND-OFF: Report given to ULICES Veloz. Endorsed about fall risk status to oncoming shift. Fall precaution is in place. Bed alarm is on, sign at the door and bed in low and locked position
--- NOTE | 2019-04-08 07:23 | NUR ---
NURSE NOTES: PT RESTING IN BED. IN NO APPARENT DISTRESS AT THIS TIME. BED IN LOWEST POSITION WITH BEDSIDE RAILS X3 RAISED. BED ALARM ON ZONE 1. CALL LIGHT WITHIN REACH. WILL CONTINUE TO MONITOR.
[2019-04-08 08:00] VITALS: BP 137/66
[2019-04-08 08:02] LABS: HEMATOCRIT 26.9 % (42.0-52.0); HEMOGLOBIN 8.9 G/DL (14.2-18.0); MEAN CORPUSCULAR VOLUME 84 FL (80-99); PLATELET COUNT 435 K/UL (150-450); RED CELL DISTRIBUTION WIDTH 14.2 % (11.6-14.8)
[2019-04-08 08:04] LABS: WHITE BLOOD COUNT 22.7 K/UL (4.8-10.8)
[2019-04-08] MEDS: Aspirin Baby 81mg ORAL SCH (08:25)
[2019-04-08] MEDS: Ertapenem 1 GM in NS 55 ML IVPB SCH (08:25)
[2019-04-08] MEDS: Heparin 5000 units/ml inj SUBQ SCH ×2 (08:26→21:22)
[2019-04-08 08:29] LABS: ALANINE AMINOTRANSFERASE 38 U/L (12-78); ALBUMIN 1.6 G/DL (3.4-5.0); ALBUMIN/GLOBULIN RATIO 0.3 (1.0-2.7); ALKALINE PHOSPHATASE 291 U/L (46-116); ANION GAP 9 mmol/L (5-15); ASPARTATE AMINO TRANSFERASE 43 U/L (15-37); BILIRUBIN,TOTAL 0.8 MG/DL (0.2-1.0); BLOOD UREA NITROGEN 18 mg/dL (7-18); CARBON DIOXIDE 26 MMOL/L (21-32); CHLORIDE 108 MMOL/L (98-107); CREATININE 1.1 MG/DL (0.55-1.30); PHOSPHORUS 2.9 MG/DL (2.5-4.9); SODIUM 143 MMOL/L (136-145)
--- NOTE | 2019-04-08 09:08 | Urology Progress Note ---
Assessment/Plan Assessment/Plan: hydro hx, right PCN JOSE MANUEL, improved UTI/colonzied hematuria proteinuria urinary retention/SPT renal cyst renal mass monitor clinically maintain SPT, last exchanged 04/06 hand irrigated and do PRN, irrigant comes out through penis minimal urine output through SPT I suspect urine is refluxing through ureteral stent and coming out from right PCN maintain right PCN hand irrigate PRN abx as ordered monitor renal fxn, improved obtain outside records can likely dc flomax d/w pt's daughter Subjective Allergies: Coded Allergies: No Known Allergies (Unverified , 03/29/19) Subjective confused, comfortable very low output through SPT more urine output from right PCN Objective Last 24 Hour Vital Signs Date Time Temp Pulse Resp B/P (MAP) Pulse Ox O2 Delivery O2 Flow Rate FiO2 04/08/19 08:25 113 137/66 04/08/19 08:00 97.6 113 19 137/66 (89) 97 04/08/19 04:00 98.4 99 19 147/78 (101) 97 04/08/19 00:00 98.0 97 19 122/74 (90) 98 04/07/19 21:00 Room Air 04/07/19 20:00 98.4 95 19 148/74 (98) 98 04/07/19 17:40 81 121/56 04/07/19 16:00 98.1 81 19 121/56 (77) 100 04/07/19 12:00 97.4 100 20 157/70 (99) 97 04/07/19 09:13 103 151/69 Intake and Output 04/07/19 04/08/19 19:00 07:00 Intake Total 120 ml 200 ml Output Total 450 ml 840 ml Balance -330 ml -640 ml Intake Oral 120 ml 200 ml IV Total 0 ml Output Urine Total 0 ml 40 ml Stool Total 0 ml 0 ml Other 450 ml 800 ml Microbiology Date/Time Source Procedure Growth Status 04/02/19 11:25 Blood Blood Culture - Final NO GROWTH AFTER 5 DAYS Complete 04/04/19 16:10 Urine,Clean Catch Urine Culture - Final NO GROWTH AFTER 48 HOURS Complete Current Medications Medications (Trade) Dose Ordered Sig/Anamaria Route PRN Reason Start Time Stop Time Status Last Admin Dose Admin Acetaminophen (Tylenol) 650 mg Q4H PRN ORAL fever 03/29/19 23:45 04/28/19 23:44 Amlodipine Besylate (Norvasc) 2.5 mg BID ORAL 04/07/19 18:00 05/02/19 08:59 04/08/19 08:25 Aspirin (ASA) 81 mg DAILY ORAL 04/08/19 09:00 05/02/19 08:59 04/08/19 08:25 Atorvastatin Calcium (Lipitor) 80 mg BEDTIME ORAL 04/01/19 21:00 05/01/19 20:59 04/07/19 20:52 Dextrose (Dextrose 50%) 25 ml Q30M PRN IV Hypoglycemia 03/29/19 23:45 04/28/19 23:44 Dextrose (Dextrose 50%) 50 ml Q30M PRN IV Hypoglycemia 03/29/19 23:45 04/28/19 23:44 Diphenhydramine HCl (Benadryl) 25 mg Q6H PRN ORAL Itching/Pruritis 03/29/19 23:45 04/28/19 23:44 Ertapenem 1 gm/ Sodium Chloride 55 ml @ 110 mls/hr Q24H IVPB 04/08/19 09:00 04/13/19 08:59 04/08/19 08:25 Folic Acid (Folate) 1 mg DAILY ORAL 04/01/19 11:15 05/01/19 11:14 04/08/19 08:25 Heparin Sodium (Porcine) (Heparin 5000 units/ml) 5,000 units EVERY 12 HOURS SUBQ 03/30/19 09:00 04/29/19 08:59 04/08/19 08:26 Nitroglycerin (Ntg) 0.4 mg Q5M X 3 DOSES PRN SL Prn Chest Pain 03/29/19 23:45 04/28/19 23:44 Ondansetron HCl (Zofran) 4 mg Q6H PRN IVP Nausea & Vomiting 03/29/19 23:45 04/28/19 23:44 Pantoprazole (Protonix) 40 mg EVERY 12 HOURS ORAL 04/02/19 21:00 05/02/19 20:59 04/08/19 08:25 Polyethylene Glycol (Miralax) 17 gm HSPRN PRN ORAL Constipation 03/29/19 23:45 04/28/19 23:44 Potassium Chloride (K-Dur) 20 meq TWICE A DAY ORAL 04/07/19 18:00 04/08/19 17:59 04/08/19 08:25 Tamsulosin HCl (Flomax) 0.4 mg BEDTIME ORAL 04/01/19 21:00 05/01/19 20:59 04/07/19 20:52 Laboratory Tests 04/08/19 07:05: White Blood Count 22.7*H, Red Blood Count 3.20L, Hemoglobin 8.9L, Hematocrit 26.9L, Mean Corpuscular Volume 84, Mean Corpuscular Hemoglobin 27.9, Mean Corpuscular Hemoglobin Concent 33.2, Red Cell Distribution Width 14.2, Platelet Count 435, Mean Platelet Volume 6.7, Neutrophils (%) (Auto) , Lymphocytes (%) ( Auto) , Monocytes (%) (Auto) , Eosinophils (%) (Auto) , Basophils (%) (Auto) , Neutrophils % (Manual) [Pending], Lymphocytes % (Manual) [Pending], Platelet Estimate [Pending], Platelet Morphology [Pending], Sodium Level 143, Potassium Level 4.0, Chloride Level 108H, Carbon Dioxide Level 26, Anion Gap 9, Blood Urea Nitrogen 18, Creatinine 1.1, Estimat Glomerular Filtration Rate > 60, Glucose Level 102, Uric Acid 3.1, Calcium Level 8.0L, Phosphorus Level 2.9, Magnesium Level 1.8, Total Bilirubin 0.8, Aspartate Amino Transf (AST/SGOT) 43H , Alanine Aminotransferase (ALT/SGPT) 38, Alkaline Phosphatase 291H, C-Reactive Protein, Quantitative [Pending], Pro-B-Type Natriuretic Peptide 3585H, Total Protein 6.8, Albumin 1.6L, Globulin 5.2, Albumin/Globulin Ratio 0.3L Height (Feet): 5 Height (Inches): 1.00 Weight (Pounds): 114 Objective right PCN in place SPT in place urine yellow/davis renal and abdominal u/s noted Shantanu Dukes MD Apr 08, 2019 09:08
--- NOTE | 2019-04-08 10:35 | Pulmonology Progress Note ---
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, status post resection s/p catheter malfunction acute metabolic encephalopathy, -resolved colostomy status nephrostomy tube and suprapubic catheter Sepsis with Group B Strep bacteremia UTI with E coli ESBL anemia acute kidney injury on chronic kidney disease -resolved ( likely due to dehydration) elevated LFT PLAN of CARE [facility] floor IV fluids ABX as per ID; BCX Strep Group B UCX + E coli ESBL abx as per ID repeated BCX 04/02 NGTD, UCX 04/04 NGTD CXR negative repeated CXR 04/02 left base atelectasis leukocytosis persist, repeat CXR in am O2 HHN PRN aspiration precaution pain management DVT and GI prophylaxis colostomy care suprapubic and nephrostomy tube care monitor output care renal US with suggestion of multiply lobular mass left kidney; trace right hydronephrosis monitor renal parameters, lytes, correct lytes as needed, avoid nephrotoxic, creat trended down K replaced this am as per nephro LFT trending down symptomatic care pain management monitor H&H with goal to keep hemoglobin above 7 daughter desires end of life care and palliative care , given poor prognosis due to st 4 cancer DNR/DNI status case discussed and evaluated by supervising physician Subjective Allergies: Coded Allergies: No Known Allergies (Unverified , 03/29/19) Subjective weak, leuk persist, no fevers DNR/DNI status dc plan in progress for end of life care Objective Last 24 Hour Vital Signs Date Time Temp Pulse Resp B/P (MAP) Pulse Ox O2 Delivery O2 Flow Rate FiO2 04/08/19 09:00 Room Air 04/08/19 08:25 113 137/66 04/08/19 08:00 97.6 113 19 137/66 (89) 97 04/08/19 04:00 98.4 99 19 147/78 (101) 97 04/08/19 00:00 98.0 97 19 122/74 (90) 98 04/07/19 21:00 Room Air 04/07/19 20:00 98.4 95 19 148/74 (98) 98 04/07/19 17:40 81 121/56 04/07/19 16:00 98.1 81 19 121/56 (77) 100 04/07/19 12:00 97.4 100 20 157/70 (99) 97 Intake and Output 04/07/19 04/08/19 19:00 07:00 Intake Total 120 ml 200 ml Output Total 450 ml 840 ml Balance -330 ml -640 ml Intake Oral 120 ml 200 ml IV Total 0 ml Output Urine Total 0 ml 40 ml Stool Total 0 ml 0 ml Other 450 ml 800 ml Objective General Appearance: frail, weak , but awake and responsive male in NAD Lines, tubes and drains: peripheral HEENT: normocephalic, atraumatic, anicteric, mucous membranes moist Neck: non-tender, supple Respiratory/Chest: lungs clear, no respiratory distress, no accessory muscle use Cardiovascular/Chest: normal rate Abdomen: soft with mild diffused tenderness , colostomy with semisolid brownish output Genitourinary/Rectal: 2 nephrostomies with yellows cloudy output, s/p catheter Extremities: no calf tenderness, no edema Skin Exam: warm/dry Neurologic: no motor/sensory deficits Laboratory Tests 04/08/19 07:05: White Blood Count 22.7*H, Red Blood Count 3.20L, Hemoglobin 8.9L, Hematocrit 26.9L, Mean Corpuscular Volume 84, Mean Corpuscular Hemoglobin 27.9, Mean Corpuscular Hemoglobin Concent 33.2, Red Cell Distribution Width 14.2, Platelet Count 435, Mean Platelet Volume 6.7, Neutrophils (%) (Auto) , Lymphocytes (%) ( Auto) , Monocytes (%) (Auto) , Eosinophils (%) (Auto) , Basophils (%) (Auto) , Neutrophils % (Manual) [Pending], Lymphocytes % (Manual) [Pending], Platelet Estimate [Pending], Platelet Morphology [Pending], Sodium Level 143, Potassium Level 4.0, Chloride Level 108H, Carbon Dioxide Level 26, Anion Gap 9, Blood Urea Nitrogen 18, Creatinine 1.1, Estimat Glomerular Filtration Rate > 60, Glucose Level 102, Uric Acid 3.1, Calcium Level 8.0L, Phosphorus Level 2.9, Magnesium Level 1.8, Total Bilirubin 0.8, Aspartate Amino Transf (AST/SGOT) 43H , Alanine Aminotransferase (ALT/SGPT) 38, Alkaline Phosphatase 291H, C-Reactive Protein, Quantitative 23.3H, Pro-B-Type Natriuretic Peptide 3585H, Total Protein 6.8, Albumin 1.6L, Globulin 5.2, Albumin/Globulin Ratio 0.3L Current Medications Medications (Trade) Dose Ordered Sig/Anamaria Route PRN Reason Start Time Stop Time Status Last Admin Dose Admin Acetaminophen (Tylenol) 650 mg Q4H PRN ORAL fever 03/29/19 23:45 04/28/19 23:44 Amlodipine Besylate (Norvasc) 2.5 mg BID ORAL 04/07/19 18:00 05/02/19 08:59 04/08/19 08:25 Aspirin (ASA) 81 mg DAILY ORAL 04/08/19 09:00 05/02/19 08:59 04/08/19 08:25 Atorvastatin Calcium (Lipitor) 80 mg BEDTIME ORAL 04/01/19 21:00 05/01/19 20:59 04/07/19 20:52 Dextrose (Dextrose 50%) 25 ml Q30M PRN IV Hypoglycemia 03/29/19 23:45 04/28/19 23:44 Dextrose (Dextrose 50%) 50 ml Q30M PRN IV Hypoglycemia 03/29/19 23:45 04/28/19 23:44 Diphenhydramine HCl (Benadryl) 25 mg Q6H PRN ORAL Itching/Pruritis 03/29/19 23:45 04/28/19 23:44 Ertapenem 1 gm/ Sodium Chloride 55 ml @ 110 mls/hr Q24H IVPB 04/08/19 09:00 04/13/19 08:59 04/08/19 08:25 Folic Acid (Folate) 1 mg DAILY ORAL 04/01/19 11:15 05/01/19 11:14 04/08/19 08:25 Heparin Sodium (Porcine) (Heparin 5000 units/ml) 5,000 units EVERY 12 HOURS SUBQ 03/30/19 09:00 04/29/19 08:59 04/08/19 08:26 Nitroglycerin (Ntg) 0.4 mg Q5M X 3 DOSES PRN SL Prn Chest Pain 03/29/19 23:45 04/28/19 23:44 Ondansetron HCl (Zofran) 4 mg Q6H PRN IVP Nausea & Vomiting 03/29/19 23:45 04/28/19 23:44 Pantoprazole (Protonix) 40 mg EVERY 12 HOURS ORAL 04/02/19 21:00 05/02/19 20:59 04/08/19 08:25 Polyethylene Glycol (Miralax) 17 gm HSPRN PRN ORAL Constipation 03/29/19 23:45 04/28/19 23:44 Potassium Chloride (K-Dur) 20 meq TWICE A DAY ORAL 04/07/19 18:00 04/08/19 17:59 04/08/19 08:25 Tamsulosin HCl (Flomax) 0.4 mg BEDTIME ORAL 04/01/19 21:00 05/01/19 20:59 04/07/19 20:52 Isi Garcia [employer] Apr 08, 2019 10:35
[2019-04-08] MEDS ORDERED: Albuterol/Ipratropium 3ml neb HHN PRN (10:45)
--- NOTE | 2019-04-08 11:28 | Nephrology Progress Note ---
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 She is not ready for hospice at this time however wants her father to go to a skilled nursing and consider hospice at the later time. She will be discussing it with social problems specialist and case management. Subjective ROS Limited/Unobtainable: No Constitutional: Reports: malaise, weakness Objective Objective Last 24 Hour Vital Signs Date Time Temp Pulse Resp B/P (MAP) Pulse Ox O2 Delivery O2 Flow Rate FiO2 04/08/19 09:00 Room Air 04/08/19 08:25 113 137/66 04/08/19 08:00 97.6 113 19 137/66 (89) 97 04/08/19 04:00 98.4 99 19 147/78 (101) 97 04/08/19 00:00 98.0 97 19 122/74 (90) 98 04/07/19 21:00 Room Air 04/07/19 20:00 98.4 95 19 148/74 (98) 98 04/07/19 17:40 81 121/56 04/07/19 16:00 98.1 81 19 121/56 (77) 100 04/07/19 12:00 97.4 100 20 157/70 (99) 97 Intake and Output 04/07/19 04/08/19 18:59 06:59 Intake Total 120 ml 200 ml Output Total 450 ml 840 ml Balance -330 ml -640 ml Intake Oral 120 ml 200 ml IV Total 0 ml Output Urine Total 0 ml 40 ml Stool Total 0 ml 0 ml Other 450 ml 800 ml Laboratory Tests 04/08/19 07:05: White Blood Count 22.7*H, Red Blood Count 3.20L, Hemoglobin 8.9L, Hematocrit 26.9L, Mean Corpuscular Volume 84, Mean Corpuscular Hemoglobin 27.9, Mean Corpuscular Hemoglobin Concent 33.2, Red Cell Distribution Width 14.2, Platelet Count 435, Mean Platelet Volume 6.7, Neutrophils (%) (Auto) , Lymphocytes (%) ( Auto) , Monocytes (%) (Auto) , Eosinophils (%) (Auto) , Basophils (%) (Auto) , Differential Total Cells Counted 100, Neutrophils % (Manual) 94H, Lymphocytes % (Manual) 4L, Monocytes % (Manual) 2, Eosinophils % (Manual) 0, Basophils % ( Manual) 0, Band Neutrophils 0, Platelet Estimate Adequate, Platelet Morphology Normal, Hypochromasia 1+, Anisocytosis 1+, Sodium Level 143, Potassium Level 4.0 , Chloride Level 108H, Carbon Dioxide Level 26, Anion Gap 9, Blood Urea Nitrogen 18, Creatinine 1.1, Estimat Glomerular Filtration Rate > 60, Glucose Level 102, Uric Acid 3.1, Calcium Level 8.0L, Phosphorus Level 2.9, Magnesium Level 1.8, Total Bilirubin 0.8, Aspartate Amino Transf (AST/SGOT) 43H, Alanine Aminotransferase (ALT/SGPT) 38, Alkaline Phosphatase 291H, C-Reactive Protein, Quantitative 23.3H, Pro-B-Type Natriuretic Peptide 3585H, Total Protein 6.8, Albumin 1.6L, Globulin 5.2, Albumin/Globulin Ratio 0.3L Height (Feet): 5 Height (Inches): 1.00 Weight (Pounds): 114 General Appearance: no apparent distress Objective no change Tomas Beck MD Apr 08, 2019 11:28
[2019-04-08 12:00] VITALS: BP 131/67
--- NOTE | 2019-04-08 13:46 | Surgery Progress Note ---
Surgery Progress Note Subjective Additional Comments no acute events labs noted Objective Last 24 Hour Vital Signs Date Time Temp Pulse Resp B/P (MAP) Pulse Ox O2 Delivery O2 Flow Rate FiO2 04/08/19 12:00 98.0 107 19 131/67 (88) 98 04/08/19 09:00 Room Air 04/08/19 08:25 113 137/66 04/08/19 08:00 97.6 113 19 137/66 (89) 97 04/08/19 04:00 98.4 99 19 147/78 (101) 97 04/08/19 00:00 98.0 97 19 122/74 (90) 98 04/07/19 21:00 Room Air 04/07/19 20:00 98.4 95 19 148/74 (98) 98 04/07/19 17:40 81 121/56 04/07/19 16:00 98.1 81 19 121/56 (77) 100 I&O Intake and Output 04/07/19 04/08/19 19:00 07:00 Intake Total 120 ml 200 ml Output Total 450 ml 840 ml Balance -330 ml -640 ml Intake Oral 120 ml 200 ml IV Total 0 ml Output Urine Total 0 ml 40 ml Stool Total 0 ml 0 ml Other 450 ml 800 ml Dressing: other Wound: other Drains: other Cardiovascular: RSR Respiratory: decreased breath sounds Abdomen: soft, present bowel sounds Extremities: no cyanosis Laboratory Tests Test 04/08/19 07:05 White Blood Count 22.7 K/UL (4.8-10.8) *H Red Blood Count 3.20 M/UL (4.70-6.10) L Hemoglobin 8.9 G/DL (14.2-18.0) L Hematocrit 26.9 % (42.0-52.0) L Mean Corpuscular Volume 84 FL (80-99) Mean Corpuscular Hemoglobin 27.9 PG (27.0-31.0) Mean Corpuscular Hemoglobin Concent 33.2 G/DL (32.0-36.0) Red Cell Distribution Width 14.2 % (11.6-14.8) Platelet Count 435 K/UL (150-450) Mean Platelet Volume 6.7 FL (6.5-10.1) Neutrophils (%) (Auto) % (45.0-75.0) Lymphocytes (%) (Auto) % (20.0-45.0) Monocytes (%) (Auto) % (1.0-10.0) Eosinophils (%) (Auto) % (0.0-3.0) Basophils (%) (Auto) % (0.0-2.0) Differential Total Cells Counted 100 Neutrophils % (Manual) 94 % (45-75) H Lymphocytes % (Manual) 4 % (20-45) L Monocytes % (Manual) 2 % (1-10) Eosinophils % (Manual) 0 % (0-3) Basophils % (Manual) 0 % (0-2) Band Neutrophils 0 % (0-8) Platelet Estimate Adequate Platelet Morphology Normal Hypochromasia 1+ Anisocytosis 1+ Sodium Level 143 MMOL/L (136-145) Potassium Level 4.0 MMOL/L (3.5-5.1) Chloride Level 108 MMOL/L (98-107) H Carbon Dioxide Level 26 MMOL/L (21-32) Anion Gap 9 mmol/L (5-15) Blood Urea Nitrogen 18 mg/dL (7-18) Creatinine 1.1 MG/DL (0.55-1.30) Estimat Glomerular Filtration Rate > 60 mL/min (>60) Glucose Level 102 MG/DL (74-106) Uric Acid 3.1 MG/DL (2.6-7.2) Calcium Level 8.0 MG/DL (8.5-10.1) L Phosphorus Level 2.9 MG/DL (2.5-4.9) Magnesium Level 1.8 MG/DL (1.8-2.4) Total Bilirubin 0.8 MG/DL (0.2-1.0) Aspartate Amino Transf (AST/SGOT) 43 U/L (15-37) H Alanine Aminotransferase (ALT/SGPT) 38 U/L (12-78) Alkaline Phosphatase 291 U/L (46-116) H C-Reactive Protein, Quantitative 23.3 mg/dL (0.00-0.90) H Pro-B-Type Natriuretic Peptide 3585 pg/mL (0-125) H Total Protein 6.8 G/DL (6.4-8.2) Albumin 1.6 G/DL (3.4-5.0) L Globulin 5.2 g/dL Albumin/Globulin Ratio 0.3 (1.0-2.7) L Plan Problems: (1) Sepsis Assessment & Plan: 83-year-old male with history of stage IV colon cancer status post left colostomy left nephrostomy tube placement superior catheter placement presented with leukocytosis, abnormal labs, abnormal LFTs, pain. On evaluation sepsis likely secondary to patient's UTI. Currently on antibiotics as per infectious disease. Abdominal examination and complete examination performed and as above. No acute surgical intervention indicated or recommended. Trend labs IV fluids Okay for diet from surgical standpoint Thank you will follow with recommendations I had a long discussion with the patient's daughter. She expressed understanding of his current condition and overall condition. She understands quality of life and CODE STATUS changed to DNR/DNI. Comfort care measures. No acute surgical intervention planned. worsening lft's US Findings: Exam is somewhat limited, due to patient inability to suspend respiration. Gallbladder demonstrates gallstones. Gallbladder wall is mildly thickened, measuring 4 mm in thickness. Common bile duct measures 4 mm in diameter. No intrahepatic biliary ductal dilatation. Liver demonstrates normal echogenicity, no focal abnormality. Note that portions are well visualized, however. Portal vein and hepatic veins are patent. Pancreas is unremarkable. Spleen is unremarkable. Left kidney measures 12 cm in length. Right kidney measures 11.3 cm length. Both kidneys demonstrate slightly increased echogenicity. Right kidney demonstrates mild hydronephrosis. Note that recent plain radiograph demonstrates a nephrostomy and a stent; these are not clearly evident on this study. The left kidney demonstrates lobulated contour and somewhat heterogeneous echotexture, possibly discrete echogenic lesions which are better demonstrated on recent renal sonogram.. . Non- aneurysmal abdominal aorta . Impression: Somewhat limited exam, as described Echogenic right kidney with mild hydronephrosis despite presence of a nephrostomy and stent Markedly abnormal left kidney, also described on recent renal sonogram and possibly demonstrating multiple masses Cholelithiasis. Mild gallbladder wall thickening, could indicate acute cholecystitis. Correlate with clinical findings, consider hepatobiliary nuclear scan if clinically indicated spoke with daughter goals of care for comfort no plans for intervention hold on further imaging or testing (2) Suprapubic catheter dysfunction Assessment & Plan: There is mild right hydronephrosis despite presence of a nephrostomy catheter which appears to be in good position. There is a small right renal cyst demonstrated measuring approximately 1 cm x 1.2 cm. The left kidney is abnormal. There is suggestion of multiple heterogeneous masses slightly echogenic in appearance within the left kidney. For example in the lower pole there is a 4 x 5 cm lesion. In the midpole there is a 3.7 x 3.6 cm lesion. In the upper pole there is a 4.5 cm lesion. Suggest correlation with contrast-enhanced CT.. The right kidney measures 10 cm. in length. The left kidney measures 12.2 cm. in length. The IVC is patent. Urinary bladder is unremarkable. Suprapubic catheter noted. Left lower quadrant colostomy noted. IMPRESSION: Abnormal appearance of the left kidney with suggestion of multiple lobular masses. Further evaluation with contrast-enhanced CT is recommended. Trace right hydronephrosis. Nephrostomy noted in place. Suprapubic catheter Igor Parr Apr 08, 2019 13:46
[2019-04-08] MEDS ORDERED: D5 1/2NS 1000ml IV ONE (13:51)
--- NOTE | 2019-04-08 14:58 | Internal Med Progress Note ---
Subjective Date of Service: Apr 08, 2019 Physician Name Nathan Lazo Attending Physician Doroteo Alberto MD Current Medications Medications (Trade) Dose Ordered Sig/Anamaria Route PRN Reason Start Time Stop Time Status Last Admin Dose Admin Acetaminophen (Tylenol) 650 mg Q4H PRN ORAL fever 03/29/19 23:45 04/28/19 23:44 Albuterol/ Ipratropium (Albuterol/ Ipratropium) 3 ml Q4H PRN HHN sob 04/08/19 10:45 04/13/19 10:44 Amlodipine Besylate (Norvasc) 2.5 mg BID ORAL 04/07/19 18:00 05/02/19 08:59 04/08/19 08:25 Aspirin (ASA) 81 mg DAILY ORAL 04/08/19 09:00 05/02/19 08:59 04/08/19 08:25 Atorvastatin Calcium (Lipitor) 80 mg BEDTIME ORAL 04/01/19 21:00 05/01/19 20:59 04/07/19 20:52 Dextrose (Dextrose 50%) 25 ml Q30M PRN IV Hypoglycemia 03/29/19 23:45 04/28/19 23:44 Dextrose (Dextrose 50%) 50 ml Q30M PRN IV Hypoglycemia 03/29/19 23:45 04/28/19 23:44 Diphenhydramine HCl (Benadryl) 25 mg Q6H PRN ORAL Itching/Pruritis 03/29/19 23:45 04/28/19 23:44 Ertapenem 1 gm/ Sodium Chloride 55 ml @ 110 mls/hr Q24H IVPB 04/08/19 09:00 04/13/19 08:59 04/08/19 08:25 Folic Acid (Folate) 1 mg DAILY ORAL 04/01/19 11:15 05/01/19 11:14 04/08/19 08:25 Heparin Sodium (Porcine) (Heparin 5000 units/ml) 5,000 units EVERY 12 HOURS SUBQ 03/30/19 09:00 04/29/19 08:59 04/08/19 08:26 Nitroglycerin (Ntg) 0.4 mg Q5M X 3 DOSES PRN SL Prn Chest Pain 03/29/19 23:45 04/28/19 23:44 Ondansetron HCl (Zofran) 4 mg Q6H PRN IVP Nausea & Vomiting 03/29/19 23:45 04/28/19 23:44 Pantoprazole (Protonix) 40 mg EVERY 12 HOURS ORAL 04/02/19 21:00 05/02/19 20:59 04/08/19 08:25 Polyethylene Glycol (Miralax) 17 gm HSPRN PRN ORAL Constipation 03/29/19 23:45 04/28/19 23:44 Potassium Chloride (K-Dur) 20 meq TWICE A DAY ORAL 04/07/19 18:00 04/08/19 17:59 04/08/19 08:25 Tamsulosin HCl (Flomax) 0.4 mg BEDTIME ORAL 04/01/19 21:00 05/01/19 20:59 04/07/19 20:52 Allergies: Coded Allergies: No Known Allergies (Unverified , 03/29/19) ROS Limited/Unobtainable: Yes Subjective 83 YO M admitted with gen weakness and altered mental status. Now UTI and sepsis. Cover for Int Med-Dr Alberto. Continues with leukocytosis Objective Last Vital Signs Date Time Temp Pulse Resp B/P (MAP) Pulse Ox O2 Delivery O2 Flow Rate FiO2 04/08/19 12:00 98.0 107 19 131/67 (88) 98 04/08/19 09:00 Room Air Laboratory Tests Test 04/08/19 07:05 White Blood Count 22.7 K/UL (4.8-10.8) *H Red Blood Count 3.20 M/UL (4.70-6.10) L Hemoglobin 8.9 G/DL (14.2-18.0) L Hematocrit 26.9 % (42.0-52.0) L Mean Corpuscular Volume 84 FL (80-99) Mean Corpuscular Hemoglobin 27.9 PG (27.0-31.0) Mean Corpuscular Hemoglobin Concent 33.2 G/DL (32.0-36.0) Red Cell Distribution Width 14.2 % (11.6-14.8) Platelet Count 435 K/UL (150-450) Mean Platelet Volume 6.7 FL (6.5-10.1) Neutrophils (%) (Auto) % (45.0-75.0) Lymphocytes (%) (Auto) % (20.0-45.0) Monocytes (%) (Auto) % (1.0-10.0) Eosinophils (%) (Auto) % (0.0-3.0) Basophils (%) (Auto) % (0.0-2.0) Differential Total Cells Counted 100 Neutrophils % (Manual) 94 % (45-75) H Lymphocytes % (Manual) 4 % (20-45) L Monocytes % (Manual) 2 % (1-10) Eosinophils % (Manual) 0 % (0-3) Basophils % (Manual) 0 % (0-2) Band Neutrophils 0 % (0-8) Platelet Estimate Adequate Platelet Morphology Normal Hypochromasia 1+ Anisocytosis 1+ Sodium Level 143 MMOL/L (136-145) Potassium Level 4.0 MMOL/L (3.5-5.1) Chloride Level 108 MMOL/L (98-107) H Carbon Dioxide Level 26 MMOL/L (21-32) Anion Gap 9 mmol/L (5-15) Blood Urea Nitrogen 18 mg/dL (7-18) Creatinine 1.1 MG/DL (0.55-1.30) Estimat Glomerular Filtration Rate > 60 mL/min (>60) Glucose Level 102 MG/DL (74-106) Uric Acid 3.1 MG/DL (2.6-7.2) Calcium Level 8.0 MG/DL (8.5-10.1) L Phosphorus Level 2.9 MG/DL (2.5-4.9) Magnesium Level 1.8 MG/DL (1.8-2.4) Total Bilirubin 0.8 MG/DL (0.2-1.0) Aspartate Amino Transf (AST/SGOT) 43 U/L (15-37) H Alanine Aminotransferase (ALT/SGPT) 38 U/L (12-78) Alkaline Phosphatase 291 U/L (46-116) H C-Reactive Protein, Quantitative 23.3 mg/dL (0.00-0.90) H Pro-B-Type Natriuretic Peptide 3585 pg/mL (0-125) H Total Protein 6.8 G/DL (6.4-8.2) Albumin 1.6 G/DL (3.4-5.0) L Globulin 5.2 g/dL Albumin/Globulin Ratio 0.3 (1.0-2.7) L Intake and Output 04/07/19 04/08/19 19:00 07:00 Intake Total 120 ml 200 ml Output Total 450 ml 840 ml Balance -330 ml -640 ml Intake Oral 120 ml 200 ml IV Total 0 ml Output Urine Total 0 ml 40 ml Stool Total 0 ml 0 ml Other 450 ml 800 ml Objective PHYSICAL EXAMINATION: GENERAL: The patient is awake and responsive, but very chronically ill and cachectic. HEAD AND NECK: Pupils are equal and reactive to light. Extraocular movements intact. Neck was supple. No JVD. LUNGS: Good air entry. No wheezing or rales. Decreased air in bases. HEART: S1 and S2. Regular rhythm. No murmur or gallop. ABDOMEN: Soft, nondistended, and nontender. GENITOURINARY: Suprapubic catheter was noted. No sign of infection or drainage. Colostomy bag in the left side of abdomen was noted without any stool. No leakage or discharge. The patient has a suprapubic catheter in pelvic area with the right nephrostomy tube with cloudy urine. EXTREMITIES: No cyanosis, clubbing, or edema. Muscle atrophy was noted. RECTAL: Refused and deferred. PSYCHIATRIC: Mood and affect is intact. Assessment/Plan Assessment/Plan ASSESSMENT.: 1. Sepsis = Group B Strep 2. urinary tract infection=ESBL E. Coli 3. Severe dehydration. 3. Anemia of chronic disease. 4. Acute kidney injury, chronic insufficiency. 5. 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 6. Severe protein-calorie malnutrition. 7. Acute metabolic encephalopathy due to the sepsis, infection, and dehydration. 8. leukocytosis PLAN: 1. Admit the patient to medical floor. 2. antibiotic =Ertapenem. 3. Code status is Full Code. 4. Dr. Dawson = Infectious Disease 5. Dr. Prar = General surgery. 6. DVT prophylaxis with heparin subcutaneous. 7. Urology=Dr Dukes 8. ID=Nathan Gray MD Apr 08, 2019 14:58
[2019-04-08 16:00] VITALS: BP 130/78
--- NOTE | 2019-04-08 19:20 | NUR ---
HAND-OFF: Report given to Jania JARA RN.
--- NOTE | 2019-04-08 19:31 | NUR ---
NURSE NOTES: Patient AOx1, confused. On room air, no acute distress noted. No s/s of pain or discomfort at this time. Left colostomy,intact, with right nephrostomy connected to a bag and a suprapubic catheter draining a light yellow urine. Fall precaution and aspiration precaution is in place. Bed alarm on with high sensitive setting. Bed locked and in lowest position. call light and light within easy reach. will continue to monitor and do frequent rounds for safety.
[2019-04-08 20:00] VITALS: BP 147/75
[2019-04-08] MEDS: Atorvastatin 80mg tab ORAL SCH (21:22)
[2019-04-08] MEDS: Tamsulosin 0.4mg cap ORAL SCH (21:22)
[2019-04-09] VITALS (7 sets, daily range): BP systolic 118–142; BP diastolic 65–75
[2019-04-09 06:53] LABS: ANION GAP 13 mmol/L (5-15); BLOOD UREA NITROGEN 22 mg/dL (7-18); CALCIUM 8.3 MG/DL (8.5-10.1); CARBON DIOXIDE 23 MMOL/L (21-32); CHLORIDE 109 MMOL/L (98-107); CREATININE 1.2 MG/DL (0.55-1.30); HEMATOCRIT 26.8 % (42.0-52.0); HEMOGLOBIN 8.8 G/DL (14.2-18.0); MEAN CORPUSCULAR VOLUME 85 FL (80-99); PLATELET COUNT 487 K/UL (150-450); POTASSIUM 3.8 MMOL/L (3.5-5.1); RED BLOOD COUNT 3.15 M/UL (4.70-6.10); RED CELL DISTRIBUTION WIDTH 14.6 % (11.6-14.8); SODIUM 145 MMOL/L (136-145)
--- NOTE | 2019-04-09 07:21 | NUR ---
HAND-OFF: Report given to ULICES Culver.Endorsed fall risk status to the oncoming shift. fall precaution is in place, bed alarm on, bed in low and locked position.
--- NOTE | 2019-04-09 07:22 | NUR ---
NURSE NOTES: Report received from Rosy ELENA. Patient is awake and alert x 1. Patient is Serbian speaking. Patient noted to have right nephrostomy draining yellow urine. Suprapubic catheter noted as well with minimal drainage. Left colostomy noted, in tact with pink stoma. Was endorsed that patient has little bowel output. 24 scott IV noted in left hand, patent and intact. Was endorsed by previous shift that daughter is to be called if the patient is discharged. Will continue to follow plan of care.
--- NOTE | 2019-04-09 07:34 | Urology Progress Note ---
Assessment/Plan Assessment/Plan: hydro hx, right PCN JOSE MANUEL, improved UTI/colonzied hematuria proteinuria urinary retention/SPT renal cyst renal mass monitor clinically maintain SPT, last exchanged 04/06 hand irrigate PRN minimal urine output through SPT I suspect urine is refluxing through ureteral stent and coming out from right PCN maintain right PCN hand irrigate PRN abx as ordered monitor renal fxn, improved obtain outside records dc flomax d/w pt's daughter Subjective Allergies: Coded Allergies: No Known Allergies (Unverified , 03/29/19) Subjective confused, comfortable still with low output through SPT more urine output from right PCN d/w pt daughter who states SPT never put out much urine Objective Last 24 Hour Vital Signs Date Time Temp Pulse Resp B/P (MAP) Pulse Ox O2 Delivery O2 Flow Rate FiO2 04/09/19 04:00 97.9 103 20 118/65 (82) 98 04/09/19 00:00 97.5 106 20 127/65 (85) 98 04/08/19 21:00 Room Air 04/08/19 20:00 98.9 102 20 147/75 (99) 98 04/08/19 17:01 107 130/78 04/08/19 16:00 98.7 107 20 130/78 (95) 98 04/08/19 12:00 98.0 107 19 131/67 (88) 98 04/08/19 09:00 Room Air 04/08/19 08:25 113 137/66 04/08/19 08:00 97.6 113 19 137/66 (89) 97 Intake and Output 04/08/19 04/09/19 19:00 07:00 Intake Total 295 ml 100 ml Output Total 300 ml 470 ml Balance -5 ml -370 ml Intake Oral 240 ml 100 ml IV Total 55 ml Output Urine Total 300 ml 20 ml Other 450 ml Microbiology Date/Time Source Procedure Growth Status 04/02/19 11:25 Blood Blood Culture - Final NO GROWTH AFTER 5 DAYS Complete 04/04/19 16:10 Urine,Clean Catch Urine Culture - Final NO GROWTH AFTER 48 HOURS Complete Current Medications Medications (Trade) Dose Ordered Sig/Anamaria Route PRN Reason Start Time Stop Time Status Last Admin Dose Admin Acetaminophen (Tylenol) 650 mg Q4H PRN ORAL fever 03/29/19 23:45 04/28/19 23:44 Albuterol/ Ipratropium (Albuterol/ Ipratropium) 3 ml Q4H PRN HHN sob 04/08/19 10:45 04/13/19 10:44 Amlodipine Besylate (Norvasc) 2.5 mg BID ORAL 04/07/19 18:00 05/02/19 08:59 04/08/19 17:01 Aspirin (ASA) 81 mg DAILY ORAL 04/08/19 09:00 05/02/19 08:59 04/08/19 08:25 Atorvastatin Calcium (Lipitor) 80 mg BEDTIME ORAL 04/01/19 21:00 05/01/19 20:59 04/08/19 21:22 Dextrose (Dextrose 50%) 25 ml Q30M PRN IV Hypoglycemia 03/29/19 23:45 04/28/19 23:44 Dextrose (Dextrose 50%) 50 ml Q30M PRN IV Hypoglycemia 03/29/19 23:45 04/28/19 23:44 Diphenhydramine HCl (Benadryl) 25 mg Q6H PRN ORAL Itching/Pruritis 03/29/19 23:45 04/28/19 23:44 Ertapenem 1 gm/ Sodium Chloride 55 ml @ 110 mls/hr Q24H IVPB 04/08/19 09:00 04/13/19 08:59 04/08/19 08:25 Folic Acid (Folate) 1 mg DAILY ORAL 04/01/19 11:15 05/01/19 11:14 04/08/19 08:25 Heparin Sodium (Porcine) (Heparin 5000 units/ml) 5,000 units EVERY 12 HOURS SUBQ 03/30/19 09:00 04/29/19 08:59 04/08/19 21:22 Nitroglycerin (Ntg) 0.4 mg Q5M X 3 DOSES PRN SL Prn Chest Pain 03/29/19 23:45 04/28/19 23:44 Ondansetron HCl (Zofran) 4 mg Q6H PRN IVP Nausea & Vomiting 03/29/19 23:45 04/28/19 23:44 Pantoprazole (Protonix) 40 mg EVERY 12 HOURS ORAL 04/02/19 21:00 05/02/19 20:59 04/08/19 21:22 Polyethylene Glycol (Miralax) 17 gm HSPRN PRN ORAL Constipation 03/29/19 23:45 04/28/19 23:44 Tamsulosin HCl (Flomax) 0.4 mg BEDTIME ORAL 04/01/19 21:00 05/01/19 20:59 04/08/19 21:22 Laboratory Tests 04/09/19 05:35: White Blood Count [Pending], Red Blood Count [Pending], Hemoglobin [Pending], Hematocrit [Pending], Mean Corpuscular Volume [Pending], Mean Corpuscular Hemoglobin [Pending], Mean Corpuscular Hemoglobin Concent [Pending], Red Cell Distribution Width [Pending], Platelet Count [Pending], Mean Platelet Volume [ Pending], Neutrophils (%) (Auto) [Pending], Lymphocytes (%) (Auto) [Pending], Monocytes (%) (Auto) [Pending], Eosinophils (%) (Auto) [Pending], Basophils (%) (Auto) [Pending], Sodium Level 145, Potassium Level 3.8, Chloride Level 109H, Carbon Dioxide Level 23, Anion Gap 13, Blood Urea Nitrogen 22H, Creatinine 1.2, Estimat Glomerular Filtration Rate 57.7, Glucose Level 92, Calcium Level 8.3L Height (Feet): 5 Height (Inches): 1.00 Weight (Pounds): 114 Objective right PCN in place SPT in place urine yellow/davis renal and abdominal u/s noted Shantanu Dukes MD Apr 09, 2019 07:34
[2019-04-09 07:35] LABS: WHITE BLOOD COUNT 22.3 K/UL (4.8-10.8)
--- NOTE | 2019-04-09 08:00 | NUR ---
NURSE NOTES: Doctor Remy aware of elevated WBC of 22.3. No new orders.
--- NOTE | 2019-04-09 09:02 | NUR ---
RADIOLOGY: PCXR COMPLETED 0900HRS. NF
[2019-04-09] MEDS: Ertapenem 1 GM in NS 55 ML IVPB SCH (09:10)
[2019-04-09] MEDS: Aspirin Baby 81mg ORAL SCH (09:10)
[2019-04-09] MEDS: Heparin 5000 units/ml inj SUBQ SCH ×2 (09:12→22:17)
--- NOTE | 2019-04-09 10:49 | Nephrology Progress Note ---
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 She is not ready for hospice at this time however wants her father to go to a senior care and consider hospice at the later time. She will be discussing it with manager social responsibility and case management. Subjective ROS Limited/Unobtainable: No Constitutional: Reports: malaise, weakness Objective Objective Last 24 Hour Vital Signs Date Time Temp Pulse Resp B/P (MAP) Pulse Ox O2 Delivery O2 Flow Rate FiO2 04/09/19 09:11 109 140/70 04/09/19 09:00 Room Air 04/09/19 08:00 98.7 109 18 140/70 (93) 99 04/09/19 04:00 97.9 103 20 118/65 (82) 98 04/09/19 00:00 97.5 106 20 127/65 (85) 98 04/08/19 21:00 Room Air 04/08/19 20:00 98.9 102 20 147/75 (99) 98 04/08/19 17:01 107 130/78 04/08/19 16:00 98.7 107 20 130/78 (95) 98 04/08/19 12:00 98.0 107 19 131/67 (88) 98 Intake and Output 04/08/19 04/09/19 19:00 07:00 Intake Total 295 ml 100 ml Output Total 300 ml 470 ml Balance -5 ml -370 ml Intake Oral 240 ml 100 ml IV Total 55 ml Output Urine Total 300 ml 20 ml Other 450 ml Laboratory Tests 04/09/19 05:35: White Blood Count 22.3*H, Red Blood Count 3.15L, Hemoglobin 8.8L, Hematocrit 26.8L, Mean Corpuscular Volume 85, Mean Corpuscular Hemoglobin 27.9, Mean Corpuscular Hemoglobin Concent 32.8, Red Cell Distribution Width 14.6, Platelet Count 487H, Mean Platelet Volume 6.8, Neutrophils (%) (Auto) , Lymphocytes (%) ( Auto) , Monocytes (%) (Auto) , Eosinophils (%) (Auto) , Basophils (%) (Auto) , Differential Total Cells Counted 100, Neutrophils % (Manual) 93H, Lymphocytes % (Manual) 5L, Monocytes % (Manual) 2, Eosinophils % (Manual) 0, Basophils % ( Manual) 0, Band Neutrophils 0, Platelet Estimate Adequate, Platelet Morphology Normal, Hypochromasia 2+, Anisocytosis 1+, Sodium Level 145, Potassium Level 3.8 , Chloride Level 109H, Carbon Dioxide Level 23, Anion Gap 13, Blood Urea Nitrogen 22H, Creatinine 1.2, Estimat Glomerular Filtration Rate 57.7, Glucose Level 92, Calcium Level 8.3L Height (Feet): 5 Height (Inches): 1.00 Weight (Pounds): 114 General Appearance: no apparent distress Cardiovascular: normal rate Respiratory/Chest: decreased breath sounds Abdomen: distended Objective no change Tomas Beck MD Apr 09, 2019 10:49
--- NOTE | 2019-04-09 11:28 | Diagnostic Imaging Report ---
Indication: Shortness of breath Technique: One view of the chest Comparison: 04/02/2019 Findings: There are atelectatic changes of the left lung base. The heart size is normal. There is evidence of prior CABG. Impression: Left basilar atelectasis. No acute process otherwise
--- NOTE | 2019-04-09 13:28 | Surgery Progress Note ---
Surgery Progress Note Subjective Additional Comments ill appearing stable labs noted Objective Last 24 Hour Vital Signs Date Time Temp Pulse Resp B/P (MAP) Pulse Ox O2 Delivery O2 Flow Rate FiO2 04/09/19 12:00 98.6 90 19 142/70 (94) 98 04/09/19 11:54 Room Air 04/09/19 10:49 82 18 96 Room Air 21 04/09/19 09:11 109 140/70 04/09/19 09:00 Room Air 04/09/19 08:00 98.7 109 18 140/70 (93) 99 04/09/19 04:00 97.9 103 20 118/65 (82) 98 04/09/19 00:00 97.5 106 20 127/65 (85) 98 04/08/19 21:00 Room Air 04/08/19 20:00 98.9 102 20 147/75 (99) 98 04/08/19 17:01 107 130/78 04/08/19 16:00 98.7 107 20 130/78 (95) 98 I&O Intake and Output 04/08/19 04/09/19 19:00 07:00 Intake Total 295 ml 100 ml Output Total 300 ml 470 ml Balance -5 ml -370 ml Intake Oral 240 ml 100 ml IV Total 55 ml Output Urine Total 300 ml 20 ml Other 450 ml Dressing: other Wound: other Drains: other Cardiovascular: RSR Respiratory: decreased breath sounds Abdomen: soft, present bowel sounds Extremities: no cyanosis Laboratory Tests Test 04/09/19 05:35 White Blood Count 22.3 K/UL (4.8-10.8) *H Red Blood Count 3.15 M/UL (4.70-6.10) L Hemoglobin 8.8 G/DL (14.2-18.0) L Hematocrit 26.8 % (42.0-52.0) L Mean Corpuscular Volume 85 FL (80-99) Mean Corpuscular Hemoglobin 27.9 PG (27.0-31.0) Mean Corpuscular Hemoglobin Concent 32.8 G/DL (32.0-36.0) Red Cell Distribution Width 14.6 % (11.6-14.8) Platelet Count 487 K/UL (150-450) H Mean Platelet Volume 6.8 FL (6.5-10.1) Neutrophils (%) (Auto) % (45.0-75.0) Lymphocytes (%) (Auto) % (20.0-45.0) Monocytes (%) (Auto) % (1.0-10.0) Eosinophils (%) (Auto) % (0.0-3.0) Basophils (%) (Auto) % (0.0-2.0) Differential Total Cells Counted 100 Neutrophils % (Manual) 93 % (45-75) H Lymphocytes % (Manual) 5 % (20-45) L Monocytes % (Manual) 2 % (1-10) Eosinophils % (Manual) 0 % (0-3) Basophils % (Manual) 0 % (0-2) Band Neutrophils 0 % (0-8) Platelet Estimate Adequate Platelet Morphology Normal Hypochromasia 2+ Anisocytosis 1+ Sodium Level 145 MMOL/L (136-145) Potassium Level 3.8 MMOL/L (3.5-5.1) Chloride Level 109 MMOL/L (98-107) H Carbon Dioxide Level 23 MMOL/L (21-32) Anion Gap 13 mmol/L (5-15) Blood Urea Nitrogen 22 mg/dL (7-18) H Creatinine 1.2 MG/DL (0.55-1.30) Estimat Glomerular Filtration Rate 57.7 mL/min (>60) Glucose Level 92 MG/DL (74-106) Calcium Level 8.3 MG/DL (8.5-10.1) L Plan Problems: (1) Sepsis Assessment & Plan: 83-year-old male with history of stage IV colon cancer status post left colostomy left nephrostomy tube placement superior catheter placement presented with leukocytosis, abnormal labs, abnormal LFTs, pain. On evaluation sepsis likely secondary to patient's UTI. Currently on antibiotics as per infectious disease. Abdominal examination and complete examination performed and as above. No acute surgical intervention indicated or recommended. Trend labs IV fluids Okay for diet from surgical standpoint Thank you will follow with recommendations I had a long discussion with the patient's daughter. She expressed understanding of his current condition and overall condition. She understands quality of life and CODE STATUS changed to DNR/DNI. Comfort care measures. No acute surgical intervention planned. worsening lft's US Findings: Exam is somewhat limited, due to patient inability to suspend respiration. Gallbladder demonstrates gallstones. Gallbladder wall is mildly thickened, measuring 4 mm in thickness. Common bile duct measures 4 mm in diameter. No intrahepatic biliary ductal dilatation. Liver demonstrates normal echogenicity, no focal abnormality. Note that portions are well visualized, however. Portal vein and hepatic veins are patent. Pancreas is unremarkable. Spleen is unremarkable. Left kidney measures 12 cm in length. Right kidney measures 11.3 cm length. Both kidneys demonstrate slightly increased echogenicity. Right kidney demonstrates mild hydronephrosis. Note that recent plain radiograph demonstrates a nephrostomy and a stent; these are not clearly evident on this study. The left kidney demonstrates lobulated contour and somewhat heterogeneous echotexture, possibly discrete echogenic lesions which are better demonstrated on recent renal sonogram.. . Non- aneurysmal abdominal aorta . Impression: Somewhat limited exam, as described Echogenic right kidney with mild hydronephrosis despite presence of a nephrostomy and stent Markedly abnormal left kidney, also described on recent renal sonogram and possibly demonstrating multiple masses Cholelithiasis. Mild gallbladder wall thickening, could indicate acute cholecystitis. Correlate with clinical findings, consider hepatobiliary nuclear scan if clinically indicated spoke with daughter goals of care for comfort no plans for intervention hold on further imaging or testing (2) Suprapubic catheter dysfunction Assessment & Plan: There is mild right hydronephrosis despite presence of a nephrostomy catheter which appears to be in good position. There is a small right renal cyst demonstrated measuring approximately 1 cm x 1.2 cm. The left kidney is abnormal. There is suggestion of multiple heterogeneous masses slightly echogenic in appearance within the left kidney. For example in the lower pole there is a 4 x 5 cm lesion. In the midpole there is a 3.7 x 3.6 cm lesion. In the upper pole there is a 4.5 cm lesion. Suggest correlation with contrast-enhanced CT.. The right kidney measures 10 cm. in length. The left kidney measures 12.2 cm. in length. The IVC is patent. Urinary bladder is unremarkable. Suprapubic catheter noted. Left lower quadrant colostomy noted. IMPRESSION: Abnormal appearance of the left kidney with suggestion of multiple lobular masses. Further evaluation with contrast-enhanced CT is recommended. Trace right hydronephrosis. Nephrostomy noted in place. Suprapubic catheter Igor Parr Apr 09, 2019 13:28
--- NOTE | 2019-04-09 13:53 | Pulmonology Progress Note ---
Assessment/Plan Problems: (1) Bacteremia (2) Sepsis (3) Acute metabolic encephalopathy (4) Nephrostomy status (5) CKD (chronic kidney disease) (6) Suprapubic catheter dysfunction (7) Colon cancer metastasized to multiple sites Assessment/Plan wbc still high improving iv abx, on Ertapenem for ESBL in urine and bacteremia WBC is higher check cultures, last BC are negative symptomatic treatment check electrolytes pt is a good candidate for palliative care d/w pts daughter, Trey, , she wants comfort care and hospice and end of life care. The daughter needs to talk to two other brothers to make a decision about the hospice. she is not responding to phone calls anymore Subjective ROS Limited/Unobtainable: No Constitutional: Reports: no symptoms HEENT: Repors: no symptoms Allergies: Coded Allergies: No Known Allergies (Unverified , 03/29/19) Objective Last 24 Hour Vital Signs Date Time Temp Pulse Resp B/P (MAP) Pulse Ox O2 Delivery O2 Flow Rate FiO2 04/09/19 12:00 98.6 90 19 142/70 (94) 98 04/09/19 11:54 Room Air 04/09/19 10:49 82 18 96 Room Air 21 04/09/19 09:11 109 140/70 04/09/19 09:00 Room Air 04/09/19 08:00 98.7 109 18 140/70 (93) 99 04/09/19 04:00 97.9 103 20 118/65 (82) 98 04/09/19 00:00 97.5 106 20 127/65 (85) 98 04/08/19 21:00 Room Air 04/08/19 20:00 98.9 102 20 147/75 (99) 98 04/08/19 17:01 107 130/78 04/08/19 16:00 98.7 107 20 130/78 (95) 98 Intake and Output 04/08/19 04/09/19 19:00 07:00 Intake Total 295 ml 100 ml Output Total 300 ml 470 ml Balance -5 ml -370 ml Intake Oral 240 ml 100 ml IV Total 55 ml Output Urine Total 300 ml 20 ml Other 450 ml General Appearance: WD/WN HEENT: normocephalic, atraumatic Respiratory/Chest: chest wall non-tender, lungs clear Cardiovascular: normal peripheral pulses, normal rate Abdomen: normal bowel sounds, soft, non tender, no scars Extremities: no cyanosis Neurologic/Psychiatric: leather tanner II-XII grossly normal Laboratory Tests 04/09/19 05:35: White Blood Count 22.3*H, Red Blood Count 3.15L, Hemoglobin 8.8L, Hematocrit 26.8L, Mean Corpuscular Volume 85, Mean Corpuscular Hemoglobin 27.9, Mean Corpuscular Hemoglobin Concent 32.8, Red Cell Distribution Width 14.6, Platelet Count 487H, Mean Platelet Volume 6.8, Neutrophils (%) (Auto) , Lymphocytes (%) ( Auto) , Monocytes (%) (Auto) , Eosinophils (%) (Auto) , Basophils (%) (Auto) , Differential Total Cells Counted 100, Neutrophils % (Manual) 93H, Lymphocytes % (Manual) 5L, Monocytes % (Manual) 2, Eosinophils % (Manual) 0, Basophils % ( Manual) 0, Band Neutrophils 0, Platelet Estimate Adequate, Platelet Morphology Normal, Hypochromasia 2+, Anisocytosis 1+, Sodium Level 145, Potassium Level 3.8 , Chloride Level 109H, Carbon Dioxide Level 23, Anion Gap 13, Blood Urea Nitrogen 22H, Creatinine 1.2, Estimat Glomerular Filtration Rate 57.7, Glucose Level 92, Calcium Level 8.3L Current Medications Medications (Trade) Dose Ordered Sig/Anamaria Route PRN Reason Start Time Stop Time Status Last Admin Dose Admin Acetaminophen (Tylenol) 650 mg Q4H PRN ORAL fever 03/29/19 23:45 04/28/19 23:44 Albuterol/ Ipratropium (Albuterol/ Ipratropium) 3 ml Q4H PRN HHN sob 04/08/19 10:45 04/13/19 10:44 Amlodipine Besylate (Norvasc) 2.5 mg BID ORAL 04/07/19 18:00 05/02/19 08:59 04/09/19 09:11 Aspirin (ASA) 81 mg DAILY ORAL 04/08/19 09:00 05/02/19 08:59 04/09/19 09:10 Atorvastatin Calcium (Lipitor) 80 mg BEDTIME ORAL 04/01/19 21:00 05/01/19 20:59 04/08/19 21:22 Dextrose (Dextrose 50%) 25 ml Q30M PRN IV Hypoglycemia 2/13/20 23:45 04/28/19 23:44 Dextrose (Dextrose 50%) 50 ml Q30M PRN IV Hypoglycemia 03/29/19 23:45 04/28/19 23:44 Diphenhydramine HCl (Benadryl) 25 mg Q6H PRN ORAL Itching/Pruritis 03/29/19 23:45 04/28/19 23:44 Ertapenem 1 gm/ Sodium Chloride 55 ml @ 110 mls/hr Q24H IVPB 04/08/19 09:00 04/13/19 08:59 04/09/19 09:10 Folic Acid (Folate) 1 mg DAILY ORAL 04/01/19 11:15 05/01/19 11:14 04/09/19 09:10 Heparin Sodium (Porcine) (Heparin 5000 units/ml) 5,000 units EVERY 12 HOURS SUBQ 03/30/19 09:00 04/29/19 08:59 04/09/19 09:12 Nitroglycerin (Ntg) 0.4 mg Q5M X 3 DOSES PRN SL Prn Chest Pain 03/29/19 23:45 04/28/19 23:44 Ondansetron HCl (Zofran) 4 mg Q6H PRN IVP Nausea & Vomiting 03/29/19 23:45 04/28/19 23:44 Pantoprazole (Protonix) 40 mg EVERY 12 HOURS ORAL 04/02/19 21:00 05/02/19 20:59 04/09/19 09:10 Polyethylene Glycol (Miralax) 17 gm HSPRN PRN ORAL Constipation 03/29/19 23:45 04/28/19 23:44 Nancy Bowser MD Apr 09, 2019 13:53
--- NOTE | 2019-04-09 14:24 | NUR ---
RD ASSESSMENT & RECOMMENDATIONS SEE CARE ACTIVITY FOR COMPLETE ASSESSMENT DAILY ESTIMATED NEEDS: Needs based on CA, 48.5kg 30-35 kcals/kg 4110-8182 total kcals 1-1.5 g protein/kg 49-74 g total protein 25-30 mL/kg 4187-4392 total fluid mLs NUTRITION DIAGNOSIS: * Swallowing difficulty R/T dysphagia? as evidenced by pt on pureed moist texture diet. * Increased kcal/prot intake needs R/T catabolic dx as evidenced by metastatic colon CA to kidney and bladder, poor and variable PO intake noted. CURRENT DIET:Cardiac, Renal/ pureed moist PO DIET RECOMMENDATIONS: Liberalized REGULAR w/ poor PO/ texture per DELIVERY REP ADDITIONAL RECOMMENDATIONS: * Calibrated bedscale wt for accurate CBW * DELIVERY REP eval for appropriate texture * Rec liberalized regular diet w/ poor PO * Add Ensure Enlive TID w/ meals
--- NOTE | 2019-04-09 14:56 | Infectious Diseases Prog Note ---
Assessment/Plan Assessment/Plan Assessment: GBS bacteremia- likely intraabdominal source given malignancy- r/o endocarditis -03/30 2d Echo: no vegetations -03/29 Bcx 2/4 GBS; 04/01 Bcx 2/ GBS; 04/02 Bcx NTD UTI -04/04 u/a wbc 40-60, n it neg, leuk +3; ucx NTD -03/30 u/a wbc tntc, nit neg, leuk +3; ucx >100k ESBl E coli Afebrile leukocytosis, increasing- r/o Cdiff, r/o abscess (family refused CT), now improving -Abd US:Somewhat limited exam, as described. Echogenic right kidney with mild hydronephrosis despite presence of a nephrostomy and stent. Markedly abnormal left kidney, also described on recent renal sonogram and possibly demonstrating multiple masses. Cholelithiasis. Mild gallbladder wall thickening, could indicate acute cholecystitis. 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 Will continue to follow along with you. Subjective Constitutional: Reports: no symptoms, fever Allergies: Coded Allergies: No Known Allergies (Unverified , 03/29/19) Objective Vital Signs Last 24 Hour Vital Signs Date Time Temp Pulse Resp B/P (MAP) Pulse Ox O2 Delivery O2 Flow Rate FiO2 04/09/19 12:00 98.6 90 19 142/70 (94) 98 04/09/19 11:54 Room Air 04/09/19 10:49 82 18 96 Room Air 21 04/09/19 09:11 109 140/70 04/09/19 09:00 Room Air 04/09/19 08:00 98.7 109 18 140/70 (93) 99 04/09/19 04:00 97.9 103 20 118/65 (82) 98 04/09/19 00:00 97.5 106 20 127/65 (85) 98 04/08/19 21:00 Room Air 04/08/19 20:00 98.9 102 20 147/75 (99) 98 04/08/19 17:01 107 130/78 04/08/19 16:00 98.7 107 20 130/78 (95) 98 Height (Feet): 5 Height (Inches): 1.00 Weight (Pounds): 114 Respiratory/Chest: normal breath sounds Cardiovascular: regular rhythm Abdomen: non distended Laboratory Tests Test 04/09/19 05:35 White Blood Count 22.3 K/UL (4.8-10.8) *H Red Blood Count 3.15 M/UL (4.70-6.10) L Hemoglobin 8.8 G/DL (14.2-18.0) L Hematocrit 26.8 % (42.0-52.0) L Mean Corpuscular Volume 85 FL (80-99) Mean Corpuscular Hemoglobin 27.9 PG (27.0-31.0) Mean Corpuscular Hemoglobin Concent 32.8 G/DL (32.0-36.0) Red Cell Distribution Width 14.6 % (11.6-14.8) Platelet Count 487 K/UL (150-450) H Mean Platelet Volume 6.8 FL (6.5-10.1) Neutrophils (%) (Auto) % (45.0-75.0) Lymphocytes (%) (Auto) % (20.0-45.0) Monocytes (%) (Auto) % (1.0-10.0) Eosinophils (%) (Auto) % (0.0-3.0) Basophils (%) (Auto) % (0.0-2.0) Differential Total Cells Counted 100 Neutrophils % (Manual) 93 % (45-75) H Lymphocytes % (Manual) 5 % (20-45) L Monocytes % (Manual) 2 % (1-10) Eosinophils % (Manual) 0 % (0-3) Basophils % (Manual) 0 % (0-2) Band Neutrophils 0 % (0-8) Platelet Estimate Adequate Platelet Morphology Normal Hypochromasia 2+ Anisocytosis 1+ Sodium Level 145 MMOL/L (136-145) Potassium Level 3.8 MMOL/L (3.5-5.1) Chloride Level 109 MMOL/L (98-107) H Carbon Dioxide Level 23 MMOL/L (21-32) Anion Gap 13 mmol/L (5-15) Blood Urea Nitrogen 22 mg/dL (7-18) H Creatinine 1.2 MG/DL (0.55-1.30) Estimat Glomerular Filtration Rate 57.7 mL/min (>60) Glucose Level 92 MG/DL (74-106) Calcium Level 8.3 MG/DL (8.5-10.1) L Current Medications Medications (Trade) Dose Ordered Sig/Anamaria Route PRN Reason Start Time Stop Time Status Last Admin Dose Admin Acetaminophen (Tylenol) 650 mg Q4H PRN ORAL fever 03/29/19 23:45 04/28/19 23:44 Albuterol/ Ipratropium (Albuterol/ Ipratropium) 3 ml Q4H PRN HHN sob 04/08/19 10:45 04/13/19 10:44 Amlodipine Besylate (Norvasc) 2.5 mg BID ORAL 04/07/19 18:00 05/02/19 08:59 04/09/19 09:11 Aspirin (ASA) 81 mg DAILY ORAL 04/08/19 09:00 05/02/19 08:59 04/09/19 09:10 Atorvastatin Calcium (Lipitor) 80 mg BEDTIME ORAL 04/01/19 21:00 05/01/19 20:59 04/08/19 21:22 Dextrose (Dextrose 50%) 25 ml Q30M PRN IV Hypoglycemia 03/29/19 23:45 04/28/19 23:44 Dextrose (Dextrose 50%) 50 ml Q30M PRN IV Hypoglycemia 03/29/19 23:45 04/28/19 23:44 Diphenhydramine HCl (Benadryl) 25 mg Q6H PRN ORAL Itching/Pruritis 03/29/19 23:45 04/28/19 23:44 Ertapenem 1 gm/ Sodium Chloride 55 ml @ 110 mls/hr Q24H IVPB 04/08/19 09:00 04/13/19 08:59 04/09/19 09:10 Folic Acid (Folate) 1 mg DAILY ORAL 04/01/19 11:15 05/01/19 11:14 04/09/19 09:10 Heparin Sodium (Porcine) (Heparin 5000 units/ml) 5,000 units EVERY 12 HOURS SUBQ 03/30/19 09:00 04/29/19 08:59 04/09/19 09:12 Nitroglycerin (Ntg) 0.4 mg Q5M X 3 DOSES PRN SL Prn Chest Pain 03/29/19 23:45 04/28/19 23:44 Ondansetron HCl (Zofran) 4 mg Q6H PRN IVP Nausea & Vomiting 03/29/19 23:45 04/28/19 23:44 Pantoprazole (Protonix) 40 mg EVERY 12 HOURS ORAL 04/02/19 21:00 05/02/19 20:59 04/09/19 09:10 Polyethylene Glycol (Miralax) 17 gm HSPRN PRN ORAL Constipation 03/29/19 23:45 04/28/19 23:44 Tre Drummond MD Apr 09, 2019 14:56
--- NOTE | 2019-04-09 15:07 | NUR ---
CASE MANAGEMENT:REVIEW SI;UTI. SEPSIS. JOSE MANUEL CHRONIC INSUFFICIENCY. AC MET ENCEPHALOPATHY. ST IV COLON CA W/METASTASIS 98.6 109 19 142/70 96% ON RA WBC 22.3 H/H 8.8/26.8 CL 109 BUN 22 CA 8.3 IS;DUO NEB HHN Q4 HRT ASA PO QD ERTAPENEM IV Q24 HRS PROTONIX PO Q12 HRS HEPARIN SUBQ Q12 HRS MED SURG STATUS PLAN;SNF VS HOME DCP;FROM HOME
--- NOTE | 2019-04-09 19:30 | NUR ---
NURSE NOTES: Patient awake in bed, confused but per daughter pt is doing better than the past days. Not in acute respiratory distress. Bed in lowest, lock engaged and alarm on. Will continue to monitor.
--- NOTE | 2019-04-09 19:47 | Internal Med Progress Note ---
Subjective Date of Service: Apr 09, 2019 Physician Name Nathan Lazo Attending Physician Doroteo Alberto MD Current Medications Medications (Trade) Dose Ordered Sig/Anamaria Route PRN Reason Start Time Stop Time Status Last Admin Dose Admin Acetaminophen (Tylenol) 650 mg Q4H PRN ORAL fever 03/29/19 23:45 04/28/19 23:44 Albuterol/ Ipratropium (Albuterol/ Ipratropium) 3 ml Q4H PRN HHN sob 04/08/19 10:45 04/13/19 10:44 Amlodipine Besylate (Norvasc) 2.5 mg BID ORAL 04/07/19 18:00 05/02/19 08:59 04/09/19 18:49 Aspirin (ASA) 81 mg DAILY ORAL 04/08/19 09:00 05/02/19 08:59 04/09/19 09:10 Atorvastatin Calcium (Lipitor) 80 mg BEDTIME ORAL 04/01/19 21:00 05/01/19 20:59 04/08/19 21:22 Dextrose (Dextrose 50%) 25 ml Q30M PRN IV Hypoglycemia 03/29/19 23:45 04/28/19 23:44 Dextrose (Dextrose 50%) 50 ml Q30M PRN IV Hypoglycemia 03/29/19 23:45 04/28/19 23:44 Diphenhydramine HCl (Benadryl) 25 mg Q6H PRN ORAL Itching/Pruritis 03/29/19 23:45 04/28/19 23:44 Ertapenem 1 gm/ Sodium Chloride 55 ml @ 110 mls/hr Q24H IVPB 04/08/19 09:00 04/13/19 08:59 04/09/19 09:10 Folic Acid (Folate) 1 mg DAILY ORAL 04/01/19 11:15 05/01/19 11:14 04/09/19 09:10 Heparin Sodium (Porcine) (Heparin 5000 units/ml) 5,000 units EVERY 12 HOURS SUBQ 03/30/19 09:00 04/29/19 08:59 04/09/19 09:12 Nitroglycerin (Ntg) 0.4 mg Q5M X 3 DOSES PRN SL Prn Chest Pain 03/29/19 23:45 04/28/19 23:44 Ondansetron HCl (Zofran) 4 mg Q6H PRN IVP Nausea & Vomiting 03/29/19 23:45 04/28/19 23:44 Pantoprazole (Protonix) 40 mg EVERY 12 HOURS ORAL 04/02/19 21:00 05/02/19 20:59 04/09/19 09:10 Polyethylene Glycol (Miralax) 17 gm HSPRN PRN ORAL Constipation 03/29/19 23:45 04/28/19 23:44 Allergies: Coded Allergies: No Known Allergies (Unverified , 03/29/19) ROS Limited/Unobtainable: Yes Subjective 83 YO M admitted with gen weakness and altered mental status. Now UTI and sepsis. Cover for Int Med-Dr Alberto. Continues with leukocytosis Objective Last Vital Signs Date Time Temp Pulse Resp B/P (MAP) Pulse Ox O2 Delivery O2 Flow Rate FiO2 04/09/19 18:49 95 130/66 04/09/19 16:00 98.9 20 99 04/09/19 11:54 Room Air 04/09/19 10:49 21 Laboratory Tests Test 04/09/19 05:35 White Blood Count 22.3 K/UL (4.8-10.8) *H Red Blood Count 3.15 M/UL (4.70-6.10) L Hemoglobin 8.8 G/DL (14.2-18.0) L Hematocrit 26.8 % (42.0-52.0) L Mean Corpuscular Volume 85 FL (80-99) Mean Corpuscular Hemoglobin 27.9 PG (27.0-31.0) Mean Corpuscular Hemoglobin Concent 32.8 G/DL (32.0-36.0) Red Cell Distribution Width 14.6 % (11.6-14.8) Platelet Count 487 K/UL (150-450) H Mean Platelet Volume 6.8 FL (6.5-10.1) Neutrophils (%) (Auto) % (45.0-75.0) Lymphocytes (%) (Auto) % (20.0-45.0) Monocytes (%) (Auto) % (1.0-10.0) Eosinophils (%) (Auto) % (0.0-3.0) Basophils (%) (Auto) % (0.0-2.0) Differential Total Cells Counted 100 Neutrophils % (Manual) 93 % (45-75) H Lymphocytes % (Manual) 5 % (20-45) L Monocytes % (Manual) 2 % (1-10) Eosinophils % (Manual) 0 % (0-3) Basophils % (Manual) 0 % (0-2) Band Neutrophils 0 % (0-8) Platelet Estimate Adequate Platelet Morphology Normal Hypochromasia 2+ Anisocytosis 1+ Sodium Level 145 MMOL/L (136-145) Potassium Level 3.8 MMOL/L (3.5-5.1) Chloride Level 109 MMOL/L (98-107) H Carbon Dioxide Level 23 MMOL/L (21-32) Anion Gap 13 mmol/L (5-15) Blood Urea Nitrogen 22 mg/dL (7-18) H Creatinine 1.2 MG/DL (0.55-1.30) Estimat Glomerular Filtration Rate 57.7 mL/min (>60) Glucose Level 92 MG/DL (74-106) Calcium Level 8.3 MG/DL (8.5-10.1) L Intake and Output 04/08/19 04/09/19 19:00 07:00 Intake Total 295 ml 100 ml Output Total 300 ml 470 ml Balance -5 ml -370 ml Intake Oral 240 ml 100 ml IV Total 55 ml Output Urine Total 300 ml 20 ml Other 450 ml Objective PHYSICAL EXAMINATION: GENERAL: The patient is awake and responsive, but very chronically ill and cachectic. HEAD AND NECK: Pupils are equal and reactive to light. Extraocular movements intact. Neck was supple. No JVD. LUNGS: Good air entry. No wheezing or rales. Decreased air in bases. HEART: S1 and S2. Regular rhythm. No murmur or gallop. ABDOMEN: Soft, nondistended, and nontender. GENITOURINARY: Suprapubic catheter was noted. No sign of infection or drainage. Colostomy bag in the left side of abdomen was noted without any stool. No leakage or discharge. The patient has a suprapubic catheter in pelvic area with the right nephrostomy tube with cloudy urine. EXTREMITIES: No cyanosis, clubbing, or edema. Muscle atrophy was noted. RECTAL: Refused and deferred. PSYCHIATRIC: Mood and affect is intact. Assessment/Plan Assessment/Plan ASSESSMENT.: 1. Sepsis = Group B Strep 2. urinary tract infection=ESBL E. Coli 3. Severe dehydration. 3. Anemia of chronic disease. 4. Acute kidney injury, chronic insufficiency. 5. 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 6. Severe protein-calorie malnutrition. 7. Acute metabolic encephalopathy due to the sepsis, infection, and dehydration. 8. leukocytosis PLAN: 1. Admit the patient to medical floor. 2. antibiotic =Ertapenem. 3. Code status is Full Code. 4. Dr. Dawson = Infectious Disease 5. Dr. Parr = General surgery. 6. DVT prophylaxis with heparin subcutaneous. 7. Urology=Dr Dukes 8. ID=Nathan Gray MD Apr 09, 2019 19:47
--- NOTE | 2019-04-09 19:48 | NUR ---
HAND-OFF: Report given to Arjun ELENA.
[2019-04-09] MEDS: Atorvastatin 80mg tab ORAL SCH (22:08)
[2019-04-10 04:00] VITALS: BP 126/72
--- NOTE | 2019-04-10 07:01 | NUR ---
HAND-OFF: Report given to ULICES Andres.
--- NOTE | 2019-04-10 07:02 | NUR ---
NURSE NOTES: Report received from Arjun ELENA. Patient is awake and alert x 1. Patient is Frisian speaking. Patient noted to have right nephrostomy draining yellow urine. Suprapubic catheter noted as well with minimal drainage. Left colostomy noted, in tact with pink stoma. Was endorsed that patient has little bowel output. 24 scott IV noted in left hand, patent and intact. Bed locked, in lowest position, and alarm on. Patient is not impulsive but still risk of fall due to confusion. Will continue to follow plan of care.
[2019-04-10 08:00] VITALS: BP 122/80
--- NOTE | 2019-04-10 09:15 | Urology Progress Note ---
Assessment/Plan Assessment/Plan: hydro hx, right PCN JOSE MANUEL, improved UTI/colonzied hematuria proteinuria urinary retention/SPT renal cyst renal mass monitor clinically maintain SPT, last exchanged 04/06 hand irrigate PRN minimal urine output through SPT I suspect urine is refluxing through ureteral stent and coming out from right PCN maintain right PCN hand irrigate PRN abx as ordered monitor renal fxn, improved obtain outside records flomax dc'd f/u on last blood cx Subjective Allergies: Coded Allergies: No Known Allergies (Unverified , 03/29/19) Subjective confused, comfortable still with low output through SPT more urine output from right PCN d/w pt daughter who states SPT never put out much urine Objective Last 24 Hour Vital Signs Date Time Temp Pulse Resp B/P (MAP) Pulse Ox O2 Delivery O2 Flow Rate FiO2 04/10/19 04:00 97.6 110 21 126/72 (90) 96 04/09/19 23:47 97.9 114 22 128/69 (88) 97 04/09/19 21:00 Room Air 04/09/19 20:36 89 18 96 Room Air 21 04/09/19 20:00 97.7 111 20 123/75 (91) 96 04/09/19 18:49 95 130/66 04/09/19 16:00 98.9 95 20 130/66 (87) 99 04/09/19 12:00 98.6 90 19 142/70 (94) 98 04/09/19 11:54 Room Air 04/09/19 10:49 82 18 96 Room Air 21 Intake and Output 04/09/19 04/10/19 19:00 07:00 Intake Total 240 ml Output Total 1150 ml Balance -910 ml Intake Oral 240 ml Output Urine Total 1150 ml # Voids 2 # Bowel Movements 1 Microbiology Date/Time Source Procedure Growth Status 04/07/19 11:55 Blood Blood Culture - Preliminary NO GROWTH AFTER 48 HOURS Resulted 04/04/19 16:10 Urine,Clean Catch Urine Culture - Final NO GROWTH AFTER 48 HOURS Complete Current Medications Medications (Trade) Dose Ordered Sig/Anamaria Route PRN Reason Start Time Stop Time Status Last Admin Dose Admin Acetaminophen (Tylenol) 650 mg Q4H PRN ORAL fever 03/29/19 23:45 04/28/19 23:44 Albuterol/ Ipratropium (Albuterol/ Ipratropium) 3 ml Q4H PRN HHN sob 04/08/19 10:45 04/13/19 10:44 Amlodipine Besylate (Norvasc) 2.5 mg BID ORAL 04/07/19 18:00 05/02/19 08:59 04/09/19 18:49 Aspirin (ASA) 81 mg DAILY ORAL 04/08/19 09:00 05/02/19 08:59 04/09/19 09:10 Atorvastatin Calcium (Lipitor) 80 mg BEDTIME ORAL 04/01/19 21:00 05/01/19 20:59 04/09/19 22:08 Dextrose (Dextrose 50%) 25 ml Q30M PRN IV Hypoglycemia 03/29/19 23:45 04/28/19 23:44 Dextrose (Dextrose 50%) 50 ml Q30M PRN IV Hypoglycemia 03/29/19 23:45 04/28/19 23:44 Diphenhydramine HCl (Benadryl) 25 mg Q6H PRN ORAL Itching/Pruritis 03/29/19 23:45 04/28/19 23:44 Ertapenem 1 gm/ Sodium Chloride 55 ml @ 110 mls/hr Q24H IVPB 04/08/19 09:00 04/13/19 08:59 04/09/19 09:10 Folic Acid (Folate) 1 mg DAILY ORAL 04/01/19 11:15 05/01/19 11:14 04/09/19 09:10 Heparin Sodium (Porcine) (Heparin 5000 units/ml) 5,000 units EVERY 12 HOURS SUBQ 03/30/19 09:00 04/29/19 08:59 04/09/19 22:17 Nitroglycerin (Ntg) 0.4 mg Q5M X 3 DOSES PRN SL Prn Chest Pain 03/29/19 23:45 04/28/19 23:44 Ondansetron HCl (Zofran) 4 mg Q6H PRN IVP Nausea & Vomiting 03/29/19 23:45 04/28/19 23:44 Pantoprazole (Protonix) 40 mg EVERY 12 HOURS ORAL 04/02/19 21:00 05/02/19 20:59 04/09/19 22:08 Polyethylene Glycol (Miralax) 17 gm HSPRN PRN ORAL Constipation 03/29/19 23:45 04/28/19 23:44 Height (Feet): 5 Height (Inches): 1.00 Weight (Pounds): 114 Objective right PCN in place SPT in place urine yellow/davis renal and abdominal u/s noted Shantanu Dukes MD Apr 10, 2019 09:15
[2019-04-10] MEDS: Ertapenem 1 GM in NS 55 ML IVPB SCH (09:45)
[2019-04-10] MEDS: Aspirin Baby 81mg ORAL SCH (09:45)
[2019-04-10] MEDS: Heparin 5000 units/ml inj SUBQ SCH ×2 (09:47→22:17)
--- NOTE | 2019-04-10 10:00 | Surgery Progress Note ---
Surgery Progress Note Subjective Additional Comments ill appearing Objective Last 24 Hour Vital Signs Date Time Temp Pulse Resp B/P (MAP) Pulse Ox O2 Delivery O2 Flow Rate FiO2 04/10/19 09:46 101 122/80 04/10/19 07:00 111 18 93 Room Air 21 04/10/19 04:00 97.6 110 21 126/72 (90) 96 04/09/19 23:47 97.9 114 22 128/69 (88) 97 04/09/19 21:00 Room Air 04/09/19 20:36 89 18 96 Room Air 21 04/09/19 20:00 97.7 111 20 123/75 (91) 96 04/09/19 18:49 95 130/66 04/09/19 16:00 98.9 95 20 130/66 (87) 99 04/09/19 12:00 98.6 90 19 142/70 (94) 98 04/09/19 11:54 Room Air 04/09/19 10:49 82 18 96 Room Air 21 I&O Intake and Output 04/09/19 04/10/19 19:00 07:00 Intake Total 240 ml Output Total 1150 ml Balance -910 ml Intake Oral 240 ml Output Urine Total 1150 ml # Voids 2 # Bowel Movements 1 Dressing: other Wound: other Drains: other Cardiovascular: RSR Respiratory: decreased breath sounds Abdomen: soft, decreased bowel sounds Extremities: no tenderness, no cyanosis Plan Problems: (1) Sepsis Assessment & Plan: 83-year-old male with history of stage IV colon cancer status post left colostomy left nephrostomy tube placement superior catheter placement presented with leukocytosis, abnormal labs, abnormal LFTs, pain. On evaluation sepsis likely secondary to patient's UTI. Currently on antibiotics as per infectious disease. Abdominal examination and complete examination performed and as above. No acute surgical intervention indicated or recommended. Trend labs IV fluids Okay for diet from surgical standpoint Thank you will follow with recommendations I had a long discussion with the patient's daughter. She expressed understanding of his current condition and overall condition. She understands quality of life and CODE STATUS changed to DNR/DNI. Comfort care measures. No acute surgical intervention planned. worsening lft's US Findings: Exam is somewhat limited, due to patient inability to suspend respiration. Gallbladder demonstrates gallstones. Gallbladder wall is mildly thickened, measuring 4 mm in thickness. Common bile duct measures 4 mm in diameter. No intrahepatic biliary ductal dilatation. Liver demonstrates normal echogenicity, no focal abnormality. Note that portions are well visualized, however. Portal vein and hepatic veins are patent. Pancreas is unremarkable. Spleen is unremarkable. Left kidney measures 12 cm in length. Right kidney measures 11.3 cm length. Both kidneys demonstrate slightly increased echogenicity. Right kidney demonstrates mild hydronephrosis. Note that recent plain radiograph demonstrates a nephrostomy and a stent; these are not clearly evident on this study. The left kidney demonstrates lobulated contour and somewhat heterogeneous echotexture, possibly discrete echogenic lesions which are better demonstrated on recent renal sonogram.. . Non- aneurysmal abdominal aorta . Impression: Somewhat limited exam, as described Echogenic right kidney with mild hydronephrosis despite presence of a nephrostomy and stent Markedly abnormal left kidney, also described on recent renal sonogram and possibly demonstrating multiple masses Cholelithiasis. Mild gallbladder wall thickening, could indicate acute cholecystitis. Correlate with clinical findings, consider hepatobiliary nuclear scan if clinically indicated spoke with daughter goals of care for comfort no plans for intervention hold on further imaging or testing (2) Suprapubic catheter dysfunction Assessment & Plan: There is mild right hydronephrosis despite presence of a nephrostomy catheter which appears to be in good position. There is a small right renal cyst demonstrated measuring approximately 1 cm x 1.2 cm. The left kidney is abnormal. There is suggestion of multiple heterogeneous masses slightly echogenic in appearance within the left kidney. For example in the lower pole there is a 4 x 5 cm lesion. In the midpole there is a 3.7 x 3.6 cm lesion. In the upper pole there is a 4.5 cm lesion. Suggest correlation with contrast-enhanced CT.. The right kidney measures 10 cm. in length. The left kidney measures 12.2 cm. in length. The IVC is patent. Urinary bladder is unremarkable. Suprapubic catheter noted. Left lower quadrant colostomy noted. IMPRESSION: Abnormal appearance of the left kidney with suggestion of multiple lobular masses. Further evaluation with contrast-enhanced CT is recommended. Trace right hydronephrosis. Nephrostomy noted in place. Suprapubic catheter Igor Parr Apr 10, 2019 10:00
--- NOTE | 2019-04-10 10:45 | NUR ---
*-*DISCHARGE PLANNING*-* PATIENT HAS BEEN REFERRED TO: [facility] P: [phone] F: [phone] *-* CLINICALS FAXED*-* Addendum: 04/10/19 at 1216 by CHUCKIE CLINTON LVN LVN PER [facility], CONFIRMATION OF FLU VACC FOR CURRENT YEAR REQUIRED PRIOR TO ACCEPTANCE. PER PATIENTS DAUGHTER TOBISA, PATIENT RECEIVED FLU VACCINE AT [facility] AT [address] [place] [address] PLACED CALL TO [facility] @ . PER STACIA AT [facility], CONFIRMED FLU VACCINE ADMINISTERED TO PATIENT ON 12/13/2018. WILL FAX CONFIRMATION TO [facility] [phone] AND [facility] [phone] Addendum: 04/11/19 at 1205 by CHUCKIE CLINTON LVN LVN LATE ENTRY SPOKE WITH NIRMAL AT [facility]. CONFIRMED RECEIPT OF ALL REQUIRED DOCUMENTS INCLUDING CONFIRMATION OF FLU VACCINE. PER NIRMAL, PATIENT ACCEPTED AND BED # WILL BE PROVIDED PENDING DISCHARGE.
[2019-04-10 12:00] VITALS: BP 130/79
--- NOTE | 2019-04-10 13:53 | Pulmonology Progress Note ---
Assessment/Plan Problems: (1) Bacteremia (2) Sepsis (3) Acute metabolic encephalopathy (4) Nephrostomy status (5) CKD (chronic kidney disease) (6) Suprapubic catheter dysfunction (7) Colon cancer metastasized to multiple sites Assessment/Plan wbc still high improving iv abx, on Ertapenem for ESBL in urine and bacteremia check cultures, last BC are negative symptomatic treatment check electrolytes pt is a good candidate for palliative care Pt's daughter changed her mind and doesn't want to have comfort care and hospice. Subjective ROS Limited/Unobtainable: No Constitutional: Reports: no symptoms HEENT: Repors: no symptoms Allergies: Coded Allergies: No Known Allergies (Unverified , 03/29/19) Objective Last 24 Hour Vital Signs Date Time Temp Pulse Resp B/P (MAP) Pulse Ox O2 Delivery O2 Flow Rate FiO2 04/10/19 12:00 97.5 105 19 130/79 (96) 98 04/10/19 09:46 101 122/80 04/10/19 09:00 Room Air 04/10/19 08:00 97.5 101 20 122/80 (94) 97 04/10/19 07:00 111 18 93 Room Air 21 04/10/19 04:00 97.6 110 21 126/72 (90) 96 04/09/19 23:47 97.9 114 22 128/69 (88) 97 04/09/19 21:00 Room Air 04/09/19 20:36 89 18 96 Room Air 21 04/09/19 20:00 97.7 111 20 123/75 (91) 96 04/09/19 18:49 95 130/66 04/09/19 16:00 98.9 95 20 130/66 (87) 99 Intake and Output 04/09/19 04/10/19 19:00 07:00 Intake Total 240 ml Output Total 1150 ml Balance -910 ml Intake Oral 240 ml Output Urine Total 1150 ml # Voids 2 # Bowel Movements 1 General Appearance: cachetic HEENT: normocephalic, atraumatic Respiratory/Chest: chest wall non-tender Cardiovascular: normal peripheral pulses, normal rate Abdomen: soft, non tender, no organomegaly Genitourinary: normal external genitalia Extremities: no clubbing Skin: no lesions Current Medications Medications (Trade) Dose Ordered Sig/Anamaria Route PRN Reason Start Time Stop Time Status Last Admin Dose Admin Acetaminophen (Tylenol) 650 mg Q4H PRN ORAL fever 03/29/19 23:45 04/28/19 23:44 Albuterol/ Ipratropium (Albuterol/ Ipratropium) 3 ml Q4H PRN HHN sob 04/08/19 10:45 04/13/19 10:44 Amlodipine Besylate (Norvasc) 2.5 mg BID ORAL 04/07/19 18:00 05/02/19 08:59 04/10/19 09:46 Aspirin (ASA) 81 mg DAILY ORAL 04/08/19 09:00 05/02/19 08:59 04/10/19 09:45 Atorvastatin Calcium (Lipitor) 80 mg BEDTIME ORAL 04/01/19 21:00 05/01/19 20:59 04/09/19 22:08 Dextrose (Dextrose 50%) 25 ml Q30M PRN IV Hypoglycemia 03/29/19 23:45 04/28/19 23:44 Dextrose (Dextrose 50%) 50 ml Q30M PRN IV Hypoglycemia 03/29/19 23:45 04/28/19 23:44 Diphenhydramine HCl (Benadryl) 25 mg Q6H PRN ORAL Itching/Pruritis 03/29/19 23:45 04/28/19 23:44 Ertapenem 1 gm/ Sodium Chloride 55 ml @ 110 mls/hr Q24H IVPB 04/08/19 09:00 04/13/19 08:59 04/10/19 09:45 Folic Acid (Folate) 1 mg DAILY ORAL 04/01/19 11:15 05/01/19 11:14 04/10/19 09:45 Heparin Sodium (Porcine) (Heparin 5000 units/ml) 5,000 units EVERY 12 HOURS SUBQ 03/30/19 09:00 04/29/19 08:59 04/10/19 09:47 Nitroglycerin (Ntg) 0.4 mg Q5M X 3 DOSES PRN SL Prn Chest Pain 03/29/19 23:45 04/28/19 23:44 Ondansetron HCl (Zofran) 4 mg Q6H PRN IVP Nausea & Vomiting 03/29/19 23:45 04/28/19 23:44 Pantoprazole (Protonix) 40 mg EVERY 12 HOURS ORAL 04/02/19 21:00 05/02/19 20:59 04/10/19 09:46 Polyethylene Glycol (Miralax) 17 gm HSPRN PRN ORAL Constipation 03/29/19 23:45 04/28/19 23:44 Nancy Bowser MD Apr 10, 2019 13:53
--- NOTE | 2019-04-10 14:23 | Nephrology Progress Note ---
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 She is not ready for hospice at this time however wants her father to go to a intermediate and consider hospice at the later time. She will be discussing it with rn social work and case management. Subjective ROS Limited/Unobtainable: No Constitutional: Reports: malaise, weakness Objective Objective Last 24 Hour Vital Signs Date Time Temp Pulse Resp B/P (MAP) Pulse Ox O2 Delivery O2 Flow Rate FiO2 04/10/19 12:00 97.5 105 19 130/79 (96) 98 04/10/19 09:46 101 122/80 04/10/19 09:00 Room Air 04/10/19 08:00 97.5 101 20 122/80 (94) 97 04/10/19 07:00 111 18 93 Room Air 21 04/10/19 04:00 97.6 110 21 126/72 (90) 96 04/09/19 23:47 97.9 114 22 128/69 (88) 97 04/09/19 21:00 Room Air 04/09/19 20:36 89 18 96 Room Air 21 04/09/19 20:00 97.7 111 20 123/75 (91) 96 04/09/19 18:49 95 130/66 04/09/19 16:00 98.9 95 20 130/66 (87) 99 Intake and Output 04/09/19 04/10/19 19:00 07:00 Intake Total 240 ml Output Total 1150 ml Balance -910 ml Intake Oral 240 ml Output Urine Total 1150 ml # Voids 2 # Bowel Movements 1 Height (Feet): 5 Height (Inches): 1.00 Weight (Pounds): 114 General Appearance: no apparent distress Cardiovascular: tachycardia Respiratory/Chest: decreased breath sounds Abdomen: soft Objective no change Tomas Beck MD Apr 10, 2019 14:23
--- NOTE | 2019-04-10 14:25 | NUR ---
NURSE NOTES: Kenna from case management contacted Dmitry ELENA. Patient can be possibly discharged. Kenna requested clarification on isolation. Dmitry ELENA paged Doctor Eunice. Waiting call back.
--- NOTE | 2019-04-10 15:37 | NUR ---
NURSE NOTES: Contacted Doctor Bhanu. Patient has one more day of antibiotics. Patient needs to finish antibiotics before ESBL in urine can be considered colonized. Charge nurse Giovanni made aware. Kenna from case management made aware.
[2019-04-10 16:00] VITALS: BP 128/82
--- NOTE | 2019-04-10 16:53 | Infectious Diseases Prog Note ---
Assessment/Plan Assessment/Plan Assessment: GBS bacteremia- likely intraabdominal source given malignancy- r/o endocarditis -03/30 2d Echo: no vegetations -03/29 Bcx 2/4 GBS; 04/01 Bcx 2/ GBS; 04/02 Bcx NTD UTI -04/04 u/a wbc 40-60, n it neg, leuk +3; ucx NTD -03/30 u/a wbc tntc, nit neg, leuk +3; ucx >100k ESBl E coli Afebrile leukocytosis,persitent ( m/l 2nd to mets , also can not r/o abscess due to family refusing CT) -Abd US:Somewhat limited exam, as described. Echogenic right kidney with mild hydronephrosis despite presence of a nephrostomy and stent. Markedly abnormal left kidney, also described on recent renal sonogram and possibly demonstrating multiple masses. Cholelithiasis. Mild gallbladder wall thickening, could indicate acute cholecystitis. Correlate with clinical findings, consider hepatobiliary nuclear scan if clinically indicated -CXR: no acute disease Stage IV colon CA with mets to Kidney and bladder s/p resection and colostomy s/p suprapubic catheter s/p nephrostomy catheter Plan: Ertapenem # for ESBL UTI and GBS bacteremia 04/02 SP IV vancomycin #2 03/31 SP Zosyn #2 03/29 SP CEfepime x1 -f/u cx -Monitor CBC/CMP, temperatures -NT and SPC care -aspiration precautions -f/u repeat BCx x2 - CT C/abd/p w/ to eval for abscess- refused by family Thank you for this consultation. Will continue to follow along with you. Subjective Allergies: Coded Allergies: No Known Allergies (Unverified , 03/29/19) Subjective no acute event DC planning as RN Objective Vital Signs Last 24 Hour Vital Signs Date Time Temp Pulse Resp B/P (MAP) Pulse Ox O2 Delivery O2 Flow Rate FiO2 04/10/19 16:00 97.4 95 20 128/82 (97) 98 04/10/19 12:00 97.5 105 19 130/79 (96) 98 04/10/19 09:46 101 122/80 04/10/19 09:00 Room Air 04/10/19 08:00 97.5 101 20 122/80 (94) 97 04/10/19 07:00 111 18 93 Room Air 21 04/10/19 04:00 97.6 110 21 126/72 (90) 96 04/09/19 23:47 97.9 114 22 128/69 (88) 97 04/09/19 21:00 Room Air 04/09/19 20:36 89 18 96 Room Air 21 04/09/19 20:00 97.7 111 20 123/75 (91) 96 04/09/19 18:49 95 130/66 Height (Feet): 5 Height (Inches): 1.00 Weight (Pounds): 114 HEENT: mucous membranes moist Respiratory/Chest: normal breath sounds Cardiovascular: normal rate Abdomen: no organomegaly Current Medications Medications (Trade) Dose Ordered Sig/Anamaria Route PRN Reason Start Time Stop Time Status Last Admin Dose Admin Acetaminophen (Tylenol) 650 mg Q4H PRN ORAL fever 03/29/19 23:45 04/28/19 23:44 Albuterol/ Ipratropium (Albuterol/ Ipratropium) 3 ml Q4H PRN HHN sob 04/08/19 10:45 04/13/19 10:44 Amlodipine Besylate (Norvasc) 2.5 mg BID ORAL 04/07/19 18:00 05/02/19 08:59 04/10/19 09:46 Aspirin (ASA) 81 mg DAILY ORAL 04/08/19 09:00 05/02/19 08:59 04/10/19 09:45 Atorvastatin Calcium (Lipitor) 80 mg BEDTIME ORAL 04/01/19 21:00 05/01/19 20:59 04/09/19 22:08 Dextrose (Dextrose 50%) 25 ml Q30M PRN IV Hypoglycemia 03/29/19 23:45 04/28/19 23:44 Dextrose (Dextrose 50%) 50 ml Q30M PRN IV Hypoglycemia 03/29/19 23:45 04/28/19 23:44 Diphenhydramine HCl (Benadryl) 25 mg Q6H PRN ORAL Itching/Pruritis 03/29/19 23:45 04/28/19 23:44 Ertapenem 1 gm/ Sodium Chloride 55 ml @ 110 mls/hr Q24H IVPB 04/08/19 09:00 04/13/19 08:59 04/10/19 09:45 Folic Acid (Folate) 1 mg DAILY ORAL 04/01/19 11:15 05/01/19 11:14 04/10/19 09:45 Heparin Sodium (Porcine) (Heparin 5000 units/ml) 5,000 units EVERY 12 HOURS SUBQ 03/30/19 09:00 04/29/19 08:59 04/10/19 09:47 Nitroglycerin (Ntg) 0.4 mg Q5M X 3 DOSES PRN SL Prn Chest Pain 03/29/19 23:45 04/28/19 23:44 Ondansetron HCl (Zofran) 4 mg Q6H PRN IVP Nausea & Vomiting 03/29/19 23:45 04/28/19 23:44 Pantoprazole (Protonix) 40 mg EVERY 12 HOURS ORAL 04/02/19 21:00 05/02/19 20:59 04/10/19 09:46 Polyethylene Glycol (Miralax) 17 gm HSPRN PRN ORAL Constipation 03/29/19 23:45 04/28/19 23:44 Tre Drummond MD Apr 10, 2019 16:53
--- NOTE | 2019-04-10 17:36 | Internal Med Progress Note ---
Subjective Date of Service: Apr 10, 2019 Physician Name Nathan Lazo Attending Physician Doroteo Alberto MD Current Medications Medications (Trade) Dose Ordered Sig/Anamaria Route PRN Reason Start Time Stop Time Status Last Admin Dose Admin Acetaminophen (Tylenol) 650 mg Q4H PRN ORAL fever 03/29/19 23:45 04/28/19 23:44 Albuterol/ Ipratropium (Albuterol/ Ipratropium) 3 ml Q4H PRN HHN sob 04/08/19 10:45 04/13/19 10:44 Amlodipine Besylate (Norvasc) 2.5 mg BID ORAL 04/07/19 18:00 05/02/19 08:59 04/10/19 09:46 Aspirin (ASA) 81 mg DAILY ORAL 04/08/19 09:00 05/02/19 08:59 04/10/19 09:45 Atorvastatin Calcium (Lipitor) 80 mg BEDTIME ORAL 04/01/19 21:00 05/01/19 20:59 04/09/19 22:08 Dextrose (Dextrose 50%) 25 ml Q30M PRN IV Hypoglycemia 03/29/19 23:45 04/28/19 23:44 Dextrose (Dextrose 50%) 50 ml Q30M PRN IV Hypoglycemia 03/29/19 23:45 04/28/19 23:44 Diphenhydramine HCl (Benadryl) 25 mg Q6H PRN ORAL Itching/Pruritis 03/29/19 23:45 04/28/19 23:44 Ertapenem 1 gm/ Sodium Chloride 55 ml @ 110 mls/hr Q24H IVPB 04/08/19 09:00 04/13/19 08:59 04/10/19 09:45 Folic Acid (Folate) 1 mg DAILY ORAL 04/01/19 11:15 05/01/19 11:14 04/10/19 09:45 Heparin Sodium (Porcine) (Heparin 5000 units/ml) 5,000 units EVERY 12 HOURS SUBQ 03/30/19 09:00 04/29/19 08:59 04/10/19 09:47 Nitroglycerin (Ntg) 0.4 mg Q5M X 3 DOSES PRN SL Prn Chest Pain 03/29/19 23:45 04/28/19 23:44 Ondansetron HCl (Zofran) 4 mg Q6H PRN IVP Nausea & Vomiting 03/29/19 23:45 04/28/19 23:44 Pantoprazole (Protonix) 40 mg EVERY 12 HOURS ORAL 04/02/19 21:00 05/02/19 20:59 04/10/19 09:46 Polyethylene Glycol (Miralax) 17 gm HSPRN PRN ORAL Constipation 03/29/19 23:45 04/28/19 23:44 Allergies: Coded Allergies: No Known Allergies (Unverified , 03/29/19) ROS Limited/Unobtainable: Yes Subjective 83 YO M admitted with gen weakness and altered mental status. Now UTI and sepsis. Cover for Int Med-Dr Alberto. Continues with leukocytosis Objective Last Vital Signs Date Time Temp Pulse Resp B/P (MAP) Pulse Ox O2 Delivery O2 Flow Rate FiO2 04/10/19 16:00 97.4 95 20 128/82 (97) 98 04/10/19 09:00 Room Air 04/10/19 07:00 21 Intake and Output 04/09/19 04/10/19 19:00 07:00 Intake Total 240 ml Output Total 1150 ml Balance -910 ml Intake Oral 240 ml Output Urine Total 1150 ml # Voids 2 # Bowel Movements 1 Objective PHYSICAL EXAMINATION: GENERAL: The patient is awake and responsive, but very chronically ill and cachectic. HEAD AND NECK: Pupils are equal and reactive to light. Extraocular movements intact. Neck was supple. No JVD. LUNGS: Good air entry. No wheezing or rales. Decreased air in bases. HEART: S1 and S2. Regular rhythm. No murmur or gallop. ABDOMEN: Soft, nondistended, and nontender. GENITOURINARY: Suprapubic catheter was noted. No sign of infection or drainage. Colostomy bag in the left side of abdomen was noted without any stool. No leakage or discharge. The patient has a suprapubic catheter in pelvic area with the right nephrostomy tube with cloudy urine. EXTREMITIES: No cyanosis, clubbing, or edema. Muscle atrophy was noted. RECTAL: Refused and deferred. PSYCHIATRIC: Mood and affect is intact. Assessment/Plan Assessment/Plan ASSESSMENT.: 1. Sepsis = Group B Strep 2. urinary tract infection=ESBL E. Coli 3. Severe dehydration. 3. Anemia of chronic disease. 4. Acute kidney injury, chronic insufficiency. 5. 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 6. Severe protein-calorie malnutrition. 7. Acute metabolic encephalopathy due to the sepsis, infection, and dehydration. 8. leukocytosis PLAN: 1. Admit the patient to medical floor. 2. antibiotic =Ertapenem. 3. Code status is Full Code. 4. Dr. Dawson = Infectious Disease 5. Dr. Parr = General surgery. 6. DVT prophylaxis with heparin subcutaneous. 7. Urology=Dr Dukes 8. ID=Nathan Gray MD Apr 10, 2019 17:36
--- NOTE | 2019-04-10 19:17 | NUR ---
HAND-OFF: Report given to Arjun ELENA. Patient in stable condition.
--- NOTE | 2019-04-10 19:30 | NUR ---
NURSE NOTES: Patient in bed with daughter at bedside. Colostomy bag in place. Suprapubic intact and draining some fluid. Nephrostomy tube intact. Will continue to monitor.
[2019-04-10 20:00] VITALS: BP 125/66
[2019-04-10] MEDS: Atorvastatin 80mg tab ORAL SCH (22:11)
[2019-04-11] VITALS: BP 129/67
[2019-04-11 04:00] VITALS: BP_SYST 106; BP_SYST 129; BP_DIAS 56; BP_DIAS 67
[2019-04-11 06:54] LABS: HEMATOCRIT 27.3 % (42.0-52.0); HEMOGLOBIN 8.8 G/DL (14.2-18.0); MEAN CORPUSCULAR VOLUME 85 FL (80-99); PLATELET COUNT 535 K/UL (150-450); RED BLOOD COUNT 3.21 M/UL (4.70-6.10)
[2019-04-11 06:55] LABS: ALANINE AMINOTRANSFERASE 23 U/L (12-78); ALBUMIN 1.8 G/DL (3.4-5.0); ALBUMIN/GLOBULIN RATIO 0.3 (1.0-2.7); ALKALINE PHOSPHATASE 212 U/L (46-116); ANION GAP 10 mmol/L (5-15); ASPARTATE AMINO TRANSFERASE 30 U/L (15-37); BILIRUBIN,TOTAL 0.5 MG/DL (0.2-1.0); BLOOD UREA NITROGEN 27 mg/dL (7-18); CALCIUM 8.2 MG/DL (8.5-10.1); CARBON DIOXIDE 27 MMOL/L (21-32); CHLORIDE 112 MMOL/L (98-107); CREATININE 1.2 MG/DL (0.55-1.30); PHOSPHORUS 2.6 MG/DL (2.5-4.9); POTASSIUM 3.9 MMOL/L (3.5-5.1); SODIUM 149 MMOL/L (136-145)
--- NOTE | 2019-04-11 07:06 | NUR ---
HAND-OFF: Report given to ULICES Andres.
--- NOTE | 2019-04-11 07:07 | NUR ---
NURSE NOTES: Report received from Arjun ELENA. Patient is awake and alert x 1. Patient is Maltese speaking. Patient noted to have right nephrostomy draining yellow urine. Suprapubic catheter noted as well with minimal drainage. Left colostomy noted, in tact with pink stoma. Was endorsed that patient has little bowel output. 24 scott IV noted in left hand, patent and intact. Bed locked, in lowest position, and alarm on. Patient is not impulsive but still risk of fall due to confusion. Will follow up about possible discharge today pending on infectious disease MD. Will continue to follow plan of care.
[2019-04-11 08:00] VITALS: BP 133/64
[2019-04-11] MEDS: Ertapenem 1 GM in NS 55 ML IVPB SCH (08:08)
[2019-04-11] MEDS: Aspirin Baby 81mg ORAL SCH (08:08)
[2019-04-11] MEDS: Heparin 5000 units/ml inj SUBQ SCH (08:10)
--- NOTE | 2019-04-11 11:13 | Infectious Diseases Prog Note ---
Assessment/Plan Assessment/Plan Assessment: GBS bacteremia- likely intraabdominal source given malignancy- r/o endocarditis -03/30 2d Echo: no vegetations -03/29 Bcx 2/4 GBS; 04/01 Bcx 2/ GBS; 04/02 Bcx NTD UTI -04/04 u/a wbc 40-60, n it neg, leuk +3; ucx NTD -03/30 u/a wbc tntc, nit neg, leuk +3; ucx >100k ESBl E coli Afebrile leukocytosis,persitent ( m/l 2nd to mets , also can not r/o abscess due to family refusing CT) -Abd US:Somewhat limited exam, as described. Echogenic right kidney with mild hydronephrosis despite presence of a nephrostomy and stent. Markedly abnormal left kidney, also described on recent renal sonogram and possibly demonstrating multiple masses. Cholelithiasis. Mild gallbladder wall thickening, could indicate acute cholecystitis. Correlate with clinical findings, consider hepatobiliary nuclear scan if clinically indicated -CXR: no acute disease Stage IV colon CA with mets to Kidney and bladder s/p resection and colostomy s/p suprapubic catheter s/p nephrostomy catheter Plan: Ertapenem # for ESBL UTI and GBS bacteremia , will DC AB Rx upon DC 04/02 SP IV vancomycin #2 03/31 SP Zosyn #2 03/29 SP CEfepime x1 -f/u cx -Monitor CBC/CMP, temperatures -NT and SPC care -aspiration precautions -f/u repeat BCx x2 - CT C/abd/p w/ to eval for abscess- refused by family Thank you for this consultation. Will continue to follow along with you. Subjective Allergies: Coded Allergies: No Known Allergies (Unverified , 03/29/19) Subjective WBC improving afebrile Probable DC today as per RN Objective Vital Signs Last 24 Hour Vital Signs Date Time Temp Pulse Resp B/P (MAP) Pulse Ox O2 Delivery O2 Flow Rate FiO2 04/11/19 09:00 Room Air 04/11/19 08:08 92 138/64 04/11/19 08:00 97.3 93 20 133/64 (87) 96 04/11/19 04:00 97.9 104 20 106/56 (73) 96 04/11/19 00:00 97.8 105 20 129/67 (87) 98 2/25/20 21:00 Room Air 04/10/19 20:00 97.3 95 20 125/66 (85) 96 04/10/19 19:49 98 18 94 Room Air 21 04/10/19 17:55 95 128/82 04/10/19 16:00 97.4 95 20 128/82 (97) 98 04/10/19 12:00 97.5 105 19 130/79 (96) 98 Height (Feet): 5 Height (Inches): 1.00 Weight (Pounds): 102 Respiratory/Chest: normal breath sounds Cardiovascular: regularly irregular Abdomen: no organomegaly Microbiology Date/Time Source Procedure Growth Status 04/09/19 16:22 Blood Blood Culture - Preliminary NO GROWTH AFTER 24 HOURS Resulted 04/09/19 16:15 Blood Blood Culture - Preliminary NO GROWTH AFTER 24 HOURS Resulted Laboratory Tests Test 04/11/19 05:50 White Blood Count 16.0 K/UL (4.8-10.8) H Red Blood Count 3.21 M/UL (4.70-6.10) L Hemoglobin 8.8 G/DL (14.2-18.0) L Hematocrit 27.3 % (42.0-52.0) L Mean Corpuscular Volume 85 FL (80-99) Mean Corpuscular Hemoglobin 27.5 PG (27.0-31.0) Mean Corpuscular Hemoglobin Concent 32.3 G/DL (32.0-36.0) Red Cell Distribution Width 15.0 % (11.6-14.8) H Platelet Count 535 K/UL (150-450) H Mean Platelet Volume 6.5 FL (6.5-10.1) Neutrophils (%) (Auto) % (45.0-75.0) Lymphocytes (%) (Auto) % (20.0-45.0) Monocytes (%) (Auto) % (1.0-10.0) Eosinophils (%) (Auto) % (0.0-3.0) Basophils (%) (Auto) % (0.0-2.0) Differential Total Cells Counted 100 Neutrophils % (Manual) 88 % (45-75) H Lymphocytes % (Manual) 8 % (20-45) L Monocytes % (Manual) 4 % (1-10) Eosinophils % (Manual) 0 % (0-3) Basophils % (Manual) 0 % (0-2) Band Neutrophils 0 % (0-8) Platelet Estimate Increased H Platelet Morphology Normal Anisocytosis 1+ Erythrocyte Sedimentation Rate 121 MM/HR (0-20) H Sodium Level 149 MMOL/L (136-145) H Potassium Level 3.9 MMOL/L (3.5-5.1) Chloride Level 112 MMOL/L (98-107) H Carbon Dioxide Level 27 MMOL/L (21-32) Anion Gap 10 mmol/L (5-15) Blood Urea Nitrogen 27 mg/dL (7-18) H Creatinine 1.2 MG/DL (0.55-1.30) Estimat Glomerular Filtration Rate 57.7 mL/min (>60) Glucose Level 106 MG/DL (74-106) Calcium Level 8.2 MG/DL (8.5-10.1) L Phosphorus Level 2.6 MG/DL (2.5-4.9) Magnesium Level 2.1 MG/DL (1.8-2.4) Total Bilirubin 0.5 MG/DL (0.2-1.0) Aspartate Amino Transf (AST/SGOT) 30 U/L (15-37) Alanine Aminotransferase (ALT/SGPT) 23 U/L (12-78) Alkaline Phosphatase 212 U/L (46-116) H C-Reactive Protein, Quantitative 16.7 mg/dL (0.00-0.90) H Total Protein 7.4 G/DL (6.4-8.2) Albumin 1.8 G/DL (3.4-5.0) L Globulin 5.6 g/dL Albumin/Globulin Ratio 0.3 (1.0-2.7) L Current Medications Medications (Trade) Dose Ordered Sig/Anamaria Route PRN Reason Start Time Stop Time Status Last Admin Dose Admin Acetaminophen (Tylenol) 650 mg Q4H PRN ORAL fever 03/29/19 23:45 04/28/19 23:44 Albuterol/ Ipratropium (Albuterol/ Ipratropium) 3 ml Q4H PRN HHN sob 04/08/19 10:45 04/13/19 10:44 Amlodipine Besylate (Norvasc) 2.5 mg BID ORAL 04/07/19 18:00 05/02/19 08:59 04/11/19 08:08 Aspirin (ASA) 81 mg DAILY ORAL 04/08/19 09:00 05/02/19 08:59 04/11/19 08:08 Atorvastatin Calcium (Lipitor) 80 mg BEDTIME ORAL 04/01/19 21:00 05/01/19 20:59 04/10/19 22:11 Dextrose (Dextrose 50%) 25 ml Q30M PRN IV Hypoglycemia 03/29/19 23:45 04/28/19 23:44 Dextrose (Dextrose 50%) 50 ml Q30M PRN IV Hypoglycemia 03/29/19 23:45 04/28/19 23:44 Diphenhydramine HCl (Benadryl) 25 mg Q6H PRN ORAL Itching/Pruritis 03/29/19 23:45 04/28/19 23:44 Ertapenem 1 gm/ Sodium Chloride 55 ml @ 110 mls/hr Q24H IVPB 04/08/19 09:00 04/13/19 08:59 04/11/19 08:08 Folic Acid (Folate) 1 mg DAILY ORAL 04/01/19 11:15 05/01/19 11:14 04/11/19 08:08 Heparin Sodium (Porcine) (Heparin 5000 units/ml) 5,000 units EVERY 12 HOURS SUBQ 03/30/19 09:00 04/29/19 08:59 04/11/19 08:10 Nitroglycerin (Ntg) 0.4 mg Q5M X 3 DOSES PRN SL Prn Chest Pain 03/29/19 23:45 04/28/19 23:44 Ondansetron HCl (Zofran) 4 mg Q6H PRN IVP Nausea & Vomiting 03/29/19 23:45 04/28/19 23:44 Pantoprazole (Protonix) 40 mg EVERY 12 HOURS ORAL 04/02/19 21:00 05/02/19 20:59 04/11/19 08:08 Polyethylene Glycol (Miralax) 17 gm HSPRN PRN ORAL Constipation 03/29/19 23:45 04/28/19 23:44 Tre Drummond MD Apr 11, 2019 11:13
--- NOTE | 2019-04-11 11:39 | Nephrology Progress Note ---
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 She is not ready for hospice at this time however wants her father to go to a intermediate and consider hospice at the later time. She will be discussing it with social media marketing manager and case management. Subjective ROS Limited/Unobtainable: No Constitutional: Reports: malaise, weakness Objective Objective Last 24 Hour Vital Signs Date Time Temp Pulse Resp B/P (MAP) Pulse Ox O2 Delivery O2 Flow Rate FiO2 04/11/19 09:00 Room Air 04/11/19 08:08 92 138/64 04/11/19 08:00 97.3 93 20 133/64 (87) 96 04/11/19 04:00 97.9 104 20 106/56 (73) 96 04/11/19 00:00 97.8 105 20 129/67 (87) 98 04/10/19 21:00 Room Air 04/10/19 20:00 97.3 95 20 125/66 (85) 96 04/10/19 19:49 98 18 94 Room Air 21 04/10/19 17:55 95 128/82 04/10/19 16:00 97.4 95 20 128/82 (97) 98 04/10/19 12:00 97.5 105 19 130/79 (96) 98 Intake and Output 04/10/19 04/11/19 19:00 07:00 Intake Total 855 ml 500 ml Output Total 600 ml Balance 855 ml -100 ml Intake Oral 800 ml 500 ml IV Total 55 ml Output Urine Total 200 ml Other 400 ml Laboratory Tests 04/11/19 05:50: White Blood Count 16.0H, Red Blood Count 3.21L, Hemoglobin 8.8L, Hematocrit 27.3L, Mean Corpuscular Volume 85, Mean Corpuscular Hemoglobin 27.5, Mean Corpuscular Hemoglobin Concent 32.3, Red Cell Distribution Width 15.0H, Platelet Count 535H, Mean Platelet Volume 6.5, Neutrophils (%) (Auto) , Lymphocytes (%) (Auto) , Monocytes (%) (Auto) , Eosinophils (%) (Auto) , Basophils (%) (Auto) , Differential Total Cells Counted 100, Neutrophils % ( Manual) 88H, Lymphocytes % (Manual) 8L, Monocytes % (Manual) 4, Eosinophils % ( Manual) 0, Basophils % (Manual) 0, Band Neutrophils 0, Platelet Estimate IncreasedH, Platelet Morphology Normal, Anisocytosis 1+, Erythrocyte Sedimentation Rate 121H, Sodium Level 149H, Potassium Level 3.9, Chloride Level 112H, Carbon Dioxide Level 27, Anion Gap 10, Blood Urea Nitrogen 27H, Creatinine 1.2, Estimat Glomerular Filtration Rate 57.7, Glucose Level 106, Calcium Level 8.2L, Phosphorus Level 2.6, Magnesium Level 2.1, Total Bilirubin 0.5, Aspartate Amino Transf (AST/SGOT) 30, Alanine Aminotransferase (ALT/SGPT) 23, Alkaline Phosphatase 212H, C-Reactive Protein, Quantitative 16.7H, Total Protein 7.4, Albumin 1.8L, Globulin 5.6, Albumin/Globulin Ratio 0.3L Height (Feet): 5 Height (Inches): 1.00 Weight (Pounds): 102 General Appearance: no apparent distress, lethargic Respiratory/Chest: decreased breath sounds Abdomen: soft Objective no change Tomas Beck MD Apr 11, 2019 11:38
[2019-04-11 12:00] VITALS: BP 141/69
--- NOTE | 2019-04-11 12:35 | NUR ---
NURSE NOTES: Paged Doctor Bhanu regarding clearance for discharge of patient. Waiting for callback.
--- NOTE | 2019-04-11 12:47 | Urology Progress Note ---
Assessment/Plan Assessment/Plan: hydro hx, right PCN JOSE MANUEL, improved UTI/colonzied hematuria proteinuria urinary retention/SPT renal cyst renal mass monitor clinically maintain SPT, last exchanged 04/06 hand irrigate PRN minimal urine output through SPT I suspect urine is refluxing through ureteral stent and coming out from right PCN maintain right PCN hand irrigate PRN abx as ordered monitor renal fxn, improved obtain outside records flomax dc'd f/u on last blood cx Subjective Allergies: Coded Allergies: No Known Allergies (Unverified , 03/29/19) Subjective confused, comfortable still with low output through SPT more urine output from right PCN d/w pt daughter who states SPT never put out much urine Objective Last 24 Hour Vital Signs Date Time Temp Pulse Resp B/P (MAP) Pulse Ox O2 Delivery O2 Flow Rate FiO2 04/11/19 12:00 97.3 104 20 141/69 (93) 96 04/11/19 09:00 Room Air 04/11/19 08:08 92 138/64 04/11/19 08:00 97.3 93 20 133/64 (87) 96 04/11/19 04:00 97.9 104 20 106/56 (73) 96 04/11/19 00:00 97.8 105 20 129/67 (87) 98 04/10/19 21:00 Room Air 04/10/19 20:00 97.3 95 20 125/66 (85) 96 04/10/19 19:49 98 18 94 Room Air 21 04/10/19 17:55 95 128/82 04/10/19 16:00 97.4 95 20 128/82 (97) 98 Intake and Output 04/10/19 04/11/19 19:00 07:00 Intake Total 855 ml 500 ml Output Total 600 ml Balance 855 ml -100 ml Intake Oral 800 ml 500 ml IV Total 55 ml Output Urine Total 200 ml Other 400 ml Microbiology Date/Time Source Procedure Growth Status 04/09/19 16:22 Blood Blood Culture - Preliminary NO GROWTH AFTER 24 HOURS Resulted 04/04/19 16:10 Urine,Clean Catch Urine Culture - Final NO GROWTH AFTER 48 HOURS Complete Current Medications Medications (Trade) Dose Ordered Sig/Anamaria Route PRN Reason Start Time Stop Time Status Last Admin Dose Admin Acetaminophen (Tylenol) 650 mg Q4H PRN ORAL fever 03/29/19 23:45 04/28/19 23:44 Albuterol/ Ipratropium (Albuterol/ Ipratropium) 3 ml Q4H PRN HHN sob 04/08/19 10:45 04/13/19 10:44 Amlodipine Besylate (Norvasc) 2.5 mg BID ORAL 04/07/19 18:00 05/02/19 08:59 04/11/19 08:08 Aspirin (ASA) 81 mg DAILY ORAL 04/08/19 09:00 05/02/19 08:59 04/11/19 08:08 Atorvastatin Calcium (Lipitor) 80 mg BEDTIME ORAL 04/01/19 21:00 05/01/19 20:59 04/10/19 22:11 Dextrose (Dextrose 50%) 25 ml Q30M PRN IV Hypoglycemia 03/29/19 23:45 04/28/19 23:44 Dextrose (Dextrose 50%) 50 ml Q30M PRN IV Hypoglycemia 03/29/19 23:45 04/28/19 23:44 Diphenhydramine HCl (Benadryl) 25 mg Q6H PRN ORAL Itching/Pruritis 03/29/19 23:45 04/28/19 23:44 Ertapenem 1 gm/ Sodium Chloride 55 ml @ 110 mls/hr Q24H IVPB 04/08/19 09:00 04/13/19 08:59 04/11/19 08:08 Folic Acid (Folate) 1 mg DAILY ORAL 04/01/19 11:15 05/01/19 11:14 04/11/19 08:08 Heparin Sodium (Porcine) (Heparin 5000 units/ml) 5,000 units EVERY 12 HOURS SUBQ 03/30/19 09:00 04/29/19 08:59 04/11/19 08:10 Nitroglycerin (Ntg) 0.4 mg Q5M X 3 DOSES PRN SL Prn Chest Pain 03/29/19 23:45 04/28/19 23:44 Ondansetron HCl (Zofran) 4 mg Q6H PRN IVP Nausea & Vomiting 03/29/19 23:45 04/28/19 23:44 Pantoprazole (Protonix) 40 mg EVERY 12 HOURS ORAL 04/02/19 21:00 05/02/19 20:59 04/11/19 08:08 Polyethylene Glycol (Miralax) 17 gm HSPRN PRN ORAL Constipation 03/29/19 23:45 04/28/19 23:44 Laboratory Tests 04/11/19 05:50: White Blood Count 16.0H, Red Blood Count 3.21L, Hemoglobin 8.8L, Hematocrit 27.3L, Mean Corpuscular Volume 85, Mean Corpuscular Hemoglobin 27.5, Mean Corpuscular Hemoglobin Concent 32.3, Red Cell Distribution Width 15.0H, Platelet Count 535H, Mean Platelet Volume 6.5, Neutrophils (%) (Auto) , Lymphocytes (%) (Auto) , Monocytes (%) (Auto) , Eosinophils (%) (Auto) , Basophils (%) (Auto) , Differential Total Cells Counted 100, Neutrophils % ( Manual) 88H, Lymphocytes % (Manual) 8L, Monocytes % (Manual) 4, Eosinophils % ( Manual) 0, Basophils % (Manual) 0, Band Neutrophils 0, Platelet Estimate IncreasedH, Platelet Morphology Normal, Anisocytosis 1+, Erythrocyte Sedimentation Rate 121H, Sodium Level 149H, Potassium Level 3.9, Chloride Level 112H, Carbon Dioxide Level 27, Anion Gap 10, Blood Urea Nitrogen 27H, Creatinine 1.2, Estimat Glomerular Filtration Rate 57.7, Glucose Level 106, Calcium Level 8.2L, Phosphorus Level 2.6, Magnesium Level 2.1, Total Bilirubin 0.5, Aspartate Amino Transf (AST/SGOT) 30, Alanine Aminotransferase (ALT/SGPT) 23, Alkaline Phosphatase 212H, C-Reactive Protein, Quantitative 16.7H, Total Protein 7.4, Albumin 1.8L, Globulin 5.6, Albumin/Globulin Ratio 0.3L Height (Feet): 5 Height (Inches): 1.00 Weight (Pounds): 102 Objective right PCN in place SPT in place urine yellow/davis renal and abdominal u/s noted Shantanu Dukes MD Apr 11, 2019 12:47
--- NOTE | 2019-04-11 13:04 | NUR ---
NURSE NOTES: Contacted by Doctor Drummond. Doctor Bhanu is aware of WBC being at 16, likely related to cancer. Patients ESBL in urine now considered colonized since antibiotic has finished. All other antibiotics can be discharged when patient is discharged from hospital.
--- NOTE | 2019-04-11 13:12 | NUR ---
DISCHARGE PLAN NOTE CALL TO [facility]. SPOKE WITH NIRMAL WHO PROVIDED ROOM ASSIGNMENT RM 110-A SKILLED NURSE TO NURSE REPORT [phone] Addendum: 04/11/19 at 1332 by CHUCKIE CLINTON LVN LVN BLS TRANSPORTATIONS SCHEDULED WITH [facility] @ EXT [id number] WITH ETA @ 1430 PM PATIENTS RP/DAUGHTER TOBIAS NOTIFIED AND INFORMED OF PATIENTS DC AND TRANSFER AND WILL COME TO [facility] [place]. WANTS TO BE PRESENT UPON PATIENTS DISCHARGE.
[2019-04-11] MEDS ORDERED: HEPARIN SO5000 UNIT2 SUBQ (13:20)
[2019-04-11] MEDS ORDERED: FOLIC ACID1 MG ORAL (13:20)
[2019-04-11] MEDS ORDERED: NORVASC2.5 MG ORAL (13:20)
[2019-04-11] MEDS ORDERED: LIPITOR80 MG ORAL (13:20)
[2019-04-11] MEDS ORDERED: DUONEB 0.5-3(2.53 ML HHN (13:20)
[2019-04-11] MEDS ORDERED: PANTOPRAZOLE SO40 MG ORAL (13:20)
[2019-04-11] MEDS ORDERED: ASPIRIN81 MG ORAL (13:20)
[2019-04-11] MEDS ORDERED: ACETAMINOPHEN325 M1 ORAL (13:20)
[2019-04-11] MEDS ORDERED: NITRO0.4 SL (13:20)
--- NOTE | 2019-04-11 13:20 | Pulmonology Progress Note ---
Assessment/Plan Problems: (1) Bacteremia (2) Sepsis (3) Acute metabolic encephalopathy (4) Nephrostomy status (5) CKD (chronic kidney disease) (6) Suprapubic catheter dysfunction (7) Colon cancer metastasized to multiple sites Assessment/Plan wbc still high, slightly lower improving iv abx, on Ertapenem for ESBL in urine and bacteremia check cultures, last BC are negative symptomatic treatment check electrolytes pt is a good candidate for palliative care Pt's daughter changed her mind and doesn't want to have comfort care and hospice. Subjective ROS Limited/Unobtainable: No Constitutional: Reports: no symptoms HEENT: Repors: no symptoms Allergies: Coded Allergies: No Known Allergies (Unverified , 03/29/19) Objective Last 24 Hour Vital Signs Date Time Temp Pulse Resp B/P (MAP) Pulse Ox O2 Delivery O2 Flow Rate FiO2 04/11/19 12:00 97.3 104 20 141/69 (93) 96 04/11/19 09:00 Room Air 04/11/19 08:08 92 138/64 04/11/19 08:00 97.3 93 20 133/64 (87) 96 04/11/19 04:00 97.9 104 20 106/56 (73) 96 04/11/19 00:00 97.8 105 20 129/67 (87) 98 04/10/19 21:00 Room Air 04/10/19 20:00 97.3 95 20 125/66 (85) 96 04/10/19 19:49 98 18 94 Room Air 21 04/10/19 17:55 95 128/82 04/10/19 16:00 97.4 95 20 128/82 (97) 98 Intake and Output 04/10/19 04/11/19 19:00 07:00 Intake Total 855 ml 500 ml Output Total 600 ml Balance 855 ml -100 ml Intake Oral 800 ml 500 ml IV Total 55 ml Output Urine Total 200 ml Other 400 ml General Appearance: WD/WN HEENT: normocephalic, anicteric Respiratory/Chest: chest wall non-tender, normal breath sounds, chest wall tender Cardiovascular: normal peripheral pulses, normal rate Abdomen: normal bowel sounds, no organomegaly Genitourinary: normal external genitalia Skin: no rash Microbiology Date/Time Source Procedure Growth Status 04/09/19 16:22 Blood Blood Culture - Preliminary NO GROWTH AFTER 24 HOURS Resulted 04/09/19 16:15 Blood Blood Culture - Preliminary NO GROWTH AFTER 24 HOURS Resulted Laboratory Tests 04/11/19 05:50: White Blood Count 16.0H, Red Blood Count 3.21L, Hemoglobin 8.8L, Hematocrit 27.3L, Mean Corpuscular Volume 85, Mean Corpuscular Hemoglobin 27.5, Mean Corpuscular Hemoglobin Concent 32.3, Red Cell Distribution Width 15.0H, Platelet Count 535H, Mean Platelet Volume 6.5, Neutrophils (%) (Auto) , Lymphocytes (%) (Auto) , Monocytes (%) (Auto) , Eosinophils (%) (Auto) , Basophils (%) (Auto) , Differential Total Cells Counted 100, Neutrophils % ( Manual) 88H, Lymphocytes % (Manual) 8L, Monocytes % (Manual) 4, Eosinophils % ( Manual) 0, Basophils % (Manual) 0, Band Neutrophils 0, Platelet Estimate IncreasedH, Platelet Morphology Normal, Anisocytosis 1+, Erythrocyte Sedimentation Rate 121H, Sodium Level 149H, Potassium Level 3.9, Chloride Level 112H, Carbon Dioxide Level 27, Anion Gap 10, Blood Urea Nitrogen 27H, Creatinine 1.2, Estimat Glomerular Filtration Rate 57.7, Glucose Level 106, Calcium Level 8.2L, Phosphorus Level 2.6, Magnesium Level 2.1, Total Bilirubin 0.5, Aspartate Amino Transf (AST/SGOT) 30, Alanine Aminotransferase (ALT/SGPT) 23, Alkaline Phosphatase 212H, C-Reactive Protein, Quantitative 16.7H, Total Protein 7.4, Albumin 1.8L, Globulin 5.6, Albumin/Globulin Ratio 0.3L Current Medications Medications (Trade) Dose Ordered Sig/Anamaria Route PRN Reason Start Time Stop Time Status Last Admin Dose Admin Acetaminophen (Tylenol) 650 mg Q4H PRN ORAL fever 03/29/19 23:45 04/28/19 23:44 Albuterol/ Ipratropium (Albuterol/ Ipratropium) 3 ml Q4H PRN HHN sob 04/08/19 10:45 04/13/19 10:44 Amlodipine Besylate (Norvasc) 2.5 mg BID ORAL 04/07/19 18:00 05/02/19 08:59 04/11/19 08:08 Aspirin (ASA) 81 mg DAILY ORAL 04/08/19 09:00 05/02/19 08:59 04/11/19 08:08 Atorvastatin Calcium (Lipitor) 80 mg BEDTIME ORAL 04/01/19 21:00 05/01/19 20:59 04/10/19 22:11 Dextrose (Dextrose 50%) 25 ml Q30M PRN IV Hypoglycemia 03/29/19 23:45 04/28/19 23:44 Dextrose (Dextrose 50%) 50 ml Q30M PRN IV Hypoglycemia 03/29/19 23:45 04/28/19 23:44 Diphenhydramine HCl (Benadryl) 25 mg Q6H PRN ORAL Itching/Pruritis 03/29/19 23:45 04/28/19 23:44 Ertapenem 1 gm/ Sodium Chloride 55 ml @ 110 mls/hr Q24H IVPB 04/08/19 09:00 04/13/19 08:59 04/11/19 08:08 Folic Acid (Folate) 1 mg DAILY ORAL 04/01/19 11:15 05/01/19 11:14 04/11/19 08:08 Heparin Sodium (Porcine) (Heparin 5000 units/ml) 5,000 units EVERY 12 HOURS SUBQ 03/30/19 09:00 04/29/19 08:59 04/11/19 08:10 Nitroglycerin (Ntg) 0.4 mg Q5M X 3 DOSES PRN SL Prn Chest Pain 03/29/19 23:45 04/28/19 23:44 Ondansetron HCl (Zofran) 4 mg Q6H PRN IVP Nausea & Vomiting 03/29/19 23:45 04/28/19 23:44 Pantoprazole (Protonix) 40 mg EVERY 12 HOURS ORAL 04/02/19 21:00 05/02/19 20:59 04/11/19 08:08 Polyethylene Glycol (Miralax) 17 gm HSPRN PRN ORAL Constipation 03/29/19 23:45 04/28/19 23:44 Nancy Bowser MD Apr 11, 2019 13:20
--- NOTE | 2019-04-11 13:22 | Internal Med Progress Note ---
Subjective Date of Service: Apr 11, 2019 Physician Name Nathan Lazo Attending Physician Doroteo Alberto MD Current Medications Medications (Trade) Dose Ordered Sig/Anamaria Route PRN Reason Start Time Stop Time Status Last Admin Dose Admin Acetaminophen (Tylenol) 650 mg Q4H PRN ORAL fever 03/29/19 23:45 04/28/19 23:44 Albuterol/ Ipratropium (Albuterol/ Ipratropium) 3 ml Q4H PRN HHN sob 04/08/19 10:45 04/13/19 10:44 Amlodipine Besylate (Norvasc) 2.5 mg BID ORAL 04/07/19 18:00 05/02/19 08:59 04/11/19 08:08 Aspirin (ASA) 81 mg DAILY ORAL 04/08/19 09:00 05/02/19 08:59 04/11/19 08:08 Atorvastatin Calcium (Lipitor) 80 mg BEDTIME ORAL 04/01/19 21:00 05/01/19 20:59 04/10/19 22:11 Dextrose (Dextrose 50%) 25 ml Q30M PRN IV Hypoglycemia 03/29/19 23:45 04/28/19 23:44 Dextrose (Dextrose 50%) 50 ml Q30M PRN IV Hypoglycemia 03/29/19 23:45 04/28/19 23:44 Diphenhydramine HCl (Benadryl) 25 mg Q6H PRN ORAL Itching/Pruritis 03/29/19 23:45 04/28/19 23:44 Ertapenem 1 gm/ Sodium Chloride 55 ml @ 110 mls/hr Q24H IVPB 04/08/19 09:00 04/13/19 08:59 04/11/19 08:08 Folic Acid (Folate) 1 mg DAILY ORAL 04/01/19 11:15 05/01/19 11:14 04/11/19 08:08 Heparin Sodium (Porcine) (Heparin 5000 units/ml) 5,000 units EVERY 12 HOURS SUBQ 03/30/19 09:00 04/29/19 08:59 04/11/19 08:10 Nitroglycerin (Ntg) 0.4 mg Q5M X 3 DOSES PRN SL Prn Chest Pain 03/29/19 23:45 04/28/19 23:44 Ondansetron HCl (Zofran) 4 mg Q6H PRN IVP Nausea & Vomiting 03/29/19 23:45 04/28/19 23:44 Pantoprazole (Protonix) 40 mg EVERY 12 HOURS ORAL 04/02/19 21:00 05/02/19 20:59 04/11/19 08:08 Polyethylene Glycol (Miralax) 17 gm HSPRN PRN ORAL Constipation 03/29/19 23:45 04/28/19 23:44 Allergies: Coded Allergies: No Known Allergies (Unverified , 03/29/19) ROS Limited/Unobtainable: Yes Subjective 83 YO M admitted with gen weakness and altered mental status. Now UTI and sepsis. Cover for Int Med-Dr Alberto. Continues with leukocytosis Objective Last Vital Signs Date Time Temp Pulse Resp B/P (MAP) Pulse Ox O2 Delivery O2 Flow Rate FiO2 04/11/19 12:00 97.3 104 20 141/69 (93) 96 04/11/19 09:00 Room Air 04/10/19 19:49 21 Laboratory Tests Test 04/11/19 05:50 White Blood Count 16.0 K/UL (4.8-10.8) H Red Blood Count 3.21 M/UL (4.70-6.10) L Hemoglobin 8.8 G/DL (14.2-18.0) L Hematocrit 27.3 % (42.0-52.0) L Mean Corpuscular Volume 85 FL (80-99) Mean Corpuscular Hemoglobin 27.5 PG (27.0-31.0) Mean Corpuscular Hemoglobin Concent 32.3 G/DL (32.0-36.0) Red Cell Distribution Width 15.0 % (11.6-14.8) H Platelet Count 535 K/UL (150-450) H Mean Platelet Volume 6.5 FL (6.5-10.1) Neutrophils (%) (Auto) % (45.0-75.0) Lymphocytes (%) (Auto) % (20.0-45.0) Monocytes (%) (Auto) % (1.0-10.0) Eosinophils (%) (Auto) % (0.0-3.0) Basophils (%) (Auto) % (0.0-2.0) Differential Total Cells Counted 100 Neutrophils % (Manual) 88 % (45-75) H Lymphocytes % (Manual) 8 % (20-45) L Monocytes % (Manual) 4 % (1-10) Eosinophils % (Manual) 0 % (0-3) Basophils % (Manual) 0 % (0-2) Band Neutrophils 0 % (0-8) Platelet Estimate Increased H Platelet Morphology Normal Anisocytosis 1+ Erythrocyte Sedimentation Rate 121 MM/HR (0-20) H Sodium Level 149 MMOL/L (136-145) H Potassium Level 3.9 MMOL/L (3.5-5.1) Chloride Level 112 MMOL/L (98-107) H Carbon Dioxide Level 27 MMOL/L (21-32) Anion Gap 10 mmol/L (5-15) Blood Urea Nitrogen 27 mg/dL (7-18) H Creatinine 1.2 MG/DL (0.55-1.30) Estimat Glomerular Filtration Rate 57.7 mL/min (>60) Glucose Level 106 MG/DL (74-106) Calcium Level 8.2 MG/DL (8.5-10.1) L Phosphorus Level 2.6 MG/DL (2.5-4.9) Magnesium Level 2.1 MG/DL (1.8-2.4) Total Bilirubin 0.5 MG/DL (0.2-1.0) Aspartate Amino Transf (AST/SGOT) 30 U/L (15-37) Alanine Aminotransferase (ALT/SGPT) 23 U/L (12-78) Alkaline Phosphatase 212 U/L (46-116) H C-Reactive Protein, Quantitative 16.7 mg/dL (0.00-0.90) H Total Protein 7.4 G/DL (6.4-8.2) Albumin 1.8 G/DL (3.4-5.0) L Globulin 5.6 g/dL Albumin/Globulin Ratio 0.3 (1.0-2.7) L Microbiology Date/Time Source Procedure Growth Status 04/09/19 16:22 Blood Blood Culture - Preliminary NO GROWTH AFTER 24 HOURS Resulted 04/09/19 16:15 Blood Blood Culture - Preliminary NO GROWTH AFTER 24 HOURS Resulted Intake and Output 04/10/19 04/11/19 19:00 07:00 Intake Total 855 ml 500 ml Output Total 600 ml Balance 855 ml -100 ml Intake Oral 800 ml 500 ml IV Total 55 ml Output Urine Total 200 ml Other 400 ml Objective PHYSICAL EXAMINATION: GENERAL: The patient is awake and responsive, but very chronically ill and cachectic. HEAD AND NECK: Pupils are equal and reactive to light. Extraocular movements intact. Neck was supple. No JVD. LUNGS: Good air entry. No wheezing or rales. Decreased air in bases. HEART: S1 and S2. Regular rhythm. No murmur or gallop. ABDOMEN: Soft, nondistended, and nontender. GENITOURINARY: Suprapubic catheter was noted. No sign of infection or drainage. Colostomy bag in the left side of abdomen was noted without any stool. No leakage or discharge. The patient has a suprapubic catheter in pelvic area with the right nephrostomy tube with cloudy urine. EXTREMITIES: No cyanosis, clubbing, or edema. Muscle atrophy was noted. RECTAL: Refused and deferred. PSYCHIATRIC: Mood and affect is intact. Assessment/Plan Assessment/Plan ASSESSMENT.: 1. Sepsis = Group B Strep 2. urinary tract infection=ESBL E. Coli 3. Severe dehydration. 3. Anemia of chronic disease. 4. Acute kidney injury, chronic insufficiency. 5. 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 6. Severe protein-calorie malnutrition. 7. Acute metabolic encephalopathy due to the sepsis, infection, and dehydration. 8. leukocytosis PLAN: 1. Admit the patient to medical floor. 2. antibiotic =Ertapenem. 3. Code status is Full Code. 4. Dr. Dawson = Infectious Disease 5. Dr. Parr = General surgery. 6. DVT prophylaxis with heparin subcutaneous. 7. Urology=Dr Dukes 8. ID=Dr Dawson 9. Discharge to [facility] Nathan Lazo MD Apr 11, 2019 13:22
--- NOTE | 2019-04-11 14:45 | NUR ---
NURSE NOTES: [facility] ambulance here to bring patient to [facility]. Report given by Dmitry RN to [facility] [place]. Report given to [facility] ambulance personal. Chavo Winkler is present in room and aware of discharge. Chavo Winkler has no questions for Dmitry ELENA at this time. IV removed. Drainage bags emptied. Paper work signed by chavo Winkler. Patient's vital signs within normal limits. Patient is awake and alert x 1. Patient in stable condition. Patient safely transferred to [facility]. Care for patient to end at this time.
--- NOTE | 2019-04-11 19:57 | Surgery Progress Note ---
Surgery Progress Note Subjective Additional Comments late entry as patient seen earlier todya ill appearing prognosis guarded d/c planning with comfort measures Objective Last 24 Hour Vital Signs Date Time Temp Pulse Resp B/P (MAP) Pulse Ox O2 Delivery O2 Flow Rate FiO2 04/11/19 12:00 97.3 104 20 141/69 (93) 96 04/11/19 09:00 Room Air 04/11/19 08:08 92 138/64 04/11/19 08:00 97.3 93 20 133/64 (87) 96 04/11/19 04:00 97.9 104 20 106/56 (73) 96 04/11/19 00:00 97.8 105 20 129/67 (87) 98 04/10/19 21:00 Room Air 04/10/19 20:00 97.3 95 20 125/66 (85) 96 I&O Intake and Output 04/10/19 04/11/19 18:59 06:59 Intake Total 855 ml 500 ml Output Total 600 ml Balance 855 ml -100 ml Intake Oral 800 ml 500 ml IV Total 55 ml Output Urine Total 200 ml Other 400 ml Cardiovascular: RSR, other Respiratory: clear, decreased breath sounds, other Abdomen: non-tender, present bowel sounds, other Extremities: no cyanosis Laboratory Tests Test 04/11/19 05:50 White Blood Count 16.0 K/UL (4.8-10.8) H Red Blood Count 3.21 M/UL (4.70-6.10) L Hemoglobin 8.8 G/DL (14.2-18.0) L Hematocrit 27.3 % (42.0-52.0) L Mean Corpuscular Volume 85 FL (80-99) Mean Corpuscular Hemoglobin 27.5 PG (27.0-31.0) Mean Corpuscular Hemoglobin Concent 32.3 G/DL (32.0-36.0) Red Cell Distribution Width 15.0 % (11.6-14.8) H Platelet Count 535 K/UL (150-450) H Mean Platelet Volume 6.5 FL (6.5-10.1) Neutrophils (%) (Auto) % (45.0-75.0) Lymphocytes (%) (Auto) % (20.0-45.0) Monocytes (%) (Auto) % (1.0-10.0) Eosinophils (%) (Auto) % (0.0-3.0) Basophils (%) (Auto) % (0.0-2.0) Differential Total Cells Counted 100 Neutrophils % (Manual) 88 % (45-75) H Lymphocytes % (Manual) 8 % (20-45) L Monocytes % (Manual) 4 % (1-10) Eosinophils % (Manual) 0 % (0-3) Basophils % (Manual) 0 % (0-2) Band Neutrophils 0 % (0-8) Platelet Estimate Increased H Platelet Morphology Normal Anisocytosis 1+ Erythrocyte Sedimentation Rate 121 MM/HR (0-20) H Sodium Level 149 MMOL/L (136-145) H Potassium Level 3.9 MMOL/L (3.5-5.1) Chloride Level 112 MMOL/L (98-107) H Carbon Dioxide Level 27 MMOL/L (21-32) Anion Gap 10 mmol/L (5-15) Blood Urea Nitrogen 27 mg/dL (7-18) H Creatinine 1.2 MG/DL (0.55-1.30) Estimat Glomerular Filtration Rate 57.7 mL/min (>60) Glucose Level 106 MG/DL (74-106) Calcium Level 8.2 MG/DL (8.5-10.1) L Phosphorus Level 2.6 MG/DL (2.5-4.9) Magnesium Level 2.1 MG/DL (1.8-2.4) Total Bilirubin 0.5 MG/DL (0.2-1.0) Aspartate Amino Transf (AST/SGOT) 30 U/L (15-37) Alanine Aminotransferase (ALT/SGPT) 23 U/L (12-78) Alkaline Phosphatase 212 U/L (46-116) H C-Reactive Protein, Quantitative 16.7 mg/dL (0.00-0.90) H Total Protein 7.4 G/DL (6.4-8.2) Albumin 1.8 G/DL (3.4-5.0) L Globulin 5.6 g/dL Albumin/Globulin Ratio 0.3 (1.0-2.7) L Plan Problems: (1) Sepsis Assessment & Plan: 83-year-old male with history of stage IV colon cancer status post left colostomy left nephrostomy tube placement superior catheter placement presented with leukocytosis, abnormal labs, abnormal LFTs, pain. On evaluation sepsis likely secondary to patient's UTI. Currently on antibiotics as per infectious disease. Abdominal examination and complete examination performed and as above. No acute surgical intervention indicated or recommended. Trend labs IV fluids Okay for diet from surgical standpoint Thank you will follow with recommendations I had a long discussion with the patient's daughter. She expressed understanding of his current condition and overall condition. She understands quality of life and CODE STATUS changed to DNR/DNI. Comfort care measures. No acute surgical intervention planned. worsening lft's US Findings: Exam is somewhat limited, due to patient inability to suspend respiration. Gallbladder demonstrates gallstones. Gallbladder wall is mildly thickened, measuring 4 mm in thickness. Common bile duct measures 4 mm in diameter. No intrahepatic biliary ductal dilatation. Liver demonstrates normal echogenicity, no focal abnormality. Note that portions are well visualized, however. Portal vein and hepatic veins are patent. Pancreas is unremarkable. Spleen is unremarkable. Left kidney measures 12 cm in length. Right kidney measures 11.3 cm length. Both kidneys demonstrate slightly increased echogenicity. Right kidney demonstrates mild hydronephrosis. Note that recent plain radiograph demonstrates a nephrostomy and a stent; these are not clearly evident on this study. The left kidney demonstrates lobulated contour and somewhat heterogeneous echotexture, possibly discrete echogenic lesions which are better demonstrated on recent renal sonogram.. . Non- aneurysmal abdominal aorta . Impression: Somewhat limited exam, as described Echogenic right kidney with mild hydronephrosis despite presence of a nephrostomy and stent Markedly abnormal left kidney, also described on recent renal sonogram and possibly demonstrating multiple masses Cholelithiasis. Mild gallbladder wall thickening, could indicate acute cholecystitis. Correlate with clinical findings, consider hepatobiliary nuclear scan if clinically indicated spoke with daughter goals of care for comfort no plans for intervention hold on further imaging or testing (2) Suprapubic catheter dysfunction Assessment & Plan: There is mild right hydronephrosis despite presence of a nephrostomy catheter which appears to be in good position. There is a small right renal cyst demonstrated measuring approximately 1 cm x 1.2 cm. The left kidney is abnormal. There is suggestion of multiple heterogeneous masses slightly echogenic in appearance within the left kidney. For example in the lower pole there is a 4 x 5 cm lesion. In the midpole there is a 3.7 x 3.6 cm lesion. In the upper pole there is a 4.5 cm lesion. Suggest correlation with contrast-enhanced CT.. The right kidney measures 10 cm. in length. The left kidney measures 12.2 cm. in length. The IVC is patent. Urinary bladder is unremarkable. Suprapubic catheter noted. Left lower quadrant colostomy noted. IMPRESSION: Abnormal appearance of the left kidney with suggestion of multiple lobular masses. Further evaluation with contrast-enhanced CT is recommended. Trace right hydronephrosis. Nephrostomy noted in place. Suprapubic catheter Additional Comments okay to d/c from surgical standpoint hopsice / comfort measures cont with ostomy care, tube care, and wound care as Igor Gill Apr 11, 2019 19:57
--- NOTE | 2019-04-12 09:27 | Discharge Summary ---
Discharge Summary Discharge Summary _ DATE OF ADMISSION: 03/30/2019 DATE OF DISCHARGE: 04/11/2019 DISCHARGED BY: Dr. Tabares REASON FOR ADMISSION: 83 years old male with past medical history of stage IV colon cancer, status post resection with a colostomy, metastasis to kidney and bladder, bilateral nephrostomy tube and suprapubic catheter , presented for evaluation due to altered mental status and generalized weakness. Patient reported pain in suprapubic area and decreased appetite. No reported nausea and vomiting , no reported diarrhea . No fever or chills . Upon evaluation vital signs were stable. Laboratory work-up revealed significant leukocytosis WBC 20, hemoglobin 9.6, hematocrit 30.2 with neutrophils 88%. Sodium 134, BUN 51, creatinine 2.4. Glucose 141. AST 105, ALT 112, alkaline phosphatase 343. Albumin 1.9. Lactic acid 1.2. Urinalysis revealed gross evidence of urinary tract infection. Chest x-ray demonstrated no acute cardiopulmonary pathology. Patient subsequently admitted for further management. CONSULTANTS: pulmonary/patient accounts specialist Dr. Bowser surgery Dr. Parr urologist Dr. Dukes [facility] COURSE: Patient admitted to medical surgical floor. Patient was kept n.p.o. and started on IV fluids. Antibiotic provided as per ID specialist recommendation. Supplemental oxygen provided and titrated to keep oximetry above 92%. Bronchodilator treatment via HHN provided. Strict aspiration precaution maintained. Pain management was addressed as needed. DVT and GI prophylaxis provided. Colostomy care provided. Output from suprapubic and nephrostomy tubes closely monitored with providing thorough care. Renal ultrasound suggested multiply lobular masses of the left kidney and trace right hydronephrosis. Renal parameters and electrolytes were closely monitored ,electrolytes corrected as needed , and nephrotoxic's were avoided. Symptomatic care provided. Hemoglobin and hematocrit were closely monitored with goal to keep hemoglobin above 7. Echocardiogram demonstrated preserved ejection fraction of 65%. No evidence of wall motion abnormalities. Mild mitral regurgitation. Blood culture revealed Strep agalactiae group B, urine culture revealed E. coli ESBL. Repeated blood culture still showed Strep agalactiae group B . Blood culture on 04/02 and 04/07 were already negative , and urine culture on was negative. Leukocytosis trending down. No fevers . Per ID specialist cause of group B strep bacteremia was most likely intra- abdominal , given malignancy. Echocardiogram revealed no evidence of vegetation. Family declined CT scan of the abdomen and pelvis to rule out abscess. Abdominal ultrasound showed echogenic right kidney with mild hydronephrosis, despite presence of nephrostomy tube and stent. Markedly abnormal left kidney , possibly demonstrated multiply masses . Leukocytosis was trending down , still 16 upon discharge . ID specialist could not rule out abscess , since family refused CT scan. However, leukocytosis also possibly at least partially reactive due to metastatic malignancy. Patient completed 14 days of ertapenem for ESBL UTI and group B strep bacteremia. Renal parameters and electrolytes were closely monitored. Acute kidney injury was likely due to dehydration. Electrolytes corrected as needed and nephrotoxins were avoided. BUN 27 creatinine 1.2. LFT were closely monitored and trending down : AST from 105 down to 30 and ALT from 112 down to 23. Abdominal ultrasound revealed cholelithiasis and mild gallbladder wall thickening , possibly indicative of acute cholecystitis. Urologist seen and evaluated patient. He recommended to maintain suprapubic catheter , which was exchanged on 04/06. Minimal urine output noted through the suprapubic tube. Urologist suspected that urine was refluxing through ureteral stent and was coming out from the right percutaneous nephrostomy tube. He recommended hand irrigation of nephrostomy tube as needed , complete antibiotics and monitor renal function. Flomax was discontinued. General surgeon followed. General surgeon cleared for discharge , continue with ostomy care and wound care. Daughter initially wanted palliative care, but later changed her mind and declined comfort care and hospice services. Supportive care provided. Placement was arranged to [facility]. Patient was stable for transfer. Overall prognosis remained poor. FINAL DIAGNOSES: Acute encephalopathy likely due to sepsis Sepsis with group B strep bacteremia UTI with E. 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 DISCHARGE INSTRUCTIONS: Patient was discharged to the care home facility. Follow up with medical doctor at the facility. Isi Garcia NP Apr 12, 2019 09:27
== END 2019-04-11 14:55 | DRG 871 ==
LOC: EDBD 21:10 → EMR 22:00 → EDBEDREQ 03-30 12:26 → 4E 03-30 12:38
PROC: 0T2BX0Z Change Drainage Device in Bladder, External Approach (ICD-10-PCS; principal; 2019-03-29)
DX: A40.1 Sepsis due to streptococcus, group B (principal); G92 Toxic encephalopathy; G93.41 Metabolic encephalopathy; E43 Unspecified severe protein-calorie malnutrition; N17.9 Acute kidney failure, unspecified; N39.0 Urinary tract infection, site not specified; C18.9 Malignant neoplasm of colon, unspecified; C79.00 Secondary malignant neoplasm of unspecified kidney and renal pelvis; C79.11 Secondary malignant neoplasm of bladder; Z68.1 Body mass index [BMI] 19.9 or less, adult; N99.512 Cystostomy malfunction; B96.20 Unspecified Escherichia coli [E. coli] as the cause of diseases classified elsewhere; E86.0 Dehydration; D64.9 Anemia, unspecified; N18.9 Chronic kidney disease, unspecified; Z93.3 Colostomy status; E83.52 Hypercalcemia; R79.89 Other specified abnormal findings of blood chemistry; R33.9 Retention of urine, unspecified; Z66 Do not resuscitate; Z51.5 Encounter for palliative care
CPT/HCPCS: 36415; 51702; 71045; 76700; 76770; 80048; 80053; 80061; 80076; 80202; 81001; 81003; 82043; 82150; 82248; 82378; 82550; 82553; 82607; 82728; 82746; 82962; 82977; 83540; 83550; 83605; 83690; 83735; 83880; 83935; 84100; 84300; 84443; 84484; 84550; 85007; 85025; 85610; 85651; 85730; 86140; 87040; 87086; 87181; 89050; 93005; 93306; 94664; 96361; 96365; 96375; 99285; J2405; J2430; J7030; J8499